=== PATIENT | male | born 1980 | race Hispanic/Latino ===

== ENCOUNTER 2025-04-10 11:32 | Inpatient (IN) | payer SELFPAY ==
[2025-04-10] VITALS (50 sets, daily range): BP systolic 110–149; BP diastolic 58–85; PULSE 86–112; RESP 16–29; TEMP 36.9–37.9; O2SAT 71–100; BMI 41.5
--- NOTE | ~2025-04-10 | XR_ITS ---
EXAMINATION: XR chest 1V portable, 04/15/2025 18:50 CDT HISTORY: New onset fever not resolving COMPARISON: No comparisons available. Technique: Single view. Findings: The lungs are clear, no effusion. No pneumothorax. Heart is normal size. Mediastinal and hilar contours are within normal limits. Bony thorax no acute abnormality. Impression: No acute cardiopulmonary abnormality. Reviewed, dictated and finalized at location A. Impression: No acute cardiopulmonary abnormality.
--- NOTE | ~2025-04-10 | CT_ITS ---
Exam: CT chest, abdomen and pelvis without contrast Clinical History: [Fever. Renal failure ] Comparison: [ CTA abdomen pelvis 04/28/2025] Technique: Multiple axial CT images of the chest, abdomen and pelvis were obtained without IV contrast. Sagittal and coronal reformatted images were obtained. FINDINGS: Lungs and pleura: [ Small bilateral pleural effusions.] Tracheal bronchial tree is patent. No pneumothorax. No pulmonary mass. There are a few small patchy, reticular and bandlike opacities in the lower lungs. Mediastinum and pulmonary evan: [ No mass or adenopathy.] Axillary/intramammary and supraclavicular: [ No mass or adenopathy.] Heart and great vessels: [Heart is moderately enlarged.[ [ Small pericardial effusion.] [ No aneurysm.] Chest Wall: [ Unremarkable.] Liver: [Micronodular appearance to the surface of the liver suggestive of cirrhosis.No mass.] [ No intrahepatic biliary duct dilatation.] Gallbladder: Gallbladder is contracted. Common bile duct: [ Normal caliber.] [ No stones.] Spleen: [Spleen is enlarged and measures 19.8 cm. Pancreas: [ No mass. No pancreatic fluid collection.] Adrenals: [ No masses.] Kidneys: [ No masses. No hydronephrosis.][No renal calculi ] Lymph nodes: [ No adenopathy in the abdomen or pelvis.] Stomach, small bowel and colon: [ No bowel wall thickening or obstruction.] Moderate amount of stool. Peritoneum cavity: [ Small to moderate amount of nonspecific fat stranding and fluid in the abdomen and pelvis. Bladder: [ Mild concentric thickening of the wyman of a moderately distended bladder.] Prostate gland is not enlarged but is partially calcified. Osseous structures: [ No acute fracture or destructive lesion.] [ Multilevel degenerative change in the visualized spine.] Bones appear osteopenic. There are two probable old compression fractures in the thoracic spine. Abdominal aorta: [ No aneurysm.] Additional findings: [ None of significance.] IMPRESSION: 1. There are a few small patchy, reticular and bandlike opacities in the lower lungs. Differential includes atelectasis/scarring or infiltrates. 2. Small bilateral pleural effusions. 3. Small to moderate amount of nonspecific fat stranding and fluid in the abdomen and pelvis. 4. The gallbladder is contracted. Acute cholecystitis is not excluded. If of concern, consider a HIDA scan. 5. Moderate amount of stool. 6. Micronodular appearance to the surface of the liver suggestive of cirrhosis. 7. Splenomegaly 8. Mild concentric thickening of the wyman of the moderately distended bladder. Differential includes incomplete bladder wall distention versus cystitis. If symptoms persist or worsen, consider a short-term follow-up study or additional imaging for further assessment. Reviewed, dictated and finalized at location Q. IMPRESSION: 1. There are a few small patchy, reticular and bandlike opacities in the lower lungs. Differential includes atelectasis/scarring or infiltrates. 2. Small bilateral pleural effusions. 3. Small to moderate amount of nonspecific fat stranding and fluid in the abdom en and pelvis. 4. The gallbladder is contracted. Acute cholecystitis is not excluded. If of co ncern, consider a HIDA scan. 5. Moderate amount of stool. 6. Micronodular appearance to the surface of the liver suggestive of cirrhosis. 7. Splenomegaly 8. Mild concentric thickening of the wyman of the moderately distended bladder. Differential includes incomplete bladder wall distention versus cystitis. If symptoms persist or worsen, consider a short-term follow-up study or additio nal imaging for further assessment.
--- NOTE | ~2025-04-10 | US_ITS ---
US renal BI 04/16/2025 18:23 Procedure: Realtime transabdominal ultrasound of the kidneys and bladder. Indication: Renal failure Comparison: No prior studies for comparison. Findings: Renal echotexture is normal bilaterally without hydronephrosis, contour deforming mass or renal calculus. The right kidney measures 12.9 cm and left kidney measures 12.5 cm. Bladder within normal limits. There is ascites in the upper abdomen. Nodular liver surface, compatible cirrhosis. Impression: 1: Unremarkable renal ultrasound. No stones, masses or hydronephrosis. 2: Ascites. 3: Nodular liver surface, compatible with cirrhosis. Reviewed, dictated and finalized at location O. Impression: 1: Unremarkable renal ultrasound. No stones, masses or hydronephrosis. 2: Ascites. 3: Nodular liver surface, compatible with cirrhosis.
--- NOTE | ~2025-04-10 | CT_ITS ---
EXAMINATION: CTA abdomen pelvis DATE: 04/10/2025 16:35 CDT INDICATION: Cirrhosis. GI bleed. TECHNIQUE: Computed tomographic angiography (CTA) of the abdomen and pelvis was performed without and with 100 mL Omnipaque-350 intravenous contrast. The dose- length product was 804.65 mGy-cm. Maximum intensity projection 3D- reconstructions of the aorta and other arteries were constructed by the techno logist on a separate workstation. COMPARISON: None. FINDINGS: Lung bases unremarkable. Cardiomegaly. There is cirrhosis of the liver with evidence of portal hypertension and splenomegaly. The pancreas, adrenal glands and kidneys are unremarkable. Nonobstructive bowel gas pattern. There is ascites. No significant vascular abnormality. Retroaortic left renal vein. Mild bladder wall thickening. No acute osseous abnormality. IMPRESSION: 1. Cirrhosis with portal hypertension. 2: Splenomegaly. 3: Cardiomegaly. 4: Small amount of ascites. 5: Mild bladder wall thickening. Correlate clinically for cystitis. Reviewed, dictated and finalized at location O.
--- NOTE | ~2025-04-10 | CT_ITS ---
EXAM: CT brain wo con - 04/10/2025 12:30 CDT History: 44 years old Male with sz COMPARISON: None available. PROCEDURE: CT of the head without contrast. Axial, sagittal and coronal reformatted planes were evaluated. Automatic exposure control was used for this study. FINDINGS: BRAIN PARENCHYMA: No acute hemorrhage. No mass effect or herniation. Ignacio-white matter differentiation is maintained. Normal appearance of cortex. VENTRICLES/ EXTRA-AXIAL SPACES: No hydrocephalus or extra-axial fluid collection. EXTRACRANIAL STRUCTURES: No calvarial fracture. IMPRESSION: No evidence for acute intracranial hemorrhage or calvarial fracture. Reviewed, dictated and finalized at location N.
--- NOTE | ~2025-04-10 | US_ITS ---
EXAMINATION: US paracentesis abd w/image DATE: 04/12/2025 08:51 INDICATION: Ascites. TECHNIQUE: The procedure and its risks and benefits were discussed with the patient. Potential risks discussed included bleeding and infection. The skin was prepped and draped in sterile fashion. 1% lidocaine was used for local anesthesia. Under ultrasound guidance, a 5 Fr catheter with trochar was advanced into the ascites in the left lower quadrant. Fluid was aspirated into vacuum bottles. The catheter was removed, and a dressing was applied. There were no immediate complications. FINDINGS: Ultrasound images demonstrate ascites and the catheter within the fluid. IMPRESSION: 1. Successful ultrasound-guided paracentesis yielding 1000 mL of clear saba- colored fluid. Reviewed, dictated and finalized at location A. IMPRESSION: 1. Successful ultrasound-guided paracentesis yielding 1000 mL of clear saba-c olored fluid.
--- NOTE | 2025-04-10 11:43 | ECG_ITS ---
Test Date: 2025-04-10 12:07:40 Measurements Intervals [place] Rate: 100 P: 58 MD: 168 QRS: 39 QRSD: 102 T: 30 QT: 352 QTc: 455 Interpretive Statements SINUS TACHYCARDIA LOW-VOLTAGE QRS OTHERWISE NORMAL ECG No previous ECG available for comparison Electronically Signed On 04-10-2025 16:02:47 CDT by Mk Cr M.D.
[2025-04-10 12:50] LABS: Cannabinoid Screen Urine Negative (Negative)
[2025-04-10 12:51] LABS: Add Urine Microscopic? YES; Appearance Urine Cloudy (Clear); Glucose Urine UA Negative (Negative); Leukocyte Esterase Ur Trace LEU/UL (Negative); Need Manual Microscopic Reviewed; Nitrate Urine Negative (Negative); Specific Grav Ur 1.014 (1.001-1.035)
[2025-04-10] MEDS: SODIUM CHLORIDE 0.9% IV 1,000 ML 150 ML IV CONT (12:53)
[2025-04-10 14:24] LABS: Immature Granulocyte Percent A 2.3 % (0-0.5); Lymphocytes Absolute Auto 0.46 K/mm3 (0.9-3.2); Mean Corpuscular HGB Conc 22.5 g/dl (32-36); Mean Corpuscular Hemoglobin 17.4 pg (26-34); Mean Corpuscular Volume 77.1 fl (80-100); Nucleated Red Blood Cells Absolute Auto 0.130 K/mm3 (0.0-0.012); Nucleated Red Blood Cells Perc 6.0 % (0.0-0.2); Platelet Count Result 48 k/mm3 (150-375); Red Blood Count 1.44 M/mm3 (4.6-6.20); White Blood Count 2.2 K/mm3 (4.5-10.0)
[2025-04-10 14:34] LABS: Hematocrit 11.1 % (42.0-52.0); Hemoglobin 2.5 g/dL (14.0-18.0)
[2025-04-10 14:36] LABS: INR 1.8; Prothrombin Time 20.7 Seconds (11.1-14.7)
[2025-04-10 15:15] LABS: Alanine Aminotransferase 17 U/L (6-50); Albumin Level 2.7 g/dL (3.5-5.1); Alkaline Phosphatase 107 U/L (38-126); Anion Gap 9 mmol/L (4-12); Aspartate Amino Transferase 40 U/L (17-59); Bilirubin,Total 3.5 mg/dL (0.2-1.3); Blood Urea Nitrogen 14 mg/dL (9-20); Calcium 7.7 mg/dL (8.4-10.2); Carbon Dioxide 19 mmol/L (22-30); Chloride 109 mmol/L (98-107); Estimated CRCL calculation 92 ml/min; Estimated Glomerular Filt Rate > 60; Glucose 99 mg/dL (65-110); Lipase 192 U/L (23-300); Potassium 3.6 mmol/L (3.4-5.0); Sodium 137 mmol/L (137-145); Total Protein 7.1 g/dL (6.3-8.2)
[2025-04-10 15:24] LABS: NT Pro B Type Natriuretic Pept 355 pg/mL (19.9-100)
[2025-04-10] MEDS: TUBING, BLOOD SET 1 EACH XX (17:07)
[2025-04-10] MEDS: SODIUM CHLORIDE 0.9% IV 250 ML 30 ML IV CONT ×2 (17:07→22:14)
--- NOTE | 2025-04-10 17:18 | ED_ITS ---
HPI - Seizure General Chief Complaint: Seizure Stated Complaint: seizure Time Seen by Provider: 04/10/25 11:38 Source: bar host/hostess Mode of arrival: EMS Limitations: language barrier History of Present Illness HPI Narrative: 44-year-old [place]-speaking was brought in by EMS from home with the complaints of having seizure activity. As per the EMS patient had seizure activity at 5:00 a.m. in the morning however he declined to come to the ER at that time had another seizure while he was on the horse and fell. Denies any headache neck pain or chest pain. He is a daily drinker. Last drink was 2 days ago. No previous history of seizures. MD complaint: seizure Onset (ago): hour(s) (1) Description of Episode: loss of consciousness, bladder incontinence (no) and bowel incontinence (no) Witnessed: Yes - by Bystander Trauma: No Seizure History: No Place: home Possible Precipitating Event: none Associated symptoms: denies other symptoms Related Data Allergies Allergy/AdvReac Type Severity Reaction Status Date / Time No Known Allergies Allergy Verified 04/10/25 12:11 Review of Systems 2 Constitutional: Constitutional: Reports no additional constitutional complaints Eyes: Eyes: Reports no additional eye complaints ENT: Reports system reviewed and no additional complaints, except as documented Cardiovascular: Cardiovascular: Reports no additional cardiovascular complaints Respiratory: Respiratory: Reports no additional respiratory complaints Gastrointestinal: Gastrointestinal: Reports no additional gastrointestinal complaints Musculoskeletal: Musculoskeletal: Reports no additional musculoskeletal complaints Neurologic: Reports system reviewed and no additional complaints, except as documented Exam 2 Narrative: GENERAL: Well-appearing, well-nourished, and in no acute distress. HEAD: Normocephalic, atraumatic. EYES: PERRLA and EOMI. ENT: Nares clear, no rhinorrhea or epistaxis. Mucous membranes moist. Has small tongue lac at the tip ,no active bleeding NECK: Supple. CHEST: Clear to auscultation. No respiratory distress. HEART: Regular rate and rhythm. No murmur heard. Normal peripheral pulses. ABDOMEN: Soft, nontender, mild distended, normal active bowel sounds. Heme positive stool EXTREMITIES: Normal range of motion. No edema. SKIN: Warm, dry, no rash. NEURO: No focal deficits. Alert and oriented x3. PSYCH: Normal mood and affect. Course Course Emergency Course: Patient had no further episodes of seizure activity however his hemoglobin is 2.5 did order 3 units of PRBC. His rectal exam showed heme-positive stools did start him on Protonix. Discussed with the electric meter repairer apprentice recommended octreotide drip. Also consulted Dr. Murray will consult patient. Vital Signs Vital signs: Vital Signs Pulse Rate 99 04/10/25 12:13 Respiratory Rate 18 04/10/25 12:13 Pulse Oximetry 98 04/10/25 12:13 Oxygen Delivery Room Air 04/10/25 12:13 Temperature 37.2 C 04/10/25 16:48 Pulse Rate 104 H 04/10/25 16:48 Respiratory Rate 24 H 04/10/25 16:48 Blood Pressure 125/68 04/10/25 16:48 Pulse Oximetry 100 04/10/25 16:48 Oxygen Delivery Room Air 04/10/25 12:20 MDM - Seizure Differential Diagnosis Differential diagnosis: Likely new onset seizure, epileptic seizure and other (alcohol withdrawal) Medical Records Attestation: I reviewed the patient's medical records. Lab Data Attestation: I reviewed the patient's lab results. 04/10/25 14:09 04/10/25 14:09 Labs: Lab Results 04/10/25 04/10/25 04/10/25 Range/Units 12:23 14:09 14:10 WBC 2.2 L (4.5-10.0) K/mm3 RBC 1.44 L (4.6-6.20) M/mm3 Hgb 2.5 L* (14.0-18.0) g/dL Hct 11.1 L* (42.0-52.0) % MCV 77.1 L (80-100) fl MCH 17.4 L (26-34) pg MCHC 22.5 L (32-36) g/dl RDW 23.7 H (11.5-14.5) % Plt Count 48 L (150-375) k/mm3 MPV 9.4 (7.4-10.4) fl Immature Gran % (Auto) 2.3 H (0-0.5) % Neut % (Auto) 61.9 (45.5-73.1) % Lymph % (Auto) 21.1 (18.3-44.2) % [place] % (Auto) 14.2 H (2.6-8.5) % Eos % (Auto) 0.5 (0-4.4) % Baso % (Auto) 0.0 L (0.2-1.2) % Lymph # (Auto) 0.46 L (0.9-3.2) K/mm3 [place] # (Auto) 0.3 (0.1-0.6) K/mm3 Eos # (Auto) 0.0 (0-0.3) K/mm3 Baso # (Auto) 0.0 (0.0-0.1) K/mm3 Abs Immat Gran (auto) 0.05 H (0.00-0.031) K/mm3 Absolute Neuts (auto) 1.4 (1.3-6.7) K/mm3 Absolute Nucleated RBC 0.130 H (0.0-0.012) K/mm3 Nucleated RBC % 6.0 H (0.0-0.2) % PT 20.7 H (11.1-14.7) Seconds INR 1.8 Sodium 137 (137-145) mmol/L Potassium 3.6 (3.4-5.0) mmol/L Chloride 109 H (98-107) mmol/L Carbon Dioxide 19 L (22-30) mmol/L Anion Gap 9 (4-12) mmol/L BUN 14 (9-20) mg/dL Creatinine 0.93 (0.7-1.3) mg/dL Estim Creat Clear Calc 92 ml/min Estimated GFR > 60 (59 - ) Glucose 99 (65-110) mg/dL Lactic Acid 2.1 H (0.7-2.0) mmol/L Calcium 7.7 L (8.4-10.2) mg/dL Total Bilirubin 3.5 H (0.2-1.3) mg/dL AST 40 (17-59) U/L ALT 17 (6-50) U/L Alkaline Phosphatase 107 (38-126) U/L NT-Pro-B Natriuret Pep 355 H (19.9-100) pg/mL Total Protein 7.1 (6.3-8.2) g/dL Albumin 2.7 L (3.5-5.1) g/dL Lipase 192 (23-300) U/L Urine Color Dark yellow (Yellow) Urine Appearance Cloudy H (Clear) Urine pH 6.0 (5.0-9.0) Ur Specific [place] 1.014 (1.001-1.035) Urine Protein 2+ H (Negative) mg/dL Urine Glucose (UA) Negative (Negative) mg/dL Urine Ketones Negative (Negative) mg/dL Ur Blood (Man) Negative (Negative) Urine Nitrate Negative (Negative) Urine Bilirubin 1+ H (Negative) Urine Urobilinogen 1.0 (<2.0) mg/dL Add Ur Microanalysis Reviewed Leukocyte Esterase Rfl Trace H (Negative) VASQUEZ/UL Urine RBC 3-5 H (0-2) /hpf Urine WBC 0-5 (0-3) /hpf Ur Squamous Epith Cells Occasional (Few) /hpf Urine Bacteria None seen /hpf Urine Casts 11-20 Urine Opiates Screen Negative (Negative) Urine Methadone Screen Negative (Negative) Ur Barbiturates Screen Negative (Negative) Ur Phencyclidine Scrn Negative (Negative) Ur Amphetamine Screen Negative (Negative) U Benzodiazepines Scrn Negative (Negative) Urine Cocaine Screen Negative (Negative) U Cannabinoids Screen Negative (Negative) Ethyl Alcohol < 10 (<10) mg/dL Blood Type Antibody Screen Crossmatch 04/10/25 04/10/25 Range/Units 14:45 16:49 WBC (4.5-10.0) K/mm3 RBC (4.6-6.20) M/mm3 Hgb (14.0-18.0) g/dL Hct (42.0-52.0) % MCV (80-100) fl MCH (26-34) pg MCHC (32-36) g/dl RDW (11.5-14.5) % Plt Count (150-375) k/mm3 MPV (7.4-10.4) fl Immature Gran % (Auto) (0-0.5) % Neut % (Auto) (45.5-73.1) % Lymph % (Auto) (18.3-44.2) % [place] % (Auto) (2.6-8.5) % Eos % (Auto) (0-4.4) % Baso % (Auto) (0.2-1.2) % Lymph # (Auto) (0.9-3.2) K/mm3 [place] # (Auto) (0.1-0.6) K/mm3 Eos # (Auto) (0-0.3) K/mm3 Baso # (Auto) (0.0-0.1) K/mm3 Abs Immat Gran (auto) (0.00-0.031) K/mm3 Absolute Neuts (auto) (1.3-6.7) K/mm3 Absolute Nucleated RBC (0.0-0.012) K/mm3 Nucleated RBC % (0.0-0.2) % PT (11.1-14.7) Seconds INR Sodium (137-145) mmol/L Potassium (3.4-5.0) mmol/L Chloride (98-107) mmol/L Carbon Dioxide (22-30) mmol/L Anion Gap (4-12) mmol/L BUN (9-20) mg/dL Creatinine (0.7-1.3) mg/dL Estim Creat Clear Calc ml/min Estimated GFR (59 - ) Glucose (65-110) mg/dL Lactic Acid 1.7 (0.7-2.0) mmol/L Calcium (8.4-10.2) mg/dL Total Bilirubin (0.2-1.3) mg/dL AST (17-59) U/L ALT (6-50) U/L Alkaline Phosphatase (38-126) U/L NT-Pro-B Natriuret Pep (19.9-100) pg/mL Total Protein (6.3-8.2) g/dL Albumin (3.5-5.1) g/dL Lipase (23-300) U/L Urine Color (Yellow) Urine Appearance (Clear) Urine pH (5.0-9.0) Ur Specific [place] (1.001-1.035) Urine Protein (Negative) mg/dL Urine Glucose (UA) (Negative) mg/dL Urine Ketones (Negative) mg/dL Ur Blood (Man) (Negative) Urine Nitrate (Negative) Urine Bilirubin (Negative) Urine Urobilinogen (<2.0) mg/dL Add Ur Microanalysis Leukocyte Esterase Rfl (Negative) VASQUEZ/UL Urine RBC (0-2) /hpf Urine WBC (0-3) /hpf Ur Squamous Epith Cells (Few) /hpf Urine Bacteria /hpf Urine Casts Urine Opiates Screen (Negative) Urine Methadone Screen (Negative) Ur Barbiturates Screen (Negative) Ur Phencyclidine Scrn (Negative) Ur Amphetamine Screen (Negative) U Benzodiazepines Scrn (Negative) Urine Cocaine Screen (Negative) U Cannabinoids Screen (Negative) Ethyl Alcohol (<10) mg/dL Blood Type O Positive Antibody Screen Negative Crossmatch See Detail Imaging Data Radiologist's impression: ITS Impressions Head CT 04/10/25 12:55 IMPRESSION: No evidence for acute intracranial hemorrhage or calvarial fracture. Abdomen/Pelvis CTA 04/10/25 16:34 IMPRESSION: 1. Cirrhosis with portal hypertension. 2: Splenomegaly. 3: Cardiomegaly. 4: Small amount of ascites. 5: Mild bladder wall thickening. Correlate clinically for cystitis. ECG Data EKG #1: ECG completion date: 04/10/25 ECG completion time: 01:00 EKG Interpretation: tachycardia (100), no ectopy, normal QRS, normal QT and no acute changes Critical Care Time Critical Care Time Critical Care Time: Yes Total Critical Care Time: 45 Discharge Plan Discharge Clinical Impression: Alcohol withdrawal seizure Qualifiers: Complication of substance-induced condition: uncomplicated Qualified Code(s): F 10.930 - Alcohol use, unspecified with withdrawal, uncomplicated; R56.9 - Unspecified convulsions GI (gastrointestinal hemorrhage) Qualifiers: GI bleed type/associated pathology: unspecified gastrointestinal hemorrhage type Qualified Code(s): K92.2 - Gastrointestinal hemorrhage, unspecified Anemia Qualifiers: Anemia type: unspecified type Qualified Code(s): D64.9 - Anemia, unspecified Cirrhosis of liver Qualifiers: Hepatic cirrhosis type: alcoholic cirrhosis Ascites presence: with ascites Q ualified Code(s): K70.31 - Alcoholic cirrhosis of liver with ascites Patient Disposition: Still a Patient Condition: Stable Patient Language: Divehi Follow-up/Referrals: UNKNOWN,DOCTOR [Primary Care Provider] Time of Disposition: 17:20
--- NOTE | 2025-04-10 17:42 | P.HP_ITS ---
H&P: HPI History of Present Illness Date/Time: 04/10/25 17:42 Chief Complaint: Seizure Narrative: 44-year-old male past medical history of ETOH use presents the hospital with seizures. Patient had is for seizure around 5:00 a.m. EMS was called however he declined AMS at that time. Later on in the day the patient had another seizure with a fall. Patient states his last drink was 2 days ago. 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 Patient states that he has some abdominal pain. Patient denies dizziness, fatigue, dark tardy or bloody stools. Patient states that he drinks a lot of beer. He is unable to quantify how much. He drinks. He states that his last drink was on Wednesday. He states that he is not going through any withdrawal symptoms. In the ED the patient's lab work shows thrombocytopenia with white count being 2.2, hemoglobin being 2.5, platelets being 48, chloride 109, carbon dioxide 19, lactic acid 2.1 followed by 1.7, calcium 7.7, total bili 3.5, UA is cloudy with trace leukocyte esterase, 3-5 rbc's, tox screen is negative, ethanol level is negative. Chest abdomen pelvis shows cirrhosis with portal hypertension, splenomegaly, cardiomegaly, small amount of ascites and mild bladder wall thickening. Patient has been accepted into the ICU plan to transfuse at least 3 units RBCs and start patient on Rocephin, Protonix and octreotide. 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 Review of Systems Review of Systems: 12 systems were reviewed and are negativ e except for as per HPI. [facility] Past Medical History Medical History (Updated 04/10/25 @ 17:54 by Jeannette Colbert APRN) Alcohol abuse Cirrhosis of liver Social History Social History Smoking packs per day: 2 Smoking cigarettes per day: 40.0 Years smoked: 8 Smoking pack-years: 16.00 Smoking status: Former smoker Tobacco type: cigarettes Alcohol intake: current Drinks per week: 12 Substance use: never Lack of Transportation: No Lack of Food: Never True Current Housing: I Do Not Have Housing Concerned About Future Housing: No Difficulty Paying Gas/Electric Bills: No Difficulty Paying for Meds: No Currently Unemployed: No Education: Grade School Difficulty w/ Childcare or Family Care: No Spiritual care concerns: No Meds Home Medications and Allergies Home Medications ?Medication ?Instructions ?Recorded ?Confirmed ?Type No Home Medications 04/10/25 04/10/25 H istory Allergies Allergy/AdvReac Type Severity Reaction Status Date / Time No Known Allergies Allergy Verified 04/10/25 12:11 Vital Signs Vital Signs - 24 hr 04/10/25 12:13 04/10/25 12:17 04/10/25 12:20 Temperature Pulse Rate 99 98 Respiratory Rate 18 19 Blood Pressure Pulse Oximetry 98 98 Oxygen Delivery Room Air Room Air 04/10/25 12:37 04/10/25 12:45 04/10/25 13:00 Temperature Pulse Rate 103 H 97 98 Respiratory Rate 21 H 21 H 22 H Blood Pressure Pulse Oximetry 71 L 100 100 Oxygen Delivery 04/10/25 13:15 04/10/25 16:28 04/10/25 16:48 Temperature 98.9 F 98.9 F Pulse Rate 96 103 H 104 H Respiratory Rate 23 H 23 H 24 H Blood Pressure 131/63 125/68 Pulse Oximetry 100 100 100 Oxygen Delivery 04/10/25 17:37 Temperature 99 F Pulse Rate 98 Respiratory Rate 19 Blood Pressure 121/69 Pulse Oximetry 98 Oxygen Delivery Exam Narrative: General: well appearing, appears stated age. Jaundice HEENT: normocephalic, atraumatic. Mucous membranes moist. EOMI, PERRLA, bilateral sclera icterus no conjunctival injection. Neck supple without JVD, lymphadenopathy, or bruit. Respiratory: clear to ascultation bilaterally. No rales/rhonic/wheezes. Cardiovascular: Regular rate and rhythm, normal S1-S2 upon ascultation. No murmurs, rubs, or clicks. PMI is nondisplaced, capillary refill less than 3 second. Abdomen: Firm obese, no pulsatile masses, nondistended and nontender. No rebound, no guarding. No CVA tenderness, no hepatosplenomegaly. Bowel sounds present to all four quadrants. No high pitch or tinkling sounds, resonant to percussion. Extremities: No cyanosis, clubbing, or edema present. Pulses are palpable 2/2. Active ROM to all four extremities. Neuro: Alert and orientated x 4. PERRLA. Cranial nerves 2-12 intact without focal deficit. Skin: Warm, dry, and intact, without rash, erythema, or lesion. Psych: pleasant, cooperative, normal speech, normal affect, no hallucinations, no dysarthia H&P: Results Labs Labs: Short CBC 04/10/25 Range/Units 14:09 WBC 2.2 L (4.5-10.0) K/mm3 Hgb 2.5 L* (14.0-18.0) g/dL Hct 11.1 L* (42.0-52.0) % Plt Count 48 L (150-375) k/mm3 BMP 04/10/25 14:09 Sodium 137 Potassium 3.6 Chloride 109 H Carbon Dioxide 19 L BUN 14 Creatinine 0.93 Glucose 99 Calcium 7.7 L Liver Function 04/10/25 Range/Units 14:09 Total Bilirubin 3.5 H (0.2-1.3) mg/dL AST 40 (17-59) U/L ALT 17 (6-50) U/L Alkaline Phosphatase 107 (38-126) U/L Albumin 2.7 L (3.5-5.1) g/dL Urine 04/10/25 Range/Units 12:23 Urine Color Dark yellow (Yellow) Urine Appearance Cloudy H (Clear) Urine pH 6.0 (5.0-9.0) Ur Specific [place] 1.014 (1.001-1.035) Urine Protein 2+ H (Negative) mg/dL Urine Glucose (UA) Negative (Negative) mg/dL Assessment and Plan Assessment and plan (1) Anemia: Qualifiers: Anemia type: unspecified type Qualified Code(s): D64.9 - Anemia, unspecified Code(s): D64.9 - Anemia, unspecified Status: Acute Assessment and Plan: Hemoglobin on admission 2.5 Admission to ICU Transfuse least 3 units H&H q.6 Hemoglobin after 3 units was 5.9. (2) GI (gastrointestinal hemorrhage): Qualifiers: GI bleed type/associated pathology: unspecified gastrointestinal hemorrhage type Qualified Code(s): K92.2 - Gastrointestinal hemorrhage, unspecified Code(s): K92.2 - Gastrointestinal hemorrhage, unspecified Status: Acute Assessment and Plan: GI consulted Plan for scope tomorrow NPO midnight (3) Cirrhosis of liver: Qualifiers: Ascites presence: with ascites Hepatic cirrhosis type: alcoholic cirrhosis Qualified Code(s): K70.31 - Alcoholic cirrhosis of liver with ascites Code(s): K74.60 - Unspecified cirrhosis of liver Status: Acute Assessment and Plan: With portal hypertension Octreotide and Protonix GI consulted (4) Alcohol withdrawal seizure: Qualifiers: Complication of substance-induced condition: uncomplicated Qualified Code(s): F10.930 - Alcohol use, unspecified with withdrawal, uncomplicated; R56.9 - Unspecified convulsions Code(s): F10.939 - Alcohol use, unspecified with withdrawal, unspecified; R56.9 - Unspecified convulsions Status: Acute Assessment and Plan: WA protocol Valium, thiamine, folic acid, multivitamin Seizure precautions (5) Thrombocytopenia: Code(s): D69.6 - Thrombocytopenia, unspecified Status: Acute Assessment and Plan: Likely due to liver cirrhosis Hematology consulted (6) Hypocalcemia: Code(s): E83.51 - Hypocalcemia Status: Acute Assessment and Plan: 1 g calcium gluconate Quality VTE Prophylaxis VTE prophylaxis: mechanical ordered If No VTE Prophylaxis Answer both mechanical and pharmacologic: Reason no pharmacologic proph: medical contraindication Hospitalist MIPS Advance Care Plan I have confirmed that the patient's Advanced Care Plan is present, code status is documented, or surrogate decision maker is listed in patient medical record.: Yes Medication Reconciliation I have utilized all available resources to obtain, update and review the patients current medications (includes all prescriptions, OTC, herbals, cannabis, and nutritional supplements).: Yes
[2025-04-10] MEDS: TUBING, BLOOD PLUM PUMP TUBING 1 EACH XX (17:50)
[2025-04-10] MEDS: PANTOPRAZOLE SODIUM IV 40 MG VIAL IV PUSH (18:25)
[2025-04-10] MEDS: chlordiazePOXIDE (*CRX) 25 MG CAPSULE 50 MG PO (18:25)
[2025-04-10 19:01] LABS: MRSA (PCR) NOT DETECTED (NOT DETECTE)
--- NOTE | 2025-04-10 19:10 | ADMGEN ---
This patient, Edilberto Funes, was admitted to Intensive Care Unit-8. Patient/family oriented to hospital policies and general routines including ID bracelet, bed and alarms, visiting hours, pain management, procedures, bathroom and other care routines, personal items, smoking policy, room service/diet, and visiting hours. Information on how to activate the Rapid Response Team has been discussed. Patient/Family are encouraged to report perceived risks to care and to ask questions if they do not understand what they are told or what they should do.
[2025-04-10] MEDS: CALCIUM GLUC 1,000 MG/NS 50 ML 1,000 MG/50 ML BAG 100 MG IVPB (19:36)
[2025-04-10] MEDS: OCTREOTIDE ACETATE 500 MCG in SODIUM CHLORIDE 0.9% IV 99 ML 10 MCG IV CONT (19:36)
[2025-04-10 22:06] LABS: Hematocrit 21.9 % (42.0-52.0)
[2025-04-10 22:09] LABS: Hemoglobin 5.9 g/dL (14.0-18.0)
[2025-04-11] VITALS (33 sets, daily range): BP systolic 112–148; BP diastolic 7–87; PULSE 71–87; RESP 12–20; TEMP 36.1–37.5; O2SAT 97–100
[2025-04-11] MEDS: chlordiazePOXIDE (*CRX) 25 MG CAPSULE 50 MG PO (00:40)
[2025-04-11] MEDS: DEXTROSE 50% 25 GM/50 ML SYRINGE IV PUSH (01:45)
[2025-04-11 03:48] LABS: Hematocrit 21.0 % (42.0-52.0); Immature Granulocyte Percent A 1.7 % (0-0.5); Lymphocytes Absolute Auto 0.60 K/mm3 (0.9-3.2); Mean Corpuscular HGB Conc 28.6 g/dl (32-36); Mean Corpuscular Hemoglobin 23.7 pg (26-34); Mean Corpuscular Volume 83.0 fl (80-100); Nucleated Red Blood Cells Absolute Auto 0.120 K/mm3 (0.0-0.012); Nucleated Red Blood Cells Perc 4.1 % (0.0-0.2); Platelet Count Result 62 k/mm3 (150-375); Red Blood Count 2.53 M/mm3 (4.6-6.20); White Blood Count 3.0 K/mm3 (4.5-10.0)
[2025-04-11 03:55] LABS: INR 1.7; Prothrombin Time 19.9 Seconds (11.1-14.7)
[2025-04-11 03:56] LABS: Alanine Aminotransferase 17 U/L (6-50); Albumin Level 2.7 g/dL (3.5-5.1); Alkaline Phosphatase 76 U/L (38-126); Anion Gap 6 mmol/L (4-12); Aspartate Amino Transferase 37 U/L (17-59); Bilirubin,Total 6.3 mg/dL (0.2-1.3); Blood Urea Nitrogen 12 mg/dL (9-20); Calcium 7.8 mg/dL (8.4-10.2); Carbon Dioxide 17 mmol/L (22-30); Chloride 112 mmol/L (98-107); Estimated Glomerular Filt Rate > 60; Glucose 119 mg/dL (65-110); Magnesium 2.4 mg/dL (1.6-2.3); Partial Thromboplastin Time 37.4 Seconds (22.3-36.8); Potassium 3.6 mmol/L (3.4-5.0); Sodium 135 mmol/L (137-145); Total Protein 7.0 g/dL (6.3-8.2)
[2025-04-11 03:59] LABS: Hemoglobin 6.0 g/dL (14.0-18.0)
[2025-04-11 04:00] LABS: Anisocytosis 1+; Hypochromasia 2+; Poikilocytosis 1+
[2025-04-11 04:01] LABS: Ovalocytes Occasional; Schistocytes Rare; Tear Drop Cells 1+
[2025-04-11] MEDS: OCTREOTIDE ACETATE 500 MCG in SODIUM CHLORIDE 0.9% IV 99 ML 10 MCG IV CONT (04:18)
[2025-04-11 09:24] LABS: Ammonia 48 umol/L (9-30)
--- NOTE | 2025-04-11 09:29 | WPDCNINT ---
Assessment and Plan Assessment and plan (1) Anemia: Qualifiers: Anemia type: unspecified type Qualified Code(s): D64.9 - Anemia, unspecified Code(s): D64.9 - Anemia, unspecified Status: Acute Assessment and Plan: Patient presented with hemoglobin of 2.5. He denies any hematochezia melena or hematemesis but we strongly suspect ongoing chronic GI bleed likely variceal considering patient has history of cirrhosis He has not had any bowel movements since coming to the hospital. And no obvious bleeding at this time Continue Protonix IV and octreotide infusion He has received 4 units of PRBC and his hemoglobin is 6. I will transfuse another unit of PRBC Monitor serial hemoglobin GI has been consulted and plan for EGD and colonoscopy most likely on 04/12 (2) Alcohol abuse: Code(s): F10.10 - Alcohol abuse, uncomplicated Status: Acute Assessment and Plan: Continue thiamine folic acid CIWA monitoring Set continue for Librium but I will decrease the dose to 25 Continue p.r.n. Valium (3) Thrombocytopenia: Code(s): D69.6 - Thrombocytopenia, unspecified Status: Acute Assessment and Plan: Likely secondary to cirrhosis. Monitor (4) Cirrhosis of liver: Qualifiers: Ascites presence: with ascites Hepatic cirrhosis type: alcoholic cirrhosis Qualified Code(s): K70.31 - Alcoholic cirrhosis of liver with ascites Code(s): K74.60 - Unspecified cirrhosis of liver Status: Acute Assessment and Plan: Secondary to alcohol abuse Check ammonia Vitamin K IM 10 mg SBP prophylaxis with Rocephin (5) GI (gastrointestinal hemorrhage): Qualifiers: GI bleed type/associated pathology: unspecified gastrointestinal hemorrhage type Qualified Code(s): K92.2 - Gastrointestinal hemorrhage, unspecified Code(s): K92.2 - Gastrointestinal hemorrhage, unspecified Status: Acute Assessment and Plan: See above (6) Alcohol withdrawal seizure: Qualifiers: Complication of substance-induced condition: uncomplicated Qualified Code(s): F10.930 - Alcohol use, unspecified with withdrawal, uncomplicated; R56.9 - Unspecified convulsions Code(s): F10.939 - Alcohol use, unspecified with withdrawal, unspecified; R56.9 - Unspecified convulsions Status: Acute Assessment and Plan: Strongly suspect alcohol withdrawal seizures. Patient has not have any history of seizures otherwise. She had no recurrence since coming to the hospital Seizure precaution He is on Librium and p.r.n. Valium is ordered (7) Ascites: Code(s): R18.8 - Other ascites Status: Acute Assessment and Plan: Patient has site is on exam and CT scan He denies any abdominal pain to me but did admit having abdominal pain 2 admitting provider Continue Rocephin Will request IR for ultrasound-guided paracentesis both diagnostic and therapeutic Plan DVT prophylaxis -S CD Stress ulcer prophylaxis -PPI Nutrition - NPO Code Status - Full Code Annual Giving Manager Consult Note Consult date: 04/11/25 Reason for consult: Alcohol withdrawal seizure, anemia HPI: Edilberto Funes is a 44 year old male with past medical history of heavy ETOH use presents the hospital with seizures. Patient had a seizure around 5:00 a.m yesterday. EMS was called however he declined to come to the hospital initially. Later on in the day the patient had another seizure with a fall and was brought to the hospital. Patient admitted to drinking daily but his last drink was 2 days ago. Patient denied any major symptoms including dizziness, fatigue, dark tardy or bloody stools. Workup In the ED the patient's lab work shows thrombocytopenia with white count being 2.2, hemoglobin being 2.5, platelets being 48, chloride 109, carbon dioxide 19, lactic acid 2.1 followed by 1.7, calcium 7.7, total bili 3.5, UA is cloudy with trace leukocyte esterase, 3-5 rbc's, tox screen is negative, ethanol level is negative. Chest abdomen pelvis shows cirrhosis with portal hypertension, splenomegaly, cardiomegaly, small amount of ascites and mild bladder wall thickening. Patient was admitted to the ICU patient was transfused 4 units RBCs overnight. He was also started on Protonix and octreotide. This morning when I evaluated the patient patient denies any specific complaints. He is little drowsy this morning as he received Librium. He has not had any seizures since admission. He has not had any bowel movements. Patient denies fever, chest pain, shortness of breath, cough, nausea vomiting, abdominal pain,, diarrhea, headache or constipation. All other systems were reviewed and were negative Review of Systems Review of Systems: All systems reviewed & are unremarkable except as noted in HPI and below (HPI) [facility] Past Medical History Medical History Alcohol abuse Cirrhosis of liver Social History Social History Smoking packs per day: 2 Smoking cigarettes per day: 40.0 Years smoked: 8 Smoking pack-years: 16.00 Smoking status: Former smoker Tobacco type: cigarettes Alcohol intake: current Drinks per week: 12 Substance use: never Lack of Transportation: No Lack of Food: Never True Current Housing: I Do Not Have Housing Concerned About Future Housing: No Difficulty Paying Gas/Electric Bills: No Difficulty Paying for Meds: No Currently Unemployed: No Education: Grade School Difficulty w/ Childcare or Family Care: No Spiritual care concerns: No Meds Home Medications and Allergies Home Medications ?Medication ?Instructions ?Recorded ?Confirmed ?Type No Home Medications 04/10/25 04/10/25 History Allergies Allergy/AdvReac Type Severity Reaction Status Date / Time No Known Allergies Allergy Verified 04/10/25 12:11 Vital Signs Vital Signs - 24 hr 04/10/25 12:13 04/10/25 12:17 04/10/25 12:20 Temperature Pulse Rate 99 98 Pulse Rate [Monitor] Respiratory Rate 18 19 Blood Pressure Pulse Oximetry 98 98 Oxygen Delivery Room Air Room Air 04/10/25 12:37 04/10/25 12:45 04/10/25 13:00 Temperature Pulse Rate 103 H 97 98 Pulse Rate [Monitor] Respiratory Rate 21 H 21 H 22 H Blood Pressure Pulse Oximetry 71 L 100 100 Oxygen Delivery 04/10/25 13:15 04/10/25 13:26 04/10/25 13:30 Temperature Pulse Rate 96 96 99 Pulse Rate [Monitor] Respiratory Rate 23 H 19 22 H Blood Pressure 124/61 Pulse Oximetry 100 100 100 Oxygen Delivery 04/10/25 13:31 04/10/25 13:45 04/10/25 13:46 Temperature Pulse Rate 99 99 99 Pulse Rate [Monitor] Respiratory Rate 18 21 H 18 Blood Pressure 122/68 129/64 Pulse Oximetry 100 100 100 Oxygen Delivery 04/10/25 14:00 04/10/25 14:01 04/10/25 14:15 Temperature Pulse Rate 99 103 H 98 Pulse Rate [Monitor] Respiratory Rate 20 25 H 19 Blood Pressure 130/61 Pulse Oximetry 100 100 100 Oxygen Delivery 04/10/25 14:16 04/10/25 14:30 04/10/25 14:31 Temperature Pulse Rate 98 98 100 Pulse Rate [Monitor] Respiratory Rate 17 20 18 Blood Pressure 119/66 122/58 L Pulse Oximetry 100 100 100 Oxygen Delivery 04/10/25 14:45 04/10/25 15:00 04/10/25 15:15 Temperature Pulse Rate 104 H 99 100 Pulse Rate [Monitor] Respiratory Rate 24 H 25 H 17 Blood Pressure Pulse Oximetry 100 100 100 Oxygen Delivery 04/10/25 15:30 04/10/25 16:10 04/10/25 16:15 Temperature Pulse Rate 101 H 112 H 106 H Pulse Rate [Monitor] Respiratory Rate 17 21 H Blood Pressure Pulse Oximetry 100 100 Oxygen Delivery 04/10/25 16:28 04/10/25 16:48 04/10/25 17:21 Temperature 37.2 C 37.2 C Pulse Rate 103 H 104 H 99 Pulse Rate [Monitor] Respiratory Rate 23 H 24 H 21 H Blood Pressure 131/63 125/68 Pulse Oximetry 100 100 Oxygen Delivery 04/10/25 17:30 04/10/25 17:31 04/10/25 17:37 Temperature 37.2 C Pulse Rate 99 100 98 Pulse Rate [Monitor] Respiratory Rate 21 H 19 19 Blood Pressure 121/69 121/69 Pulse Oximetry 98 Oxygen Delivery 04/10/25 17:58 04/10/25 17:58 04/10/25 18:10 Temperature 37.3 C 37.3 C Pulse Rate 97 97 98 Pulse Rate [Monitor] Respiratory Rate 18 18 21 H Blood Pressure 127/66 127/66 Pulse Oximetry 97 97 Oxygen Delivery 04/10/25 18:15 04/10/25 18:16 04/10/25 18:30 Temperature Pulse Rate 97 100 97 Pulse Rate [Monitor] Respiratory Rate 16 20 19 Blood Pressure 126/70 Pulse Oximetry Oxygen Delivery 04/10/25 18:31 04/10/25 18:45 04/10/25 18:46 Temperature Pulse Rate 97 93 96 Pulse Rate [Monitor] Respiratory Rate 19 19 21 H Blood Pressure 133/66 124/70 Pulse Oximetry Oxygen Delivery 04/10/25 19:39 04/10/25 19:45 04/10/25 19:45 Temperature 36.9 C 36.9 C Pulse Rate 88 88 88 Pulse Rate [Monitor] Respiratory Rate 21 H 21 H Blood Pressure 128/74 139/73 139/73 Pulse Oximetry 100 100 Oxygen Delivery 04/10/25 20:00 04/10/25 20:00 04/10/25 20:00 Temperature Pulse Rate 86 Pulse Rate [Monitor] 90 Respiratory Rate Blood Pressure Pulse Oximetry Oxygen Delivery Room Air 04/10/25 20:03 04/10/25 20:03 04/10/25 20:22 Temperature 36.9 C 36.9 C 37.9 C H Pulse Rate 89 89 92 Pulse Rate [Monitor] Respiratory Rate 29 H 29 H 20 Blood Pressure 137/77 137/77 132/79 Pulse Oximetry 100 100 100 Oxygen Delivery 04/10/25 20:22 04/10/25 20:59 04/10/25 20:59 Temperature 37.9 C H 37.7 C H 37.7 C H Pulse Rate 92 88 88 Pulse Rate [Monitor] Respiratory Rate 20 22 H 22 H Blood Pressure 132/79 129/73 129/73 Pulse Oximetry 100 100 100 Oxygen Delivery 04/10/25 21:22 04/10/25 21:22 04/10/25 21:36 Temperature 37.2 C 37.2 C 37.2 C Pulse Rate 100 100 89 Pulse Rate [Monitor] Respiratory Rate 24 H 24 H 24 H Blood Pressure 110/85 110/85 125/73 Pulse Oximetry 100 100 100 Oxygen Delivery 04/10/25 21:36 04/10/25 22:00 04/10/25 22:00 Temperature 37.2 C Pulse Rate 89 89 89 Pulse Rate [Monitor] Respiratory Rate 24 H 23 H Blood Pressure 125/73 137/73 Pulse Oximetry 100 100 Oxygen Delivery 04/10/25 22:54 04/10/25 22:54 04/10/25 23:15 Temperature 37.4 C 37.4 C 37.6 C H Pulse Rate 86 86 86 Pulse Rate [Monitor] Respiratory Rate 19 19 23 H Blood Pressure 149/74 H 149/74 H 146/81 H Pulse Oximetry 100 100 100 Oxygen Delivery 04/10/25 23:15 04/10/25 23:33 04/11/25 00:00 Temperature 37.6 C H Pulse Rate 86 88 Pulse Rate [Monitor] 85 Respiratory Rate 23 H 19 Blood Pressure 146/81 H Pulse Oximetry 100 100 Oxygen Delivery 04/11/25 00:00 04/11/25 00:00 04/11/25 00:00 Temperature 37.4 C Pulse Rate 85 85 Pulse Rate [Monitor] Respiratory Rate 13 Blood Pressure 134/72 Pulse Oximetry 100 Oxygen Delivery Room Air 04/11/25 00:15 04/11/25 00:30 04/11/25 00:47 Temperature 37.4 C 37.1 C Pulse Rate 86 85 82 Pulse Rate [Monitor] Respiratory Rate 16 13 19 Blood Pressure 138/79 148/84 H Pulse Oximetry 100 100 100 Oxygen Delivery 04/11/25 01:23 04/11/25 02:00 04/11/25 02:00 Temperature Pulse Rate 84 87 87 Pulse Rate [Monitor] Respiratory Rate 20 18 Blood Pressure 112/71 Pulse Oximetry 100 100 Oxygen Delivery 04/11/25 04:00 04/11/25 04:00 04/11/25 04:00 Temperature 37.2 C Pulse Rate 77 Pulse Rate [Monitor] 77 Respiratory Rate 15 Blood Pressure 130/75 Pulse Oximetry 100 Oxygen Delivery Room Air 04/11/25 04:00 04/11/25 06:00 04/11/25 06:00 Temperature Pulse Rate 77 79 79 Pulse Rate [Monitor] Respiratory Rate 13 Blood Pressure 117/75 Pulse Oximetry 100 Oxygen Delivery 04/11/25 08:00 Temperature 36.6 C Pulse Rate 77 Pulse Rate [Monitor] Respiratory Rate 14 Blood Pressure 122/69 Pulse Oximetry 100 Oxygen Delivery Exam Narrative: General: Pt is alert awake and in NAD Lungs/Chest: Trachea central Clear BS B/L, No crackles or wheezing. Cardiac: RRR. Normal S1 S2. No murmurs Circulation: Pedal pulses are intact and symmetrical. Abdomen: Distended, present bowel sounds.. Soft. NT, fluid thrill present Extremities: No clubbing, cyanosis or edema. Warm : Salgado in place Neurologic: Follows commands. Moves all 4 extremities PERRL Skin: No Rash Results Labs 04/11/25 03:35 04/11/25 03:35 Labs: Impressions Head CT 04/10/25 12:55 IMPRESSION: No evidence for acute intracranial hemorrhage or calvarial fracture. Abdomen/Pelvis CTA 04/10/25 16:34 IMPRESSION: 1. Cirrhosis with portal hypertension. 2: Splenomegaly. 3: Cardiomegaly. 4: Small amount of ascites. 5: Mild bladder wall thickening. Correlate clinically for cystitis. Short CBC 04/10/25 04/10/25 04/11/25 Range/Units 14:09 21:57 03:35 WBC 2.2 L 3.0 L (4.5-10.0) K/mm3 Hgb 2.5 L* 5.9 L* D 6.0 L* (14.0-18.0) g/dL Hct 11.1 L* 21.9 L 21.0 L (42.0-52.0) % Plt Count 48 L 62 L (150-375) k/mm3 BMP 04/10/25 04/11/25 14:09 03:35 Sodium 137 135 L Potassium 3.6 3.6 Chloride 109 H 112 H Carbon Dioxide 19 L 17 L BUN 14 12 Creatinine 0.93 0.94 Glucose 99 119 H Calcium 7.7 L 7.8 L Liver Function 04/10/25 04/11/25 Range/Units 14:09 03:35 Total Bilirubin 3.5 H 6.3 H (0.2-1.3) mg/dL AST 40 37 (17-59) U/L ALT 17 17 (6-50) U/L Alkaline Phosphatase 107 76 (38-126) U/L Albumin 2.7 L 2.7 L (3.5-5.1) g/dL Urine 04/10/25 Range/Units 12:23 Urine Color Dark yellow (Yellow) Urine Appearance Cloudy H (Clear) Urine pH 6.0 (5.0-9.0) Ur Specific [place] 1.014 (1.001-1.035) Urine Protein 2+ H (Negative) mg/dL Urine Glucose (UA) Negative (Negative) mg/dL Quality VTE Prophylaxis VTE prophylaxis: mechanical ordered Hospitalist MIPS Advance Care Plan I have confirmed that the patient's Advanced Care Plan is present, code status is documented, or surrogate decision maker is listed in patient medical record.: Yes Medication Reconciliation I have utilized all available resources to obtain, update and review the patients current medications (includes all prescriptions, OTC, herbals, cannabis, and nutritional supplements).: Yes
[2025-04-11] MEDS: FOLIC ACID 1 MG TABLET PO (09:40)
[2025-04-11] MEDS: PANTOPRAZOLE SODIUM IV 40 MG VIAL IV PUSH ×2 (09:40→16:49)
[2025-04-11] MEDS: THERAPEUTIC MULTIVITAMINS/MINERALS TAB (*BKC) 1 TABLET PO (09:40)
[2025-04-11] MEDS: PHYTONADIONE INJ 10 MG/ML AMP IM (09:40)
[2025-04-11] MEDS: THIAMINE HCL 100 MG TABLET PO (09:40)
[2025-04-11] MEDS: SODIUM BICARBONATE TAB 650 MG TABLET PO ×2 (09:40→16:49)
[2025-04-11] MEDS: POTASSIUM CHLORIDE INJ 40 MEQ in SODIUM CHLORIDE 0.9% IV 500 ML 130 MEQ IVPB (09:45)
[2025-04-11] MEDS: cefTRIAXone 2 GM in SODIUM CHLORIDE 0.9% IV 100 ML 200 ML IVPB (12:08)
[2025-04-11] MEDS: chlordiazePOXIDE (*CRX) 25 MG CAPSULE PO ×3 (12:14→23:28)
[2025-04-11 13:07] LABS: Hematocrit 27.0 % (42.0-52.0); Hemoglobin 7.6 g/dL (14.0-18.0); Immature Platelet Fraction Pct 3.1 % (0.9-11.2); Mean Corpuscular HGB Conc 28.1 g/dl (32-36); Mean Corpuscular Hemoglobin 23.9 pg (26-34); Mean Corpuscular Volume 84.9 fl (80-100); Platelet Count Result 73 k/mm3 (150-375); Red Blood Count 3.18 M/mm3 (4.6-6.20); White Blood Count 3.7 K/mm3 (4.5-10.0)
--- NOTE | 2025-04-11 13:12 | P.PNAN_ITS ---
Anes - Initial Pre Proc Eval Procedure: Operation Date: 04/11/25 14:45 Proposed Procedures p Esophagogastroduodenoscopy - Jesús Alcaraz MD Date/Time: 04/11/25 13:12 Surgeon: Yvonne Resendiz MD Pre Op Diagnosis: anemia,gi gleed,cirrhosis liver Patient Data Age: 44 Gender: M Height: 1.45 m Weight: 84 kg Last Vital Signs Temp 37.1 C 04/11/25 11:59 Pulse 76 04/11/25 12:00 Resp 20 04/11/25 11:59 BP 139/73 04/11/25 12:00 Pulse Ox 100 04/11/25 11:59 O2 Del Method Room Air 04/11/25 04:00 Allergies Allergy/AdvReac Type Severity Reaction Status Date / Time No Known Allergies Allergy Verified 04/11/25 13:19 Home Medications ?Medication ?Instructions ?Recorded ?Confirmed ?Type No Home Medications 04/10/25 04/10/25 H istory Laboratory Tests 04/10/25 04/10/25 04/10/25 14:09 14:10 14:45 WBC 2.2 L K/mm3 (4.5-10.0) RBC 1.44 L M/mm3 (4.6-6.20) Hgb 2.5 L* g/dL (14.0-18.0) Hct 11.1 L* % (42.0-52.0) MCV 77.1 L fl (80-100) MCH 17.4 L pg (26-34) MCHC 22.5 L g/dl (32-36) RDW 23.7 H % (11.5-14.5) Plt Count 48 L k/mm3 (150-375) MPV 9.4 fl (7.4-10.4) Immature Gran % (Auto) 2.3 H % (0-0.5) Neut % (Auto) 61.9 % (45.5-73.1) Lymph % (Auto) 21.1 % (18.3-44.2) [place] % (Auto) 14.2 H % (2.6-8.5) Eos % (Auto) 0.5 % (0-4.4) Baso % (Auto) 0.0 L % (0.2-1.2) Lymph # (Auto) 0.46 L K/mm3 (0.9-3.2) [place] # (Auto) 0.3 K/mm3 (0.1-0.6) Eos # (Auto) 0.0 K/mm3 (0-0.3) Baso # (Auto) 0.0 K/mm3 (0.0-0.1) Abs Immat Gran (auto) 0.05 H K/mm3 (0.00-0.031) Absolute Neuts (auto) 1.4 K/mm3 (1.3-6.7) Absolute Nucleated RBC 0.130 H K/mm3 (0.0-0.012) Band Neutrophils % Nucleated RBC % 6.0 H % (0.0-0.2) Platelet Estimate Large Platelets % Immature Plt Fraction Hypochromasia Poikilocytosis Anisocytosis Tear Drop Cells Ovalocytes Schistocytes PT 20.7 H Seconds (11.1-14.7) INR 1.8 APTT Sodium 137 mmol/L (137-145) Potassium 3.6 mmol/L (3.4-5.0) Chloride 109 H mmol/L (98-107) Carbon Dioxide 19 L mmol/L (22-30) Anion Gap 9 mmol/L (4-12) BUN 14 mg/dL (9-20) Creatinine 0.93 mg/dL (0.7-1.3) Estim Creat Clear Calc 92 ml/min Estimated GFR > 60 (59 - ) Glucose 99 mg/dL (65-110) POC Capillary Glucose Lactic Acid 2.1 H mmol/L (0.7-2.0) Calcium 7.7 L mg/dL (8.4-10.2) Phosphorus Magnesium Total Bilirubin 3.5 H mg/dL (0.2-1.3) AST 40 U/L (17-59) ALT 17 U/L (6-50) Alkaline Phosphatase 107 U/L (38-126) Ammonia NT-Pro-B Natriuret Pep 355 H pg/mL (19.9-100) Total Protein 7.1 g/dL (6.3-8.2) Albumin 2.7 L g/dL (3.5-5.1) Lipase 192 U/L (23-300) Nasal MRSA (PCR) Ethyl Alcohol < 10 mg/dL (<10) Blood Type O Positive Antibody Screen Negative Crossmatch See Detail 04/10/25 04/10/25 04/10/25 16:49 17:43 19:10 WBC RBC Hgb Hct MCV MCH MCHC RDW Plt Count MPV Immature Gran % (Auto) Neut % (Auto) Lymph % (Auto) [place] % (Auto) Eos % (Auto) Baso % (Auto) Lymph # (Auto) [place] # (Auto) Eos # (Auto) Baso # (Auto) Abs Immat Gran (auto) Absolute Neuts (auto) Absolute Nucleated RBC Band Neutrophils % Nucleated RBC % Platelet Estimate Large Platelets % Immature Plt Fraction Hypochromasia Poikilocytosis Anisocytosis Tear Drop Cells Ovalocytes Schistocytes PT INR APTT Sodium Potassium Chloride Carbon Dioxide Anion Gap BUN Creatinine Estim Creat Clear Calc Estimated GFR Glucose POC Capillary Glucose 81 mg/dl (65-105) Lactic Acid 1.7 mmol/L (0.7-2.0) Calcium Phosphorus Magnesium Total Bilirubin AST ALT Alkaline Phosphatase Ammonia NT-Pro-B Natriuret Pep Total Protein Albumin Lipase Nasal MRSA (PCR) Not detected (NOT DETECTE) Ethyl Alcohol Blood Type Antibody Screen Crossmatch 04/10/25 04/11/25 04/11/25 21:57 01:37 02:21 WBC RBC Hgb 5.9 L* D g/dL (14.0-18.0) Hct 21.9 L % (42.0-52.0) MCV MCH MCHC RDW Plt Count MPV Immature Gran % (Auto) Neut % (Auto) Lymph % (Auto) [place] % (Auto) Eos % (Auto) Baso % (Auto) Lymph # (Auto) [place] # (Auto) Eos # (Auto) Baso # (Auto) Abs Immat Gran (auto) Absolute Neuts (auto) Absolute Nucleated RBC Band Neutrophils % Nucleated RBC % Platelet Estimate Large Platelets % Immature Plt Fraction Hypochromasia Poikilocytosis Anisocytosis Tear Drop Cells Ovalocytes Schistocytes PT INR APTT Sodium Potassium Chloride Carbon Dioxide Anion Gap BUN Creatinine Estim Creat Clear Calc Estimated GFR Glucose POC Capillary Glucose 66 mg/dl 137 H mg/dl (65-105) (65-105) Lactic Acid Calcium Phosphorus Magnesium Total Bilirubin AST ALT Alkaline Phosphatase Ammonia NT-Pro-B Natriuret Pep Total Protein Albumin Lipase Nasal MRSA (PCR) Ethyl Alcohol Blood Type Antibody Screen Crossmatch 09/10/3104/11/25 04/11/25 03:35 05:57 09:09 WBC 3.0 L K/mm3 (4.5-10.0) RBC 2.53 L M/mm3 (4.6-6.20) Hgb 6.0 L* g/dL (14.0-18.0) Hct 21.0 L % (42.0-52.0) MCV 83.0 D fl (80-100) MCH 23.7 L D pg (26-34) MCHC 28.6 L g/dl (32-36) RDW 19.9 H % (11.5-14.5) Plt Count 62 L k/mm3 (150-375) MPV 9.6 fl (7.4-10.4) Immature Gran % (Auto) 1.7 H % (0-0.5) Neut % (Auto) 63.5 % (45.5-73.1) Lymph % (Auto) 20.3 % (18.3-44.2) [place] % (Auto) 12.8 H % (2.6-8.5) Eos % (Auto) 1.0 % (0-4.4) Baso % (Auto) 0.7 % (0.2-1.2) Lymph # (Auto) 0.60 L K/mm3 (0.9-3.2) [place] # (Auto) 0.4 K/mm3 (0.1-0.6) Eos # (Auto) 0.0 K/mm3 (0-0.3) Baso # (Auto) 0.0 K/mm3 (0.0-0.1) Abs Immat Gran (auto) 0.05 H K/mm3 (0.00-0.031) Absolute Neuts (auto) 1.9 K/mm3 (1.3-6.7) Absolute Nucleated RBC 0.120 H K/mm3 (0.0-0.012) Band Neutrophils % Not Reportable Nucleated RBC % 4.1 H % (0.0-0.2) Platelet Estimate Decreased (Adequate) Large Platelets Present % Immature Plt Fraction Hypochromasia 2+ Poikilocytosis 1+ Anisocytosis 1+ Tear Drop Cells 1+ Ovalocytes Occasional Schistocytes Rare PT 19.9 H Seconds (11.1-14.7) INR 1.7 APTT 37.4 H Seconds (22.3-36.8) Sodium 135 L mmol/L (137-145) Potassium 3.6 mmol/L (3.4-5.0) Chloride 112 H mmol/L (98-107) Carbon Dioxide 17 L mmol/L (22-30) Anion Gap 6 mmol/L (4-12) BUN 12 mg/dL (9-20) Creatinine 0.94 mg/dL (0.7-1.3) Estim Creat Clear Calc Not Reportable Estimated GFR > 60 (59 - ) Glucose 119 H mg/dL (65-110) POC Capillary Glucose 96 mg/dl (65-105) Lactic Acid Calcium 7.8 L mg/dL (8.4-10.2) Phosphorus 4.6 H mg/dL (2.5-4.5) Magnesium 2.4 H mg/dL (1.6-2.3) Total Bilirubin 6.3 H mg/dL (0.2-1.3) AST 37 U/L (17-59) ALT 17 U/L (6-50) Alkaline Phosphatase 76 U/L (38-126) Ammonia 48 H umol/L (9-30) NT-Pro-B Natriuret Pep Total Protein 7.0 g/dL (6.3-8.2) Albumin 2.7 L g/dL (3.5-5.1) Lipase Nasal MRSA (PCR) Ethyl Alcohol Blood Type Antibody Screen Crossmatch 04/11/25 04/11/25 12:03 13:00 WBC 3.7 L K/mm3 (4.5-10.0) RBC 3.18 L M/mm3 (4.6-6.20) Hgb 7.6 L g/dL (14.0-18.0) Hct 27.0 L % (42.0-52.0) MCV 84.9 fl (80-100) MCH 23.9 L pg (26-34) MCHC 28.1 L g/dl (32-36) RDW 19.8 H % (11.5-14.5) Plt Count 73 L k/mm3 (150-375) MPV 9.2 fl (7.4-10.4) Immature Gran % (Auto) Neut % (Auto) Lymph % (Auto) [place] % (Auto) Eos % (Auto) Baso % (Auto) Lymph # (Auto) [place] # (Auto) Eos # (Auto) Baso # (Auto) Abs Immat Gran (auto) Absolute Neuts (auto) Absolute Nucleated RBC Band Neutrophils % Nucleated RBC % Platelet Estimate Large Platelets % Immature Plt Fraction 3.1 % (0.9-11.2) Hypochromasia Poikilocytosis Anisocytosis Tear Drop Cells Ovalocytes Schistocytes PT INR APTT Sodium Potassium Chloride Carbon Dioxide Anion Gap BUN Creatinine Estim Creat Clear Calc Estimated GFR Glucose POC Capillary Glucose 84 mg/dl (65-105) Lactic Acid Calcium Phosphorus Magnesium Total Bilirubin AST ALT Alkaline Phosphatase Ammonia NT-Pro-B Natriuret Pep Total Protein Albumin Lipase Nasal MRSA (PCR) Ethyl Alcohol Blood Type Antibody Screen Crossmatch Patient hx anesthesia problems: none Family hx anesthesia problems: none Results Review: All pre-operative results and documents have been reviewed as part of the pre- operative evaluation. [facility] Past Medical History Medical History Alcohol abuse Cirrhosis of liver Social History Social History Smoking packs per day: 2 Smoking cigarettes per day: 40.0 Years smoked: 8 Smoking pack-years: 16.00 Smoking status: Former smoker Tobacco type: cigarettes Alcohol intake: current Drinks per week: 12 Substance use: never Lack of Transportation: No Lack of Food: Never True Current Housing: I Do Not Have Housing Concerned About Future Housing: No Difficulty Paying Gas/Electric Bills: No Difficulty Paying for Meds: No Currently Unemployed: No Education: Grade School Difficulty w/ Childcare or Family Care: No Spiritual care concerns: No Anes - Eval Final PreProcedure Day of Procedure 04/11/25 13:12 Patient weight: morbidly obese Heart: regular rate and rhythm Lungs: clear to auscultation Airway: Mallampati scale class II Neurological: alert and oriented Last oral intake: >/= 8 hours ASA classification: IV Emergent: yes Anesthetic plan: proceed Anesthesia type and monitoring: general GIVS and standard monitoring Results Review: All pre-operative results and documents have been reviewed as part of the pre- operative evaluation. Informed Consent: The patient's anesthetic plan and its attendant risks and benefits were discussed with the patient/family/POA. Questions were solicited and answers provided to the satisfaction of the patient/family/POA.
--- NOTE | 2025-04-11 13:22 | SUR.PREOP ---
Track Vehicle Repairer used for pre operative assessment, ID# [id number].
[2025-04-11] MEDS: LACTATED RINGERS 1,000 ML 150 ML IV CONT (13:23)
--- NOTE | 2025-04-11 13:25 | WPDGICN ---
Assessment and Plan Assessment and plan (1) Pancytopenia: Code(s): D61.818 - Other pancytopenia Status: Acute Assessment and Plan: this could be from alcohol use with bone marrow suppression, cirrhosis, portal htn, etc given severe anemia, will proceed with egd today to make sure no varices, ulcer, etc if negative then will do colonoscopy tomorrow may benefit also from hem-onc consult (2) Cirrhosis, alcoholic: Code(s): K70.30 - Alcoholic cirrhosis of liver without ascites Status: Acute Assessment and Plan: low meld score new diagnosis however he is not seeing a physician in regular basis here also with seizure related to alcohol withdrawal- banana bag, nutrition support, librium prn and ciwa protocol in ICU (3) Ascites: Code(s): R18.8 - Other ascites Status: Acute Assessment and Plan: small amount but will ask IR if could get sample (4) Alcohol abuse: Code(s): F10.10 - Alcohol abuse, uncomplicated Status: Acute (5) Alcohol withdrawal seizure: Qualifiers: Complication of substance-induced condition: uncomplicated Qualified Code(s): F10.930 - Alcohol use, unspecified with withdrawal, uncomplicated; R56.9 - Unspecified convulsions Code(s): F10.939 - Alcohol use, unspecified with withdrawal, unspecified; R56.9 - Unspecified convulsions Status: Acute Assessment and Plan: on meds GI Consult Note Consult date/time: 04/11/25 13:25 Reason for consult: symptomatic anemia, alcoholic cirrhosis HPI: Edilberto Funes is a 44 year old male with past medical history of heavy ETOH use came to the hospital with seizure. He only speaks Omani and history completed using Omani. He is also poor historian and remembers years ago being in the hospital after fall and then having a scope when he was in [place]. He initially declined to come to hospital but then had second seizure, last drink about 2 days ago. He drinks at least 10 beer daily for years. He denies gib, no melena or abdominal pain. ER showed thrombocytopenia with white count being 2.2, hemoglobin 2.5 and received blood transfusion, platelets being 48, carbon dioxide 19, lactic acid 2.1 followed by 1.7, calcium 7.7, total bili 3.5, UA is cloudy with trace leukocyte esterase, 3-5 rbc's, tox screen is negative, ethanol level is negative. Chest abdomen pelvis shows cirrhosis with portal hypertension, splenomegaly, cardiomegaly, small amount of ascites and mild bladder wall thickening. No signs of GIB over night, he was started on iv octreotide and protonix, admitted to icu, also [facility] protocol. Review of Systems Constitutional: Constitutional: Reports lethargy Eyes: Eyes: Denies blurry vision ENT: Reports Normal hearing present Cardiovascular: Cardiovascular: Reports lightheadedness Respiratory: Respiratory: Denies cough and Reports dyspnea on exertion Gastrointestinal: Gastrointestinal: Denies melena Genitourinary: Genitourinary: Denies dysuria Musculoskeletal: Musculoskeletal: Denies neck pain Integumentary/Breasts: Skin/Breast: Denies rash Neurologic: Comments: seizure Psychiatric: Psychiatric: Reports anxiety [facility] Past Medical History Medical History (Updated 04/11/25 @ 15:37 by Jesús Alcaraz MD) Cirrhosis, alcoholic Pancytopenia Alcohol abuse Cirrhosis of liver Social History Social History Smoking packs per day: 2 Smoking cigarettes per day: 40.0 Years smoked: 8 Smoking pack-years: 16.00 Smoking status: Former smoker Tobacco type: cigarettes Alcohol intake: current Drinks per week: 12 Substance use: never Lack of Transportation: No Lack of Food: Never True Current Housing: I Do Not Have Housing Concerned About Future Housing: No Difficulty Paying Gas/Electric Bills: No Difficulty Paying for Meds: No Currently Unemployed: No Education: Grade School Difficulty w/ Childcare or Family Care: No Spiritual care concerns: No Meds Home Medications and Allergies Home Medications ?Medication ?Instructions ?Recorded ?Confirmed ?Type No Home Medications 04/10/25 04/10/25 History Allergies Allergy/AdvReac Type Severity Reaction Status Date / Time No Known Allergies Allergy Verified 04/11/25 13:19 Vital Signs Vital Signs - 24 hr 04/10/25 13:26 04/10/25 13:30 04/10/25 13:31 Temperature Pulse Rate 96 99 99 Pulse Rate [Monitor] Respiratory Rate 19 22 H 18 Blood Pressure 124/61 122/68 Pulse Oximetry 100 100 100 Oxygen Delivery 04/10/25 13:45 04/10/25 13:46 04/10/25 14:00 Temperature Pulse Rate 99 99 99 Pulse Rate [Monitor] Respiratory Rate 21 H 18 20 Blood Pressure 129/64 Pulse Oximetry 100 100 100 Oxygen Delivery 04/10/25 14:01 04/10/25 14:15 04/10/25 14:16 Temperature Pulse Rate 103 H 98 98 Pulse Rate [Monitor] Respiratory Rate 25 H 19 17 Blood Pressure 130/61 119/66 Pulse Oximetry 100 100 100 Oxygen Delivery 04/10/25 14:30 04/10/25 14:31 04/10/25 14:45 Temperature Pulse Rate 98 100 104 H Pulse Rate [Monitor] Respiratory Rate 20 18 24 H Blood Pressure 122/58 L Pulse Oximetry 100 100 100 Oxygen Delivery 04/10/25 15:00 04/10/25 15:15 04/10/25 15:30 Temperature Pulse Rate 99 100 101 H Pulse Rate [Monitor] Respiratory Rate 25 H 17 17 Blood Pressure Pulse Oximetry 100 100 100 Oxygen Delivery 04/10/25 16:10 04/10/25 16:15 04/10/25 16:28 Temperature 98.9 F Pulse Rate 112 H 106 H 103 H Pulse Rate [Monitor] Respiratory Rate 21 H 23 H Blood Pressure 131/63 Pulse Oximetry 100 100 Oxygen Delivery 04/10/25 16:48 04/10/25 17:21 04/10/25 17:30 Temperature 98.9 F Pulse Rate 104 H 99 99 Pulse Rate [Monitor] Respiratory Rate 24 H 21 H 21 H Blood Pressure 125/68 Pulse Oximetry 100 Oxygen Delivery 04/10/25 17:31 04/10/25 17:37 04/10/25 17:58 Temperature 99 F 99.1 F Pulse Rate 100 98 97 Pulse Rate [Monitor] Respiratory Rate 19 19 18 Blood Pressure 121/69 121/69 127/66 Pulse Oximetry 98 97 Oxygen Delivery 04/10/25 17:58 04/10/25 18:10 04/10/25 18:15 Temperature 99.1 F Pulse Rate 97 98 97 Pulse Rate [Monitor] Respiratory Rate 18 21 H 16 Blood Pressure 127/66 Pulse Oximetry 97 Oxygen Delivery 04/10/25 18:16 04/10/25 18:30 04/10/25 18:31 Temperature Pulse Rate 100 97 97 Pulse Rate [Monitor] Respiratory Rate 20 19 19 Blood Pressure 126/70 133/66 Pulse Oximetry Oxygen Delivery 04/10/25 18:45 04/10/25 18:46 04/10/25 19:39 Temperature Pulse Rate 93 96 88 Pulse Rate [Monitor] Respiratory Rate 19 21 H Blood Pressure 124/70 128/74 Pulse Oximetry Oxygen Delivery 04/10/25 19:45 04/10/25 19:45 04/10/25 20:00 Temperature 98.5 F 98.5 F Pulse Rate 88 88 Pulse Rate [Monitor] 90 Respiratory Rate 21 H 21 H Blood Pressure 139/73 139/73 Pulse Oximetry 100 100 Oxygen Delivery 04/10/25 20:00 04/10/25 20:00 04/10/25 20:03 Temperature 98.5 F Pulse Rate 86 89 Pulse Rate [Monitor] Respiratory Rate 29 H Blood Pressure 137/77 Pulse Oximetry 100 Oxygen Delivery Room Air 04/10/25 20:03 04/10/25 20:22 04/10/25 20:22 Temperature 98.5 F 100.3 F H 100.3 F H Pulse Rate 89 92 92 Pulse Rate [Monitor] Respiratory Rate 29 H 20 20 Blood Pressure 137/77 132/79 132/79 Pulse Oximetry 100 100 100 Oxygen Delivery 04/10/25 20:59 04/10/25 20:59 04/10/25 21:22 Temperature 99.9 F H 99.9 F H 98.9 F Pulse Rate 88 88 100 Pulse Rate [Monitor] Respiratory Rate 22 H 22 H 24 H Blood Pressure 129/73 129/73 110/85 Pulse Oximetry 100 100 100 Oxygen Delivery 04/10/25 21:22 04/10/25 21:36 04/10/25 21:36 Temperature 98.9 F 98.9 F 98.9 F Pulse Rate 100 89 89 Pulse Rate [Monitor] Respiratory Rate 24 H 24 H 24 H Blood Pressure 110/85 125/73 125/73 Pulse Oximetry 100 100 100 Oxygen Delivery 04/10/25 22:00 04/10/25 22:00 04/10/25 22:54 Temperature 99.3 F Pulse Rate 89 89 86 Pulse Rate [Monitor] Respiratory Rate 23 H 19 Blood Pressure 137/73 149/74 H Pulse Oximetry 100 100 Oxygen Delivery 04/10/25 22:54 04/10/25 23:15 04/10/25 23:15 Temperature 99.3 F 99.7 F H 99.7 F H Pulse Rate 86 86 86 Pulse Rate [Monitor] Respiratory Rate 19 23 H 23 H Blood Pressure 149/74 H 146/81 H 146/81 H Pulse Oximetry 100 100 100 Oxygen Delivery 04/10/25 23:33 04/11/25 00:00 04/11/25 00:00 Temperature Pulse Rate 88 Pulse Rate [Monitor] 85 Respiratory Rate 19 Blood Pressure Pulse Oximetry 100 Oxygen Delivery Room Air 04/11/25 00:00 04/11/25 00:00 04/11/25 00:15 Temperature 99.4 F 99.4 F Pulse Rate 85 85 86 Pulse Rate [Monitor] Respiratory Rate 13 16 Blood Pressure 134/72 138/79 Pulse Oximetry 100 100 Oxygen Delivery 04/11/25 00:30 04/11/25 00:47 04/11/25 01:23 Temperature 98.7 F Pulse Rate 85 82 84 Pulse Rate [Monitor] Respiratory Rate 13 19 20 Blood Pressure 148/84 H Pulse Oximetry 100 100 100 Oxygen Delivery 04/11/25 02:00 04/11/25 02:00 04/11/25 04:00 Temperature Pulse Rate 87 87 Pulse Rate [Monitor] 77 Respiratory Rate 18 Blood Pressure 112/71 Pulse Oximetry 100 Oxygen Delivery 04/11/25 04:00 04/11/25 04:00 04/11/25 04:00 Temperature 99 F Pulse Rate 77 77 Pulse Rate [Monitor] Respiratory Rate 15 Blood Pressure 130/75 Pulse Oximetry 100 Oxygen Delivery Room Air 04/11/25 06:00 04/11/25 06:00 04/11/25 08:00 Temperature 97.9 F Pulse Rate 79 79 77 Pulse Rate [Monitor] Respiratory Rate 13 14 Blood Pressure 117/75 122/69 Pulse Oximetry 100 100 Oxygen Delivery 04/11/25 08:00 04/11/25 10:11 04/11/25 10:26 Temperature 98.7 F 98.5 F Pulse Rate 74 75 Pulse Rate [Monitor] 76 Respiratory Rate 16 15 Blood Pressure 122/69 138/7 L 136/75 Pulse Oximetry 100 100 Oxygen Delivery 04/11/25 11:26 04/11/25 11:26 04/11/25 11:59 Temperature 98.5 F 98.5 F 98.7 F Pulse Rate 79 79 78 Pulse Rate [Monitor] Respiratory Rate 13 13 20 Blood Pressure 132/87 132/87 138/77 Pulse Oximetry 100 100 100 Oxygen Delivery 04/11/25 12:00 04/11/25 13:20 Temperature 97 F L Pulse Rate 80 Pulse Rate [Monitor] 76 Respiratory Rate 15 Blood Pressure 139/73 126/70 Pulse Oximetry 100 Oxygen Delivery Room Air Exam Const: General: comfortable and no acute distress Other: disheveled HENMT: Face/Nose/Sinus: Normal nares present Eyes: General: appearance normal, both eyes and all related structures Neck: Neck: supple Resp: Auscultation: clear to auscultation bilaterally Cardio: Rate: regular rate Rhythm: regular rhythm GI: Inspection: non-distended GI Palp: Yes Soft to palpation and No Tenderness to palpation present (GI) Auscultation: normal bowel sounds Skin: Other: pallor Neuro: Speech: normal speech Motor exam (neuro): 5/5 motor strength present throughout Extrem: General: normal to inspection Psych: Mental Status: mental status grossly normal Results Labs 04/11/25 13:00 04/11/25 03:35 Labs: Short CBC 04/10/25 04/10/25 04/11/25 Range/Units 14:09 21:57 03:35 WBC 2.2 L 3.0 L (4.5-10.0) K/mm3 Hgb 2.5 L* 5.9 L* D 6.0 L* (14.0-18.0) g/dL Hct 11.1 L* 21.9 L 21.0 L (42.0-52.0) % Plt Count 48 L 62 L (150-375) k/mm3 04/11/25 Range/Units 13:00 WBC 3.7 L (4.5-10.0) K/mm3 Hgb 7.6 L (14.0-18.0) g/dL Hct 27.0 L (42.0-52.0) % Plt Count 73 L (150-375) k/mm3 [facility] 04/10/25 04/11/25 14:09 03:35 Sodium 137 135 L Potassium 3.6 3.6 Chloride 109 H 112 H Carbon Dioxide 19 L 17 L BUN 14 12 Creatinine 0.93 0.94 Glucose 99 119 H Calcium 7.7 L 7.8 L Liver Function 04/10/25 04/11/25 Range/Units 14:09 03:35 Total Bilirubin 3.5 H 6.3 H (0.2-1.3) mg/dL AST 40 37 (17-59) U/L ALT 17 17 (6-50) U/L Alkaline Phosphatase 107 76 (38-126) U/L Albumin 2.7 L 2.7 L (3.5-5.1) g/dL
--- NOTE | 2025-04-11 13:31 | S_PTH ---
PATIENT: Edilberto Funes LOC: [id number] U#:[id number] AGE/SX: 44/M ROOM: 310 RE04/10/[address]: Yovanny Almodovar MD : 1980 BED: 01 DIS: 04/25/2025 SPEC #: [id number] RECD: 04/11/25 14:17 STATUS: LOU RE #: [id number] HAMIDA: 04/11/25 13:[address]: Jesús Alcaraz DEPT: [facility] Surgical RECD BY: Bessy Cisneros ENTERED: 04/11/25 14:17 SP TYPE: Surgical OTHR DR: MD Yvonne Mohr MD UNKNOWN,DOCTOR Tissues: A - Gastric Biopsy Procedures: Hematoxylin and Eosin Stain Gross and Microscopic Level 4
--- NOTE | 2025-04-11 16:53 | PC.NURSE ---
1530- pt IMU status - received to room 210 via bed - report received from Sue RUIZ
[2025-04-11] MEDS: BISACODYL 5 MG TABLET EC 20 MG PO (18:07)
[2025-04-11 18:54] LABS: Immunochemical Fecal Occult Bl Positive (N)
[2025-04-11 18:55] LABS: IFOB Positive Control Positive
[2025-04-11 19:05] LABS: Hematocrit 26.7 % (42.0-52.0); Hemoglobin 7.8 g/dL (14.0-18.0); Mean Corpuscular HGB Conc 29.2 g/dl (32-36); Mean Corpuscular Hemoglobin 23.6 pg (26-34); Mean Corpuscular Volume 80.9 fl (80-100); Red Blood Count 3.30 M/mm3 (4.6-6.20); White Blood Count 3.5 K/mm3 (4.5-10.0)
[2025-04-11 19:10] LABS: Platelet Count Result 18 k/mm3 (150-375)
--- NOTE | 2025-04-11 19:28 | PM.EVENT ---
Event Note Event Note Event Note: LOW PLATELETS. PHERESED PLATLETS 2 UNITS ORDERS HE HAS A HX OF ALCOHOLISM AND HE MAY BE AT RISK FOR BLEEDING. HEMATOLOGY has been CONSULTed PLACE TO FURTHER EVALUATE
[2025-04-12] VITALS (22 sets, daily range): BP systolic 118–148; BP diastolic 70–84; PULSE 68–83; RESP 12–242; TEMP 36.9–37.3; O2SAT 99–100
[2025-04-12 00:59] LABS: Hematocrit 22.4 % (42.0-52.0); Immature Platelet Fraction Pct 3.1 % (0.9-11.2); Mean Corpuscular HGB Conc 29.5 g/dl (32-36); Mean Corpuscular Hemoglobin 24.4 pg (26-34); Mean Corpuscular Volume 82.7 fl (80-100); Platelet Count Result 103 k/mm3 (150-375); Red Blood Count 2.71 M/mm3 (4.6-6.20); White Blood Count 3.6 K/mm3 (4.5-10.0)
[2025-04-12 01:03] LABS: Hemoglobin 6.6 g/dL (14.0-18.0)
[2025-04-12] MEDS: MAGNESIUM CITRATE 300 ML BTL PO ×2 (01:49→09:26)
[2025-04-12] MEDS: chlordiazePOXIDE (*CRX) 25 MG CAPSULE PO ×2 (06:00→18:51)
[2025-04-12 08:11] LABS: Hematocrit 29.2 % (42.0-52.0); Hemoglobin 8.5 g/dL (14.0-18.0); Immature Granulocyte Percent A 1.4 % (0-0.5); Immature Platelet Fraction Pct 6.8 % (0.9-11.2); Lymphocytes Absolute Auto 0.78 K/mm3 (0.9-3.2); Mean Corpuscular HGB Conc 29.1 g/dl (32-36); Mean Corpuscular Hemoglobin 24.2 pg (26-34); Mean Corpuscular Volume 83.2 fl (80-100); Nucleated Red Blood Cells Absolute Auto 0.100 K/mm3 (0.0-0.012); Nucleated Red Blood Cells Perc 2.8 % (0.0-0.2); Platelet Count Result 83 k/mm3 (150-375); Red Blood Count 3.51 M/mm3 (4.6-6.20); White Blood Count 3.6 K/mm3 (4.5-10.0)
[2025-04-12 08:22] LABS: INR 1.5; Partial Thromboplastin Time 32.6 Seconds (22.3-36.8); Prothrombin Time 17.8 Seconds (11.1-14.7)
[2025-04-12 08:28] LABS: Alanine Aminotransferase 25 U/L (6-50); Albumin Level 3.0 g/dL (3.5-5.1); Alkaline Phosphatase 84 U/L (38-126); Anion Gap 9 mmol/L (4-12); Aspartate Amino Transferase 78 U/L (17-59); Bilirubin,Total 6.3 mg/dL (0.2-1.3); Blood Urea Nitrogen 9 mg/dL (9-20); Calcium 7.9 mg/dL (8.4-10.2); Carbon Dioxide 17 mmol/L (22-30); Chloride 112 mmol/L (98-107); Estimated Glomerular Filt Rate > 60; Glucose 103 mg/dL (65-110); Magnesium 2.4 mg/dL (1.6-2.3); Potassium 3.7 mmol/L (3.4-5.0); Sodium 138 mmol/L (137-145); Total Protein 7.8 g/dL (6.3-8.2)
[2025-04-12 08:35] LABS: Anisocytosis 2+; Burr Cells 1+; Crenated RBC 1+; Hypochromasia 2+; Ovalocytes 1+; Polychromasia 1+; Schistocytes Occasional; Tear Drop Cells 1+
[2025-04-12] MEDS: cefTRIAXone 2 GM in SODIUM CHLORIDE 0.9% IV 100 ML 200 ML IVPB (09:26)
[2025-04-12] MEDS: PANTOPRAZOLE 40 MG TABLET PO (09:27)
[2025-04-12] MEDS: THIAMINE HCL 100 MG TABLET PO (09:27)
[2025-04-12] MEDS: SODIUM BICARBONATE TAB 650 MG TABLET PO ×2 (09:27→18:51)
[2025-04-12] MEDS: FOLIC ACID 1 MG TABLET PO (09:27)
[2025-04-12] MEDS: THERAPEUTIC MULTIVITAMINS/MINERALS TAB (*BKC) 1 TABLET PO (09:27)
[2025-04-12 09:39] LABS: Appearance Peritoneal Fluid Clear (Clear); Color Peritoneal Fluid Yellow (Colorless); Lymphocytes Peritoneal Fluid 36 %; Macrophages Peritoneal Fluid 42 %; Monocytes Peritoneal Fluid 14 %; Neutrophils Peritoneal Fluid 1 % (0-25); Nucleated Cells Peritoneal Flu 88 /uL (0-500); Source Peritoneal Fluid Peritoneal Fluid
[2025-04-12 09:40] LABS: Mesothelial Cells Peritoneal Fluid 7 %
[2025-04-12 10:17] LABS: Hepatitis B Surface Antigen Negative (Negative)
[2025-04-12 10:22] LABS: HAV RESULT Negative (Negative); Hepatitis B Core IgM Result Negative (Negative)
[2025-04-12 13:49] LABS: Hematocrit 27.0 % (42.0-52.0); Hemoglobin 7.9 g/dL (14.0-18.0); Immature Platelet Fraction Pct 2.1 % (0.9-11.2); Mean Corpuscular HGB Conc 29.3 g/dl (32-36); Mean Corpuscular Hemoglobin 24.2 pg (26-34); Mean Corpuscular Volume 82.8 fl (80-100); Platelet Count Result 99 k/mm3 (150-375); Red Blood Count 3.26 M/mm3 (4.6-6.20); White Blood Count 3.1 K/mm3 (4.5-10.0)
--- NOTE | 2025-04-12 14:03 | P.PNAN_ITS ---
Anes - Initial Pre Proc Eval Procedure: Operation Date: 04/11/25 14:45 Proposed Procedures p Esophagogastroduodenoscopy - Jesús Alcaraz MD Operation Date: 04/12/25 15:15 Proposed Procedures p Diagnostic Colonoscopy - Jesús Alcaraz MD Date/Time: 04/12/25 14:03 Surgeon: Yvonne Resendiz MD Pre Op Diagnosis: anemia,gi gleed,cirrhosis liver Patient Data Age: 44 Gender: M Height: 1.45 m Weight: 77.6 kg Last Vital Signs Temp 98.7 F 04/12/25 11:50 Pulse 83 04/12/25 12:00 Resp 12 04/12/25 11:50 BP 148/74 H 04/12/25 11:50 Pulse Ox 100 04/12/25 11:50 O2 Del Method Room Air 04/12/25 12:00 Allergies Allergy/AdvReac Type Severity Reaction Status Date / Time No Known Allergies Allergy Verified 04/12/25 13:50 Home Medications ?Medication ?Instructions ?Recorded ?Confirmed ?Type No Home Medications 04/10/25 04/10/25 H istory Laboratory Tests 04/10/25 04/11/25 04/11/25 14:45 17:56 18:39 WBC RBC Hgb Hct MCV MCH MCHC RDW Plt Count MPV Immature Gran % (Auto) Neut % (Auto) Lymph % (Auto) [place] % (Auto) Eos % (Auto) Baso % (Auto) Lymph # (Auto) [place] # (Auto) Eos # (Auto) Baso # (Auto) Abs Immat Gran (auto) Absolute Neuts (auto) Absolute Nucleated RBC Band Neutrophils % Nucleated RBC % Platelet Estimate % Immature Plt Fraction Polychromasia Hypochromasia Anisocytosis Tear Drop Cells Ovalocytes [place] Cells Crenated Cell Schistocytes PT INR APTT Sodium Potassium Chloride Carbon Dioxide Anion Gap BUN Creatinine Estim Creat Clear Calc Estimated GFR Glucose POC Capillary Glucose 127 H mg/dl (65-105) Calcium Phosphorus Magnesium Total Bilirubin AST ALT Alkaline Phosphatase Total Protein Albumin Fluid Glucose Fluid Total Protein Fluid Albumin Fluid LDH Peritoneal Source Peritoneal Color Peritoneal Appearance Peritoneal RBC Periton Nuc Cells Periton Neutrophils Periton Lymphocytes Peritoneal Monocytes Periton Mesothelial Periton Macrophages Peritoneal Tot Protein Stl Occult Blood (IFOB) Positive H (N) Hepatitis A IgM Ab Hep Bs Antigen Hep B Core IgM Ab Hepatitis C Ab Screen Blood Type O Positive Antibody Screen Negative Crossmatch See Detail 04/11/25 04/11/25 04/12/25 18:45 23:50 00:24 WBC 3.5 L K/mm3 3.6 L K/mm3 (4.5-10.0) (4.5-10.0) RBC 3.30 L M/mm3 2.71 L M/mm3 (4.6-6.20) (4.6-6.20) Hgb 7.8 L g/dL 6.6 L* g/dL (14.0-18.0) (14.0-18.0) Hct 26.7 L % 22.4 L % (42.0-52.0) (42.0-52.0) MCV 80.9 fl 82.7 fl (80-100) (80-100) MCH 23.6 L pg 24.4 L pg (26-34) (26-34) MCHC 29.2 L g/dl 29.5 L g/dl (32-36) (32-36) RDW 20.2 H % 20.9 H % (11.5-14.5) (11.5-14.5) Plt Count 18 L* D k/mm3 103 L D k/mm3 (150-375) (150-375) MPV TNP 9.8 fl (7.4-10.4) Immature Gran % (Auto) Neut % (Auto) Lymph % (Auto) [place] % (Auto) Eos % (Auto) Baso % (Auto) Lymph # (Auto) [place] # (Auto) Eos # (Auto) Baso # (Auto) Abs Immat Gran (auto) Absolute Neuts (auto) Absolute Nucleated RBC Band Neutrophils % Nucleated RBC % Platelet Estimate % Immature Plt Fraction 3.1 % (0.9-11.2) Polychromasia Hypochromasia Anisocytosis Tear Drop Cells Ovalocytes [place] Cells Crenated Cell Schistocytes PT INR APTT Sodium Potassium Chloride Carbon Dioxide Anion Gap BUN Creatinine Estim Creat Clear Calc Estimated GFR Glucose POC Capillary Glucose 148 H mg/dl (65-105) Calcium Phosphorus Magnesium Total Bilirubin AST ALT Alkaline Phosphatase Total Protein Albumin Fluid Glucose Fluid Total Protein Fluid Albumin Fluid LDH Peritoneal Source Peritoneal Color Peritoneal Appearance Peritoneal RBC Periton Nuc Cells Periton Neutrophils Periton Lymphocytes Peritoneal Monocytes Periton Mesothelial Periton Macrophages Peritoneal Tot Protein Stl Occult Blood (IFOB) Hepatitis A IgM Ab Hep Bs Antigen Hep B Core IgM Ab Hepatitis C Ab Screen Blood Type Antibody Screen Crossmatch 04/12/25 04/12/25 04/12/25 06:02 07:38 07:45 WBC 3.6 L K/mm3 (4.5-10.0) RBC 3.51 L M/mm3 (4.6-6.20) Hgb 8.5 L g/dL (14.0-18.0) Hct 29.2 L % (42.0-52.0) MCV 83.2 fl (80-100) MCH 24.2 L pg (26-34) MCHC 29.1 L g/dl (32-36) RDW 20.3 H % (11.5-14.5) Plt Count 83 L k/mm3 (150-375) MPV 10.1 fl (7.4-10.4) Immature Gran % (Auto) 1.4 H % (0-0.5) Neut % (Auto) 57.8 % (45.5-73.1) Lymph % (Auto) 21.5 % (18.3-44.2) [place] % (Auto) 14.9 H % (2.6-8.5) Eos % (Auto) 3.0 % (0-4.4) Baso % (Auto) 1.4 H % (0.2-1.2) Lymph # (Auto) 0.78 L K/mm3 (0.9-3.2) [place] # (Auto) 0.5 K/mm3 (0.1-0.6) Eos # (Auto) 0.1 K/mm3 (0-0.3) Baso # (Auto) 0.1 K/mm3 (0.0-0.1) Abs Immat Gran (auto) 0.05 H K/mm3 (0.00-0.031) Absolute Neuts (auto) 2.1 K/mm3 (1.3-6.7) Absolute Nucleated RBC 0.100 H K/mm3 (0.0-0.012) Band Neutrophils % Not Reportable Nucleated RBC % 2.8 H % (0.0-0.2) Platelet Estimate Decreased (Adequate) % Immature Plt Fraction 6.8 % (0.9-11.2) Polychromasia 1+ Hypochromasia 2+ Anisocytosis 2+ Tear Drop Cells 1+ Ovalocytes 1+ [place] Cells 1+ Crenated Cell 1+ Schistocytes Occasional PT 17.8 H Seconds (11.1-14.7) INR 1.5 APTT 32.6 Seconds (22.3-36.8) Sodium 138 mmol/L (137-145) Potassium 3.7 mmol/L (3.4-5.0) Chloride 112 H mmol/L (98-107) Carbon Dioxide 17 L mmol/L (22-30) Anion Gap 9 mmol/L (4-12) BUN 9 mg/dL (9-20) Creatinine 0.98 mg/dL (0.7-1.3) Estim Creat Clear Calc Not Reportable Estimated GFR > 60 (59 - ) Glucose 103 mg/dL (65-110) POC Capillary Glucose 112 H mg/dl (65-105) Calcium 7.9 L mg/dL (8.4-10.2) Phosphorus 4.6 H mg/dL (2.5-4.5) Magnesium 2.4 H mg/dL (1.6-2.3) Total Bilirubin 6.3 H mg/dL (0.2-1.3) AST 78 H U/L (17-59) ALT 25 U/L (6-50) Alkaline Phosphatase 84 U/L (38-126) Total Protein 7.8 g/dL (6.3-8.2) Albumin 3.0 L g/dL (3.5-5.1) Fluid Glucose Fluid Total Protein Fluid Albumin Fluid LDH Peritoneal Source Peritoneal Color Peritoneal Appearance Peritoneal RBC Periton Nuc Cells Periton Neutrophils Periton Lymphocytes Peritoneal Monocytes Periton Mesothelial Periton Macrophages Peritoneal Tot Protein Stl Occult Blood (IFOB) Hepatitis A IgM Ab Negative (Negative) Hep Bs Antigen Negative (Negative) Hep B Core IgM Ab Negative (Negative) Hepatitis C Ab Screen Negative (Negative) Blood Type Antibody Screen Crossmatch 04/12/25 04/12/25 04/12/25 08:30 08:38 11:35 WBC RBC Hgb Hct MCV MCH MCHC RDW Plt Count MPV Immature Gran % (Auto) Neut % (Auto) Lymph % (Auto) [place] % (Auto) Eos % (Auto) Baso % (Auto) Lymph # (Auto) [place] # (Auto) Eos # (Auto) Baso # (Auto) Abs Immat Gran (auto) Absolute Neuts (auto) Absolute Nucleated RBC Band Neutrophils % Nucleated RBC % Platelet Estimate % Immature Plt Fraction Polychromasia Hypochromasia Anisocytosis Tear Drop Cells Ovalocytes [place] Cells Crenated Cell Schistocytes PT INR APTT Sodium Potassium Chloride Carbon Dioxide Anion Gap BUN Creatinine Estim Creat Clear Calc Estimated GFR Glucose POC Capillary Glucose 115 H mg/dl (65-105) Calcium Phosphorus Magnesium Total Bilirubin AST ALT Alkaline Phosphatase Total Protein Albumin Fluid Glucose Pending Fluid Total Protein Pending Fluid Albumin Pending Fluid LDH Pending Peritoneal Source Peritoneal fluid Peritoneal Color Yellow (Colorless) Peritoneal Appearance Clear (Clear) Peritoneal RBC < 2000 /uL (0-06597) Periton Nuc Cells 88 /uL (0-500) Periton Neutrophils 1 % (0-25) Periton Lymphocytes 36 % Peritoneal Monocytes 14 % Periton Mesothelial 7 % Periton Macrophages 42 % Peritoneal Tot Protein Cancelled Stl Occult Blood (IFOB) Hepatitis A IgM Ab Hep Bs Antigen Hep B Core IgM Ab Hepatitis C Ab Screen Blood Type Antibody Screen Crossmatch 04/12/25 13:31 WBC 3.1 L K/mm3 (4.5-10.0) RBC 3.26 L M/mm3 (4.6-6.20) Hgb 7.9 L g/dL (14.0-18.0) Hct 27.0 L % (42.0-52.0) MCV 82.8 fl (80-100) MCH 24.2 L pg (26-34) MCHC 29.3 L g/dl (32-36) RDW 20.4 H % (11.5-14.5) Plt Count 99 L k/mm3 (150-375) MPV 9.5 fl (7.4-10.4) Immature Gran % (Auto) Neut % (Auto) Lymph % (Auto) [place] % (Auto) Eos % (Auto) Baso % (Auto) Lymph # (Auto) [place] # (Auto) Eos # (Auto) Baso # (Auto) Abs Immat Gran (auto) Absolute Neuts (auto) Absolute Nucleated RBC Band Neutrophils % Nucleated RBC % Platelet Estimate % Immature Plt Fraction 2.1 % (0.9-11.2) Polychromasia Hypochromasia Anisocytosis Tear Drop Cells Ovalocytes [place] Cells Crenated Cell Schistocytes PT INR APTT Sodium Potassium Chloride Carbon Dioxide Anion Gap BUN Creatinine Estim Creat Clear Calc Estimated GFR Glucose POC Capillary Glucose Calcium Phosphorus Magnesium Total Bilirubin AST ALT Alkaline Phosphatase Total Protein Albumin Fluid Glucose Fluid Total Protein Fluid Albumin Fluid LDH Peritoneal Source Peritoneal Color Peritoneal Appearance Peritoneal RBC Periton Nuc Cells Periton Neutrophils Periton Lymphocytes Peritoneal Monocytes Periton Mesothelial Periton Macrophages Peritoneal Tot Protein Stl Occult Blood (IFOB) Hepatitis A IgM Ab Hep Bs Antigen Hep B Core IgM Ab Hepatitis C Ab Screen Blood Type Antibody Screen Crossmatch Patient hx anesthesia problems: none Family hx anesthesia problems: none Results Review: All pre-operative results and documents have been reviewed as part of the pre- operative evaluation. [facility] Past Medical History Medical History (Updated 04/11/25 @ 15:37 by Jesús Alcaraz MD) Cirrhosis, alcoholic Pancytopenia Alcohol abuse Cirrhosis of liver Social History Social History Smoking packs per day: 2 Smoking cigarettes per day: 40.0 Years smoked: 8 Smoking pack-years: 16.00 Smoking status: Former smoker Tobacco type: cigarettes Alcohol intake: current Drinks per week: 12 Substance use: never Lack of Transportation: No Lack of Food: Never True Current Housing: I Do Not Have Housing Concerned About Future Housing: No Difficulty Paying Gas/Electric Bills: No Difficulty Paying for Meds: No Currently Unemployed: No Education: Grade School Difficulty w/ Childcare or Family Care: No Spiritual care concerns: No Anes - Eval Final PreProcedure Day of Procedure 04/12/25 14:03 Patient weight: obese Heart: regular rate and rhythm Lungs: clear to auscultation Airway: Mallampati scale class III Neurological: alert and oriented Last oral intake: >/= 8 hours ASA classification: IV Emergent: no Anesthetic plan: proceed Anesthesia type and monitoring: general GIVS and standard monitoring Results Review: All pre-operative results and documents have been reviewed as part of the pre- operative evaluation. Informed Consent: The patient's anesthetic plan and its attendant risks and benefits were discussed with the patient/family/POA. Questions were solicited and answers provided to the satisfaction of the patient/family/POA.
[2025-04-12] MEDS: LACTATED RINGERS 1,000 ML 150 ML IV CONT (14:10)
--- NOTE | 2025-04-12 14:39 | S_PTH ---
PATIENT: Edilberto Funes LOC: [id number] U#:[id number] AGE/SX: 44/M ROOM: 310 RE04/10/[address]: Yovanny Almodovar MD : 1980 BED: 01 DIS: 04/25/2025 SPEC #: [id number] RECD: 04/13/25 07:00 STATUS: LOU MUSA #: [id number] HAMIDA: 04/12/25 14:[address]: Jesús Alcaraz DEPT: [facility] Surgical RECD BY: Bessy Cisneros ENTERED: 04/13/25 07:00 SP TYPE: Surgical OTHR DR: MD Yvonne Mohr MD UNKNOWN,DOCTOR Tissues: A - Colon Polypectomy Procedures: Hematoxylin and Eosin Stain Gross and Microscopic Level 4 CD 117
--- NOTE | 2025-04-12 17:17 | P.PNIM_ITS ---
Progress Note: A&P Assessment and Plan (1) Alcohol abuse: Code(s): F10.10 - Alcohol abuse, uncomplicated Status: Acute (2) Thrombocytopenia: Code(s): D69.6 - Thrombocytopenia, unspecified Status: Acute (3) Cirrhosis of liver: Qualifiers: Ascites presence: with ascites Hepatic cirrhosis type: alcoholic cirrhosis Qualified Code(s): K70.31 - Alcoholic cirrhosis of liver with ascites Code(s): K74.60 - Unspecified cirrhosis of liver Status: Acute (4) GI (gastrointestinal hemorrhage): Qualifiers: GI bleed type/associated pathology: unspecified gastrointestinal hemorrhage type Qualified Code(s): K92.2 - Gastrointestinal hemorrhage, unspecified Code(s): K92.2 - Gastrointestinal hemorrhage, unspecified Status: Acute (5) Ascites: Code(s): R18.8 - Other ascites Status: Acute (6) Alcohol withdrawal seizure: Qualifiers: Complication of substance-induced condition: uncomplicated Qualified Code(s): F10.930 - Alcohol use, unspecified with withdrawal, uncomplicated; R56.9 - Unspecified convulsions Code(s): F10.939 - Alcohol use, unspecified with withdrawal, unspecified; R56.9 - Unspecified convulsions Status: Acute Plan EGD and colonoscopy completed. No active hemorrhage, he does have gastritis. Continue Protonix. Hemoglobin 7.9 down from 8.5 on repeat. Will check another at 10:00 p.m. transfuse below 7. Platelets have been transfused as well, continue to monitor and Hematology consultation is pending. INR today 1.5, continue to monitor. Monitor bowel movements as well. He has not had any further seizures. Continue Librium for now with p.r.n. Valium. CIWA monitoring. Continue thiamine folic acid and multivitamin. Paracentesis completed with 1000 mL out. Pending studies. Received ceftriaxone for SBP prophylaxis previously. Patient wishes to be full code. SCDs only. Protonix daily. Subjective Date/time seen: 04/12/25 17:17 Interval history: Patient received platelet transfusion overnight. Hematology consulted. Patient is seen post colonoscopy and reports no pain, believes his abdominal distention is better after the paracentesis. Has not had a bowel movement. No further se izures Review of Systems Review of Systems: All systems reviewed & are unremarkable except as noted in HPI and below (Subjective) Exam Const: General: comfortable HENMT: Mouth: Yes moist mucous membranes Eyes: Pupils: Equal, round and reactive pupils present Neck: Neck: supple Resp: Effort & Inspection: normal respiratory effort Auscultation: clear to auscultation bilaterally Cardio: Rate: regular rate Rhythm: regular rhythm GI: GI Palp: Yes Soft to palpation Other: Mild distension, no tenderness to palpation Extrem: General: edema Objective Data Vital Signs Vital Signs: Vital Signs - 24 hr 04/11/25 18:00 04/11/25 19:14 04/11/25 20:00 Temperature 98.5 F Pulse Rate 86 74 Pulse Rate [Monitor] Respiratory Rate 17 Blood Pressure 131/81 Pulse Oximetry 99 Oxygen Delivery Room Air 04/11/25 20:00 04/11/25 21:10 04/11/25 21:25 Temperature 99.2 F 99.1 F Pulse Rate 86 79 83 Pulse Rate [Monitor] Respiratory Rate 20 20 Blood Pressure 141/78 H 139/72 Pulse Oximetry 100 100 Oxygen Delivery 04/11/25 22:00 04/11/25 22:02 04/11/25 22:17 Temperature 99.3 F 99.3 F Pulse Rate 79 86 84 Pulse Rate [Monitor] Respiratory Rate 20 20 Blood Pressure 140/76 138/74 Pulse Oximetry 100 100 Oxygen Delivery 04/11/25 22:32 04/11/25 22:32 04/11/25 23:25 Temperature 99.5 F 99.5 F 99.1 F Pulse Rate 76 76 85 Pulse Rate [Monitor] Respiratory Rate 20 20 20 Blood Pressure 133/65 133/76 129/79 Pulse Oximetry 98 98 99 Oxygen Delivery 04/12/25 00:00 04/12/25 00:00 04/12/25 01:41 Temperature 99.1 F Pulse Rate 83 74 Pulse Rate [Monitor] Respiratory Rate 20 Blood Pressure 130/72 Pulse Oximetry 99 Oxygen Delivery Room Air 04/12/25 01:56 04/12/25 02:00 04/12/25 02:56 Temperature 98.5 F 99.1 F Pulse Rate 79 78 80 Pulse Rate [Monitor] Respiratory Rate 20 20 Blood Pressure 138/76 133/78 Pulse Oximetry 100 100 Oxygen Delivery 04/12/25 03:54 04/12/25 04:00 04/12/25 04:00 Temperature 99.1 F Pulse Rate 82 80 Pulse Rate [Monitor] Respiratory Rate 20 Blood Pressure 139/76 Pulse Oximetry 100 Oxygen Delivery Room Air 04/12/25 06:00 04/12/25 08:00 04/12/25 08:00 Temperature 98.8 F Pulse Rate 81 81 Pulse Rate [Monitor] 76 Respiratory Rate 20 Blood Pressure 145/84 H 148/74 H Pulse Oximetry 99 Oxygen Delivery 04/12/25 08:00 04/12/25 08:00 04/12/25 10:00 Temperature Pulse Rate 81 78 74 Pulse Rate [Monitor] Respiratory Rate 12 Blood Pressure Pulse Oximetry 100 Oxygen Delivery Room Air 04/12/25 11:50 04/12/25 12:00 04/12/25 12:00 Temperature 98.7 F Pulse Rate 81 83 Pulse Rate [Monitor] Respiratory Rate 12 Blood Pressure 148/74 H Pulse Oximetry 100 Oxygen Delivery Room Air 04/12/25 14:05 04/12/25 14:42 04/12/25 14:52 Temperature 98.5 F Pulse Rate 72 76 75 Pulse Rate [Monitor] Respiratory Rate 16 17 18 Blood Pressure 131/77 118/77 121/73 Pulse Oximetry 100 100 100 Oxygen Delivery Room Air Room Air Room Air 04/12/25 15:02 04/12/25 16:00 Temperature 98.4 F Pulse Rate 73 68 Pulse Rate [Monitor] Respiratory Rate 20 242 H Blood Pressure 127/78 129/71 Pulse Oximetry 100 100 Oxygen Delivery Room Air Intake/Output Intake/Output: Intake & Output 04/09/25 04/10/25 04/11/25 04/12/25 23:59 23:59 23:59 23:59 Intake Total 1100 1929.9 2220.0 Output Total 1200 1100 Balance 1100 729.9 1120.0 Meds/Results Medications: Active Medications Generic Name Dose Route Start Last Admin Trade Name Freq PRN Reason Stop Dose Admin Chlordiazepoxide HCl 25 mg 04/11/25 12:00 04/12/25 06:00 Chlordiazepoxide (*Crx) 25 Mg Capsule PO 25 mg Q6HR AMRITA Administration Diazepam 5 mg 04/10/25 17:13 Diazepam Inj (*Crx) 10 Mg/2 Ml Syringe IV PUSH PRN PRN Seizure Activity Diazepam 5 mg 04/10/25 17:48 Diazepam Inj (*Crx) 10 Mg/2 Ml Syringe IV PUSH Q5M PRN CIWA > 15 Folic Acid 1 mg 04/11/25 09:00 04/12/25 09:27 Folic Acid 1 Mg Tablet PO 1 mg DAILY AMRITA Administration Multivitamins/Calcium 1 tablet 04/11/25 09:00 04/12/25 09:27 Therapeutic Multivitamins/Minerals Tab (*Bkc) PO 1 tablet DAILY AMRITA Administration Ondansetron HCl 4 mg 04/10/25 17:13 Ondansetron Inj 4 Mg/2 Ml Vial IV PUSH Q4H PRN Nausea Pantoprazole Sodium 40 mg 04/12/25 09:00 04/12/25 09:27 Pantoprazole 40 Mg Tablet PO 40 mg QAM AMRITA Administration Thiamine HCl 100 mg 04/11/25 09:00 04/12/25 09:27 Thiamine Hcl 100 Mg Tablet PO 100 mg DAILY AMRITA Administration Radiology Results: ITS Impressions Head CT 04/10/25 12:55 IMPRESSION: No evidence for acute intracranial hemorrhage or calvarial fracture. Abdomen/Pelvis CTA 04/10/25 16:34 IMPRESSION: 1. Cirrhosis with portal hypertension. 2: Splenomegaly. 3: Cardiomegaly. 4: Small amount of ascites. 5: Mild bladder wall thickening. Correlate clinically for cystitis. Paracentesis Ultrasound 04/12/25 12:02 IMPRESSION: 1. Successful ultrasound-guided paracentesis yielding 1000 mL of clear saba- colored fluid. Labs Labs: Laboratory Results - last 24 hr 04/10/25 04/11/25 04/11/25 14:45 17:56 18:39 WBC RBC Hgb Hct MCV MCH MCHC RDW Plt Count MPV Immature Gran % (Auto) Neut % (Auto) Lymph % (Auto) [place] % (Auto) Eos % (Auto) Baso % (Auto) Lymph # (Auto) [place] # (Auto) Eos # (Auto) Baso # (Auto) Abs Immat Gran (auto) Absolute Neuts (auto) Absolute Nucleated RBC Band Neutrophils % Nucleated RBC % Platelet Estimate % Immature Plt Fraction Polychromasia Hypochromasia Anisocytosis Tear Drop Cells Ovalocytes [place] Cells Crenated Cell Schistocytes PT INR APTT Sodium Potassium Chloride Carbon Dioxide Anion Gap BUN Creatinine Estim Creat Clear Calc Estimated GFR Glucose POC Capillary Glucose 127 H Calcium Phosphorus Magnesium Total Bilirubin AST ALT Alkaline Phosphatase Total Protein Albumin Peritoneal Source Peritoneal Color Peritoneal Appearance Peritoneal RBC Periton Nuc Cells Periton Neutrophils Periton Lymphocytes Peritoneal Monocytes Periton Mesothelial Periton Macrophages Peritoneal Tot Protein Stl Occult Blood (IFOB) Positive H Hepatitis A IgM Ab Hep Bs Antigen Hep B Core IgM Ab Hepatitis C Ab Screen Blood Type O Positive Antibody Screen Negative Crossmatch See Detail 04/11/25 04/11/25 04/12/25 18:45 23:50 00:24 WBC 3.5 L 3.6 L RBC 3.30 L 2.71 L Hgb 7.8 L 6.6 L* Hct 26.7 L 22.4 L MCV 80.9 82.7 MCH 23.6 L 24.4 L MCHC 29.2 L 29.5 L RDW 20.2 H 20.9 H Plt Count 18 L* D 103 L D MPV TNP 9.8 Immature Gran % (Auto) Neut % (Auto) Lymph % (Auto) [place] % (Auto) Eos % (Auto) Baso % (Auto) Lymph # (Auto) [place] # (Auto) Eos # (Auto) Baso # (Auto) Abs Immat Gran (auto) Absolute Neuts (auto) Absolute Nucleated RBC Band Neutrophils % Nucleated RBC % Platelet Estimate % Immature Plt Fraction 3.1 Polychromasia Hypochromasia Anisocytosis Tear Drop Cells Ovalocytes [place] Cells Crenated Cell Schistocytes PT INR APTT Sodium Potassium Chloride Carbon Dioxide Anion Gap BUN Creatinine Estim Creat Clear Calc Estimated GFR Glucose POC Capillary Glucose 148 H Calcium Phosphorus Magnesium Total Bilirubin AST ALT Alkaline Phosphatase Total Protein Albumin Peritoneal Source Peritoneal Color Peritoneal Appearance Peritoneal RBC Periton Nuc Cells Periton Neutrophils Periton Lymphocytes Peritoneal Monocytes Periton Mesothelial Periton Macrophages Peritoneal Tot Protein Stl Occult Blood (IFOB) Hepatitis A IgM Ab Hep Bs Antigen Hep B Core IgM Ab Hepatitis C Ab Screen Blood Type Antibody Screen Crossmatch 04/12/25 04/12/25 04/12/25 06:02 07:38 07:45 WBC 3.6 L RBC 3.51 L Hgb 8.5 L Hct 29.2 L MCV 83.2 MCH 24.2 L MCHC 29.1 L RDW 20.3 H Plt Count 83 L MPV 10.1 Immature Gran % (Auto) 1.4 H Neut % (Auto) 57.8 Lymph % (Auto) 21.5 [place] % (Auto) 14.9 H Eos % (Auto) 3.0 Baso % (Auto) 1.4 H Lymph # (Auto) 0.78 L [place] # (Auto) 0.5 Eos # (Auto) 0.1 Baso # (Auto) 0.1 Abs Immat Gran (auto) 0.05 H Absolute Neuts (auto) 2.1 Absolute Nucleated RBC 0.100 H Band Neutrophils % Not Reportable Nucleated RBC % 2.8 H Platelet Estimate Decreased % Immature Plt Fraction 6.8 Polychromasia 1+ Hypochromasia 2+ Anisocytosis 2+ Tear Drop Cells 1+ Ovalocytes 1+ [place] Cells 1+ Crenated Cell 1+ Schistocytes Occasional PT 17.8 H INR 1.5 APTT 32.6 Sodium 138 Potassium 3.7 Chloride 112 H Carbon Dioxide 17 L Anion Gap 9 BUN 9 Creatinine 0.98 Estim Creat Clear Calc Not Reportable Estimated GFR > 60 Glucose 103 POC Capillary Glucose 112 H Calcium 7.9 L Phosphorus 4.6 H Magnesium 2.4 H Total Bilirubin 6.3 H AST 78 H ALT 25 Alkaline Phosphatase 84 Total Protein 7.8 Albumin 3.0 L Peritoneal Source Peritoneal Color Peritoneal Appearance Peritoneal RBC Periton Nuc Cells Periton Neutrophils Periton Lymphocytes Peritoneal Monocytes Periton Mesothelial Periton Macrophages Peritoneal Tot Protein Stl Occult Blood (IFOB) Hepatitis A IgM Ab Negative Hep Bs Antigen Negative Hep B Core IgM Ab Negative Hepatitis C Ab Screen Negative Blood Type Antibody Screen Crossmatch 04/12/25 04/12/25 04/12/25 08:30 08:38 11:35 WBC RBC Hgb Hct MCV MCH MCHC RDW Plt Count MPV Immature Gran % (Auto) Neut % (Auto) Lymph % (Auto) [place] % (Auto) Eos % (Auto) Baso % (Auto) Lymph # (Auto) [place] # (Auto) Eos # (Auto) Baso # (Auto) Abs Immat Gran (auto) Absolute Neuts (auto) Absolute Nucleated RBC Band Neutrophils % Nucleated RBC % Platelet Estimate % Immature Plt Fraction Polychromasia Hypochromasia Anisocytosis Tear Drop Cells Ovalocytes [place] Cells Crenated Cell Schistocytes PT INR APTT Sodium Potassium Chloride Carbon Dioxide Anion Gap BUN Creatinine Estim Creat Clear Calc Estimated GFR Glucose POC Capillary Glucose 115 H Calcium Phosphorus Magnesium Total Bilirubin AST ALT Alkaline Phosphatase Total Protein Albumin Peritoneal Source Peritoneal fluid Peritoneal Color Yellow Peritoneal Appearance Clear Peritoneal RBC < 2000 Periton Nuc Cells 88 Periton Neutrophils 1 Periton Lymphocytes 36 Peritoneal Monocytes 14 [place] Mesothelial 7 Periton Macrophages 42 Peritoneal Tot Protein Cancelled Stl Occult Blood (IFOB) Hepatitis A IgM Ab Hep Bs Antigen Hep B Core IgM Ab Hepatitis C Ab Screen Blood Type Antibody Screen Crossmatch 04/12/25 04/12/25 13:31 15:56 WBC 3.1 L RBC 3.26 L Hgb 7.9 L Hct 27.0 L MCV 82.8 MCH 24.2 L MCHC 29.3 L RDW 20.4 H Plt Count 99 L MPV 9.5 Immature Gran % (Auto) Neut % (Auto) Lymph % (Auto) [place] % (Auto) Eos % (Auto) Baso % (Auto) Lymph # (Auto) [place] # (Auto) Eos # (Auto) Baso # (Auto) Abs Immat Gran (auto) Absolute Neuts (auto) Absolute Nucleated RBC Band Neutrophils % Nucleated RBC % Platelet Estimate % Immature Plt Fraction 2.1 Polychromasia Hypochromasia Anisocytosis Tear Drop Cells Ovalocytes [place] Cells Crenated Cell Schistocytes PT INR APTT Sodium Potassium Chloride Carbon Dioxide Anion Gap BUN Creatinine Estim Creat Clear Calc Estimated GFR Glucose POC Capillary Glucose 106 H Calcium Phosphorus Magnesium Total Bilirubin AST ALT Alkaline Phosphatase Total Protein Albumin Peritoneal Source Peritoneal Color Peritoneal Appearance Peritoneal RBC Periton Nuc Cells Periton Neutrophils Periton Lymphocytes Peritoneal Monocytes Periton Mesothelial Periton Macrophages Peritoneal Tot Protein Stl Occult Blood (IFOB) Hepatitis A IgM Ab Hep Bs Antigen Hep B Core IgM Ab Hepatitis C Ab Screen Blood Type Antibody Screen Crossmatch
--- NOTE | 2025-04-12 20:03 | P.CONONC_ITS ---
Assessment and Plan Assessment and plan (1) Pancytopenia: Code(s): D61.818 - Other pancytopenia Status: Acute Assessment and Plan: Presentation CBC on 04/10/25 showed WBC 2.2, Hgb 2.5g/dL, platelets 48K. Toxicology screen was negative and ethanol levels were normal. CT Chest abdomen pelvis showed cirrhosis with portal hypertension, splenomegaly, cardiomegaly, small amount of ascites and mild bladder wall thickening. Over the course of last few days patient received PRBC and platelet transfusions. GI was consulted and underwent EGD and colonoscopy today 04/12/25. EGD showed mild gastritis. Colonoscopy showed a 4mm descending colon polyp which was removed. Patient's CBC today, 04/12/25 shows WBC 3.1, Hemoglobin 7.9, platelets 99. Pancytopenia is multifactorial including advanced cirrhosis, malnutrition and direct bone marrow suppression from alcohol. There is no acute hematologic intervention that can be done as the root cause is chronic alcohol use. Only supportive care with blood product transfusion can be done in inpatient setting. HPI Data of Consult Date/Time: 04/12/25 20:03 Requesting Physician: Yvonne Resendiz MD Primary Care Provider: UNKNOWN,DOCTOR Consult Narrative Narrative: Edilberto Funes is a 44 year old male with past medical history of heavy ETOH use presented to the hospital with seizures on 04/10/25. Patient reported seizure around 5:00 a.m on the day of presentation. EMS was called however he declined AMS at that time. Later on in the day the patient had another seizure with a fall. Patient stated his last drink was 2 days prrior to admission. He is a daily drinker and drinks a lot of beer. He is unable to quantify how much. In the ED the patient's lab work showed WBC 2.2, Hgb 2.5g/dL, platelets 48K. Toxicology screen was negative and ethanol levels were normal. CT Chest abdomen pelvis showed cirrhosis with portal hypertension, splenomegaly, cardiomegaly, small amount of ascites and mild bladder wall thickening. Over the course of last few days patient received PRBC and platelet transfusions. GI was consulted and underwent EGD and colonoscopy today 04/12/25. EGD showed mild gastritis. Colonoscopy showed a 4mm descending colon polyp which was removed. Patient's CBC today, 04/12/25 shows WBC 3.1, Hemoglobin 7.9, platelets 99. Hematology is consulted for pancytopenia. Review of Systems 2 Review of Systems: Patient reports that he feels fine now after few days as inpatient. He states that it is hard for him to stop drinking alcohol. Currently he denies dizziness, headache, blurry or double vision. Denies f/c, night sweats. He reports lower extremity swelling. Denies chest pain or dyspnea. Has abdominal distention and discomfort. Denies hematochezia, melena or hematuria. Rest of 12 point ROS negative. [facility] Past Medical History Medical History (Updated 04/11/25 @ 15:37 by Jesús Alcaraz MD) Cirrhosis, alcoholic Pancytopenia Alcohol abuse Cirrhosis of liver Social History Social History Smoking packs per day: 2 Smoking cigarettes per day: 40.0 Years smoked: 8 Smoking pack-years: 16.00 Smoking status: Former smoker Tobacco type: cigarettes Alcohol intake: current Drinks per week: 12 Substance use: never Lack of Transportation: No Lack of Food: Never True Current Housing: I Do Not Have Housing Concerned About Future Housing: No Difficulty Paying Gas/Electric Bills: No Difficulty Paying for Meds: No Currently Unemployed: No Education: Grade School Difficulty w/ Childcare or Family Care: No Spiritual care concerns: No Meds Home Medications and Allergies Home Medications ?Medication ?Instructions ?Recorded ?Confirmed ?Type No Home Medications 04/10/25 04/10/25 H istory Allergies Allergy/AdvReac Type Severity Reaction Status Date / Time No Known Allergies Allergy Verified 04/12/25 13:50 Vital Signs Vital Signs - 24 hr 04/11/25 21:10 04/11/25 21:25 04/11/25 22:00 Temperature 37.3 C 37.3 C Pulse Rate 79 83 79 Pulse Rate [Monitor] Respiratory Rate 20 20 Blood Pressure 141/78 H 139/72 Pulse Oximetry 100 100 Oxygen Delivery 04/11/25 22:02 04/11/25 22:17 04/11/25 22:32 Temperature 37.4 C 37.4 C 37.5 C Pulse Rate 86 84 76 Pulse Rate [Monitor] Respiratory Rate 20 20 20 Blood Pressure 140/76 138/74 133/65 Pulse Oximetry 100 100 98 Oxygen Delivery 04/11/25 22:32 04/11/25 23:25 04/12/25 00:00 Temperature 37.5 C 37.3 C Pulse Rate 76 85 Pulse Rate [Monitor] Respiratory Rate 20 20 Blood Pressure 133/76 129/79 Pulse Oximetry 98 99 Oxygen Delivery Room Air 04/12/25 00:00 04/12/25 01:41 04/12/25 01:56 Temperature 37.3 C 36.9 C Pulse Rate 83 74 79 Pulse Rate [Monitor] Respiratory Rate 20 20 Blood Pressure 130/72 138/76 Pulse Oximetry 99 100 Oxygen Delivery 04/12/25 02:00 04/12/25 02:56 04/12/25 03:54 Temperature 37.3 C 37.3 C Pulse Rate 78 80 82 Pulse Rate [Monitor] Respiratory Rate 20 20 Blood Pressure 133/78 139/76 Pulse Oximetry 100 100 Oxygen Delivery 04/12/25 04:00 04/12/25 04:00 04/12/25 06:00 Temperature Pulse Rate 80 81 Pulse Rate [Monitor] Respiratory Rate Blood Pressure Pulse Oximetry Oxygen Delivery Room Air 04/12/25 08:00 04/12/25 08:00 04/12/25 08:00 Temperature 37.1 C Pulse Rate 81 81 Pulse Rate [Monitor] 76 Respiratory Rate 20 12 Blood Pressure 145/84 H 148/74 H Pulse Oximetry 99 100 Oxygen Delivery Room Air 04/12/25 08:00 04/12/25 10:00 04/12/25 11:50 Temperature 37.1 C Pulse Rate 78 74 81 Pulse Rate [Monitor] Respiratory Rate 12 Blood Pressure 148/74 H Pulse Oximetry 100 Oxygen Delivery 04/12/25 12:00 04/12/25 12:00 04/12/25 14:05 Temperature 36.9 C Pulse Rate 83 72 Pulse Rate [Monitor] Respiratory Rate 16 Blood Pressure 131/77 Pulse Oximetry 100 Oxygen Delivery Room Air Room Air 04/12/25 14:42 04/12/25 14:52 04/12/25 15:02 Temperature Pulse Rate 76 75 73 Pulse Rate [Monitor] Respiratory Rate 17 18 20 Blood Pressure 118/77 121/73 127/78 Pulse Oximetry 100 100 100 Oxygen Delivery Room Air Room Air Room Air 04/12/25 16:00 04/12/25 16:00 04/12/25 16:00 Temperature 36.9 C Pulse Rate 68 Pulse Rate [Monitor] 76 Respiratory Rate 242 H Blood Pressure 129/71 129/71 Pulse Oximetry 100 Oxygen Delivery Room Air 04/12/25 16:00 04/12/25 18:00 04/12/25 19:38 Temperature 37.2 C Pulse Rate 83 79 80 Pulse Rate [Monitor] Respiratory Rate 14 Blood Pressure 134/81 Pulse Oximetry 100 Oxygen Delivery Exam 2 Narrative: General: Alert and orientedx3, unkempt male, no acute distress HEENT: EOMI, PERRLA, sclera icterus noted. Respiratory: cTAB Cardiovascular: RRR, no m/g/r Abdomen: Distended, NT, BS+ Extremities: trace edema in bilateral lower extremities Neuro: No focal deficit. Skin: Warm, dry, and intact, without rash, erythema, or lesion. Psych: good mood Results Labs 04/12/25 13:31 04/12/25 07:45 Labs: Short CBC 04/12/25 04/12/25 04/12/25 Range/Units 00:24 07:38 13:31 WBC 3.6 L 3.6 L 3.1 L (4.5-10.0) K/mm3 Hgb 6.6 L* 8.5 L 7.9 L (14.0-18.0) g/dL Hct 22.4 L 29.2 L 27.0 L (42.0-52.0) % Plt Count 103 L D 83 L 99 L (150-375) k/mm3 BMP 04/12/25 07:45 Sodium 138 Potassium 3.7 Chloride 112 H Carbon Dioxide 17 L BUN 9 Creatinine 0.98 Glucose 103 Calcium 7.9 L Liver Function 04/12/25 Range/Units 07:45 Total Bilirubin 6.3 H (0.2-1.3) mg/dL AST 78 H (17-59) U/L ALT 25 (6-50) U/L Alkaline Phosphatase 84 (38-126) U/L Albumin 3.0 L (3.5-5.1) g/dL
[2025-04-12 20:06] LABS: Hematocrit 29.3 % (42.0-52.0); Hemoglobin 8.6 g/dL (14.0-18.0); Immature Platelet Fraction Pct 2.1 % (0.9-11.2); Mean Corpuscular HGB Conc 29.4 g/dl (32-36); Mean Corpuscular Hemoglobin 24.4 pg (26-34); Mean Corpuscular Volume 83.0 fl (80-100); Platelet Count Result 105 k/mm3 (150-375); Red Blood Count 3.53 M/mm3 (4.6-6.20); White Blood Count 3.3 K/mm3 (4.5-10.0)
[2025-04-13] VITALS (14 sets, daily range): BP systolic 119–135; BP diastolic 66–78; PULSE 73–117; RESP 14–20; TEMP 36.8–38.1; O2SAT 99–100
--- NOTE | 2025-04-13 | ECHO_ITS ---
Patient Info Name: Edilberto Funes Age: 44 years : 1980 Gender: Male Ht: 58 in Wt: 162 lbs BSA: 1.77 m2 HR: 77 bpm BP: 122 / 74 mmHg Technical Quality: Good Exam Date: 04/13/2025 10:05 AM Patient Status: I Admit Date: 04/10/2025 Exam Type: CA echo doppler color flow Complete two-dimensional, color flow and Doppler transthoracic echocardiogram is performed. Staff Referring Physician: Mike Moreno MD Pasting Inspector: Kaleigh Johnson Attending Provider: Yvonne Resendiz Summary 1. Complete two-dimensional, color flow and Doppler transthoracic echocardiogram is performed. 2. Left ventricular chamber dimension is moderately enlarged. 3. Left ventricular systolic function is normal, estimated at 60-65. 4. The left ventricular diastolic function is abnormal. 5. E/e' 13 is mildly elevated. 6. Left atrial chamber dimension is moderately enlarged. 7. Right atrial chamber dimension is mildly enlarged. 8. There is mild mitral valve regurgitation. 9. There is mild tricuspid valve regurgitation. 10. Mild pulmonary hypertension, estimated pulmonary arterial systolic pressure is 41 mmHg. Left Ventricle E/e' 13 is mildly elevated. Left ventricular chamber dimension is moderately enlarged. Left ventricular systolic function is normal, estimated at 60-65. The left ventricular diastolic function is abnormal. Right Ventricle Right ventricular chamber dimension is normal. Right ventricular systolic function is normal and with normal TAPSE 2.3 cm. Left Atria Left atrial chamber dimension is moderately enlarged. Right Atria Right atrial chamber dimension is mildly enlarged. Aortic Valve The aortic valve is trileaflet. There is no aortic valve stenosis. There is no aortic valve regurgitation. Pulmonic Valve There is no pulmonic regurgitation. Mitral Valve There is no mitral valve stenosis. There is mild mitral valve regurgitation. Tricuspid Valve There is mild tricuspid valve regurgitation. Mild pulmonary hypertension, estimated pulmonary arterial systolic pressure is 41 mmHg. Pericardium/Pleural There is no pericardial effusion. Inferior Vena Cava Normal inferior vena cava with >50% collapse upon inspiration consistent with normal right atrial pressure, 5 mmHg. Aorta The aortic root size at the sinus of Valsalva is normal. Left Ventricular Outflow Tract Name Value Normal LVOT 2D LVOT Diameter 2.0 cm LVOT Doppler LVOT Peak Velocity 193 cm/s LVOT Peak Gradient 15 mmHg LVOT Mean Gradient 8 mmHg LVOT VTI 38 cm LVOT VTI/AV VTI Ratio 0.7 LVOT Stroke Volume 121 ml LVOT CO 25.1 l/min LVOT CI 14.2 l/min/m2 Pulmonic Valve Name Value Normal PV Doppler PV Peak Velocity 160 cm/s PV Peak Gradient 10 mmHg Mitral Valve Name Value Normal MV Diastolic Function MV E Peak Velocity 152 cm/s MV A Peak Velocity 86 cm/s MV E/A 1.8 MV Decel Time (PW) 218 ms MV Annular TDI MV E/e' (Septal) 14.8 MV E/e' (Lateral) 12.0 MV E/e' (Average) 13.4 Tricuspid Valve Name Value Normal TV Regurgitation Doppler TR Peak Velocity 299 cm/s TR Peak Gradient 36 mmHg Estimated PAP/RSVP RA Pressure 5 mmHg <=5 PA Systolic Pressure 41 mmHg <36 RV Systolic Pressure 41 mmHg <36 TV Annular TDI TV Lateral Char s' Velocity 12.7 cm/s >=9.5 Aorta Name Value Normal Ascending Aorta Ao Root Diameter (MM) 3.3 cm Ao Root Diam Index (MM) 1.9 cm/m2 Aortic Valve Name Value Normal AV Doppler AV Peak Velocity 281 cm/s AV Peak Gradient 32 mmHg AV Mean Gradient 16 mmHg AV VTI 54 cm AV Area (Cont Eq VTI) 2.2 cm2 >=3.0 AV Area (Cont Eq Darrick) 2.2 cm2 AV DI (Darrick) 0.68 AV Regurgitation 2D LVOT Area 3.2 cm2 Ventricles Name Value Normal LV Dimensions 2D/MM IVS Diastolic Thickness (2D) 1.0 cm 0.6-1.0 LVID Diastole (2D) 5.6 cm 4.2-5.8 LVIW Diastolic Thickness (2D) 1.0 cm 0.6-1.0 LVID Systole (2D) 3.7 cm 2.5-4.0 LVOT Diameter 2.0 cm LV Mass (2D Cubed) 227.78 g 88.00-224.00 LV Mass Index (2D Cubed) 129 g/m2 49-115 Relative Wall Thickness (2D) 0.38 <=0.42 LV Fractional Shortening/Ejection Fraction 2D/MM LV Fractional Shortening (2D) 34 % 25-43 LV EF (2D Teichholz) 62 % LV Diastolic Volume (4C MOD) 205 ml LV EF (4C MOD) 59 % LV Diastolic Volume (2C MOD) 216 ml LV EF (2C MOD) 61 % LV Diastolic Volume (BP MOD) 210 ml 62-150 LV Diastolic Volume Index (BP MOD) 119 ml/m2 34-74 LV Systolic Volume (BP MOD) 85 ml 21-61 LV Systolic Volume Index (BP MOD) 48 ml/m2 11-31 LV EF (BP MOD) 60 % 52-72 LV Diastolic Length (4C) 10.4 cm LV Systolic Length (4C) 8.4 cm LV Stroke Volume (4C MOD) 121 ml Atria Name Value Normal LA Dimensions LA Volume (4C A-L) 118 ml LA Volume (BP A-L) 120 ml RA Dimensions RA Systolic Major [place] Length (4C) 5.9 cm 2.1-2.7 RA Area (4C) 23.4 cm2 <=18.0 Report Signatures
[2025-04-13] MEDS: chlordiazePOXIDE (*CRX) 25 MG CAPSULE PO ×4 (00:56→20:53)
[2025-04-13 01:18] LABS: Hematocrit 29.2 % (42.0-52.0); Hemoglobin 8.5 g/dL (14.0-18.0); Immature Platelet Fraction Pct 2.3 % (0.9-11.2); Mean Corpuscular HGB Conc 29.1 g/dl (32-36); Mean Corpuscular Hemoglobin 24.4 pg (26-34); Mean Corpuscular Volume 83.7 fl (80-100); Platelet Count Result 97 k/mm3 (150-375); Red Blood Count 3.49 M/mm3 (4.6-6.20); White Blood Count 3.3 K/mm3 (4.5-10.0)
[2025-04-13 04:23] LABS: Hematocrit 27.8 % (42.0-52.0); Hemoglobin 8.1 g/dL (14.0-18.0); Immature Platelet Fraction Pct 2.1 % (0.9-11.2); Mean Corpuscular HGB Conc 29.1 g/dl (32-36); Mean Corpuscular Hemoglobin 24.5 pg (26-34); Mean Corpuscular Volume 84.0 fl (80-100); Red Blood Count 3.31 M/mm3 (4.6-6.20); White Blood Count 2.8 K/mm3 (4.5-10.0)
[2025-04-13 04:26] LABS: Platelet Count Result 89 k/mm3 (150-375)
[2025-04-13 04:33] LABS: INR 1.7; Partial Thromboplastin Time 36.2 Seconds (22.3-36.8); Prothrombin Time 19.7 Seconds (11.1-14.7)
[2025-04-13 04:46] LABS: Alanine Aminotransferase 22 U/L (6-50); Albumin Level 2.6 g/dL (3.5-5.1); Alkaline Phosphatase 67 U/L (38-126); Anion Gap 7 mmol/L (4-12); Aspartate Amino Transferase 53 U/L (17-59); Bilirubin,Total 6.0 mg/dL (0.2-1.3); Blood Urea Nitrogen 7 mg/dL (9-20); Calcium 7.7 mg/dL (8.4-10.2); Carbon Dioxide 18 mmol/L (22-30); Chloride 112 mmol/L (98-107); Estimated Glomerular Filt Rate > 60; Glucose 110 mg/dL (65-110); Magnesium 2.0 mg/dL (1.6-2.3); Potassium 3.2 mmol/L (3.4-5.0); Sodium 137 mmol/L (137-145); Total Protein 6.9 g/dL (6.3-8.2)
--- NOTE | 2025-04-13 08:25 | P.PNIM_ITS ---
Progress Note: A&P Assessment and Plan (1) Alcohol abuse: Code(s): F10.10 - Alcohol abuse, uncomplicated Status: Acute (2) Thrombocytopenia: Code(s): D69.6 - Thrombocytopenia, unspecified Status: Acute (3) Cirrhosis of liver: Qualifiers: Ascites presence: with ascites Hepatic cirrhosis type: alcoholic cirrhosis Qualified Code(s): K70.31 - Alcoholic cirrhosis of liver with ascites Code(s): K74.60 - Unspecified cirrhosis of liver Status: Acute (4) GI (gastrointestinal hemorrhage): Qualifiers: GI bleed type/associated pathology: unspecified gastrointestinal hemorrhage type Qualified Code(s): K92.2 - Gastrointestinal hemorrhage, unspecified Code(s): K92.2 - Gastrointestinal hemorrhage, unspecified Status: Acute (5) Ascites: Code(s): R18.8 - Other ascites Status: Acute (6) Alcohol withdrawal seizure: Qualifiers: Complication of substance-induced condition: uncomplicated Qualified Code(s): F10.930 - Alcohol use, unspecified with withdrawal, uncomplicated; R56.9 - Unspecified convulsions Code(s): F10.939 - Alcohol use, unspecified with withdrawal, unspecified; R56.9 - Unspecified convulsions Status: Acute Plan Anemia: Patient presented with hemoglobin of 2.5. No hematochezia melena hematemesis. Suspect ongoing chronic GI bleed likely variceal considering patient has history of cirrhosis Started on Protonix IV and octreotide infusion Status post 4 units of PRBC post transfusion hemoglobin is 6 underwent another transfusion Monitor serial hemoglobin which has been stable now GI consulted Status post EGD and colonoscopy EGD: Gastritis. On Protonix Colonoscopy: Colonic polyps Thrombocytopenia likely related to cirrhosis Alcohol abuse on thiamine and folic acid she will monitoring On Librium will decrease the dose to q.8 hours Cirrhosis of liver secondary to alcohol abuse. Received vitamin K IM. SBP prophylaxis Rocephin which has been discontinued now. Will need on spironolactone which will be started. Also on nonselective beta-lazaro GI bleed see above Alcohol withdrawal seizure no prior history of seizure recurrence since coming to the hospital She had precautions On Librium and p.r.n. Valium Ascites status post paracentesis of 1 L DVT prophylaxis SCDs Stress ulcer prophylaxis ppi Code status full code Subjective Date/time seen: 04/13/25 08:25 Interval history: No overnight events. Denies any new complaints. Denies shortness of breath. CIWA score reviewed. Understands he needs to quit drinking. Review of Systems Review of Systems: All systems reviewed & are unremarkable except as noted in HPI and below (Subjective) Exam Narrative: General: Pt is alert awake and in NAD Lungs/Chest: Trachea central Clear BS B/L, No crackles or wheezing. Cardiac: RRR. Normal S1 S2. No murmurs Circulation: Pedal pulses are intact and symmetrical. Abdomen: Distended, present bowel sounds.. Soft. NT, Extremities: No clubbing, cyanosis or edema. Warm Neurologic: Follows commands. Moves all 4 extremities PERRL Skin: No Rash Objective Data Vital Signs Vital Signs: Vital Signs - 24 hr 04/12/25 10:00 04/12/25 11:50 04/12/25 12:00 Temperature 98.7 F Pulse Rate 74 81 Pulse Rate [Monitor] Respiratory Rate 12 Blood Pressure 148/74 H Pulse Oximetry 100 Oxygen Delivery Room Air 04/12/25 12:00 04/12/25 14:05 04/12/25 14:42 Temperature 98.5 F Pulse Rate 83 72 76 Pulse Rate [Monitor] Respiratory Rate 16 17 Blood Pressure 131/77 118/77 Pulse Oximetry 100 100 Oxygen Delivery Room Air Room Air 04/12/25 14:52 04/12/25 15:02 04/12/25 16:00 Temperature 98.4 F Pulse Rate 75 73 68 Pulse Rate [Monitor] Respiratory Rate 18 20 242 H Blood Pressure 121/73 127/78 129/71 Pulse Oximetry 100 100 100 Oxygen Delivery Room Air Room Air 04/12/25 16:00 04/12/25 16:00 04/12/25 16:00 Temperature Pulse Rate 83 Pulse Rate [Monitor] 76 Respiratory Rate Blood Pressure 129/71 Pulse Oximetry Oxygen Delivery Room Air 04/12/25 18:00 04/12/25 19:38 04/12/25 20:00 Temperature 99.0 F Pulse Rate 79 80 Pulse Rate [Monitor] 80 Respiratory Rate 14 Blood Pressure 134/81 Pulse Oximetry 100 Oxygen Delivery 04/12/25 20:00 04/12/25 20:00 04/12/25 22:00 Temperature Pulse Rate 80 80 80 Pulse Rate [Monitor] Respiratory Rate 14 Blood Pressure Pulse Oximetry 100 Oxygen Delivery Room Air 04/12/25 23:38 04/13/25 00:00 04/13/25 00:00 Temperature 99.0 F Pulse Rate 79 80 Pulse Rate [Monitor] 81 Respiratory Rate 15 14 Blood Pressure 129/70 Pulse Oximetry 100 100 Oxygen Delivery Room Air 04/13/25 00:00 04/13/25 02:00 04/13/25 04:00 Temperature Pulse Rate 82 84 Pulse Rate [Monitor] 77 Respiratory Rate Blood Pressure Pulse Oximetry Oxygen Delivery 04/13/25 04:00 04/13/25 04:00 04/13/25 04:36 Temperature 99.0 F Pulse Rate 78 82 81 Pulse Rate [Monitor] Respiratory Rate 16 Blood Pressure 135/78 Pulse Oximetry 100 Oxygen Delivery Room Air 04/13/25 06:00 04/13/25 08:00 Temperature 99.3 F Pulse Rate 82 80 Pulse Rate [Monitor] Respiratory Rate 15 Blood Pressure 122/74 Pulse Oximetry 100 Oxygen Delivery Intake/Output Intake/Output: Intake & Output 04/10/25 04/11/25 04/12/25 04/13/25 23:59 23:59 23:59 23:59 Intake Total 1100 1929.9 2220.0 550 Output Total 1200 1100 Balance 1100 729.9 1120.0 550 Meds/Results Medications: Active Medications Generic Name Dose Route Start Last Admin Trade Name Freq PRN Reason Stop Dose Admin Chlordiazepoxide HCl 25 mg 04/11/25 12:00 04/13/25 06:20 Chlordiazepoxide (*Crx) 25 Mg Capsule PO 25 mg Q6HR AMRITA Administration Diazepam 5 mg 04/10/25 17:13 Diazepam Inj (*Crx) 10 Mg/2 Ml Syringe IV PUSH PRN PRN Seizure Activity Diazepam 5 mg 04/10/25 17:48 Diazepam Inj (*Crx) 10 Mg/2 Ml Syringe IV PUSH Q5M PRN CIWA > 15 Folic Acid 1 mg 04/11/25 09:00 04/12/25 09:27 Folic Acid 1 Mg Tablet PO 1 mg DAILY AMRITA Administration Multivitamins/Calcium 1 tablet 04/11/25 09:00 04/12/25 09:27 Therapeutic Multivitamins/Minerals Tab (*Bkc) PO 1 tablet DAILY AMRITA Administration Ondansetron HCl 4 mg 04/10/25 17:13 Ondansetron Inj 4 Mg/2 Ml Vial IV PUSH Q4H PRN Nausea Pantoprazole Sodium 40 mg 04/12/25 09:00 04/12/25 09:27 Pantoprazole 40 Mg Tablet PO 40 mg QAM AMRITA Administration Thiamine HCl 100 mg 04/11/25 09:00 04/12/25 09:27 Thiamine Hcl 100 Mg Tablet PO 100 mg DAILY AMRITA Administration Radiology Results: ITS Impressions Head CT 04/10/25 12:55 IMPRESSION: No evidence for acute intracranial hemorrhage or calvarial fracture. Abdomen/Pelvis CTA 04/10/25 16:34 IMPRESSION: 1. Cirrhosis with portal hypertension. 2: Splenomegaly. 3: Cardiomegaly. 4: Small amount of ascites. 5: Mild bladder wall thickening. Correlate clinically for cystitis. Paracentesis Ultrasound 04/12/25 12:02 IMPRESSION: 1. Successful ultrasound-guided paracentesis yielding 1000 mL of clear saba- colored fluid. Labs Labs: Laboratory Results - last 24 hr 04/12/25 04/12/25 04/12/25 07:38 07:45 08:30 WBC 3.6 L RBC 3.51 L Hgb 8.5 L Hct 29.2 L MCV 83.2 MCH 24.2 L MCHC 29.1 L RDW 20.3 H Plt Count 83 L MPV 10.1 Immature Gran % (Auto) 1.4 H Neut % (Auto) 57.8 Lymph % (Auto) 21.5 [place] % (Auto) 14.9 H Eos % (Auto) 3.0 Baso % (Auto) 1.4 H Lymph # (Auto) 0.78 L [place] # (Auto) 0.5 Eos # (Auto) 0.1 Baso # (Auto) 0.1 Abs Immat Gran (auto) 0.05 H Absolute Neuts (auto) 2.1 Absolute Nucleated RBC 0.100 H Band Neutrophils % Not Reportable Nucleated RBC % 2.8 H Platelet Estimate Decreased % Immature Plt Fraction 6.8 Polychromasia 1+ Hypochromasia 2+ Anisocytosis 2+ Tear Drop Cells 1+ Ovalocytes 1+ [place] Cells 1+ Crenated Cell 1+ Schistocytes Occasional PT INR APTT Sodium 138 Potassium 3.7 Chloride 112 H Carbon Dioxide 17 L Anion Gap 9 BUN 9 Creatinine 0.98 Estim Creat Clear Calc Not Reportable Estimated GFR > 60 Glucose 103 POC Capillary Glucose Calcium 7.9 L Phosphorus 4.6 H Magnesium 2.4 H Total Bilirubin 6.3 H AST 78 H ALT 25 Alkaline Phosphatase 84 Total Protein 7.8 Albumin 3.0 L Peritoneal Source Peritoneal fluid Peritoneal Color Yellow Peritoneal Appearance Clear Peritoneal RBC < 2000 Periton Nuc Cells 88 [place] Neutrophils 1 [place] Lymphocytes 36 Peritoneal Monocytes 14 [place] Mesothelial 7 [place] Macrophages 42 Peritoneal Tot Protein Hepatitis A IgM Ab Negative Hep Bs Antigen Negative Hep B Core IgM Ab Negative Hepatitis C Ab Screen Negative 04/12/25 04/12/25 04/12/25 08:38 11:35 13:31 WBC 3.1 L RBC 3.26 L Hgb 7.9 L Hct 27.0 L MCV 82.8 MCH 24.2 L MCHC 29.3 L RDW 20.4 H Plt Count 99 L MPV 9.5 Immature Gran % (Auto) Neut % (Auto) Lymph % (Auto) [place] % (Auto) Eos % (Auto) Baso % (Auto) Lymph # (Auto) [place] # (Auto) Eos # (Auto) Baso # (Auto) Abs Immat Gran (auto) Absolute Neuts (auto) Absolute Nucleated RBC Band Neutrophils % Nucleated RBC % Platelet Estimate % Immature Plt Fraction 2.1 Polychromasia Hypochromasia Anisocytosis Tear Drop Cells Ovalocytes [place]au Cells Crenated Cell Schistocytes PT INR APTT Sodium Potassium Chloride Carbon Dioxide Anion Gap BUN Creatinine Estim Creat Clear Calc Estimated GFR Glucose POC Capillary Glucose 115 H Calcium Phosphorus Magnesium Total Bilirubin AST ALT Alkaline Phosphatase Total Protein Albumin Peritoneal Source Peritoneal Color Peritoneal Appearance Peritoneal RBC Periton Nuc Cells Periton Neutrophils Periton Lymphocytes Peritoneal Monocytes Periton Mesothelial Periton Macrophages Peritoneal Tot Protein Cancelled Hepatitis A IgM Ab Hep Bs Antigen Hep B Core IgM Ab Hepatitis C Ab Screen 04/12/25 04/12/25 04/12/25 15:56 19:47 23:45 WBC 3.3 L RBC 3.53 L Hgb 8.6 L Hct 29.3 L MCV 83.0 MCH 24.4 L MCHC 29.4 L RDW 20.8 H Plt Count 105 L MPV 9.1 Immature Gran % (Auto) Neut % (Auto) Lymph % (Auto) [place] % (Auto) Eos % (Auto) Baso % (Auto) Lymph # (Auto) [place] # (Auto) Eos # (Auto) Baso # (Auto) Abs Immat Gran (auto) Absolute Neuts (auto) Absolute Nucleated RBC Band Neutrophils % Nucleated RBC % Platelet Estimate % Immature Plt Fraction 2.1 Polychromasia Hypochromasia Anisocytosis Tear Drop Cells Ovalocytes [place] Cells Crenated Cell Schistocytes PT INR APTT Sodium Potassium Chloride Carbon Dioxide Anion Gap BUN Creatinine Estim Creat Clear Calc Estimated GFR Glucose POC Capillary Glucose 106 H 90 Calcium Phosphorus Magnesium Total Bilirubin AST ALT Alkaline Phosphatase Total Protein Albumin Peritoneal Source Peritoneal Color Peritoneal Appearance Peritoneal RBC Periton Nuc Cells Periton Neutrophils Periton Lymphocytes Peritoneal Monocytes Periton Mesothelial Periton Macrophages Peritoneal Tot Protein Hepatitis A IgM Ab Hep Bs Antigen Hep B Core IgM Ab Hepatitis C Ab Screen 04/13/25 04/13/25 01:11 04:04 WBC 3.3 L 2.8 L RBC 3.49 L 3.31 L Hgb 8.5 L 8.1 L Hct 29.2 L 27.8 L MCV 83.7 84.0 MCH 24.4 L 24.5 L MCHC 29.1 L 29.1 L RDW 21.3 H 21.2 H Plt Count 97 L 89 L MPV 9.3 9.3 Immature Gran % (Auto) Neut % (Auto) Lymph % (Auto) [place] % (Auto) Eos % (Auto) Baso % (Auto) Lymph # (Auto) [place] # (Auto) Eos # (Auto) Baso # (Auto) Abs Immat Gran (auto) Absolute Neuts (auto) Absolute Nucleated RBC Band Neutrophils % Nucleated RBC % Platelet Estimate % Immature Plt Fraction 2.3 2.1 Polychromasia Hypochromasia Anisocytosis Tear Drop Cells Ovalocytes [place] Cells Crenated Cell Schistocytes PT 19.7 H INR 1.7 APTT 36.2 Sodium 137 Potassium 3.2 L Chloride 112 H Carbon Dioxide 18 L Anion Gap 7 BUN 7 L Creatinine 0.83 Estim Creat Clear Calc Not Reportable Estimated GFR > 60 Glucose 110 POC Capillary Glucose Calcium 7.7 L Phosphorus 3.9 Magnesium 2.0 Total Bilirubin 6.0 H AST 53 ALT 22 Alkaline Phosphatase 67 Total Protein 6.9 Albumin 2.6 L Peritoneal Source Peritoneal Color Peritoneal Appearance Peritoneal RBC Periton Nuc Cells Periton Neutrophils Periton Lymphocytes Peritoneal Monocytes Periton Mesothelial Periton Macrophages Peritoneal Tot Protein Hepatitis A IgM Ab Hep Bs Antigen Hep B Core IgM Ab Hepatitis C Ab Screen
[2025-04-13] MEDS: POTASSIUM CHLORIDE 20 MEQ ER TABLET 40 MEQ PO (09:19)
[2025-04-13] MEDS: THIAMINE HCL 100 MG TABLET PO (09:19)
[2025-04-13] MEDS: PANTOPRAZOLE 40 MG TABLET PO (09:19)
[2025-04-13] MEDS: THERAPEUTIC MULTIVITAMINS/MINERALS TAB (*BKC) 1 TABLET PO (09:19)
[2025-04-13] MEDS: FOLIC ACID 1 MG TABLET PO (09:19)
[2025-04-13 11:52] LABS: Hematocrit 29.5 % (42.0-52.0); Hemoglobin 8.6 g/dL (14.0-18.0); Immature Platelet Fraction Pct 2.6 % (0.9-11.2); Mean Corpuscular HGB Conc 29.2 g/dl (32-36); Mean Corpuscular Hemoglobin 24.4 pg (26-34); Mean Corpuscular Volume 83.8 fl (80-100); Platelet Count Result 96 k/mm3 (150-375); Red Blood Count 3.52 M/mm3 (4.6-6.20); White Blood Count 3.5 K/mm3 (4.5-10.0)
--- NOTE | 2025-04-13 13:07 | WPDANESPN ---
Anes - Prog Note Post-Op Date/Time: 04/13/25 13:07 Cardiovascular status: normal Respiratory status: normal Airway patency: baseline Mental status: baseline Post-Op hydration status: normal Vital Signs: Last Vital Signs Temp 99.7 F H 04/13/25 11:32 Pulse 90 04/13/25 11:32 Resp 16 04/13/25 11:32 BP 119/66 04/13/25 11:32 Pulse Ox 99 04/13/25 11:32 O2 Del Method Room Air 04/13/25 04:00 Pain Score (VAS): 0/10 I/O: Intake & Output 04/12/25 04/13/25 04/13/25 23:59 07:59 15:59 Intake Total 550 720 Balance 550 720 Laboratory Tests 04/13/25 11:46 04/13/25 04:04 04/12/25 04/12/25 04/12/25 13:31 15:56 19:47 WBC 3.1 L 3.3 L RBC 3.26 L 3.53 L Hgb 7.9 L 8.6 L Hct 27.0 L 29.3 L MCV 82.8 83.0 MCH 24.2 L 24.4 L MCHC 29.3 L 29.4 L RDW 20.4 H 20.8 H Plt Count 99 L 105 L MPV 9.5 9.1 % Immature Plt Fraction 2.1 2.1 PT INR APTT Sodium Potassium Chloride Carbon Dioxide Anion Gap BUN Creatinine Estim Creat Clear Calc Estimated GFR Glucose POC Capillary Glucose 106 H Calcium Phosphorus Magnesium Total Bilirubin AST ALT Alkaline Phosphatase Total Protein Albumin 04/12/25 04/13/25 04/13/25 23:45 01:11 04:04 WBC 3.3 L 2.8 L RBC 3.49 L 3.31 L Hgb 8.5 L 8.1 L Hct 29.2 L 27.8 L MCV 83.7 84.0 MCH 24.4 L 24.5 L MCHC 29.1 L 29.1 L RDW 21.3 H 21.2 H Plt Count 97 L 89 L MPV 9.3 9.3 % Immature Plt Fraction 2.3 2.1 PT 19.7 H INR 1.7 APTT 36.2 Sodium 137 Potassium 3.2 L Chloride 112 H Carbon Dioxide 18 L Anion Gap 7 BUN 7 L Creatinine 0.83 Estim Creat Clear Calc Not Reportable Estimated GFR > 60 Glucose 110 POC Capillary Glucose 90 Calcium 7.7 L Phosphorus 3.9 Magnesium 2.0 Total Bilirubin 6.0 H AST 53 ALT 22 Alkaline Phosphatase 67 Total Protein 6.9 Albumin 2.6 L 04/13/25 04/13/25 11:04 11:46 WBC 3.5 L RBC 3.52 L Hgb 8.6 L Hct 29.5 L MCV 83.8 MCH 24.4 L MCHC 29.2 L RDW 21.4 H Plt Count 96 L MPV 9.1 % Immature Plt Fraction 2.6 PT INR APTT Sodium Potassium Chloride Carbon Dioxide Anion Gap BUN Creatinine Estim Creat Clear Calc Estimated GFR Glucose POC Capillary Glucose 105 Calcium Phosphorus Magnesium Total Bilirubin AST ALT Alkaline Phosphatase Total Protein Albumin Microbiology 04/12/25 08:38 Ascites Fluid Gram Stain - Final Post-procedural complaints: none Patient Feedback: Patient satisfied with anesthetic care.
[2025-04-13] MEDS: SPIRONOLACTONE 25 MG TABLET PO (15:43)
[2025-04-13 16:08] LABS: Albumin, Body Fluid 1.2 g/dL (Not Estab.); Glucose, Body Fluid 112 mg/dL (.)
--- NOTE | 2025-04-13 16:09 | P.PNGI_ITS ---
Progress Note: A&P Assessment and Plan (1) Cirrhosis, alcoholic: Code(s): K70.30 - Alcoholic cirrhosis of liver without ascites Status: Acute Assessment and Plan: decompensated with ascites, removed 1 liter- no sbp will follow as needed will need liver imaging at least every 6 months and routine office visit (2) Ascites: Code(s): R18.8 - Other ascites Status: Acute Assessment and Plan: started on low dose aldactone and lasix, normal renal function will need to monitor lytes as outpatient 2g na diet follow-up in office in few weeks stop using more alcohol (3) Pancytopenia: Code(s): D61.818 - Other pancytopenia Status: Acute Assessment and Plan: multifactorial no signs of recent gib, no varices- 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 (4) Alcohol withdrawal seizure: Qualifiers: Complication of substance-induced condition: uncomplicated Qualified Code(s): F10.930 - Alcohol use, unspecified with withdrawal, uncomplicated; R56.9 - Unspecified convulsions Code(s): F10.939 - Alcohol use, unspecified with withdrawal, unspecified; R56.9 - Unspecified convulsions Status: Acute Assessment and Plan: on meds thiamine, nutrition support Subjective Date/time seen: 04/13/25 16:09 Interval history: no changes, comfortable Review of Systems Review of Systems: All systems reviewed & are unremarkable except as noted in HPI and below Exam Const: General: comfortable and no acute distress Other: disheveled HENMT: Face/Nose/Sinus: Normal nares present Eyes: General: appearance normal, both eyes and all related structures Neck: Neck: supple Resp: Auscultation: clear to auscultation bilaterally Cardio: Rate: regular rate Rhythm: regular rhythm GI: GI Palp: Yes Soft to palpation and No Tenderness to palpation present (GI) Auscultation: normal bowel sounds Other: small amount ascites Skin: Other: pallor Neuro: Speech: normal speech Motor exam (neuro): 5/5 motor strength present throughout Extrem: General: normal to inspection Psych: Mental Status: mental status grossly normal Objective Data Vital Signs Vital Signs: Vital Signs - 24 hr 04/12/25 18:00 04/12/25 19:38 04/12/25 20:00 Temperature 99.0 F Pulse Rate 79 80 Pulse Rate [Monitor] 80 Respiratory Rate 14 Blood Pressure 134/81 Pulse Oximetry 100 Oxygen Delivery 04/12/25 20:00 04/12/25 20:00 04/12/25 22:00 Temperature Pulse Rate 80 80 80 Pulse Rate [Monitor] Respiratory Rate 14 Blood Pressure Pulse Oximetry 100 Oxygen Delivery Room Air 04/12/25 23:38 04/13/25 00:00 04/13/25 00:00 Temperature 99.0 F Pulse Rate 79 80 Pulse Rate [Monitor] 81 Respiratory Rate 15 14 Blood Pressure 129/70 Pulse Oximetry 100 100 Oxygen Delivery Room Air 04/13/25 00:00 04/13/25 02:00 04/13/25 04:00 Temperature Pulse Rate 82 84 Pulse Rate [Monitor] 77 Respiratory Rate Blood Pressure Pulse Oximetry Oxygen Delivery 04/13/25 04:00 04/13/25 04:00 04/13/25 04:36 Temperature 99.0 F Pulse Rate 78 82 81 Pulse Rate [Monitor] Respiratory Rate 16 Blood Pressure 135/78 Pulse Oximetry 100 Oxygen Delivery Room Air 04/13/25 06:00 04/13/25 08:00 04/13/25 08:00 Temperature 99.3 F Pulse Rate 82 80 Pulse Rate [Monitor] Respiratory Rate 15 Blood Pressure 122/74 Pulse Oximetry 100 99 Oxygen Delivery Room Air 04/13/25 08:00 04/13/25 10:00 04/13/25 11:32 Temperature 99.7 F H Pulse Rate 94 84 90 Pulse Rate [Monitor] Respiratory Rate 16 Blood Pressure 119/66 Pulse Oximetry 99 Oxygen Delivery 04/13/25 12:00 Temperature Pulse Rate 117 H Pulse Rate [Monitor] Respiratory Rate Blood Pressure Pulse Oximetry Oxygen Delivery Intake/Output Intake/Output: Intake & Output 04/10/25 04/11/25 04/12/25 04/13/25 23:59 23:59 23:59 23:59 Intake Total 1100 1929.9 2220.0 1270 Output Total 1200 1100 Balance 1100 729.9 1120.0 1270 Meds/Results Medications: Active Medications Generic Name Dose Route Start Last Admin Trade Name Freq PRN Reason Stop Dose Admin Chlordiazepoxide HCl 25 mg 04/13/25 14:00 04/13/25 15:43 Chlordiazepoxide (*Crx) 25 Mg Capsule PO 25 mg Q8H AMRITA Administration Diazepam 5 mg 04/10/25 17:13 Diazepam Inj (*Crx) 10 Mg/2 Ml Syringe IV PUSH PRN PRN Seizure Activity Diazepam 5 mg 04/10/25 17:48 Diazepam Inj (*Crx) 10 Mg/2 Ml Syringe IV PUSH Q5M PRN CIWA > 15 Folic Acid 1 mg 04/11/25 09:00 04/13/25 09:19 Folic Acid 1 Mg Tablet PO 1 mg DAILY AMRITA Administration Furosemide 20 mg 04/14/25 09:00 Furosemide 20 Mg Tablet PO DAILY AMRITA Multivitamins/Calcium 1 tablet 04/11/25 09:00 04/13/25 09:19 Therapeutic Multivitamins/Minerals Tab (*Bkc) PO 1 tablet DAILY AMRITA Administration Ondansetron HCl 4 mg 04/10/25 17:13 Ondansetron Inj 4 Mg/2 Ml Vial IV PUSH Q4H PRN Nausea Pantoprazole Sodium 40 mg 04/12/25 09:00 04/13/25 09:19 Pantoprazole 40 Mg Tablet PO 40 mg QAM AMRITA Administration Perflutren Lipid Microsphere 0 ml 04/13/25 08:36 Perflutren Lipid Microspheres 1.5 Ml Vial Diluted To 10 Ml Total Volume IV PUSH 04/16/25 08:36 ONCE PRN adequate visualization Protocol Spironolactone 100 mg 04/14/25 09:00 Spironolactone 25 Mg Tablet PO QAM AMRITA Thiamine HCl 100 mg 04/11/25 09:00 04/13/25 09:19 Thiamine Hcl 100 Mg Tablet PO 100 mg DAILY AMRITA Administration Radiology Results: ITS Impressions Head CT 04/10/25 12:55 IMPRESSION: No evidence for acute intracranial hemorrhage or calvarial fracture. Abdomen/Pelvis CTA 04/10/25 16:34 IMPRESSION: 1. Cirrhosis with portal hypertension. 2: Splenomegaly. 3: Cardiomegaly. 4: Small amount of ascites. 5: Mild bladder wall thickening. Correlate clinically for cystitis. Paracentesis Ultrasound 04/12/25 12:02 IMPRESSION: 1. Successful ultrasound-guided paracentesis yielding 1000 mL of clear saba- colored fluid. Labs Labs: Laboratory Results - last 24 hr 04/12/25 04/12/25 04/12/25 08:38 19:47 23:45 WBC 3.3 L RBC 3.53 L Hgb 8.6 L Hct 29.3 L MCV 83.0 MCH 24.4 L MCHC 29.4 L RDW 20.8 H Plt Count 105 L MPV 9.1 % Immature Plt Fraction 2.1 PT INR APTT Sodium Potassium Chloride Carbon Dioxide Anion Gap BUN Creatinine Estim Creat Clear Calc Estimated GFR Glucose POC Capillary Glucose 90 Calcium Phosphorus Magnesium Total Bilirubin AST ALT Alkaline Phosphatase Total Protein Albumin Fluid Glucose 112 Fluid Total Protein 2.5 Fluid Albumin 1.2 04/13/25 04/13/25 04/13/25 01:11 04:04 11:04 WBC 3.3 L 2.8 L RBC 3.49 L 3.31 L Hgb 8.5 L 8.1 L Hct 29.2 L 27.8 L MCV 83.7 84.0 MCH 24.4 L 24.5 L MCHC 29.1 L 29.1 L RDW 21.3 H 21.2 H Plt Count 97 L 89 L MPV 9.3 9.3 % Immature Plt Fraction 2.3 2.1 PT 19.7 H INR 1.7 APTT 36.2 Sodium 137 Potassium 3.2 L Chloride 112 H Carbon Dioxide 18 L Anion Gap 7 BUN 7 L Creatinine 0.83 Estim Creat Clear Calc Not Reportable Estimated GFR > 60 Glucose 110 POC Capillary Glucose 105 Calcium 7.7 L Phosphorus 3.9 Magnesium 2.0 Total Bilirubin 6.0 H AST 53 ALT 22 Alkaline Phosphatase 67 Total Protein 6.9 Albumin 2.6 L Fluid Glucose Fluid Total Protein Fluid Albumin 04/13/25 11:46 WBC 3.5 L RBC 3.52 L Hgb 8.6 L Hct 29.5 L MCV 83.8 MCH 24.4 L MCHC 29.2 L RDW 21.4 H Plt Count 96 L MPV 9.1 % Immature Plt Fraction 2.6 PT INR APTT Sodium Potassium Chloride Carbon Dioxide Anion Gap BUN Creatinine Estim Creat Clear Calc Estimated GFR Glucose POC Capillary Glucose Calcium Phosphorus Magnesium Total Bilirubin AST ALT Alkaline Phosphatase Total Protein Albumin Fluid Glucose Fluid Total Protein Fluid Albumin
--- NOTE | 2025-04-13 16:36 | P.PNONC_ITS ---
Progress Note: A&P Assessment and Plan (1) Pancytopenia: Code(s): D61.818 - Other pancytopenia Status: Acute Assessment and Plan: Presentation CBC on 04/10/25 showed WBC 2.2, Hgb 2.5g/dL, platelets 48K. [place] screen was negative and ethanol levels were normal. CT Chest abdomen pelvis showed cirrhosis with portal hypertension, splenomegaly, cardiomegaly, small amount of ascites and mild bladder wall thickening. Over the course of last few days patient received PRBC and platelet transfusions. GI was consulted and underwent EGD and colonoscopy today 04/12/25. EGD showed mild gastritis. Colonoscopy showed a 4mm descending colon polyp which was removed. Patient's CBC today, 04/12/25 shows WBC 3.1, Hemoglobin 7.9, platelets 99. Pancytopenia is multifactorial including advanced cirrhosis, malnutrition and direct bone marrow suppression from alcohol. There is no acute hematologic intervention that can be done as the root cause is chronic alcohol use. Only supportive care with blood product transfusion can be done in inpatient setting. No adiditional recs from hematology Subjective Date/time seen: 04/13/25 16:36 Interval history: Resting well. No overnight events. Review of Systems Review of Systems Patient reports that he feels fine now after few days as inpatient. He states that it is hard for him to stop drinking alcohol. Currently he denies dizziness, headache, blurry or double vision. Denies f/c, night sweats. He reports lower extremity swelling. Denies chest pain or dyspnea. Has abdominal distention and discomfort. Denies hematochezia, melena or hematuria. Rest of 12 point ROS negative. Exam Narrative: General: Alert and orientedx3, unkempt male, no acute distress HEENT: EOMI, PERRLA, sclera icterus noted. Respiratory: cTAB Cardiovascular: RRR, no m/g/r Abdomen: Distended, NT, BS+ Extremities: trace edema in bilateral lower extremities Neuro: No focal deficit. Skin: Warm, dry, and intact, without rash, erythema, or lesion. Psych: good mood Objective Data Vital Signs Vital Signs: Vital Signs - 24 hr 04/12/25 18:00 04/12/25 19:38 04/12/25 20:00 Temperature 37.2 C Pulse Rate 79 80 Pulse Rate [Monitor] 80 Respiratory Rate 14 Blood Pressure 134/81 Pulse Oximetry 100 Oxygen Delivery 04/12/25 20:00 04/12/25 20:00 04/12/25 22:00 Temperature Pulse Rate 80 80 80 Pulse Rate [Monitor] Respiratory Rate 14 Blood Pressure Pulse Oximetry 100 Oxygen Delivery Room Air 04/12/25 23:38 04/13/25 00:00 04/13/25 00:00 Temperature 37.2 C Pulse Rate 79 80 Pulse Rate [Monitor] 81 Respiratory Rate 15 14 Blood Pressure 129/70 Pulse Oximetry 100 100 Oxygen Delivery Room Air 04/13/25 00:00 04/13/25 02:00 04/13/25 04:00 Temperature Pulse Rate 82 84 Pulse Rate [Monitor] 77 Respiratory Rate Blood Pressure Pulse Oximetry Oxygen Delivery 04/13/25 04:00 04/13/25 04:00 04/13/25 04:36 Temperature 37.2 C Pulse Rate 78 82 81 Pulse Rate [Monitor] Respiratory Rate 16 Blood Pressure 135/78 Pulse Oximetry 100 Oxygen Delivery Room Air 04/13/25 06:00 04/13/25 08:00 04/13/25 08:00 Temperature 37.4 C Pulse Rate 82 80 Pulse Rate [Monitor] Respiratory Rate 15 Blood Pressure 122/74 Pulse Oximetry 100 99 Oxygen Delivery Room Air 04/13/25 08:00 04/13/25 10:00 04/13/25 11:32 Temperature 37.6 C H Pulse Rate 94 84 90 Pulse Rate [Monitor] Respiratory Rate 16 Blood Pressure 119/66 Pulse Oximetry 99 Oxygen Delivery 04/13/25 12:00 Temperature Pulse Rate 117 H Pulse Rate [Monitor] Respiratory Rate Blood Pressure Pulse Oximetry Oxygen Delivery Intake/Output Intake/Output: Intake & Output 04/10/25 04/11/25 04/12/25 04/13/25 23:59 23:59 23:59 23:59 Intake Total 1100 1929.9 2220.0 1270 Output Total 1200 1100 Balance 1100 729.9 1120.0 1270 Meds/Results Medications: Active Medications Generic Name Dose Route Start Last Admin Trade Name Freq PRN Reason Stop Dose Admin Chlordiazepoxide HCl 25 mg 04/13/25 14:00 04/13/25 15:43 Chlordiazepoxide (*Crx) 25 Mg Capsule PO 25 mg Q8H AMRITA Administration Diazepam 5 mg 04/10/25 17:13 Diazepam Inj (*Crx) 10 Mg/2 Ml Syringe IV PUSH PRN PRN Seizure Activity Diazepam 5 mg 04/10/25 17:48 Diazepam Inj (*Crx) 10 Mg/2 Ml Syringe IV PUSH Q5M PRN CIWA > 15 Folic Acid 1 mg 04/11/25 09:00 04/13/25 09:19 Folic Acid 1 Mg Tablet PO 1 mg DAILY AMRITA Administration Furosemide 20 mg 04/14/25 09:00 Furosemide 20 Mg Tablet PO DAILY AMRITA Multivitamins/Calcium 1 tablet 04/11/25 09:00 04/13/25 09:19 Therapeutic Multivitamins/Minerals Tab (*Bkc) PO 1 tablet DAILY AMRITA Administration Ondansetron HCl 4 mg 04/10/25 17:13 Ondansetron Inj 4 Mg/2 Ml Vial IV PUSH Q4H PRN Nausea Pantoprazole Sodium 40 mg 04/12/25 09:00 04/13/25 09:19 Pantoprazole 40 Mg Tablet PO 40 mg QAM AMRITA Administration Perflutren Lipid Microsphere 0 ml 04/13/25 08:36 Perflutren Lipid Microspheres 1.5 Ml Vial Diluted To 10 Ml Total Volume IV PUSH 04/16/25 08:36 ONCE PRN adequate visualization Protocol Spironolactone 100 mg 04/14/25 09:00 Spironolactone 50 Mg Tablet PO QAM AMRITA Thiamine HCl 100 mg 04/11/25 09:00 04/13/25 09:19 Thiamine Hcl 100 Mg Tablet PO 100 mg DAILY AMRITA Administration Radiology Results: ITS Impressions Head CT 04/10/25 12:55 IMPRESSION: No evidence for acute intracranial hemorrhage or calvarial fracture. Abdomen/Pelvis CTA 04/10/25 16:34 IMPRESSION: 1. Cirrhosis with portal hypertension. 2: Splenomegaly. 3: Cardiomegaly. 4: Small amount of ascites. 5: Mild bladder wall thickening. Correlate clinically for cystitis. Paracentesis Ultrasound 04/12/25 12:02 IMPRESSION: 1. Successful ultrasound-guided paracentesis yielding 1000 mL of clear saba- colored fluid. Labs Labs: Laboratory Results - last 24 hr 04/12/25 04/12/25 04/12/25 08:38 19:47 23:45 WBC 3.3 L RBC 3.53 L Hgb 8.6 L Hct 29.3 L MCV 83.0 MCH 24.4 L MCHC 29.4 L RDW 20.8 H Plt Count 105 L MPV 9.1 % Immature Plt Fraction 2.1 PT INR APTT Sodium Potassium Chloride Carbon Dioxide Anion Gap BUN Creatinine Estim Creat Clear Calc Estimated GFR Glucose POC Capillary Glucose 90 Calcium Phosphorus Magnesium Total Bilirubin AST ALT Alkaline Phosphatase Total Protein Albumin Fluid Glucose 112 Fluid Total Protein 2.5 Fluid Albumin 1.2 04/13/25 04/13/25 04/13/25 01:11 04:04 11:04 WBC 3.3 L 2.8 L RBC 3.49 L 3.31 L Hgb 8.5 L 8.1 L Hct 29.2 L 27.8 L MCV 83.7 84.0 MCH 24.4 L 24.5 L MCHC 29.1 L 29.1 L RDW 21.3 H 21.2 H Plt Count 97 L 89 L MPV 9.3 9.3 % Immature Plt Fraction 2.3 2.1 PT 19.7 H INR 1.7 APTT 36.2 Sodium 137 Potassium 3.2 L Chloride 112 H Carbon Dioxide 18 L Anion Gap 7 BUN 7 L Creatinine 0.83 Estim Creat Clear Calc Not Reportable Estimated GFR > 60 Glucose 110 POC Capillary Glucose 105 Calcium 7.7 L Phosphorus 3.9 Magnesium 2.0 Total Bilirubin 6.0 H AST 53 ALT 22 Alkaline Phosphatase 67 Total Protein 6.9 Albumin 2.6 L Fluid Glucose Fluid Total Protein Fluid Albumin 04/13/25 11:46 WBC 3.5 L RBC 3.52 L Hgb 8.6 L Hct 29.5 L MCV 83.8 MCH 24.4 L MCHC 29.2 L RDW 21.4 H Plt Count 96 L MPV 9.1 % Immature Plt Fraction 2.6 PT INR APTT Sodium Potassium Chloride Carbon Dioxide Anion Gap BUN Creatinine Estim Creat Clear Calc Estimated GFR Glucose POC Capillary Glucose Calcium Phosphorus Magnesium Total Bilirubin AST ALT Alkaline Phosphatase Total Protein Albumin Fluid Glucose Fluid Total Protein Fluid Albumin
--- NOTE | 2025-04-13 16:42 | PC.NURSE ---
This RN gave report to 3MS RNYani. Pt transferred to room 310.
--- NOTE | 2025-04-13 16:45 | PC.NURSE ---
This patient, Edilberto Funes, was received from [[id number] ] on 04/13/25 at 1645. Patient/family oriented to unit policies and routines.
--- NOTE | 2025-04-13 17:45 | PC.NURSE ---
Stratus used in room to aid communication between RN and patient for assessment. Patient states no needs at this time and denies pain.
[2025-04-13 18:07] LABS: Hematocrit 28.1 % (42.0-52.0); Hemoglobin 8.1 g/dL (14.0-18.0); Mean Corpuscular HGB Conc 28.8 g/dl (32-36); Mean Corpuscular Hemoglobin 24.3 pg (26-34); Mean Corpuscular Volume 84.4 fl (80-100); Platelet Count Result 85 k/mm3 (150-375); Red Blood Count 3.33 M/mm3 (4.6-6.20); White Blood Count 3.3 K/mm3 (4.5-10.0)
[2025-04-14 04:00] VITALS: BP 131/76
[2025-04-14] MEDS: chlordiazePOXIDE (*CRX) 25 MG CAPSULE PO (05:21)
[2025-04-14 06:17] VITALS: BP 133/84; PULSE 82; RESP 16; TEMP 36.6; O2SAT 100
[2025-04-14 06:21] LABS: Hematocrit 27.2 % (42.0-52.0); Hemoglobin 7.8 g/dL (14.0-18.0); Immature Platelet Fraction Pct 2.5 % (0.9-11.2); Mean Corpuscular HGB Conc 28.7 g/dl (32-36); Mean Corpuscular Hemoglobin 24.4 pg (26-34); Mean Corpuscular Volume 85.0 fl (80-100); Platelet Count Result 84 k/mm3 (150-375); Red Blood Count 3.20 M/mm3 (4.6-6.20); White Blood Count 2.8 K/mm3 (4.5-10.0)
[2025-04-14 06:31] LABS: INR 1.9; Prothrombin Time 21.1 Seconds (11.1-14.7)
[2025-04-14 06:32] LABS: Partial Thromboplastin Time 39.9 Seconds (22.3-36.8)
[2025-04-14 06:46] LABS: Alanine Aminotransferase 19 U/L (6-50); Albumin Level 2.5 g/dL (3.5-5.1); Alkaline Phosphatase 91 U/L (38-126); Anion Gap 6 mmol/L (4-12); Aspartate Amino Transferase 44 U/L (17-59); Bilirubin,Total 6.0 mg/dL (0.2-1.3); Blood Urea Nitrogen 5 mg/dL (9-20); Calcium 7.4 mg/dL (8.4-10.2); Carbon Dioxide 19 mmol/L (22-30); Chloride 109 mmol/L (98-107); Estimated Glomerular Filt Rate > 60; Glucose 90 mg/dL (65-110); Magnesium 2.0 mg/dL (1.6-2.3); Potassium 3.5 mmol/L (3.4-5.0); Sodium 134 mmol/L (137-145); Total Protein 6.7 g/dL (6.3-8.2)
[2025-04-14 07:24] LABS: Band Neutrophils Percent 1 % (0-6); Basophils Absolute Manual 0.00 K/mm3 (0.0-0.1); Basophils Percent Manual 0 % (0-1); Eosinophils Absolute Manual 0.05 K/mm3 (0.02-0.50); Eosinophils Percent Manual 2 % (0-4); Lymphocytes Absolute Manual 0.75 K/mm3 (1.1-4.5); Lymphocytes Percent Manual 27 % (18-44); Monocytes Absolute Manual 0.25 K/mm3 (0.1-0.90); Monocytes Percent Manual 9 % (3-9); Neutrophils Absolute Manual 1.73 K/mm3 (1.3-6.7); Neutrophils Percent Manual 61 % (46-73); Total Cells Counted 100
[2025-04-14 07:25] LABS: Anisocytosis 1+; Hypochromasia 1+; Smudge Cells FEW
[2025-04-14 07:26] LABS: Acanthocytes Occasional; Schistocytes None Seen
[2025-04-14] MEDS: THERAPEUTIC MULTIVITAMINS/MINERALS TAB (*BKC) 1 TABLET PO (08:58)
[2025-04-14] MEDS: PANTOPRAZOLE 40 MG TABLET PO (08:58)
[2025-04-14] MEDS: FUROSEMIDE 20 MG TABLET PO (08:58)
[2025-04-14] MEDS: THIAMINE HCL 100 MG TABLET PO (08:58)
[2025-04-14] MEDS: FOLIC ACID 1 MG TABLET PO (08:58)
[2025-04-14] MEDS: SPIRONOLACTONE 50 MG TABLET 100 MG PO (08:58)
--- NOTE | 2025-04-14 11:53 | PM.IMPN ---
Progress Note: A&P Assessment and Plan (1) Alcohol abuse: Code(s): F10.10 - Alcohol abuse, uncomplicated Status: Acute (2) Thrombocytopenia: Code(s): D69.6 - Thrombocytopenia, unspecified Status: Acute (3) Cirrhosis of liver: Qualifiers: Ascites presence: with ascites Hepatic cirrhosis type: alcoholic cirrhosis Qualified Code(s): K70.31 - Alcoholic cirrhosis of liver with ascites Code(s): K74.60 - Unspecified cirrhosis of liver Status: Acute (4) GI (gastrointestinal hemorrhage): Qualifiers: GI bleed type/associated pathology: unspecified gastrointestinal hemorrhage type Qualified Code(s): K92.2 - Gastrointestinal hemorrhage, unspecified Code(s): K92.2 - Gastrointestinal hemorrhage, unspecified Status: Acute (5) Ascites: Code(s): R18.8 - Other ascites Status: Acute (6) Alcohol withdrawal seizure: Qualifiers: Complication of substance-induced condition: uncomplicated Qualified Code(s): F10.930 - Alcohol use, unspecified with withdrawal, uncomplicated; R56.9 - Unspecified convulsions Code(s): F10.939 - Alcohol use, unspecified with withdrawal, unspecified; R56.9 - Unspecified convulsions Status: Acute Plan Anemia: Patient presented with hemoglobin of 2.5. No hematochezia melena hematemesis. Suspect ongoing chronic GI bleed likely variceal considering patient has history of cirrhosis Started on Protonix IV and octreotide infusion Status post 4 units of PRBC post transfusion hemoglobin is 6 underwent another transfusion Monitor serial hemoglobin which has been stable now GI consulted Status post EGD and colonoscopy EGD: Gastritis. On Protonix Colonoscopy: Colonic polyps Thrombocytopenia likely related to cirrhosis Alcohol abuse on thiamine and folic acid she will monitoring On Librium will decrease the dose to q.8 hours Cirrhosis of liver secondary to alcohol abuse. Received vitamin K IM. SBP prophylaxis Rocephin which has been discontinued now. Patient was started on Lasix and spironolactone. Also start on nonselective beta-lazaro GI bleed see above Alcohol withdrawal seizure no prior history of seizure recurrence since coming to the hospital She had precautions On Librium and p.r.n. Valium Ascites status post paracentesis of 1 L DVT prophylaxis SCDs Stress ulcer prophylaxis ppi Code status full code Subjective Date/time seen: 04/14/25 11:53 Interval history: No overnight events. Feels less shaky. Denies any abdominal pain or nausea vomiting. Review of Systems Review of Systems: All systems reviewed & are unremarkable except as noted in HPI and below (Subjective) Exam Narrative: General: Pt is alert awake and in NAD Lungs/Chest: Trachea central Clear BS B/L, No crackles or wheezing. Cardiac: RRR. Normal S1 S2. No murmurs Circulation: Pedal pulses are intact and symmetrical. Abdomen: Distended, present bowel sounds.. Soft. NT, Extremities: No clubbing, cyanosis or edema. Warm Neurologic: Follows commands. Moves all 4 extremities PERRL Skin: No Rash Objective Data Vital Signs Vital Signs: Vital Signs - 24 hr 04/13/25 12:00 04/13/25 16:00 04/13/25 17:00 Temperature 100.6 F H 98.2 F Pulse Rate 117 H 82 76 Respiratory Rate 18 15 Blood Pressure 130/69 130/71 Pulse Oximetry 100 100 Oxygen Delivery 04/13/25 17:47 04/13/25 20:00 04/13/25 20:00 Temperature Pulse Rate 76 Respiratory Rate 15 Blood Pressure 130/71 Pulse Oximetry 100 Oxygen Delivery Room Air Room Air 04/13/25 21:26 04/13/25 23:53 04/14/25 04:00 Temperature 99.4 F Pulse Rate 73 Respiratory Rate 20 Blood Pressure 131/76 131/76 131/76 Pulse Oximetry 100 Oxygen Delivery 04/14/25 06:17 Temperature 97.8 F Pulse Rate 82 Respiratory Rate 16 Blood Pressure 133/84 Pulse Oximetry 100 Oxygen Delivery Intake/Output Intake/Output: Intake & Output 04/11/25 04/12/25 04/13/25 04/14/25 23:59 23:59 23:59 23:59 Intake Total 1929.9 2220.0 1750 350 Output Total 1200 1100 1000 Balance 729.9 1120.0 750 350 Meds/Results Medications: Active Medications Generic Name Dose Route Start Last Admin Trade Name Freq PRN Reason Stop Dose Admin Chlordiazepoxide HCl 25 mg 04/13/25 14:00 04/14/25 05:21 Chlordiazepoxide (*Crx) 25 Mg Capsule PO 25 mg Q8H AMRITA Administration Diazepam 5 mg 04/10/25 17:13 Diazepam Inj (*Crx) 10 Mg/2 Ml Syringe IV PUSH PRN PRN Seizure Activity Diazepam 5 mg 04/10/25 17:48 Diazepam Inj (*Crx) 10 Mg/2 Ml Syringe IV PUSH Q5M PRN CIWA > 15 Folic Acid 1 mg 04/11/25 09:00 04/14/25 08:58 Folic Acid 1 Mg Tablet PO 1 mg DAILY AMRITA Administration Furosemide 20 mg 04/14/25 09:00 04/14/25 08:58 Furosemide 20 Mg Tablet PO 20 mg DAILY AMRITA Administration Multivitamins/Calcium 1 tablet 04/11/25 09:00 04/14/25 08:58 Therapeutic Multivitamins/Minerals Tab (*Bkc) PO 1 tablet DAILY AMRITA Administration Ondansetron HCl 4 mg 04/10/25 17:13 Ondansetron Inj 4 Mg/2 Ml Vial IV PUSH Q4H PRN Nausea Pantoprazole Sodium 40 mg 04/12/25 09:00 04/14/25 08:58 Pantoprazole 40 Mg Tablet PO 40 mg QAM AMRITA Administration Perflutren Lipid Microsphere 0 ml 04/13/25 08:36 Perflutren Lipid Microspheres 1.5 Ml Vial Diluted To 10 Ml Total Volume IV PUSH 04/16/25 08:36 ONCE PRN adequate visualization Protocol Spironolactone 100 mg 04/14/25 09:00 04/14/25 08:58 Spironolactone 50 Mg Tablet PO 100 mg QAM AMRITA Administration Thiamine HCl 100 mg 04/11/25 09:00 04/14/25 08:58 Thiamine Hcl 100 Mg Tablet PO 100 mg DAILY AMRITA Administration Radiology Results: ITS Impressions Head CT 04/10/25 12:55 IMPRESSION: No evidence for acute intracranial hemorrhage or calvarial fracture. Abdomen/Pelvis CTA 04/10/25 16:34 IMPRESSION: 1. Cirrhosis with portal hypertension. 2: Splenomegaly. 3: Cardiomegaly. 4: Small amount of ascites. 5: Mild bladder wall thickening. Correlate clinically for cystitis. Paracentesis Ultrasound 04/12/25 12:02 IMPRESSION: 1. Successful ultrasound-guided paracentesis yielding 1000 mL of clear saba-colored fluid. Labs Labs: Laboratory Results - last 24 hr 04/12/25 04/13/25 04/13/25 08:38 11:46 18:02 WBC 3.5 L 3.3 L RBC 3.52 L 3.33 L Hgb 8.6 L 8.1 L Hct 29.5 L 28.1 L MCV 83.8 84.4 MCH 24.4 L 24.3 L MCHC 29.2 L 28.8 L RDW 21.4 H 21.9 H Plt Count 96 L 85 L MPV 9.1 9.2 Immature Gran % (Auto) Neut % (Auto) Lymph % (Auto) [place] % (Auto) Eos % (Auto) Baso % (Auto) Lymph # (Auto) [place] # (Auto) Eos # (Auto) Baso # (Auto) Abs Immat Gran (auto) Absolute Neuts (auto) Absolute Nucleated RBC Total Counted Neutrophils % (Manual) Band Neutrophils % Lymphocytes % (Manual) Monocytes % (Manual) Eosinophils % (Manual) Basophils % (Manual) Nucleated RBC % Abs Neuts (Manual) Abs Lymphs (Manual) Abs Monocytes (Manual) Absolute Eos (Manual) Abs Basophils (Manual) Smudge Cells Platelet Estimate % Immature Plt Fraction 2.6 Hypochromasia Anisocytosis Acanthocytes (Spur) Schistocytes PT INR APTT Sodium Potassium Chloride Carbon Dioxide Anion Gap BUN Creatinine Estim Creat Clear Calc Estimated GFR Glucose Calcium Phosphorus Magnesium Total Bilirubin AST ALT Alkaline Phosphatase Total Protein Albumin Fluid Glucose 112 Fluid Total Protein 2.5 Fluid Albumin 1.2 04/14/25 05:04 WBC 2.8 L RBC 3.20 L Hgb 7.8 L Hct 27.2 L MCV 85.0 MCH 24.4 L MCHC 28.7 L RDW 21.7 H Plt Count 84 L MPV 9.4 Immature Gran % (Auto) Not Reportable Neut % (Auto) Not Reportable Lymph % (Auto) Not Reportable [place] % (Auto) Not Reportable Eos % (Auto) Not Reportable Baso % (Auto) Not Reportable Lymph # (Auto) Not Reportable [place] # (Auto) Not Reportable Eos # (Auto) Not Reportable Baso # (Auto) Not Reportable Abs Immat Gran (auto) Not Reportable Absolute Neuts (auto) Not Reportable Absolute Nucleated RBC Not Reportable Total Counted 100 Neutrophils % (Manual) 61 Band Neutrophils % 1 Lymphocytes % (Manual) 27 Monocytes % (Manual) 9 Eosinophils % (Manual) 2 Basophils % (Manual) 0 Nucleated RBC % Not Reportable Abs Neuts (Manual) 1.73 Abs Lymphs (Manual) 0.75 L Abs Monocytes (Manual) 0.25 Absolute Eos (Manual) 0.05 Abs Basophils (Manual) 0.00 Smudge Cells Few Platelet Estimate Decreased % Immature Plt Fraction 2.5 Hypochromasia 1+ Anisocytosis 1+ Acanthocytes (Spur) Occasional Schistocytes None seen PT 21.1 H INR 1.9 APTT 39.9 H Sodium 134 L Potassium 3.5 Chloride 109 H Carbon Dioxide 19 L Anion Gap 6 BUN 5 L Creatinine 0.69 L Estim Creat Clear Calc Not Reportable Estimated GFR > 60 Glucose 90 Calcium 7.4 L Phosphorus 3.2 Magnesium 2.0 Total Bilirubin 6.0 H AST 44 ALT 19 Alkaline Phosphatase 91 Total Protein 6.7 Albumin 2.5 L Fluid Glucose Fluid Total Protein Fluid Albumin
--- NOTE | 2025-04-14 13:19 | P.PNONC_ITS ---
Progress Note: A&P Assessment and Plan (1) Pancytopenia: Code(s): D61.818 - Other pancytopenia Status: Acute Assessment and Plan: Presentation CBC on 04/10/25 showed WBC 2.2, Hgb 2.5g/dL, platelets 48K. [place] screen was negative and ethanol levels were normal. CT Chest abdomen pelvis showed cirrhosis with portal hypertension, splenomegaly, cardiomegaly, small amount of ascites and mild bladder wall thickening. Over the course of last few days patient received PRBC and platelet transfusions. GI was consulted and underwent EGD and colonoscopy today 04/12/25. EGD showed mild gastritis. Colonoscopy showed a 4mm descending colon polyp which was removed. Patient's CBC today, 04/14/25 shows WBC 2.8, Hemoglobin 7.8, platelets 84. Pancytopenia is multifactorial including advanced cirrhosis, malnutrition and direct bone marrow suppression from alcohol. There is no acute hematologic intervention that can be done as the root cause is chronic alcohol use. Only supportive care at this time. I have ordered Iron Panel and ferritin today. Will continue to follow. Subjective Date/time seen: 04/14/25 13:19 Interval history: No overnight events. Resting comfortably. Review of Systems Review of Systems Patient reports that he feels much better. Currently he denies dizziness, headache, blurry or double vision. However feels weak and is shaky when stands up. Denies f/c, night sweats. He reports lower extremity swelling. Denies chest pain or dyspnea. Has abdominal distention and discomfort. Denies hematochezia, melena or hematuria. Rest of 12 point ROS negative. Exam Narrative: General: Alert and orientedx3, unkempt male, no acute distress HEENT: EOMI, PERRLA, sclera icterus noted. Respiratory: cTAB Cardiovascular: RRR, no m/g/r Abdomen: Distended, NT, BS+ Extremities: trace edema in bilateral lower extremities Neuro: No focal deficit. Skin: Warm, dry, and intact, without rash, erythema, or lesion. Psych: good mood Objective Data Vital Signs Vital Signs: Vital Signs - 24 hr 04/13/25 16:00 04/13/25 17:00 04/13/25 17:47 Temperature 38.1 C H 36.8 C Pulse Rate 82 76 Respiratory Rate 18 15 Blood Pressure 130/69 130/71 Pulse Oximetry 100 100 Oxygen Delivery Room Air 04/13/25 20:00 04/13/25 20:00 04/13/25 21:26 Temperature 37.4 C Pulse Rate 76 73 Respiratory Rate 15 20 Blood Pressure 130/71 131/76 Pulse Oximetry 100 100 Oxygen Delivery Room Air 04/13/25 23:53 04/14/25 04:00 04/14/25 06:17 Temperature 36.6 C Pulse Rate 82 Respiratory Rate 16 Blood Pressure 131/76 131/76 133/84 Pulse Oximetry 100 Oxygen Delivery Intake/Output Intake/Output: Intake & Output 04/11/25 04/12/25 04/13/25 04/14/25 23:59 23:59 23:59 23:59 Intake Total 1929.9 2220.0 1750 350 Output Total 1200 1100 1000 Balance 729.9 1120.0 750 350 Meds/Results Medications: Active Medications Generic Name Dose Route Start Last Admin Trade Name Freq PRN Reason Stop Dose Admin Chlordiazepoxide HCl 10 mg 04/14/25 21:00 Chlordiazepoxide (*Crx) 10 Mg Capsule PO Q12HR AMRITA Diazepam 5 mg 04/10/25 17:13 Diazepam Inj (*Crx) 10 Mg/2 Ml Syringe IV PUSH PRN PRN Seizure Activity Diazepam 5 mg 04/10/25 17:48 Diazepam Inj (*Crx) 10 Mg/2 Ml Syringe IV PUSH Q5M PRN CIWA > 15 Folic Acid 1 mg 04/11/25 09:00 04/14/25 08:58 Folic Acid 1 Mg Tablet PO 1 mg DAILY AMRITA Administration Furosemide 20 mg 04/14/25 09:00 04/14/25 08:58 Furosemide 20 Mg Tablet PO 20 mg DAILY AMRITA Administration Multivitamins/Calcium 1 tablet 04/11/25 09:00 04/14/25 08:58 Therapeutic Multivitamins/Minerals Tab (*Bkc) PO 1 tablet DAILY AMRITA Administration Ondansetron HCl 4 mg 04/10/25 17:13 Ondansetron Inj 4 Mg/2 Ml Vial IV PUSH Q4H PRN Nausea Pantoprazole Sodium 40 mg 04/12/25 09:00 04/14/25 08:58 Pantoprazole 40 Mg Tablet PO 40 mg QAM AMRITA Administration Perflutren Lipid Microsphere 0 ml 04/13/25 08:36 Perflutren Lipid Microspheres 1.5 Ml Vial Diluted To 10 Ml Total Volume IV PUSH 04/16/25 08:36 ONCE PRN adequate visualization Protocol Spironolactone 100 mg 04/14/25 09:00 04/14/25 08:58 Spironolactone 50 Mg Tablet PO 100 mg QAM AMRITA Administration Thiamine HCl 100 mg 04/11/25 09:00 04/14/25 08:58 Thiamine Hcl 100 Mg Tablet PO 100 mg DAILY AMRITA Administration Radiology Results: ITS Impressions Head CT 04/10/25 12:55 IMPRESSION: No evidence for acute intracranial hemorrhage or calvarial fracture. Abdomen/Pelvis CTA 04/10/25 16:34 IMPRESSION: 1. Cirrhosis with portal hypertension. 2: Splenomegaly. 3: Cardiomegaly. 4: Small amount of ascites. 5: Mild bladder wall thickening. Correlate clinically for cystitis. Paracentesis Ultrasound 04/12/25 12:02 IMPRESSION: 1. Successful ultrasound-guided paracentesis yielding 1000 mL of clear saba- colored fluid. Labs Labs: Laboratory Results - last 24 hr 04/12/25 04/13/25 04/14/25 08:38 18:02 05:04 WBC 3.3 L 2.8 L RBC 3.33 L 3.20 L Hgb 8.1 L 7.8 L Hct 28.1 L 27.2 L MCV 84.4 85.0 MCH 24.3 L 24.4 L MCHC 28.8 L 28.7 L RDW 21.9 H 21.7 H Plt Count 85 L 84 L MPV 9.2 9.4 Immature Gran % (Auto) Not Reportable Neut % (Auto) Not Reportable Lymph % (Auto) Not Reportable [place] % (Auto) Not Reportable Eos % (Auto) Not Reportable Baso % (Auto) Not Reportable Lymph # (Auto) Not Reportable [place] # (Auto) Not Reportable Eos # (Auto) Not Reportable Baso # (Auto) Not Reportable Abs Immat Gran (auto) Not Reportable Absolute Neuts (auto) Not Reportable Absolute Nucleated RBC Not Reportable Total Counted 100 Neutrophils % (Manual) 61 Band Neutrophils % 1 Lymphocytes % (Manual) 27 Monocytes % (Manual) 9 Eosinophils % (Manual) 2 Basophils % (Manual) 0 Nucleated RBC % Not Reportable Abs Neuts (Manual) 1.73 Abs Lymphs (Manual) 0.75 L Abs Monocytes (Manual) 0.25 Absolute Eos (Manual) 0.05 Abs Basophils (Manual) 0.00 [place] Cells Few Platelet Estimate Decreased % Immature Plt Fraction 2.5 Hypochromasia 1+ Anisocytosis 1+ Acanthocytes (Spur) Occasional Schistocytes None seen PT 21.1 H INR 1.9 APTT 39.9 H Sodium 134 L Potassium 3.5 Chloride 109 H Carbon Dioxide 19 L Anion Gap 6 BUN 5 L Creatinine 0.69 L Estim Creat Clear Calc Not Reportable Estimated GFR > 60 Glucose 90 Calcium 7.4 L Phosphorus 3.2 Magnesium 2.0 Total Bilirubin 6.0 H AST 44 ALT 19 Alkaline Phosphatase 91 Total Protein 6.7 Albumin 2.5 L Fluid Glucose 112 Fluid Total Protein 2.5 Fluid Albumin 1.2
[2025-04-14 13:34] LABS: Iron < 10 ug/dL (49-181)
[2025-04-14 13:43] LABS: Percent Iron Saturation 4 % (20-50)
[2025-04-14 14:00] VITALS: BP 136/86; PULSE 65; RESP 18; TEMP 36.7; O2SAT 100
[2025-04-14 14:15] LABS: Ferritin 8.09 ng/mL (17.9-464)
[2025-04-14] MEDS: chlordiazePOXIDE (*CRX) 10 MG CAPSULE PO (20:46)
[2025-04-14 21:16] VITALS: BP 126/77; PULSE 69; RESP 16; TEMP 36.8; O2SAT 99
[2025-04-14 22:30] VITALS: O2SAT 99
[2025-04-15] VITALS (8 sets, daily range): BP systolic 120–151; BP diastolic 63–84; PULSE 63–121; RESP 16–20; TEMP 36.8–39.9; O2SAT 97–100
[2025-04-15 05:26] LABS: Hematocrit 27.5 % (42.0-52.0); Hemoglobin 8.0 g/dL (14.0-18.0); Immature Granulocyte Percent A 1.1 % (0-0.5); Immature Platelet Fraction Pct 2.9 % (0.9-11.2); Lymphocytes Absolute Auto 0.84 K/mm3 (0.9-3.2); Mean Corpuscular HGB Conc 29.1 g/dl (32-36); Mean Corpuscular Hemoglobin 24.3 pg (26-34); Mean Corpuscular Volume 83.6 fl (80-100); Nucleated Red Blood Cells Absolute Auto 0.020 K/mm3 (0.0-0.012); Nucleated Red Blood Cells Perc 0.7 % (0.0-0.2); Red Blood Count 3.29 M/mm3 (4.6-6.20); White Blood Count 2.7 K/mm3 (4.5-10.0)
[2025-04-15 05:38] LABS: Alanine Aminotransferase 17 U/L (6-50); Albumin Level 2.5 g/dL (3.5-5.1); Alkaline Phosphatase 104 U/L (38-126); Anion Gap 6 mmol/L (4-12); Aspartate Amino Transferase 37 U/L (17-59); Bilirubin,Total 4.9 mg/dL (0.2-1.3); Blood Urea Nitrogen 7 mg/dL (9-20); Calcium 7.7 mg/dL (8.4-10.2); Carbon Dioxide 21 mmol/L (22-30); Chloride 107 mmol/L (98-107); Estimated Glomerular Filt Rate > 60; Glucose 97 mg/dL (65-110); Magnesium 1.9 mg/dL (1.6-2.3); Potassium 3.7 mmol/L (3.4-5.0); Sodium 134 mmol/L (137-145); Total Protein 6.8 g/dL (6.3-8.2)
[2025-04-15 05:46] LABS: INR 1.7; Platelet Count Result 82 k/mm3 (150-375); Prothrombin Time 19.3 Seconds (11.1-14.7)
[2025-04-15 05:47] LABS: Partial Thromboplastin Time 39.1 Seconds (22.3-36.8)
[2025-04-15 05:48] LABS: Anisocytosis 1+; Hypochromasia 1+
[2025-04-15 05:49] LABS: Burr Cells Occasional; Schistocytes None Seen
[2025-04-15] MEDS: chlordiazePOXIDE (*CRX) 10 MG CAPSULE PO (08:03)
[2025-04-15] MEDS: PANTOPRAZOLE 40 MG TABLET PO (08:03)
[2025-04-15] MEDS: SPIRONOLACTONE 50 MG TABLET 100 MG PO (08:03)
[2025-04-15] MEDS: FUROSEMIDE 20 MG TABLET PO (08:03)
[2025-04-15] MEDS: FOLIC ACID 1 MG TABLET PO (08:03)
[2025-04-15] MEDS: THIAMINE HCL 100 MG TABLET PO (08:03)
[2025-04-15] MEDS: THERAPEUTIC MULTIVITAMINS/MINERALS TAB (*BKC) 1 TABLET PO (08:03)
--- NOTE | 2025-04-15 12:13 | P.PNONC_ITS ---
Progress Note: A&P Assessment and Plan (1) Pancytopenia: Code(s): D61.818 - Other pancytopenia Status: Acute Assessment and Plan: Presentation CBC on 04/10/25 showed WBC 2.2, Hgb 2.5g/dL, platelets 48K. [place] screen was negative and ethanol levels were normal. CT Chest abdomen pelvis showed cirrhosis with portal hypertension, splenomegaly, cardiomegaly, small amount of ascites and mild bladder wall thickening. Over the course of last few days patient received PRBC and platelet transfusions. GI was consulted and underwent EGD and colonoscopy today 04/12/25. EGD showed mild gastritis. Colonoscopy showed a 4mm descending colon polyp which was removed. Patient's CBC today, 04/14/25 shows WBC 2.8, Hemoglobin 7.8, platelets 84. Pancytopenia is multifactorial including advanced cirrhosis, malnutrition and direct bone marrow suppression from alcohol. He has iron deficiency on labs performed 04/14/25. Please see below. (2) Iron deficiency anemia: Code(s): D50.9 - Iron deficiency anemia, unspecified Status: Acute Assessment and Plan: Iron panel shows Iron saturations of 4% and ferritin 8.09. I have ordered Iron sucrose 300mg today and tomorrow 04/16/25. If patient here on 04/17/25, he can get 3rd dose. The source of Iron loss is not clear as patient had EGD and colonoscopy this admission on 04/12/25 with no obvious bleeding. Could have AVMs in small bowel or severe malnutrition from chronic alcohol abuse. Will continue to follow. Subjective Date/time seen: 04/15/25 12:13 Interval history: No overnight events. Resting comfortably. Review of Systems Review of Systems Patient reports he feels about the same. Currently he denies dizziness, headache, blurry or double vision. However feels weak and is shaky when stands up. Denies f/c, night sweats. He reports lower extremity swelling. Denies chest pain or dyspnea. Has abdominal distention and discomfort. Denies hematochezia, melena or hematuria. Rest of 12 point ROS negative. Exam Narrative: General: Alert and orientedx3, unkempt male, no acute distress HEENT: EOMI, PERRLA, sclera icterus noted. Respiratory: cTAB Cardiovascular: RRR, no m/g/r Abdomen: Distended, NT, BS+ Extremities: trace edema in bilateral lower extremities Neuro: No focal deficit. Skin: Warm, dry, and intact, without rash, erythema, or lesion. Psych: good mood Objective Data Vital Signs Vital Signs: Vital Signs - 24 hr 04/14/25 14:00 04/14/25 20:47 04/14/25 21:16 Temperature 36.7 C 36.8 C Pulse Rate 65 69 Respiratory Rate 18 16 Blood Pressure 136/86 126/77 Pulse Oximetry 100 99 Oxygen Delivery Room Air 04/14/25 22:30 04/15/25 06:31 04/15/25 10:25 Temperature 36.8 C Pulse Rate 63 Respiratory Rate 16 Blood Pressure 151/84 H Pulse Oximetry 99 100 Oxygen Delivery Room Air Room Air 04/15/25 10:34 Temperature Pulse Rate Respiratory Rate Blood Pressure Pulse Oximetry Oxygen Delivery Room Air Intake/Output Intake/Output: Intake & Output 04/12/25 04/13/25 04/14/25 04/15/25 23:59 23:59 23:59 23:59 Intake Total 2220.0 1750 1070 340 Output Total 1100 1000 Balance 1120.0 750 1070 340 Meds/Results Medications: Active Medications Generic Name Dose Route Start Last Admin Trade Name Freq PRN Reason Stop Dose Admin Chlordiazepoxide HCl 10 mg 04/14/25 21:00 04/15/25 08:03 Chlordiazepoxide (*Crx) 10 Mg Capsule PO 10 mg Q12HR AMRITA Administration Diazepam 5 mg 04/10/25 17:13 Diazepam Inj (*Crx) 10 Mg/2 Ml Syringe IV PUSH PRN PRN Seizure Activity Diazepam 5 mg 04/10/25 17:48 Diazepam Inj (*Crx) 10 Mg/2 Ml Syringe IV PUSH Q5M PRN CIWA > 15 Folic Acid 1 mg 04/11/25 09:00 04/15/25 08:03 Folic Acid 1 Mg Tablet PO 1 mg DAILY AMRITA Administration Furosemide 20 mg 04/14/25 09:00 04/15/25 08:03 Furosemide 20 Mg Tablet PO 20 mg DAILY AMRITA Administration Iron Sucrose 200 mg/ Iron 265 mls @ 176.667 mls/hr 04/15/25 12:11 Sucrose 100 mg/ Sodium IVPB 04/15/25 13:40 Chloride ONCE ONE Iron Sucrose 200 mg/ Iron 265 mls @ 176.667 mls/hr 04/16/25 12:12 Sucrose 100 mg/ Sodium IVPB 04/16/25 13:41 Chloride ONCE ONE Multivitamins/Calcium 1 tablet 04/11/25 09:00 04/15/25 08:03 Therapeutic Multivitamins/Minerals Tab (*Bkc) PO 1 tablet DAILY AMRITA Administration Ondansetron HCl 4 mg 04/10/25 17:13 Ondansetron Inj 4 Mg/2 Ml Vial IV PUSH Q4H PRN Nausea Pantoprazole Sodium 40 mg 04/12/25 09:00 04/15/25 08:03 Pantoprazole 40 Mg Tablet PO 40 mg QAM AMRITA Administration Perflutren Lipid Microsphere 0 ml 04/13/25 08:36 Perflutren Lipid Microspheres 1.5 Ml Vial Diluted To 10 Ml Total Volume IV PUSH 04/16/25 08:36 ONCE PRN adequate visualization Protocol Spironolactone 100 mg 04/14/25 09:00 04/15/25 08:03 Spironolactone 50 Mg Tablet PO 100 mg QAM AMRITA Administration Thiamine HCl 100 mg 04/11/25 09:00 04/15/25 08:03 Thiamine Hcl 100 Mg Tablet PO 100 mg DAILY AMRITA Administration Radiology Results: ITS Impressions Head CT 04/10/25 12:55 IMPRESSION: No evidence for acute intracranial hemorrhage or calvarial fracture. Abdomen/Pelvis CTA 04/10/25 16:34 IMPRESSION: 1. Cirrhosis with portal hypertension. 2: Splenomegaly. 3: Cardiomegaly. 4: Small amount of ascites. 5: Mild bladder wall thickening. Correlate clinically for cystitis. Paracentesis Ultrasound 04/12/25 12:02 IMPRESSION: 1. Successful ultrasound-guided paracentesis yielding 1000 mL of clear saba- colored fluid. Labs Labs: Laboratory Results - last 24 hr 04/14/25 04/15/25 05:01 05:04 WBC 2.7 L RBC 3.29 L Hgb 8.0 L Hct 27.5 L MCV 83.6 MCH 24.3 L MCHC 29.1 L RDW 22.0 H Plt Count 82 L MPV 9.7 Immature Gran % (Auto) 1.1 H Neut % (Auto) 43.0 L Lymph % (Auto) 30.9 [place] % (Auto) 19.5 H Eos % (Auto) 4.8 H Baso % (Auto) 0.7 Lymph # (Auto) 0.84 L [place] # (Auto) 0.5 Eos # (Auto) 0.1 Baso # (Auto) 0.0 Abs Immat Gran (auto) 0.03 Absolute Neuts (auto) 1.2 L Absolute Nucleated RBC 0.020 H Band Neutrophils % Not Reportable Nucleated RBC % 0.7 H Platelet Estimate Decreased % Immature Plt Fraction 2.9 Hypochromasia 1+ Anisocytosis 1+ [place] Cells Occasional Schistocytes None seen PT 19.3 H INR 1.7 APTT 39.1 H Sodium 134 L Potassium 3.7 Chloride 107 Carbon Dioxide 21 L Anion Gap 6 BUN 7 L Creatinine 0.68 L Estim Creat Clear Calc Not Reportable Estimated GFR > 60 Glucose 97 Calcium 7.7 L Phosphorus 3.8 Magnesium 1.9 Iron < 10 L TIBC 274 % Saturation 4 L Ferritin 8.09 L Total Bilirubin 4.9 H AST 37 ALT 17 Alkaline Phosphatase 104 Total Protein 6.8 Albumin 2.5 L
--- NOTE | 2025-04-15 12:46 | P.PNIM_ITS ---
Progress Note: A&P Assessment and Plan (1) Alcohol abuse: Code(s): F10.10 - Alcohol abuse, uncomplicated Status: Acute (2) Thrombocytopenia: Code(s): D69.6 - Thrombocytopenia, unspecified Status: Acute (3) Cirrhosis of liver: Qualifiers: Ascites presence: with ascites Hepatic cirrhosis type: alcoholic cirrhosis Qualified Code(s): K70.31 - Alcoholic cirrhosis of liver with ascites Code(s): K74.60 - Unspecified cirrhosis of liver Status: Acute (4) GI (gastrointestinal hemorrhage): Qualifiers: GI bleed type/associated pathology: unspecified gastrointestinal hemorrhage type Qualified Code(s): K92.2 - Gastrointestinal hemorrhage, unspecified Code(s): K92.2 - Gastrointestinal hemorrhage, unspecified Status: Acute (5) Ascites: Code(s): R18.8 - Other ascites Status: Acute (6) Alcohol withdrawal seizure: Qualifiers: Complication of substance-induced condition: uncomplicated Qualified Code(s): F10.930 - Alcohol use, unspecified with withdrawal, uncomplicated; R56.9 - Unspecified convulsions Code(s): F10.939 - Alcohol use, unspecified with withdrawal, unspecified; R56.9 - Unspecified convulsions Status: Acute Plan Anemia: Patient presented with hemoglobin of 2.5. No hematochezia melena hematemesis. Suspect ongoing chronic GI bleed likely variceal considering patient has history of cirrhosis Started on Protonix IV and octreotide infusion Status post 4 units of PRBC post transfusion hemoglobin is 6 underwent another transfusion Monitor serial hemoglobin which has been stable now GI consulted Status post EGD and colonoscopy EGD: Gastritis. On Protonix Colonoscopy: Colonic polyps Thrombocytopenia likely related to cirrhosis Alcohol abuse on thiamine and folic acid she will monitoring On Librium will decrease the dose to q.8 hours. Will taper off today Cirrhosis of liver secondary to alcohol abuse. Received vitamin K IM. SBP prophylaxis Rocephin which has been discontinued now. Patient was started on Lasix and spironolactone. Also start on nonselective beta-lazaro as tolerated GI bleed see above Alcohol withdrawal seizure no prior history of seizure recurrence since coming to the hospital She had precautions On Librium and p.r.n. Valium Ascites status post paracentesis of 1 L Generalized weakness PT OT to see DVT prophylaxis SCDs Stress ulcer prophylaxis ppi Code status full code Subjective Date/time seen: 04/15/25 12:46 Interval history: No overnight events. He thinks he is getting stronger. About to work with therapy this a.m.. Denies any chest pain or shortness of breath or abdominal pain nausea vomiting. Review of Systems Review of Systems: All systems reviewed & are unremarkable except as noted in HPI and below (Subjective) Exam Narrative: General: Pt is alert awake and in NAD Lungs/Chest: Trachea central Clear BS B/L, No crackles or wheezing. Cardiac: RRR. Normal S1 S2. No murmurs Circulation: Pedal pulses are intact and symmetrical. Abdomen: Distended, present bowel sounds.. Soft. NT, Extremities: No clubbing, cyanosis or edema. Warm Neurologic: Follows commands. Moves all 4 extremities PERRL Skin: No Rash Objective Data Vital Signs Vital Signs: Vital Signs - 24 hr 04/14/25 14:00 04/14/25 20:47 04/14/25 21:16 Temperature 98.0 F 98.3 F Pulse Rate 65 69 Respiratory Rate 18 16 Blood Pressure 136/86 126/77 Pulse Oximetry 100 99 Oxygen Delivery Room Air 04/14/25 22:30 04/15/25 06:31 04/15/25 10:25 Temperature 98.2 F Pulse Rate 63 Respiratory Rate 16 Blood Pressure 151/84 H Pulse Oximetry 99 100 Oxygen Delivery Room Air Room Air 04/15/25 10:34 Temperature Pulse Rate Respiratory Rate Blood Pressure Pulse Oximetry Oxygen Delivery Room Air Intake/Output Intake/Output: Intake & Output 04/12/25 04/13/25 04/14/25 04/15/25 23:59 23:59 23:59 23:59 Intake Total 2220.0 1750 1070 340 Output Total 1100 1000 Balance 1120.0 750 1070 340 Meds/Results Medications: Active Medications Generic Name Dose Route Start Last Admin Trade Name Freq PRN Reason Stop Dose Admin Chlordiazepoxide HCl 10 mg 04/14/25 21:00 04/15/25 08:03 Chlordiazepoxide (*Crx) 10 Mg Capsule PO 10 mg Q12HR AMRITA Administration Diazepam 5 mg 04/10/25 17:13 Diazepam Inj (*Crx) 10 Mg/2 Ml Syringe IV PUSH PRN PRN Seizure Activity Diazepam 5 mg 04/10/25 17:48 Diazepam Inj (*Crx) 10 Mg/2 Ml Syringe IV PUSH Q5M PRN CIWA > 15 Folic Acid 1 mg 04/11/25 09:00 04/15/25 08:03 Folic Acid 1 Mg Tablet PO 1 mg DAILY AMRITA Administration Furosemide 20 mg 04/14/25 09:00 04/15/25 08:03 Furosemide 20 Mg Tablet PO 20 mg DAILY AMRITA Administration Iron Sucrose 200 mg/ Iron 265 mls @ 176.667 mls/hr 04/16/25 09:00 Sucrose 100 mg/ Sodium IVPB 04/16/25 10:29 Chloride ONCE ONE Iron Sucrose 200 mg/ Iron 265 mls @ 176.667 mls/hr 04/15/25 13:00 Sucrose 100 mg/ Sodium IVPB 04/15/25 14:29 Chloride ONCE ONE Multivitamins/Calcium 1 tablet 04/11/25 09:00 04/15/25 08:03 Therapeutic Multivitamins/Minerals Tab (*Bkc) PO 1 tablet DAILY AMRITA Administration Ondansetron HCl 4 mg 04/10/25 17:13 Ondansetron Inj 4 Mg/2 Ml Vial IV PUSH Q4H PRN Nausea Pantoprazole Sodium 40 mg 04/12/25 09:00 04/15/25 08:03 Pantoprazole 40 Mg Tablet PO 40 mg QAM AMRITA Administration Perflutren Lipid Microsphere 0 ml 04/13/25 08:36 Perflutren Lipid Microspheres 1.5 Ml Vial Diluted To 10 Ml Total Volume IV PUSH 04/16/25 08:36 ONCE PRN adequate visualization Protocol Spironolactone 100 mg 04/14/25 09:00 04/15/25 08:03 Spironolactone 50 Mg Tablet PO 100 mg QAM AMRITA Administration Thiamine HCl 100 mg 04/11/25 09:00 04/15/25 08:03 Thiamine Hcl 100 Mg Tablet PO 100 mg DAILY AMRITA Administration Radiology Results: ITS Impressions Head CT 04/10/25 12:55 IMPRESSION: No evidence for acute intracranial hemorrhage or calvarial fracture. Abdomen/Pelvis CTA 04/10/25 16:34 IMPRESSION: 1. Cirrhosis with portal hypertension. 2: Splenomegaly. 3: Cardiomegaly. 4: Small amount of ascites. 5: Mild bladder wall thickening. Correlate clinically for cystitis. Paracentesis Ultrasound 04/12/25 12:02 IMPRESSION: 1. Successful ultrasound-guided paracentesis yielding 1000 mL of clear saba- colored fluid. Labs Labs: Laboratory Results - last 24 hr 04/14/25 04/15/25 05:01 05:04 WBC 2.7 L RBC 3.29 L Hgb 8.0 L Hct 27.5 L MCV 83.6 MCH 24.3 L MCHC 29.1 L RDW 22.0 H Plt Count 82 L MPV 9.7 Immature Gran % (Auto) 1.1 H Neut % (Auto) 43.0 L Lymph % (Auto) 30.9 [place] % (Auto) 19.5 H Eos % (Auto) 4.8 H Baso % (Auto) 0.7 Lymph # (Auto) 0.84 L [place] # (Auto) 0.5 Eos # (Auto) 0.1 Baso # (Auto) 0.0 Abs Immat Gran (auto) 0.03 Absolute Neuts (auto) 1.2 L Absolute Nucleated RBC 0.020 H Band Neutrophils % Not Reportable Nucleated RBC % 0.7 H Platelet Estimate Decreased % Immature Plt Fraction 2.9 Hypochromasia 1+ Anisocytosis 1+ [place] Cells Occasional Schistocytes None seen PT 19.3 H INR 1.7 APTT 39.1 H Sodium 134 L Potassium 3.7 Chloride 107 Carbon Dioxide 21 L Anion Gap 6 BUN 7 L Creatinine 0.68 L Estim Creat Clear Calc Not Reportable Estimated GFR > 60 Glucose 97 Calcium 7.7 L Phosphorus 3.8 Magnesium 1.9 Iron < 10 L TIBC 274 % Saturation 4 L Ferritin 8.09 L Total Bilirubin 4.9 H AST 37 ALT 17 Alkaline Phosphatase 104 Total Protein 6.8 Albumin 2.5 L
[2025-04-15] MEDS: IRON SUCROSE COMPLEX 200 MG, IRON SUCROSE COMPLEX 100 MG in SODIUM CHLORIDE 0.9% IV 250 ML 176.67 MG IVPB (13:13)
[2025-04-15 14:08] LABS: LD, Body Fluid 75 IU/L (.)
[2025-04-15] MEDS: ACETAMINOPHEN 325 MG TABLET 650 MG PO (16:02)
[2025-04-15] MEDS: ACETAMINOPHEN 325 MG TABLET PO (17:29)
[2025-04-15] MEDS: IBUPROFEN 400 MG TABLET PO (18:55)
[2025-04-15] MEDS: CEFEPIME 1 GM in SODIUM CHLORIDE 0.9% IV 50 ML 100 ML IVPB (19:33)
[2025-04-16] MEDS: CEFEPIME 1 GM in SODIUM CHLORIDE 0.9% IV 50 ML 100 ML IVPB ×3 (02:29→19:52)
[2025-04-16 05:46] LABS: Hematocrit 27.9 % (42.0-52.0); Hemoglobin 8.1 g/dL (14.0-18.0); Immature Platelet Fraction Pct 4.0 % (0.9-11.2); Mean Corpuscular HGB Conc 29.0 g/dl (32-36); Mean Corpuscular Hemoglobin 24.5 pg (26-34); Mean Corpuscular Volume 84.3 fl (80-100); Platelet Count Result 69 k/mm3 (150-375); Red Blood Count 3.31 M/mm3 (4.6-6.20); White Blood Count 6.4 K/mm3 (4.5-10.0)
[2025-04-16 06:00] VITALS: BP 101/51; PULSE 71; RESP 18; TEMP 36.4; O2SAT 100
[2025-04-16 06:02] LABS: Alanine Aminotransferase 22 U/L (6-50); Albumin Level 2.7 g/dL (3.5-5.1); Alkaline Phosphatase 94 U/L (38-126); Anion Gap 9 mmol/L (4-12); Aspartate Amino Transferase 46 U/L (17-59); Bilirubin,Total 5.6 mg/dL (0.2-1.3); Blood Urea Nitrogen 20 mg/dL (9-20); Calcium 7.6 mg/dL (8.4-10.2); Carbon Dioxide 19 mmol/L (22-30); Chloride 105 mmol/L (98-107); Estimated Glomerular Filt Rate 40; Glucose 101 mg/dL (65-110); Magnesium 1.5 mg/dL (1.6-2.3); Potassium 3.5 mmol/L (3.4-5.0); Sodium 133 mmol/L (137-145); Total Protein 7.0 g/dL (6.3-8.2)
[2025-04-16 06:27] LABS: Band Neutrophils Percent 49 % (0-6); Hypochromasia 2+; Lymphocytes Absolute Manual 0.25 K/mm3 (1.1-4.5); Lymphocytes Percent Manual 4 % (18-44); Metamyelocytes Percent 2 %; Monocytes Absolute Manual 0.44 K/mm3 (0.1-0.90); Monocytes Percent Manual 7 % (3-9); Neutrophils Absolute Manual 5.56 K/mm3 (1.3-6.7); Neutrophils Percent Manual 38 % (46-73); Total Cells Counted 100
[2025-04-16 06:28] LABS: Anisocytosis 2+; Burr Cells 1+; Ovalocytes 1+; Schistocytes Occasional; Target Cells 1+; Tear Drop Cells 1+
[2025-04-16] MEDS: FOLIC ACID 1 MG TABLET PO (08:53)
[2025-04-16] MEDS: THERAPEUTIC MULTIVITAMINS/MINERALS TAB (*BKC) 1 TABLET PO (08:53)
[2025-04-16] MEDS: PANTOPRAZOLE 40 MG TABLET PO (08:53)
[2025-04-16] MEDS: THIAMINE HCL 100 MG TABLET PO (08:53)
[2025-04-16] MEDS: SODIUM CHLORIDE 0.9% IV 500 ML 75 ML IV CONT (08:54)
[2025-04-16] MEDS: IRON SUCROSE COMPLEX 200 MG, IRON SUCROSE COMPLEX 100 MG in SODIUM CHLORIDE 0.9% IV 250 ML 176.67 MG IVPB (08:54)
[2025-04-16 14:00] VITALS: BP 105/45; PULSE 97; RESP 20; TEMP 37.6; O2SAT 98
--- NOTE | 2025-04-16 14:41 | P.PNIM_ITS ---
Progress Note: A&P Assessment and Plan (1) Alcohol abuse: Code(s): F10.10 - Alcohol abuse, uncomplicated Status: Acute (2) Thrombocytopenia: Code(s): D69.6 - Thrombocytopenia, unspecified Status: Acute (3) Cirrhosis of liver: Qualifiers: Ascites presence: with ascites Hepatic cirrhosis type: alcoholic cirrhosis Qualified Code(s): K70.31 - Alcoholic cirrhosis of liver with ascites Code(s): K74.60 - Unspecified cirrhosis of liver Status: Acute (4) GI (gastrointestinal hemorrhage): Qualifiers: GI bleed type/associated pathology: unspecified gastrointestinal hemorrhage type Qualified Code(s): K92.2 - Gastrointestinal hemorrhage, unspecified Code(s): K92.2 - Gastrointestinal hemorrhage, unspecified Status: Acute (5) Ascites: Code(s): R18.8 - Other ascites Status: Acute (6) Alcohol withdrawal seizure: Qualifiers: Complication of substance-induced condition: uncomplicated Qualified Code(s): F10.930 - Alcohol use, unspecified with withdrawal, uncomplicated; R56.9 - Unspecified convulsions Code(s): F10.939 - Alcohol use, unspecified with withdrawal, unspecified; R56.9 - Unspecified convulsions Status: Acute Plan Anemia: Patient presented with hemoglobin of 2.5. No hematochezia melena hematemesis. Suspect ongoing chronic GI bleed likely variceal considering patient has history of cirrhosis Started on Protonix IV and octreotide infusion Status post 4 units of PRBC post transfusion hemoglobin is 6 underwent another transfusion Monitor serial hemoglobin which has been stable now GI consulted Status post EGD and colonoscopy EGD: Gastritis. On Protonix Colonoscopy: Colonic polyps Thrombocytopenia likely related to cirrhosis Alcohol abuse on thiamine and folic acid she will monitoring On Librium will decrease the dose to q.8 hours. Now tapered off Cirrhosis of liver secondary to alcohol abuse. Received vitamin K IM. SBP prophylaxis Rocephin which has been discontinued now. Patient was started on Lasix and spironolactone. Also start on nonselective beta-lazaro as tolerated with Yinka I will stop Lasix and spironolactone Fever spike 04/15/2025 pancultured. Empirically started on cefepime. Chest x- ray was negative. UA pending YINKA 04/16/2025 creatinine bumped up to 1.8. Will hold Lasix and spironolactone. Check renal ultrasound. Give IV fluid. Monitor intake and output GI bleed see above Alcohol withdrawal seizure no prior history of seizure recurrence since coming to the hospital Seizure precautions On Librium and p.r.n. Valium Ascites status post paracentesis of 1 L Generalized weakness PT OT to see DVT prophylaxis SCDs Stress ulcer prophylaxis ppi Code status full code Subjective Date/time seen: 04/16/25 14:41 Interval history: Patient spiked a fever up to 1003 last evening. Denies any urinary problem. Denies any cough or shortness of breath. Fever is down now. Labs reviewed. Low urine output overnight. Review of Systems Review of Systems: All systems reviewed & are unremarkable except as noted in HPI and below (Subjective) Exam Narrative: General: Pt is alert awake and in NAD Lungs/Chest: Trachea central Clear BS B/L, No crackles or wheezing. Cardiac: RRR. Normal S1 S2. No murmurs Circulation: Pedal pulses are intact and symmetrical. Abdomen: Distended, present bowel sounds.. Soft. NT, Extremities: No clubbing, cyanosis or edema. Warm Neurologic: Follows commands. Moves all 4 extremities PERRL Skin: No Rash Objective Data Vital Signs Vital Signs: Vital Signs - 24 hr 04/15/25 15:50 04/15/25 17:08 04/15/25 18:30 Temperature 100.2 F H 102.7 F H 103.8 F H Pulse Rate 109 H 121 H 116 H Respiratory Rate 20 20 Blood Pressure 120/64 120/63 Pulse Oximetry 99 100 98 Oxygen Delivery 04/15/25 19:55 04/15/25 20:34 04/15/25 22:23 Temperature 100.3 F H 100.3 F H Pulse Rate 95 103 H Respiratory Rate 18 Blood Pressure 120/69 Pulse Oximetry 97 Oxygen Delivery Room Air 04/16/25 06:00 04/16/25 14:00 Temperature 97.5 F L 99.6 F Pulse Rate 71 97 Respiratory Rate 18 20 Blood Pressure 101/51 L 105/45 L Pulse Oximetry 100 98 Oxygen Delivery Intake/Output Intake/Output: Intake & Output 04/13/25 04/14/25 04/15/25 04/16/25 23:59 23:59 23:59 23:59 Intake Total 1750 1070 870 590 Output Total 1000 600 Balance 750 1070 270 590 Meds/Results Medications: Active Medications Generic Name Dose Route Start Last Admin Trade Name Freq PRN Reason Stop Dose Admin Acetaminophen 650 mg 04/15/25 15:57 04/15/25 16:02 Acetaminophen 325 Mg Tablet PO 650 mg Q6H PRN Administration Mild Pain (1-3) or Fever Diazepam 5 mg 04/10/25 17:13 Diazepam Inj (*Crx) 10 Mg/2 Ml Syringe IV PUSH PRN PRN Seizure Activity Diazepam 5 mg 04/10/25 17:48 Diazepam Inj (*Crx) 10 Mg/2 Ml Syringe IV PUSH Q5M PRN CIWA > 15 Folic Acid 1 mg 04/11/25 09:00 04/16/25 08:53 Folic Acid 1 Mg Tablet PO 1 mg DAILY AMRITA Administration Furosemide 20 mg 04/14/25 09:00 04/15/25 08:03 Furosemide 20 Mg Tablet PO 20 mg On Hold: 04/16/25 07:53 DAILY AMRITA Administration Cefepime HCl 1 gm/ Sodium 50 mls @ 100 mls/hr 04/15/25 19:00 04/16/25 12:30 Chloride IVPB 100 mls/hr Q8H AMRITA Administration Multivitamins/Calcium 1 tablet 04/11/25 09:00 04/16/25 08:53 Therapeutic Multivitamins/Minerals Tab (*Bkc) PO 1 tablet DAILY AMRITA Administration Ondansetron HCl 4 mg 04/10/25 17:13 Ondansetron Inj 4 Mg/2 Ml Vial IV PUSH Q4H PRN Nausea Pantoprazole Sodium 40 mg 04/12/25 09:00 04/16/25 08:53 Pantoprazole 40 Mg Tablet PO 40 mg QAM AMRITA Administration Spironolactone 100 mg 04/14/25 09:00 04/15/25 08:03 Spironolactone 50 Mg Tablet PO 100 mg On Hold: 04/16/25 07:54 QAM AMRITA Administration Thiamine HCl 100 mg 04/11/25 09:00 04/16/25 08:53 Thiamine Hcl 100 Mg Tablet PO 100 mg DAILY AMRITA Administration Radiology Results: ITS Impressions Head CT 04/10/25 12:55 IMPRESSION: No evidence for acute intracranial hemorrhage or calvarial fracture. Abdomen/Pelvis CTA 04/10/25 16:34 IMPRESSION: 1. Cirrhosis with portal hypertension. 2: Splenomegaly. 3: Cardiomegaly. 4: Small amount of ascites. 5: Mild bladder wall thickening. Correlate clinically for cystitis. Paracentesis Ultrasound 04/12/25 12:02 IMPRESSION: 1. Successful ultrasound-guided paracentesis yielding 1000 mL of clear saba- colored fluid. Chest X-Ray 04/15/25 19:30 Impression: No acute cardiopulmonary abnormality. Labs Labs: Laboratory Results - last 24 hr 04/16/25 05:02 WBC 6.4 RBC 3.31 L Hgb 8.1 L Hct 27.9 L MCV 84.3 MCH 24.5 L MCHC 29.0 L RDW 22.4 H Plt Count 69 L MPV TNP Immature Gran % (Auto) Not Reportable Neut % (Auto) Not Reportable Lymph % (Auto) Not Reportable [place] % (Auto) Not Reportable Eos % (Auto) Not Reportable Baso % (Auto) Not Reportable Lymph # (Auto) Not Reportable [place] # (Auto) Not Reportable Eos # (Auto) Not Reportable Baso # (Auto) Not Reportable Abs Immat Gran (auto) Not Reportable Absolute Neuts (auto) Not Reportable Absolute Nucleated RBC Not Reportable Total Counted 100 Neutrophils % (Manual) 38 L Band Neutrophils % 49 H Lymphocytes % (Manual) 4 L Monocytes % (Manual) 7 Metamyelocytes % 2 Nucleated RBC % Not Reportable Abs Neuts (Manual) 5.56 Abs Lymphs (Manual) 0.25 L Abs Monocytes (Manual) 0.44 Platelet Estimate Decreased % Immature Plt Fraction 4.0 Hypochromasia 2+ Anisocytosis 2+ Target Cells 1+ Tear Drop Cells 1+ Ovalocytes 1+ [place] Cells 1+ Schistocytes Occasional Sodium 133 L Potassium 3.5 Chloride 105 Carbon Dioxide 19 L Anion Gap 9 BUN 20 D Creatinine 1.84 H Estim Creat Clear Calc Not Reportable Estimated GFR 40 L Glucose 101 Calcium 7.6 L Magnesium 1.5 L Total Bilirubin 5.6 H AST 46 ALT 22 Alkaline Phosphatase 94 Total Protein 7.0 Albumin 2.7 L
[2025-04-16 16:08] LABS: Add Urine Microscopic? YES; Appearance Urine Cloudy (Clear); Glucose Urine UA Negative (Negative); Leukocyte Esterase Ur 1+ LEU/UL (Negative); Nitrate Urine Positive (Negative); Non Pathogenic Casts >20; Specific Grav Ur 1.026 (1.001-1.035)
--- NOTE | 2025-04-16 18:32 | WPDONCPN ---
Progress Note: A&P Assessment and Plan (1) Pancytopenia: Code(s): D61.818 - Other pancytopenia Status: Acute Assessment and Plan: Presentation CBC on 04/10/25 showed WBC 2.2, Hgb 2.5g/dL, platelets 48K. Toxicology screen was negative and ethanol levels were normal. CT Chest abdomen pelvis showed cirrhosis with portal hypertension, splenomegaly, cardiomegaly, small amount of ascites and mild bladder wall thickening. Over the course of last few days patient received PRBC and platelet transfusions. GI was consulted and underwent EGD and colonoscopy today 04/12/25. EGD showed mild gastritis. Colonoscopy showed a 4mm descending colon polyp which was removed. Patient's CBC today, 04/16/25 shows WBC 6.4, Hemoglobin 8.1, platelets 69. Pancytopenia is multifactorial including advanced cirrhosis, malnutrition and direct bone marrow suppression from alcohol. He has iron deficiency on labs performed 04/14/25. Please see below. Patient spiked fever on 04/15/25 evening and infectious work up was ordered. He is started on cefepime. Creatinine also acutely elevated 1.84 from 0.68. Renal ultrasound done, read pending. (2) Iron deficiency anemia: Code(s): D50.9 - Iron deficiency anemia, unspecified Status: Acute Assessment and Plan: Iron panel shows Iron saturations of 4% and ferritin 8.09. I have ordered Iron sucrose 300mg which he received 04/15/25 and 04/16/25. If patient here on 04/17/25, he can get 3rd dose. The source of Iron loss is not clear as patient had EGD and colonoscopy this admission on 04/12/25 with no obvious bleeding. Could have AVMs in small bowel or severe malnutrition from chronic alcohol abuse. Will continue to follow. Subjective Date/time seen: 04/16/25 18:32 Interval history: Resting well. He spiked a fever of 100.3 last evening. Infectious work up was initiated and patient started on cefepime. Review of Systems Review of Systems Patient reports he feels about the same. Currently he denies dizziness, headache, blurry or double vision. However feels weak and is shaky when stands up. Denies f/c, night sweats. He reports lower extremity swelling. Denies chest pain or dyspnea. Has abdominal distention and discomfort. Denies hematochezia, melena or hematuria. Rest of 12 point ROS negative. Exam Narrative: General: Alert and orientedx3, unkempt male, no acute distress HEENT: EOMI, PERRLA, sclera icterus noted. Respiratory: cTAB Cardiovascular: RRR, no m/g/r Abdomen: Distended, NT, BS+ Extremities: trace edema in bilateral lower extremities Neuro: No focal deficit. Skin: Warm, dry, and intact, without rash, erythema, or lesion. Psych: good mood Objective Data Vital Signs Vital Signs: Vital Signs - 24 hr 04/15/25 19:55 04/15/25 20:34 04/15/25 22:23 Temperature 37.9 C H 37.9 C H Pulse Rate 95 103 H Respiratory Rate 18 Blood Pressure 120/69 Pulse Oximetry 97 Oxygen Delivery Room Air 04/16/25 06:00 04/16/25 14:00 Temperature 36.4 C L 37.6 C Pulse Rate 71 97 Respiratory Rate 18 20 Blood Pressure 101/51 L 105/45 L Pulse Oximetry 100 98 Oxygen Delivery Intake/Output Intake/Output: Intake & Output 04/13/25 04/14/25 04/15/25 04/16/25 23:59 23:59 23:59 23:59 Intake Total 1750 1070 870 590 Output Total 1000 600 350 Balance 750 1070 270 240 Meds/Results Medications: Active Medications Generic Name Dose Route Start Last Admin Trade Name Freq PRN Reason Stop Dose Admin Acetaminophen 650 mg 04/15/25 15:57 04/15/25 16:02 Acetaminophen 325 Mg Tablet PO 650 mg Q6H PRN Administration Mild Pain (1-3) or Fever Diazepam 5 mg 04/10/25 17:13 Diazepam Inj (*Crx) 10 Mg/2 Ml Syringe IV PUSH PRN PRN Seizure Activity Diazepam 5 mg 04/10/25 17:48 Diazepam Inj (*Crx) 10 Mg/2 Ml Syringe IV PUSH Q5M PRN CIWA > 15 Folic Acid 1 mg 04/11/25 09:00 04/16/25 08:53 Folic Acid 1 Mg Tablet PO 1 mg DAILY AMRITA Administration Furosemide 20 mg 04/14/25 09:00 04/15/25 08:03 Furosemide 20 Mg Tablet PO 20 mg On Hold: 04/16/25 07:53 DAILY AMRITA Administration Cefepime HCl 1 gm/ Sodium 50 mls @ 100 mls/hr 04/15/25 19:00 04/16/25 12:30 Chloride IVPB 100 mls/hr Q8H AMRITA Administration Multivitamins/Calcium 1 tablet 04/11/25 09:00 04/16/25 08:53 Therapeutic Multivitamins/Minerals Tab (*Bkc) PO 1 tablet DAILY AMRITA Administration Ondansetron HCl 4 mg 04/10/25 17:13 Ondansetron Inj 4 Mg/2 Ml Vial IV PUSH Q4H PRN Nausea Pantoprazole Sodium 40 mg 04/12/25 09:00 04/16/25 08:53 Pantoprazole 40 Mg Tablet PO 40 mg QAM AMRITA Administration Spironolactone 100 mg 04/14/25 09:00 04/15/25 08:03 Spironolactone 50 Mg Tablet PO 100 mg On Hold: 04/16/25 07:54 QAM AMRITA Administration Thiamine HCl 100 mg 04/11/25 09:00 04/16/25 08:53 Thiamine Hcl 100 Mg Tablet PO 100 mg DAILY AMRITA Administration Radiology Results: ITS Impressions Head CT 04/10/25 12:55 IMPRESSION: No evidence for acute intracranial hemorrhage or calvarial fracture. Abdomen/Pelvis CTA 04/10/25 16:34 IMPRESSION: 1. Cirrhosis with portal hypertension. 2: Splenomegaly. 3: Cardiomegaly. 4: Small amount of ascites. 5: Mild bladder wall thickening. Correlate clinically for cystitis. Paracentesis Ultrasound 04/12/25 12:02 IMPRESSION: 1. Successful ultrasound-guided paracentesis yielding 1000 mL of clear saba-colored fluid. Chest X-Ray 04/15/25 19:30 Impression: No acute cardiopulmonary abnormality. Labs Labs: Laboratory Results - last 24 hr 04/16/25 04/16/25 05:02 15:49 WBC 6.4 RBC 3.31 L Hgb 8.1 L Hct 27.9 L MCV 84.3 MCH 24.5 L MCHC 29.0 L RDW 22.4 H Plt Count 69 L MPV TNP Immature Gran % (Auto) Not Reportable Neut % (Auto) Not Reportable Lymph % (Auto) Not Reportable [place] % (Auto) Not Reportable Eos % (Auto) Not Reportable Baso % (Auto) Not Reportable Lymph # (Auto) Not Reportable [place] # (Auto) Not Reportable Eos # (Auto) Not Reportable Baso # (Auto) Not Reportable Abs Immat Gran (auto) Not Reportable Absolute Neuts (auto) Not Reportable Absolute Nucleated RBC Not Reportable Total Counted 100 Neutrophils % (Manual) 38 L Band Neutrophils % 49 H Lymphocytes % (Manual) 4 L Monocytes % (Manual) 7 Metamyelocytes % 2 Nucleated RBC % Not Reportable Abs Neuts (Manual) 5.56 Abs Lymphs (Manual) 0.25 L Abs Monocytes (Manual) 0.44 Platelet Estimate Decreased % Immature Plt Fraction 4.0 Hypochromasia 2+ Anisocytosis 2+ Target Cells 1+ Tear Drop Cells 1+ Ovalocytes 1+ [place] Cells 1+ Schistocytes Occasional Sodium 133 L Potassium 3.5 Chloride 105 Carbon Dioxide 19 L Anion Gap 9 BUN 20 D Creatinine 1.84 H Estim Creat Clear Calc Not Reportable Estimated GFR 40 L Glucose 101 Calcium 7.6 L Magnesium 1.5 L Total Bilirubin 5.6 H AST 46 ALT 22 Alkaline Phosphatase 94 Total Protein 7.0 Albumin 2.7 L Urine Color [place] H Urine Appearance Cloudy H Urine pH 5.0 Ur Specific [place] 1.026 Urine Protein 1+ H Urine Glucose (UA) Negative Urine Ketones Trace H Ur Blood (Man) Negative Urine Nitrate Positive Urine Bilirubin 3+ H Urine Urobilinogen 1.0 Ur Leukocyte Esterase 1+ H Urine RBC 3-5 H Urine WBC 0-5 Ur Squamous Epith Cells Many H Urine Bacteria None seen Urine Casts >20
[2025-04-16 19:17] LABS: Anion Gap 10 mmol/L (4-12); Blood Urea Nitrogen 27 mg/dL (9-20); Calcium 7.7 mg/dL (8.4-10.2); Carbon Dioxide 18 mmol/L (22-30); Chloride 107 mmol/L (98-107); Estimated Glomerular Filt Rate 49; Glucose 108 mg/dL (65-110); Potassium 4.3 mmol/L (3.4-5.0); Sodium 135 mmol/L (137-145)
[2025-04-16 21:07] VITALS: BP 128/69; PULSE 107; RESP 18; TEMP 39.5; O2SAT 98
[2025-04-16 21:12] VITALS: TEMP 39.5
[2025-04-16] MEDS: ACETAMINOPHEN 325 MG TABLET 650 MG PO (21:12)
[2025-04-16 22:12] VITALS: TEMP 37.3
[2025-04-17] VITALS (8 sets, daily range): BP systolic 130–139; BP diastolic 71–80; PULSE 73–91; RESP 16–20; TEMP 36.5–38.9; O2SAT 94–100
[2025-04-17] MEDS: CEFEPIME 1 GM in SODIUM CHLORIDE 0.9% IV 50 ML 100 ML IVPB ×3 (02:19→17:40)
[2025-04-17] MEDS: ACETAMINOPHEN 325 MG TABLET 650 MG PO (05:24)
[2025-04-17 05:40] LABS: Hematocrit 30.5 % (42.0-52.0); Hemoglobin 8.5 g/dL (14.0-18.0); Immature Platelet Fraction Pct 5.1 % (0.9-11.2); Mean Corpuscular HGB Conc 27.9 g/dl (32-36); Mean Corpuscular Hemoglobin 24.0 pg (26-34); Mean Corpuscular Volume 86.2 fl (80-100); Platelet Count Result 58 k/mm3 (150-375); Red Blood Count 3.54 M/mm3 (4.6-6.20); White Blood Count 4.9 K/mm3 (4.5-10.0)
[2025-04-17 06:01] LABS: Alanine Aminotransferase 26 U/L (6-50); Albumin Level 2.6 g/dL (3.5-5.1); Alkaline Phosphatase 86 U/L (38-126); Anion Gap 5 mmol/L (4-12); Aspartate Amino Transferase 78 U/L (17-59); Bilirubin,Total 6.6 mg/dL (0.2-1.3); Blood Urea Nitrogen 24 mg/dL (9-20); Calcium 7.3 mg/dL (8.4-10.2); Carbon Dioxide 18 mmol/L (22-30); Chloride 107 mmol/L (98-107); Estimated Glomerular Filt Rate > 60; Glucose 80 mg/dL (65-110); Magnesium 1.9 mg/dL (1.6-2.3); Potassium 4.1 mmol/L (3.4-5.0); Sodium 130 mmol/L (137-145); Total Protein 7.0 g/dL (6.3-8.2)
--- NOTE | 2025-04-17 08:20 | PCNWS ---
Weekly nutritional screen. Patient is tolerating current 2gm Na diet with adequate intake 100% all meals. No weight loss reported. No nutritional recommendations at this time.
--- NOTE | 2025-04-17 08:46 | P.CDI_ITS ---
CDI Query Clarification Request Please clarify the status of the patient's anemia, if known. Anemia has been documented, please specify type of anemia if known: * Acute blood loss anemia * Chronic blood loss anemia * Anemia of chronic disease (CKD,neoplasm, other) * Aplastic anemia * Dilutional anemia * Iron Deficiency anemia * Pernicious anemia * Nutritional anemia (e.g., scorbutic anemia) * Other anemia * Unknown/unable to determine Assessment and Plan (1) Alcohol abuse: Code(s): F10.10 - Alcohol abuse, uncomplicated Status: Acute (2) Thrombocytopenia: Code(s): D69.6 - Thrombocytopenia, unspecified Status: Acute (3) Cirrhosis of liver: Qualifiers: Ascites presence: with ascites Hepatic cirrhosis type: alcoholic cirrhosis Qualified Code(s): K70.31 - Alcoholic cirrhosis of liver with ascites Code(s): K74.60 - Unspecified cirrhosis of liver Status: Acute (4) GI (gastrointestinal hemorrhage): Qualifiers: GI bleed type/associated pathology: unspecified gastrointestinal hemorrhage type Qualified Code(s): K92.2 - Gastrointestinal hemorrhage, unspecified Code(s): K92.2 - Gastrointestinal hemorrhage, unspecified Status: Acute (5) Ascites: Code(s): R18.8 - Other ascites Status: Acute (6) Alcohol withdrawal seizure: Qualifiers: Complication of substance-induced condition: uncomplicated Qualified Code(s): F10.930 - Alcohol use, unspecified with withdrawal, uncomplicated; R56.9 - Unspecified convulsions Code(s): F10.939 - Alcohol use, unspecified with withdrawal, unspecified; R56.9 - Unspecified convulsions Status: Acute Plan Anemia: Patient presented with hemoglobin of 2.5. No hematochezia melena hematemesis. Suspect ongoing chronic GI bleed likely variceal considering patient has history of cirrhosis Started on Protonix IV and octreotide infusion Status post 4 units of PRBC post transfusion hemoglobin is 6 underwent another transfusion Monitor serial hemoglobin which has been stable now GI consulted Status post EGD and colonoscopy EGD: Gastritis. On Protonix Colonoscopy: Colonic polyps <Manasa Young RN - Last Filed: 04/17/25 08:47> Provider Comments Acute blood loss anemia <Justin Marinelli MD - Last Filed: 04/18/25 08:12>
[2025-04-17] MEDS: THERAPEUTIC MULTIVITAMINS/MINERALS TAB (*BKC) 1 TABLET PO (09:36)
[2025-04-17] MEDS: PANTOPRAZOLE 40 MG TABLET PO (09:36)
[2025-04-17] MEDS: THIAMINE HCL 100 MG TABLET PO (09:36)
[2025-04-17] MEDS: FOLIC ACID 1 MG TABLET PO (09:36)
--- NOTE | 2025-04-17 13:24 | PM.IMPN ---
Progress Note: A&P Assessment and Plan (1) Alcohol abuse: Code(s): F10.10 - Alcohol abuse, uncomplicated Status: Acute (2) Thrombocytopenia: Code(s): D69.6 - Thrombocytopenia, unspecified Status: Acute (3) Cirrhosis of liver: Qualifiers: Ascites presence: with ascites Hepatic cirrhosis type: alcoholic cirrhosis Qualified Code(s): K70.31 - Alcoholic cirrhosis of liver with ascites Code(s): K74.60 - Unspecified cirrhosis of liver Status: Acute (4) GI (gastrointestinal hemorrhage): Qualifiers: GI bleed type/associated pathology: unspecified gastrointestinal hemorrhage type Qualified Code(s): K92.2 - Gastrointestinal hemorrhage, unspecified Code(s): K92.2 - Gastrointestinal hemorrhage, unspecified Status: Acute (5) Ascites: Code(s): R18.8 - Other ascites Status: Acute (6) Alcohol withdrawal seizure: Qualifiers: Complication of substance-induced condition: uncomplicated Qualified Code(s): F10.930 - Alcohol use, unspecified with withdrawal, uncomplicated; R56.9 - Unspecified convulsions Code(s): F10.939 - Alcohol use, unspecified with withdrawal, unspecified; R56.9 - Unspecified convulsions Status: Acute Plan Anemia: Patient presented with hemoglobin of 2.5. No hematochezia melena hematemesis. Suspect ongoing chronic GI bleed likely variceal considering patient has history of cirrhosis Started on Protonix IV and octreotide infusion Status post 4 units of PRBC post transfusion hemoglobin is 6 underwent another transfusion Monitor serial hemoglobin which has been stable now GI consulted Status post EGD and colonoscopy EGD: Gastritis. On Protonix Colonoscopy: Colonic polyps Thrombocytopenia likely related to cirrhosis Alcohol abuse on thiamine and folic acid she will monitoring On Librium will decrease the dose to q.8 hours. Now tapered off Cirrhosis of liver secondary to alcohol abuse. Received vitamin K IM. SBP prophylaxis Rocephin which has been discontinued now. Patient was started on Lasix and spironolactone. Also start on nonselective beta-lazaro as tolerated with Yinka I will stop Lasix and spironolactone Fever spike 04/15/2025 pancultured. Empirically started on cefepime. Chest x-ray was negative. UA negative. Still spiking fever will romeo scan further evaluate. Could be from iron infusion will hold off on any further iron infusions. YINKA 04/16/2025 creatinine bumped up to 1.8. Will hold Lasix and spironolactone. Renal ultrasound unremarkable Give IV fluid. Monitor intake and output and renal failure has resolved GI bleed see above Alcohol withdrawal seizure no prior history of seizure recurrence since coming to the hospital Seizure precautions On Librium and p.r.n. Valium Ascites status post paracentesis of 1 L Generalized weakness PT OT to see DVT prophylaxis SCDs Stress ulcer prophylaxis ppi Code status full code Subjective Date/time seen: 04/17/25 13:24 Interval history: Patient febrile again last evening. Patient reports no new complaints. Denies any abdominal pain nausea vomiting. No cough. No urinary symptoms Review of Systems Review of Systems: All systems reviewed & are unremarkable except as noted in HPI and below (Subjective) Exam Narrative: General: Pt is alert awake and in NAD Lungs/Chest: Trachea central Clear BS B/L, No crackles or wheezing. Cardiac: RRR. Normal S1 S2. No murmurs Circulation: Pedal pulses are intact and symmetrical. Abdomen: Distended, present bowel sounds.. Soft. NT, Extremities: No clubbing, cyanosis or edema. Warm Neurologic: Follows commands. Moves all 4 extremities PERRL Skin: No Rash Objective Data Vital Signs Vital Signs: Vital Signs - 24 hr 04/16/25 14:00 04/16/25 20:06 04/16/25 21:07 Temperature 99.6 F 103.1 F H Pulse Rate 97 107 H Respiratory Rate 20 18 Blood Pressure 105/45 L 128/69 Pulse Oximetry 98 98 Oxygen Delivery Room Air 04/16/25 21:12 04/16/25 22:12 04/17/25 02:13 Temperature 103.1 F H 99.1 F 98.7 F Pulse Rate Respiratory Rate Blood Pressure Pulse Oximetry Oxygen Delivery 04/17/25 05:06 04/17/25 05:24 04/17/25 05:24 Temperature 102.1 F H 102.1 F H 102.1 F H Pulse Rate 91 Respiratory Rate 16 Blood Pressure 130/80 Pulse Oximetry 100 Oxygen Delivery 04/17/25 06:24 04/17/25 06:48 Temperature 101.8 F H 101.8 F H Pulse Rate Respiratory Rate Blood Pressure Pulse Oximetry Oxygen Delivery Intake/Output Intake/Output: Intake & Output 09/0604/15/25 04/16/25 04/17/25 23:59 23:59 23:59 23:59 Intake Total 1070 870 930 836 Output Total 600 350 500 Balance 1070 270 544 336 Meds/Results Medications: Active Medications Generic Name Dose Route Start Last Admin Trade Name Freq PRN Reason Stop Dose Admin Acetaminophen 650 mg 04/15/25 15:57 04/17/25 05:24 Acetaminophen 325 Mg Tablet PO 650 mg Q6H PRN Administration Mild Pain (1-3) or Fever Diazepam 5 mg 04/10/25 17:13 Diazepam Inj (*Crx) 10 Mg/2 Ml Syringe IV PUSH PRN PRN Seizure Activity Diazepam 5 mg 04/10/25 17:48 Diazepam Inj (*Crx) 10 Mg/2 Ml Syringe IV PUSH Q5M PRN CIWA > 15 Folic Acid 1 mg 04/11/25 09:00 04/17/25 09:36 Folic Acid 1 Mg Tablet PO 1 mg DAILY AMRITA Administration Furosemide 20 mg 04/14/25 09:00 04/15/25 08:03 Furosemide 20 Mg Tablet PO 20 mg On Hold: 04/16/25 07:53 DAILY AMRITA Administration Cefepime HCl 1 gm/ Sodium 50 mls @ 100 mls/hr 04/15/25 19:00 04/17/25 11:50 Chloride IVPB 100 mls/hr Q8H AMRITA Administration Multivitamins/Calcium 1 tablet 04/11/25 09:00 04/17/25 09:36 Therapeutic Multivitamins/Minerals Tab (*Bkc) PO 1 tablet DAILY AMRITA Administration Ondansetron HCl 4 mg 04/10/25 17:13 Ondansetron Inj 4 Mg/2 Ml Vial IV PUSH Q4H PRN Nausea Pantoprazole Sodium 40 mg 04/12/25 09:00 04/17/25 09:36 Pantoprazole 40 Mg Tablet PO 40 mg QAM AMRITA Administration Spironolactone 100 mg 04/14/25 09:00 04/15/25 08:03 Spironolactone 50 Mg Tablet PO 100 mg On Hold: 04/16/25 07:54 QAM AMRIAT Administration Thiamine HCl 100 mg 04/11/25 09:00 04/17/25 09:36 Thiamine Hcl 100 Mg Tablet PO 100 mg DAILY AMRITA Administration Radiology Results: ITS Impressions Head CT 04/10/25 12:55 IMPRESSION: No evidence for acute intracranial hemorrhage or calvarial fracture. Abdomen/Pelvis CTA 04/10/25 16:34 IMPRESSION: 1. Cirrhosis with portal hypertension. 2: Splenomegaly. 3: Cardiomegaly. 4: Small amount of ascites. 5: Mild bladder wall thickening. Correlate clinically for cystitis. Paracentesis Ultrasound 04/12/25 12:02 IMPRESSION: 1. Successful ultrasound-guided paracentesis yielding 1000 mL of clear saba-colored fluid. Chest X-Ray 04/15/25 19:30 Impression: No acute cardiopulmonary abnormality. Renal Ultrasound 04/16/25 18:30 Impression: 1: Unremarkable renal ultrasound. No stones, masses or hydronephrosis. 2: Ascites. 3: Nodular liver surface, compatible with cirrhosis. Labs Labs: Laboratory Results - last 24 hr 04/16/25 04/16/25 04/17/25 15:49 18:45 05:04 WBC 4.9 RBC 3.54 L Hgb 8.5 L Hct 30.5 L MCV 86.2 MCH 24.0 L MCHC 27.9 L RDW 23.0 H Plt Count 58 L MPV TNP % Immature Plt Fraction 5.1 Sodium 135 L 130 L Potassium 4.3 4.1 Chloride 107 107 Carbon Dioxide 18 L 18 L Anion Gap 10 5 BUN 27 H 24 H Creatinine 1.54 H 1.10 Estim Creat Clear Calc Not Reportable Not Reportable Estimated GFR 49 L > 60 Glucose 108 80 Calcium 7.7 L 7.3 L Magnesium 1.9 Total Bilirubin 6.6 H AST 78 H ALT 26 Alkaline Phosphatase 86 Total Protein 7.0 Albumin 2.6 L Urine Color [place] H Urine Appearance Cloudy H Urine pH 5.0 Ur Specific [place] 1.026 Urine Protein 1+ H Urine Glucose (UA) Negative Urine Ketones Trace H Ur Blood (Man) Negative Urine Nitrate Positive Urine Bilirubin 3+ H Urine Urobilinogen 1.0 Ur Leukocyte Esterase 1+ H Urine RBC 3-5 H Urine WBC 0-5 Ur Squamous Epith Cells Many H Urine Bacteria None seen Urine Casts >20
--- NOTE | 2025-04-17 18:52 | P.PNONC_ITS ---
Progress Note: A&P Assessment and Plan (1) Pancytopenia: Code(s): D61.818 - Other pancytopenia Status: Acute Assessment and Plan: Presentation CBC on 04/10/25 showed WBC 2.2, Hgb 2.5g/dL, platelets 48K. [place] screen was negative and ethanol levels were normal. CT Chest abdomen pelvis showed cirrhosis with portal hypertension, splenomegaly, cardiomegaly, small amount of ascites and mild bladder wall thickening. Over the course of last few days patient received PRBC and platelet transfusions. GI was consulted and underwent EGD and colonoscopy today 04/12/25. EGD showed mild gastritis. Colonoscopy showed a 4mm descending colon polyp which was removed. Patient's CBC today, 04/16/25 shows WBC 6.4, Hemoglobin 8.1, platelets 69. Pancytopenia is multifactorial including advanced cirrhosis, malnutrition and direct bone marrow suppression from alcohol. He has iron deficiency on labs performed 04/14/25. Please see below. Patient spiked fever on 04/15/25 and 04/16/25 evening and infectious work up was ordered and negative so far. He is started on cefepime and remains on empiric cefepime. Creatinine was also acutely elevated at 1.84 04/16/25 but now 1.1 today. Renal ultrasound with no hydronephrosis. CT scan of Chest/abd/pelvis with no clear etiology of fevers except mention of lower lung basis atelectasis vs. infection. Patient on Cefepime. Also mentioned was contracted gall bladder questioning cholecystitis. Inpatient team questions IV Iron as source of fever. Usually Iron infusion can be associated with fevers but usually as delayed reaction 24-48 hours after administration and usually with large doses of IV Iron. (2) Iron deficiency anemia: Code(s): D50.9 - Iron deficiency anemia, unspecified Status: Acute Assessment and Plan: Iron panel shows Iron saturations of 4% and ferritin 8.09. Patient received IV Iron sucrose 300mgon 04/15/25 and 04/16/25. The source of Iron loss is not clear as patient had EGD and colonoscopy this admission on 04/12/25 with no obvious bleeding. Could have AVMs in small bowel or severe malnutrition from chronic alcohol abuse. Patient spiked fever on 04/15/25 evening and 04/16/25 evening. Inpatient team questioning IV Iron as source of fever. Usually Iron infusion can be associated with fevers but usually as delayed reaction 24-48 hours after administration and usually with large doses of IV Iron. This process is mediated by complements. 3rd dose of IV Iron is discontinued today. Hematology will continue to follow. Subjective Date/time seen: 04/17/25 18:52 Interval history: Patient febrile again last evening. NO clear source of fevers. Infectious work up negative. Review of Systems Review of Systems Patient reports he feels about the same. Currently he denies dizziness, headache, blurry or double vision. However feels weak and is shaky when stands up. Denies f/c, night sweats. He reports lower extremity swelling. Denies chest pain or dyspnea. Has abdominal distention and discomfort. Denies hematochezia, melena or hematuria. Rest of 12 point ROS negative. Exam Narrative: General: Alert and orientedx3, unkempt male, no acute distress HEENT: EOMI, PERRLA, sclera icterus noted. Respiratory: cTAB Cardiovascular: RRR, no m/g/r Abdomen: Distended, NT, BS+ Extremities: trace edema in bilateral lower extremities Neuro: No focal deficit. Skin: Warm, dry, and intact, without rash, erythema, or lesion. Psych: good mood Objective Data Vital Signs Vital Signs: Vital Signs - 24 hr 04/16/25 20:06 04/16/25 21:07 04/16/25 21:12 Temperature 39.5 C H 39.5 C H Pulse Rate 107 H Respiratory Rate 18 Blood Pressure 128/69 Pulse Oximetry 98 Oxygen Delivery Room Air 04/16/25 22:12 04/17/25 02:13 04/17/25 05:06 Temperature 37.3 C 37.1 C 38.9 C H Pulse Rate 91 Respiratory Rate 16 Blood Pressure 130/80 Pulse Oximetry 100 Oxygen Delivery 04/17/25 05:24 04/17/25 05:24 04/17/25 06:24 Temperature 38.9 C H 38.9 C H 38.8 C H Pulse Rate Respiratory Rate Blood Pressure Pulse Oximetry Oxygen Delivery 04/17/25 06:48 04/17/25 14:00 Temperature 38.8 C H 37.0 C Pulse Rate 75 Respiratory Rate 16 Blood Pressure 130/71 Pulse Oximetry 98 Oxygen Delivery Intake/Output Intake/Output: Intake & Output 04/14/25 04/15/25 04/16/25 04/17/25 23:59 23:59 23:59 23:59 Intake Total 1070 250 057 8458 Output Total 600 350 950 Balance 1070 106 432 6453 Meds/Results Medications: Active Medications Generic Name Dose Route Start Last Admin Trade Name Freq PRN Reason Stop Dose Admin Acetaminophen 650 mg 04/15/25 15:57 04/17/25 05:24 Acetaminophen 325 Mg Tablet PO 650 mg Q6H PRN Administration Mild Pain (1-3) or Fever Diazepam 5 mg 04/10/25 17:13 Diazepam Inj (*Crx) 10 Mg/2 Ml Syringe IV PUSH PRN PRN Seizure Activity Diazepam 5 mg 04/10/25 17:48 Diazepam Inj (*Crx) 10 Mg/2 Ml Syringe IV PUSH Q5M PRN CIWA > 15 Folic Acid 1 mg 04/11/25 09:00 04/17/25 09:36 Folic Acid 1 Mg Tablet PO 1 mg DAILY AMRITA Administration Furosemide 20 mg 04/14/25 09:00 04/15/25 08:03 Furosemide 20 Mg Tablet PO 20 mg On Hold: 04/16/25 07:53 DAILY AMRITA Administration Cefepime HCl 1 gm/ Sodium 50 mls @ 100 mls/hr 04/15/25 19:00 04/17/25 18:10 Chloride IVPB Infused Q8H AMRITA Infusion Multivitamins/Calcium 1 tablet 04/11/25 09:00 04/17/25 09:36 Therapeutic Multivitamins/Minerals Tab (*Bkc) PO 1 tablet DAILY AMRITA Administration Ondansetron HCl 4 mg 04/10/25 17:13 Ondansetron Inj 4 Mg/2 Ml Vial IV PUSH Q4H PRN Nausea Pantoprazole Sodium 40 mg 04/12/25 09:00 04/17/25 09:36 Pantoprazole 40 Mg Tablet PO 40 mg QAM AMRITA Administration Spironolactone 100 mg 04/14/25 09:00 04/15/25 08:03 Spironolactone 50 Mg Tablet PO 100 mg On Hold: 04/16/25 07:54 QAM AMRITA Administration Thiamine HCl 100 mg 04/11/25 09:00 04/17/25 09:36 Thiamine Hcl 100 Mg Tablet PO 100 mg DAILY AMRITA Administration Radiology Results: ITS Impressions Head CT 04/10/25 12:55 IMPRESSION: No evidence for acute intracranial hemorrhage or calvarial fracture. Abdomen/Pelvis CTA 04/10/25 16:34 IMPRESSION: 1. Cirrhosis with portal hypertension. 2: Splenomegaly. 3: Cardiomegaly. 4: Small amount of ascites. 5: Mild bladder wall thickening. Correlate clinically for cystitis. Paracentesis Ultrasound 04/12/25 12:02 IMPRESSION: 1. Successful ultrasound-guided paracentesis yielding 1000 mL of clear saba- colored fluid. Chest X-Ray 04/15/25 19:30 Impression: No acute cardiopulmonary abnormality. Renal Ultrasound 04/16/25 18:30 Impression: 1: Unremarkable renal ultrasound. No stones, masses or hydronephrosis. 2: Ascites. 3: Nodular liver surface, compatible with cirrhosis. Chest/Abdomen/Pelvis CT 04/17/25 15:58 IMPRESSION: 1. There are a few small patchy, reticular and bandlike opacities in the lower l ungs. Differential includes atelectasis/scarring or infiltrates. 2. Small bilateral pleural effusions. 3. Small to moderate amount of nonspecific fat stranding and fluid in the abdomen and pelvis. 4. The gallbladder is contracted. Acute cholecystitis is not excluded. If of concern, consider a HIDA scan. 5. Moderate amount of stool. 6. Micronodular appearance to the surface of the liver suggestive of cirrhosis. 7. Splenomegaly 8. Mild concentric thickening of the wyman of the moderately distended bladder. Differential includes incomplete bladder wall distention versus cystitis. If symptoms persist or worsen, consider a short-term follow-up study or additional imaging for further assessment. Labs Labs: Laboratory Results - last 24 hr 04/16/25 04/17/25 18:45 05:04 WBC 4.9 RBC 3.54 L Hgb 8.5 L Hct 30.5 L MCV 86.2 MCH 24.0 L MCHC 27.9 L RDW 23.0 H Plt Count 58 L MPV TNP % Immature Plt Fraction 5.1 Sodium 135 L 130 L Potassium 4.3 4.1 Chloride 107 107 Carbon Dioxide 18 L 18 L Anion Gap 10 5 BUN 27 H 24 H Creatinine 1.54 H 1.10 Estim Creat Clear Calc Not Reportable Not Reportable Estimated GFR 49 L > 60 Glucose 108 80 Calcium 7.7 L 7.3 L Magnesium 1.9 Total Bilirubin 6.6 H AST 78 H ALT 26 Alkaline Phosphatase 86 Total Protein 7.0 Albumin 2.6 L
[2025-04-18] MEDS: CEFEPIME 1 GM in SODIUM CHLORIDE 0.9% IV 50 ML 100 ML IVPB ×3 (02:45→17:51)
[2025-04-18 04:49] VITALS: BP 148/83; PULSE 80; RESP 16; TEMP 36.6; O2SAT 98
[2025-04-18 06:56] LABS: Hematocrit 27.9 % (42.0-52.0); Hemoglobin 8.1 g/dL (14.0-18.0); Immature Platelet Fraction Pct 5.4 % (0.9-11.2); Mean Corpuscular HGB Conc 29.0 g/dl (32-36); Mean Corpuscular Hemoglobin 24.0 pg (26-34); Mean Corpuscular Volume 82.8 fl (80-100); Red Blood Count 3.37 M/mm3 (4.6-6.20); White Blood Count 5.0 K/mm3 (4.5-10.0)
[2025-04-18 07:10] LABS: Alanine Aminotransferase 23 U/L (6-50); Albumin Level 2.5 g/dL (3.5-5.1); Alkaline Phosphatase 95 U/L (38-126); Anion Gap 5 mmol/L (4-12); Aspartate Amino Transferase 60 U/L (17-59); Bilirubin,Total 4.9 mg/dL (0.2-1.3); Blood Urea Nitrogen 15 mg/dL (9-20); Calcium 7.7 mg/dL (8.4-10.2); Carbon Dioxide 20 mmol/L (22-30); Chloride 105 mmol/L (98-107); Estimated Glomerular Filt Rate > 60; Glucose 84 mg/dL (65-110); Magnesium 1.9 mg/dL (1.6-2.3); Potassium 3.8 mmol/L (3.4-5.0); Sodium 130 mmol/L (137-145); Total Protein 7.0 g/dL (6.3-8.2)
[2025-04-18 07:15] LABS: Platelet Count Result 52 k/mm3 (150-375)
[2025-04-18 07:19] LABS: Total Cells Counted 100
[2025-04-18 07:20] LABS: Anisocytosis 1+; Band Neutrophils Percent 11 % (0-6); Burr Cells Occasional; Hypochromasia 1+; Lymphocytes Absolute Manual 0.35 K/mm3 (1.1-4.5); Lymphocytes Percent Manual 7 % (18-44); Monocytes Absolute Manual 0.50 K/mm3 (0.1-0.90); Monocytes Percent Manual 10 % (3-9); Neutrophils Absolute Manual 4.15 K/mm3 (1.3-6.7); Neutrophils Percent Manual 72 % (46-73); Schistocytes None Seen; Smudge Cells PRESENT
[2025-04-18] MEDS: FOLIC ACID 1 MG TABLET PO (09:17)
[2025-04-18] MEDS: THIAMINE HCL 100 MG TABLET PO (09:18)
[2025-04-18] MEDS: THERAPEUTIC MULTIVITAMINS/MINERALS TAB (*BKC) 1 TABLET PO (09:18)
[2025-04-18] MEDS: PANTOPRAZOLE 40 MG TABLET PO (09:18)
[2025-04-18 14:00] VITALS: BP 120/84; PULSE 93; RESP 18; TEMP 36.9; O2SAT 100
--- NOTE | 2025-04-18 14:12 | WPDONCPN ---
Progress Note: A&P Assessment and Plan (1) Pancytopenia: Code(s): D61.818 - Other pancytopenia Status: Acute Assessment and Plan: Presentation CBC on 04/10/25 showed WBC 2.2, Hgb 2.5g/dL, platelets 48K. Toxicology screen was negative and ethanol levels were normal. CT Chest abdomen pelvis showed cirrhosis with portal hypertension, splenomegaly, cardiomegaly, small amount of ascites and mild bladder wall thickening. Over the course of last few days patient received PRBC and platelet transfusions. GI was consulted and underwent EGD and colonoscopy today 04/12/25. EGD showed mild gastritis. Colonoscopy showed a 4mm descending colon polyp which was removed. Pancytopenia is multifactorial including advanced cirrhosis, malnutrition and direct bone marrow suppression from alcohol. He has iron deficiency on labs performed 04/14/25. Please see below. Patient spiked fever on 04/15/25 and 04/16/25 evening and 04/17/25 morning. Blood cultures were obtained on 04/15/25 and now growing gram negative bacilli. He is started on cefepime and remains on empiric cefepime. Creatinine was also acutely elevated at 1.84 04/16/25 but now 0.88 today. Renal ultrasound with no hydronephrosis. CT scan of Chest/abd/pelvis with no clear etiology of fevers except mention of lower lung basis atelectasis vs. infection. Patient on Cefepime. Also mentioned was contracted gall bladder questioning cholecystitis. Patient with ascites and could be SBP. On broad spectrum antibiotic Cefepime. Patient's CBC today, 04/18/25 shows WBC 5.0, Hemoglobin 8.1, platelets 52. No need of any transfusions. (2) Iron deficiency anemia: Code(s): D50.9 - Iron deficiency anemia, unspecified Status: Acute Assessment and Plan: Iron panel shows Iron saturations of 4% and ferritin 8.09. Patient received IV Iron sucrose 300mgon 04/15/25 and 04/16/25. The source of Iron loss is not clear as patient had EGD and colonoscopy this admission on 04/12/25 with no obvious bleeding. Could have AVMs in small bowel or severe malnutrition from chronic alcohol abuse. Patient spiked fever on 04/15/25 evening and 04/16/25 evening. Inpatient team questioning IV Iron as source of fever. Usually Iron infusion can be associated with fevers but usually as delayed reaction 24-48 hours after administration and usually with large doses of IV Iron. This process is mediated by complements. 3rd dose of IV Iron administered 04/18/25. Hematology will continue to follow. Subjective Date/time seen: 04/18/25 14:12 Interval history: No fevers since 6:48am 04/17/25. Patient feels good Review of Systems Review of Systems Patient reports he feels about the same. Currently he denies dizziness, headache, blurry or double vision. However feels weak and is shaky when stands up. Denies f/c, night sweats. He reports lower extremity swelling. Denies chest pain or dyspnea. Has abdominal distention and discomfort. Denies hematochezia, melena or hematuria. Rest of 12 point ROS negative. Exam Narrative: General: Alert and orientedx3, unkempt male, no acute distress HEENT: EOMI, PERRLA, sclera icterus noted. Respiratory: cTAB Cardiovascular: RRR, no m/g/r Abdomen: Distended, NT, BS+ Extremities: trace edema in bilateral lower extremities Neuro: No focal deficit. Skin: Warm, dry, and intact, without rash, erythema, or lesion. Psych: good mood Objective Data Vital Signs Vital Signs: Vital Signs - 24 hr 04/17/25 20:05 04/17/25 20:55 04/18/25 04:49 Temperature 36.5 C 36.6 C Pulse Rate 75 73 80 Respiratory Rate 20 18 16 Blood Pressure 139/76 148/83 H Pulse Oximetry 97 94 98 Oxygen Delivery Room Air Fraction of Inspired Oxygen 21 Intake/Output Intake/Output: Intake & Output 04/15/25 04/16/25 04/17/25 04/18/25 23:59 23:59 23:59 23:59 Intake Total 013 300 5428 840 Output Total 600 931 175 1471 Balance 215 075 9442 -1760 Meds/Results Medications: Active Medications Generic Name Dose Route Start Last Admin Trade Name Freq PRN Reason Stop Dose Admin Acetaminophen 650 mg 04/15/25 15:57 04/17/25 05:24 Acetaminophen 325 Mg Tablet PO 650 mg Q6H PRN Administration Mild Pain (1-3) or Fever Diazepam 5 mg 04/10/25 17:13 Diazepam Inj (*Crx) 10 Mg/2 Ml Syringe IV PUSH PRN PRN Seizure Activity Diazepam 5 mg 04/10/25 17:48 Diazepam Inj (*Crx) 10 Mg/2 Ml Syringe IV PUSH Q5M PRN CIWA > 15 Folic Acid 1 mg 04/11/25 09:00 04/18/25 09:17 Folic Acid 1 Mg Tablet PO 1 mg DAILY AMRITA Administration Furosemide 20 mg 04/14/25 09:00 04/15/25 08:03 Furosemide 20 Mg Tablet PO 20 mg On Hold: 04/16/25 07:53 DAILY AMRITA Administration Cefepime HCl 1 gm/ Sodium 50 mls @ 100 mls/hr 04/15/25 19:00 04/18/25 12:19 Chloride IVPB 100 mls/hr Q8H AMRITA Administration Iron Sucrose 200 mg/ Iron 265 mls @ 176.667 mls/hr 04/18/25 14:09 Sucrose 100 mg/ Sodium IVPB 04/18/25 15:38 Chloride ONCE ONE Multivitamins/Calcium 1 tablet 04/11/25 09:00 04/18/25 09:18 Therapeutic Multivitamins/Minerals Tab (*Bkc) PO 1 tablet DAILY AMRITA Administration Ondansetron HCl 4 mg 04/10/25 17:13 Ondansetron Inj 4 Mg/2 Ml Vial IV PUSH Q4H PRN Nausea Pantoprazole Sodium 40 mg 04/12/25 09:00 04/18/25 09:18 Pantoprazole 40 Mg Tablet PO 40 mg QAM AMRITA Administration Spironolactone 100 mg 04/14/25 09:00 04/15/25 08:03 Spironolactone 50 Mg Tablet PO 100 mg On Hold: 04/16/25 07:54 QAM AMRITA Administration Thiamine HCl 100 mg 04/11/25 09:00 04/18/25 09:18 Thiamine Hcl 100 Mg Tablet PO 100 mg DAILY AMRITA Administration Radiology Results: ITS Impressions Head CT 04/10/25 12:55 IMPRESSION: No evidence for acute intracranial hemorrhage or calvarial fracture. Abdomen/Pelvis CTA 04/10/25 16:34 IMPRESSION: 1. Cirrhosis with portal hypertension. 2: Splenomegaly. 3: Cardiomegaly. 4: Small amount of ascites. 5: Mild bladder wall thickening. Correlate clinically for cystitis. Paracentesis Ultrasound 04/12/25 12:02 IMPRESSION: 1. Successful ultrasound-guided paracentesis yielding 1000 mL of clear saba-colored fluid. Chest X-Ray 04/15/25 19:30 Impression: No acute cardiopulmonary abnormality. Renal Ultrasound 04/16/25 18:30 Impression: 1: Unremarkable renal ultrasound. No stones, masses or hydronephrosis. 2: Ascites. 3: Nodular liver surface, compatible with cirrhosis. Chest/Abdomen/Pelvis CT 04/17/25 15:58 IMPRESSION: 1. There are a few small patchy, reticular and bandlike opacities in the lower lungs. Differential includes atelectasis/scarring or infiltrates. 2. Small bilateral pleural effusions. 3. Small to moderate amount of nonspecific fat stranding and fluid in the abdomen and pelvis. 4. The gallbladder is contracted. Acute cholecystitis is not excluded. If of concern, consider a HIDA scan. 5. Moderate amount of stool. 6. Micronodular appearance to the surface of the liver suggestive of cirrhosis. 7. Splenomegaly 8. Mild concentric thickening of the wyman of the moderately distended bladder. Differential includes incomplete bladder wall distention versus cystitis. If symptoms persist or worsen, consider a short-term follow-up study or additional imaging for further assessment. Labs Labs: Laboratory Results - last 24 hr 04/18/25 06:24 WBC 5.0 RBC 3.37 L Hgb 8.1 L Hct 27.9 L MCV 82.8 MCH 24.0 L MCHC 29.0 L RDW 22.7 H Plt Count 52 L MPV TNP Immature Gran % (Auto) Not Reportable Neut % (Auto) Not Reportable Lymph % (Auto) Not Reportable [place] % (Auto) Not Reportable Eos % (Auto) Not Reportable Baso % (Auto) Not Reportable Lymph # (Auto) Not Reportable [place] # (Auto) Not Reportable Eos # (Auto) Not Reportable Baso # (Auto) Not Reportable Abs Immat Gran (auto) Not Reportable Absolute Neuts (auto) Not Reportable Absolute Nucleated RBC Not Reportable Total Counted 100 Neutrophils % (Manual) 72 Band Neutrophils % 11 H Lymphocytes % (Manual) 7 L Monocytes % (Manual) 10 H Nucleated RBC % Not Reportable Abs Neuts (Manual) 4.15 Abs Lymphs (Manual) 0.35 L Abs Monocytes (Manual) 0.50 Smudge Cells Present Platelet Estimate Decreased % Immature Plt Fraction 5.4 Hypochromasia 1+ Anisocytosis 1+ Pau Cells Occasional Schistocytes None seen Sodium 130 L Potassium 3.8 Chloride 105 Carbon Dioxide 20 L Anion Gap 5 BUN 15 D Creatinine 0.88 Estim Creat Clear Calc Not Reportable Estimated GFR > 60 Glucose 84 Calcium 7.7 L Magnesium 1.9 Total Bilirubin 4.9 H AST 60 H ALT 23 Alkaline Phosphatase 95 Total Protein 7.0 Albumin 2.5 L
[2025-04-18] MEDS: IRON SUCROSE COMPLEX 200 MG, IRON SUCROSE COMPLEX 100 MG in SODIUM CHLORIDE 0.9% IV 250 ML 176.67 MG IVPB (16:11)
--- NOTE | 2025-04-18 16:36 | P.PNIM_ITS ---
Progress Note: A&P Assessment and Plan (1) Alcohol abuse: Code(s): F10.10 - Alcohol abuse, uncomplicated Status: Acute (2) Thrombocytopenia: Code(s): D69.6 - Thrombocytopenia, unspecified Status: Acute (3) Cirrhosis of liver: Qualifiers: Ascites presence: with ascites Hepatic cirrhosis type: alcoholic cirrhosis Qualified Code(s): K70.31 - Alcoholic cirrhosis of liver with ascites Code(s): K74.60 - Unspecified cirrhosis of liver Status: Acute (4) GI (gastrointestinal hemorrhage): Qualifiers: GI bleed type/associated pathology: unspecified gastrointestinal hemorrhage type Qualified Code(s): K92.2 - Gastrointestinal hemorrhage, unspecified Code(s): K92.2 - Gastrointestinal hemorrhage, unspecified Status: Acute (5) Ascites: Code(s): R18.8 - Other ascites Status: Acute (6) Alcohol withdrawal seizure: Qualifiers: Complication of substance-induced condition: uncomplicated Qualified Code(s): F10.930 - Alcohol use, unspecified with withdrawal, uncomplicated; R56.9 - Unspecified convulsions Code(s): F10.939 - Alcohol use, unspecified with withdrawal, unspecified; R56.9 - Unspecified convulsions Status: Acute Plan Anemia: Patient presented with hemoglobin of 2.5. No hematochezia melena hematemesis. Suspect ongoing chronic GI bleed likely variceal considering patient has history of cirrhosis Started on Protonix IV and octreotide infusion Status post 4 units of PRBC post transfusion hemoglobin is 6 underwent another transfusion Monitor serial hemoglobin which has been stable now GI consulted Status post EGD and colonoscopy EGD: Gastritis. On Protonix Colonoscopy: Colonic polyps Thrombocytopenia likely related to cirrhosis Alcohol abuse on thiamine and folic acid she will monitoring On Librium will decrease the dose to q.8 hours. Now tapered off Cirrhosis of liver secondary to alcohol abuse. Received vitamin K IM. SBP prophylaxis Rocephin which has been discontinued now. Patient was started on Lasix and spironolactone. Also start on nonselective beta-lazaro as tolerated with Yinka I will stop Lasix and spironolactone Fever spike 04/15/2025 pancultured. Empirically started on cefepime. Chest x- ray was negative. UA negative. Still spiking fever will romeo scan further evaluate. Could be from iron infusion will hold off on any further iron infusions. YINKA 04/16/2025 creatinine bumped up to 1.8. Will hold Lasix and spironolactone. Renal ultrasound unremarkable Give IV fluid. Monitor intake and output and renal failure has resolved GI bleed see above Alcohol withdrawal seizure no prior history of seizure recurrence since coming to the hospital Seizure precautions On Librium and p.r.n. Valium Ascites status post paracentesis of 1 L Generalized weakness PT OT to see DVT prophylaxis SCDs Stress ulcer prophylaxis ppi Code status full code Patient febrile again last evening. Patient reports no new complaints. Denies any abdominal pain nausea vomiting. No cough. No urinary symptoms, his pancytopenia most likely 2/2 to bone marrow suppression due to alcohol abuse, also resulted iron deficiency anemia, being supplement with IV iron there is concern patient develop fever after iron infusion, will monitor, urine is growing gram negative bacilli, being treated with Cefepime, will follow on uring culture and sensitivity. will monitor. Subjective Date/time seen: 04/18/25 16:36 Interval history: Patient febrile again last evening. Patient reports no new complaints. Denies any abdominal pain nausea vomiting. No cough. No urinary symptoms, his pancytopenia most likely 2/2 to bone marrow suppression due to alcohol abuse, also resulted iron deficiency anemia, being supplement with IV iron there is concern patient develop fever after iron infusion, will monitor, urine is growing gram negative bacilli, being treated with Cefepime, will follow on uring culture and sensitivity. will monitor. Review of Systems Review of Systems: 12 systems were reviewed and are negativ e except for as per HPI. Exam Narrative: Appears chronically ill older than his age Patient is comfortable, NAD HEENT: eyes are clear and none icteric LUNGS:CTA HEART: RR S1S2 ABD: BS+, Soft and nontender Lower extremities: no edema SKIN: nonjaundiced Neuro: grossly intact. Objective Data Vital Signs Vital Signs: Vital Signs - 24 hr 04/17/25 20:05 04/17/25 20:55 04/18/25 04:49 Temperature 36.5 C 36.6 C Pulse Rate 75 73 80 Respiratory Rate 20 18 16 Blood Pressure 139/76 148/83 H Pulse Oximetry 97 94 98 Oxygen Delivery Room Air Fraction of Inspired Oxygen 21 04/18/25 14:00 Temperature 36.9 C Pulse Rate 93 Respiratory Rate 18 Blood Pressure 120/84 Pulse Oximetry 100 Oxygen Delivery Fraction of Inspired Oxygen Intake/Output Intake/Output: Intake & Output 04/15/25 04/16/25 04/17/25 04/18/25 23:59 23:59 23:59 23:59 Intake Total 373 065 7502 1080 Output Total 600 869 617 3434 Balance 810 465 6366 -1520 Meds/Results Medications: Active Medications Generic Name Dose Route Start Last Admin Trade Name Freq PRN Reason Stop Dose Admin Acetaminophen 650 mg 04/15/25 15:57 04/17/25 05:24 Acetaminophen 325 Mg Tablet PO 650 mg Q6H PRN Administration Mild Pain (1-3) or Fever Diazepam 5 mg 04/10/25 17:13 Diazepam Inj (*Crx) 10 Mg/2 Ml Syringe IV PUSH PRN PRN Seizure Activity Diazepam 5 mg 04/10/25 17:48 Diazepam Inj (*Crx) 10 Mg/2 Ml Syringe IV PUSH Q5M PRN CIWA > 15 Folic Acid 1 mg 04/11/25 09:00 04/18/25 09:17 Folic Acid 1 Mg Tablet PO 1 mg DAILY AMRITA Administration Furosemide 20 mg 04/14/25 09:00 04/15/25 08:03 Furosemide 20 Mg Tablet PO 20 mg On Hold: 04/16/25 07:53 DAILY AMRITA Administration Cefepime HCl 1 gm/ Sodium 50 mls @ 100 mls/hr 04/15/25 19:00 04/18/25 12:19 Chloride IVPB 100 mls/hr Q8H AMRITA Administration Iron Sucrose 200 mg/ Iron 265 mls @ 176.667 mls/hr 04/18/25 16:00 04/18/25 16:11 Sucrose 100 mg/ Sodium IVPB 04/18/25 17:29 176.67 mls/hr Chloride ONCE ONE Administration Multivitamins/Calcium 1 tablet 04/11/25 09:00 04/18/25 09:18 Therapeutic Multivitamins/Minerals Tab (*Bkc) PO 1 tablet DAILY AMRITA Administration Ondansetron HCl 4 mg 04/10/25 17:13 Ondansetron Inj 4 Mg/2 Ml Vial IV PUSH Q4H PRN Nausea Pantoprazole Sodium 40 mg 04/12/25 09:00 04/18/25 09:18 Pantoprazole 40 Mg Tablet PO 40 mg QAM AMRITA Administration Spironolactone 100 mg 04/14/25 09:00 04/15/25 08:03 Spironolactone 50 Mg Tablet PO 100 mg On Hold: 04/16/25 07:54 QAM AMRITA Administration Thiamine HCl 100 mg 04/11/25 09:00 04/18/25 09:18 Thiamine Hcl 100 Mg Tablet PO 100 mg DAILY AMRITA Administration Radiology Results: ITS Impressions Head CT 04/10/25 12:55 IMPRESSION: No evidence for acute intracranial hemorrhage or calvarial fracture. Abdomen/Pelvis CTA 04/10/25 16:34 IMPRESSION: 1. Cirrhosis with portal hypertension. 2: Splenomegaly. 3: Cardiomegaly. 4: Small amount of ascites. 5: Mild bladder wall thickening. Correlate clinically for cystitis. Paracentesis Ultrasound 04/12/25 12:02 IMPRESSION: 1. Successful ultrasound-guided paracentesis yielding 1000 mL of clear saba- colored fluid. Chest X-Ray 04/15/25 19:30 Impression: No acute cardiopulmonary abnormality. Renal Ultrasound 04/16/25 18:30 Impression: 1: Unremarkable renal ultrasound. No stones, masses or hydronephrosis. 2: Ascites. 3: Nodular liver surface, compatible with cirrhosis. Chest/Abdomen/Pelvis CT 04/17/25 15:58 IMPRESSION: 1. There are a few small patchy, reticular and bandlike opacities in the lower lungs. Differential includes atelectasis/scarring or infiltrates. 2. Small bilateral pleural effusions. 3. Small to moderate amount of nonspecific fat stranding and fluid in the abdomen and pelvis. 4. The gallbladder is contracted. Acute cholecystitis is not excluded. If of concern, consider a HIDA scan. 5. Moderate amount of stool. 6. Micronodular appearance to the surface of the liver suggestive of cirrhosis. 7. Splenomegaly 8. Mild concentric thickening of the wyman of the moderately distended bladder. Differential includes incomplete bladder wall distention versus cystitis. If symptoms persist or worsen, consider a short-term follow-up study or additional imaging for further assessment. Labs Labs: Laboratory Results - last 24 hr 04/18/25 06:24 WBC 5.0 RBC 3.37 L Hgb 8.1 L Hct 27.9 L MCV 82.8 MCH 24.0 L MCHC 29.0 L RDW 22.7 H Plt Count 52 L MPV TNP Immature Gran % (Auto) Not Reportable Neut % (Auto) Not Reportable Lymph % (Auto) Not Reportable [place] % (Auto) Not Reportable Eos % (Auto) Not Reportable Baso % (Auto) Not Reportable Lymph # (Auto) Not Reportable [place] # (Auto) Not Reportable Eos # (Auto) Not Reportable Baso # (Auto) Not Reportable Abs Immat Gran (auto) Not Reportable Absolute Neuts (auto) Not Reportable Absolute Nucleated RBC Not Reportable Total Counted 100 Neutrophils % (Manual) 72 Band Neutrophils % 11 H Lymphocytes % (Manual) 7 L Monocytes % (Manual) 10 H Nucleated RBC % Not Reportable Abs Neuts (Manual) 4.15 Abs Lymphs (Manual) 0.35 L Abs Monocytes (Manual) 0.50 [place] Cells Present Platelet Estimate Decreased % Immature Plt Fraction 5.4 Hypochromasia 1+ Anisocytosis 1+ [place] Cells Occasional Schistocytes None seen Sodium 130 L Potassium 3.8 Chloride 105 Carbon Dioxide 20 L Anion Gap 5 BUN 15 D Creatinine 0.88 Estim Creat Clear Calc Not Reportable Estimated GFR > 60 Glucose 84 Calcium 7.7 L Magnesium 1.9 Total Bilirubin 4.9 H AST 60 H ALT 23 Alkaline Phosphatase 95 Total Protein 7.0 Albumin 2.5 L Quality VTE Prophylaxis VTE prophylaxis: mechanical ordered
[2025-04-18 19:38] VITALS: BP 143/86; PULSE 82; RESP 16; TEMP 36.3; O2SAT 99
[2025-04-18 20:14] VITALS: O2SAT 99
--- NOTE | 2025-04-18 21:23 | PC.NURSE ---
pt medication cefepime was on hold when nurse went in room called pharmacy for a time adjustment and was told to start medication now and continue with scheduled dose at 0300. medication has been started at this time without difficulty.
[2025-04-18 22:11] LABS: Hematocrit 29.6 % (42.0-52.0); Hemoglobin 8.5 g/dL (14.0-18.0); Mean Corpuscular HGB Conc 28.7 g/dl (32-36); Mean Corpuscular Hemoglobin 23.7 pg (26-34); Mean Corpuscular Volume 82.7 fl (80-100); Platelet Count Result 56 k/mm3 (150-375); Red Blood Count 3.58 M/mm3 (4.6-6.20); White Blood Count 4.4 K/mm3 (4.5-10.0)
[2025-04-19] MEDS: CEFEPIME 1 GM in SODIUM CHLORIDE 0.9% IV 50 ML 100 ML IVPB ×3 (02:12→18:11)
[2025-04-19 05:33] VITALS: BP 131/78; PULSE 77; RESP 16; TEMP 36.3; O2SAT 98
[2025-04-19 06:18] LABS: Hematocrit 28.4 % (42.0-52.0); Hemoglobin 8.2 g/dL (14.0-18.0); Immature Granulocyte Percent A 1.0 % (0-0.5); Immature Platelet Fraction Pct 5.9 % (0.9-11.2); Lymphocytes Absolute Auto 1.30 K/mm3 (0.9-3.2); Mean Corpuscular HGB Conc 28.9 g/dl (32-36); Mean Corpuscular Hemoglobin 24.0 pg (26-34); Mean Corpuscular Volume 83.0 fl (80-100); Nucleated Red Blood Cells Absolute Auto 0.000 K/mm3 (0.0-0.012); Nucleated Red Blood Cells Perc 0.0 % (0.0-0.2); Platelet Count Result 56 k/mm3 (150-375); Red Blood Count 3.42 M/mm3 (4.6-6.20); White Blood Count 4.1 K/mm3 (4.5-10.0)
[2025-04-19 06:42] LABS: Alanine Aminotransferase 23 U/L (6-50); Albumin Level 2.6 g/dL (3.5-5.1); Alkaline Phosphatase 114 U/L (38-126); Anion Gap 6 mmol/L (4-12); Aspartate Amino Transferase 56 U/L (17-59); Bilirubin,Total 3.9 mg/dL (0.2-1.3); Blood Urea Nitrogen 10 mg/dL (9-20); Calcium 7.7 mg/dL (8.4-10.2); Carbon Dioxide 21 mmol/L (22-30); Chloride 104 mmol/L (98-107); Estimated Glomerular Filt Rate > 60; Glucose 113 mg/dL (65-110); Magnesium 1.7 mg/dL (1.6-2.3); Potassium 3.8 mmol/L (3.4-5.0); Sodium 131 mmol/L (137-145); Total Protein 7.0 g/dL (6.3-8.2)
[2025-04-19 06:55] LABS: Anisocytosis 2+; Burr Cells 1+; Hypochromasia 2+; Schistocytes None Seen; Target Cells 1+; Tear Drop Cells 1+
[2025-04-19] MEDS: FOLIC ACID 1 MG TABLET PO (09:34)
[2025-04-19] MEDS: THIAMINE HCL 100 MG TABLET PO (09:35)
[2025-04-19] MEDS: THERAPEUTIC MULTIVITAMINS/MINERALS TAB (*BKC) 1 TABLET PO (09:35)
[2025-04-19] MEDS: PANTOPRAZOLE 40 MG TABLET PO (09:35)
[2025-04-19 14:00] VITALS: BP 129/76; PULSE 68; RESP 16; TEMP 36.3; O2SAT 100
--- NOTE | 2025-04-19 15:57 | P.PNONC_ITS ---
Progress Note: A&P Assessment and Plan (1) Pancytopenia: Code(s): D61.818 - Other pancytopenia Status: Acute Assessment and Plan: Presentation CBC on 04/10/25 showed WBC 2.2, Hgb 2.5g/dL, platelets 48K. [place] screen was negative and ethanol levels were normal. CT Chest abdomen pelvis showed cirrhosis with portal hypertension, splenomegaly, cardiomegaly, small amount of ascites and mild bladder wall thickening. Over the course of last few days patient received PRBC and platelet transfusions. GI was consulted and underwent EGD and colonoscopy today 04/12/25. EGD showed mild gastritis. Colonoscopy showed a 4mm descending colon polyp which was removed. Pancytopenia is multifactorial including advanced cirrhosis, malnutrition and direct bone marrow suppression from alcohol. He has iron deficiency on labs performed 04/14/25. Please see below. Patient spiked fever on 04/15/25 and 04/16/25 evening and 04/17/25 morning. Blood cultures were obtained on 04/15/25 and now growing gram negative bacilli. He is started on cefepime and remains on empiric cefepime. Creatinine was also acutely elevated at 1.84 04/16/25 but now 0.88 today. Renal ultrasound with no hydronephrosis. CT scan of Chest/abd/pelvis with no clear etiology of fevers except mention of lower lung basis atelectasis vs. infection. Patient on Cefepime. Also mentioned was contracted gall bladder questioning cholecystitis. Patient with ascites and could be SBP. On broad spectrum antibiotic Cefepime. Patient's CBC today, 04/19/25 shows WBC 4.1, Hemoglobin 8.2, platelets 56K. No need of any transfusions. (2) Iron deficiency anemia: Code(s): D50.9 - Iron deficiency anemia, unspecified Status: Acute Assessment and Plan: Iron panel shows Iron saturations of 4% and ferritin 8.09. Patient received IV Iron sucrose 300mgon 04/15/25 and 04/16/25. The source of Iron loss is not clear as patient had EGD and colonoscopy this admission on 04/12/25 with no obvious bleeding. Could have AVMs in small bowel or severe malnutrition from chronic alcohol abuse. Patient spiked fever on 04/15/25 evening and 04/16/25 evening. Inpatient team questioning IV Iron as source of fever. Usually Iron infusion can be associated with fevers but usually as delayed reaction 24-48 hours after administration and usually with large doses of IV Iron. This process is mediated by complements. 3rd dose of IV Iron was administered 04/18/25. Hematology will continue to follow. Subjective Date/time seen: 04/19/25 15:57 Interval history: Afebrile now for 48 hours. No overnight events Review of Systems Review of Systems Patient reports he feels about the same. Currently he denies dizziness, headache, blurry or double vision. However feels weak and is shaky when stands up. Denies f/c, night sweats. He reports lower extremity swelling. Denies chest pain or dyspnea. Has abdominal distention and discomfort. Denies hematochezia, melena or hematuria. Rest of 12 point ROS negative. Exam Narrative: General: Alert and orientedx3, unkempt male, no acute distress HEENT: EOMI, PERRLA, sclera icterus noted. Respiratory: cTAB Cardiovascular: RRR, no m/g/r Abdomen: Distended, NT, BS+ Extremities: trace edema in bilateral lower extremities Neuro: No focal deficit. Skin: Warm, dry, and intact, without rash, erythema, or lesion. Psych: good mood Objective Data Vital Signs Vital Signs: Vital Signs - 24 hr 04/18/25 19:38 04/18/25 20:14 04/19/25 05:33 Temperature 36.3 C L 36.3 C L Pulse Rate 82 77 Respiratory Rate 16 16 Blood Pressure 143/86 H 131/78 Pulse Oximetry 99 99 98 Oxygen Delivery Room Air Intake/Output Intake/Output: Intake & Output 04/16/25 04/17/25 04/18/25 04/19/25 23:59 23:59 23:59 23:59 Intake Total 930 2426 1420 336 Output Total 310 689 0271 2500 Balance 580 8902 -[phone] -0714 Meds/Results Medications: Active Medications Generic Name Dose Route Start Last Admin Trade Name Freq PRN Reason Stop Dose Admin Acetaminophen 650 mg 04/15/25 15:57 04/17/25 05:24 Acetaminophen 325 Mg Tablet PO 650 mg Q6H PRN Administration Mild Pain (1-3) or Fever Diazepam 5 mg 04/10/25 17:13 Diazepam Inj (*Crx) 10 Mg/2 Ml Syringe IV PUSH PRN PRN Seizure Activity Diazepam 5 mg 04/10/25 17:48 Diazepam Inj (*Crx) 10 Mg/2 Ml Syringe IV PUSH Q5M PRN CIWA > 15 Folic Acid 1 mg 04/11/25 09:00 04/19/25 09:34 Folic Acid 1 Mg Tablet PO 1 mg DAILY AMRITA Administration Furosemide 20 mg 04/14/25 09:00 04/15/25 08:03 Furosemide 20 Mg Tablet PO 20 mg On Hold: 04/16/25 07:53 DAILY AMRITA Administration Cefepime HCl 1 gm/ Sodium 50 mls @ 100 mls/hr 04/15/25 19:00 04/19/25 12:09 Chloride IVPB Infused Q8H AMRITA Infusion Multivitamins/Calcium 1 tablet 04/11/25 09:00 04/19/25 09:35 Therapeutic Multivitamins/Minerals Tab (*Bkc) PO 1 tablet DAILY AMRITA Administration Ondansetron HCl 4 mg 04/10/25 17:13 Ondansetron Inj 4 Mg/2 Ml Vial IV PUSH Q4H PRN Nausea Pantoprazole Sodium 40 mg 04/12/25 09:00 04/19/25 09:35 Pantoprazole 40 Mg Tablet PO 40 mg QAM AMRITA Administration Spironolactone 100 mg 04/14/25 09:00 04/15/25 08:03 Spironolactone 50 Mg Tablet PO 100 mg On Hold: 04/16/25 07:54 QAM AMRITA Administration Thiamine HCl 100 mg 04/11/25 09:00 04/19/25 09:35 Thiamine Hcl 100 Mg Tablet PO 100 mg DAILY AMRITA Administration Radiology Results: ITS Impressions Head CT 04/10/25 12:55 IMPRESSION: No evidence for acute intracranial hemorrhage or calvarial fracture. Abdomen/Pelvis CTA 04/10/25 16:34 IMPRESSION: 1. Cirrhosis with portal hypertension. 2: Splenomegaly. 3: Cardiomegaly. 4: Small amount of ascites. 5: Mild bladder wall thickening. Correlate clinically for cystitis. Paracentesis Ultrasound 04/12/25 12:02 IMPRESSION: 1. Successful ultrasound-guided paracentesis yielding 1000 mL of clear saba- colored fluid. Chest X-Ray 04/15/25 19:30 Impression: No acute cardiopulmonary abnormality. Renal Ultrasound 04/16/25 18:30 Impression: 1: Unremarkable renal ultrasound. No stones, masses or hydronephrosis. 2: Ascites. 3: Nodular liver surface, compatible with cirrhosis. Chest/Abdomen/Pelvis CT 04/17/25 15:58 IMPRESSION: 1. There are a few small patchy, reticular and bandlike opacities in the lower lungs. Differential includes atelectasis/scarring or infiltrates. 2. Small bilateral pleural effusions. 3. Small to moderate amount of nonspecific fat stranding and fluid in the abdomen and pelvis. 4. The gallbladder is contracted. Acute cholecystitis is not excluded. If of concern, consider a HIDA scan. 5. Moderate amount of stool. 6. Micronodular appearance to the surface of the liver suggestive of cirrhosis. 7. Splenomegaly 8. Mild concentric thickening of the wyman of the moderately distended bladder. Differential includes incomplete bladder wall distention versus cystitis. If symptoms persist or worsen, consider a short-term follow-up study or additional imaging for further assessment. Labs Labs: Laboratory Results - last 24 hr 04/18/25 04/19/25 21:57 05:14 WBC 4.4 L 4.1 L RBC 3.58 L 3.42 L Hgb 8.5 L 8.2 L Hct 29.6 L 28.4 L MCV 82.7 83.0 MCH 23.7 L 24.0 L MCHC 28.7 L 28.9 L RDW 23.1 H 22.9 H Plt Count 56 L 56 L MPV TNP TNP Immature Gran % (Auto) 1.0 H Neut % (Auto) 36.3 L Lymph % (Auto) 31.8 [place] % (Auto) 26.7 H Eos % (Auto) 3.2 Baso % (Auto) 1.0 Lymph # (Auto) 1.30 [place] # (Auto) 1.1 H Eos # (Auto) 0.1 Baso # (Auto) 0.0 Abs Immat Gran (auto) 0.04 H Absolute Neuts (auto) 1.5 Absolute Nucleated RBC 0.000 Band Neutrophils % Not Reportable Nucleated RBC % 0.0 Platelet Estimate Decreased % Immature Plt Fraction 5.9 Hypochromasia 2+ Anisocytosis 2+ Target Cells 1+ [place] Cells 1+ [place] Cells 1+ Schistocytes None seen Sodium 131 L Potassium 3.8 Chloride 104 Carbon Dioxide 21 L Anion Gap 6 BUN 10 D Creatinine 0.72 Estim Creat Clear Calc Not Reportable Estimated GFR > 60 Glucose 113 H Calcium 7.7 L Magnesium 1.7 Total Bilirubin 3.9 H AST 56 ALT 23 Alkaline Phosphatase 114 Total Protein 7.0 Albumin 2.6 L
--- NOTE | 2025-04-19 19:01 | P.PNIM_ITS ---
Progress Note: A&P Assessment and Plan (1) Alcohol abuse: Code(s): F10.10 - Alcohol abuse, uncomplicated Status: Acute (2) Thrombocytopenia: Code(s): D69.6 - Thrombocytopenia, unspecified Status: Acute (3) Cirrhosis of liver: Qualifiers: Ascites presence: with ascites Hepatic cirrhosis type: alcoholic cirrhosis Qualified Code(s): K70.31 - Alcoholic cirrhosis of liver with ascites Code(s): K74.60 - Unspecified cirrhosis of liver Status: Acute (4) GI (gastrointestinal hemorrhage): Qualifiers: GI bleed type/associated pathology: unspecified gastrointestinal hemorrhage type Qualified Code(s): K92.2 - Gastrointestinal hemorrhage, unspecified Code(s): K92.2 - Gastrointestinal hemorrhage, unspecified Status: Acute (5) Ascites: Code(s): R18.8 - Other ascites Status: Acute (6) Alcohol withdrawal seizure: Qualifiers: Complication of substance-induced condition: uncomplicated Qualified Code(s): F10.930 - Alcohol use, unspecified with withdrawal, uncomplicated; R56.9 - Unspecified convulsions Code(s): F10.939 - Alcohol use, unspecified with withdrawal, unspecified; R56.9 - Unspecified convulsions Status: Acute Plan Anemia: Patient presented with hemoglobin of 2.5. No hematochezia melena hematemesis. Suspect ongoing chronic GI bleed likely variceal considering patient has history of cirrhosis Started on Protonix IV and octreotide infusion Status post 4 units of PRBC post transfusion hemoglobin is 6 underwent another transfusion Monitor serial hemoglobin which has been stable now GI consulted Status post EGD and colonoscopy EGD: Gastritis. On Protonix Colonoscopy: Colonic polyps Thrombocytopenia likely related to cirrhosis Alcohol abuse on thiamine and folic acid she will monitoring On Librium will decrease the dose to q.8 hours. Now tapered off Cirrhosis of liver secondary to alcohol abuse. Received vitamin K IM. SBP prophylaxis Rocephin which has been discontinued now. Patient was started on Lasix and spironolactone. Also start on nonselective beta-lazaro as tolerated with Yinka I will stop Lasix and spironolactone Fever spike 04/15/2025 pancultured. Empirically started on cefepime. Chest x- ray was negative. UA negative. Still spiking fever will romeo scan further evaluate. Could be from iron infusion will hold off on any further iron infusions. YINKA 04/16/2025 creatinine bumped up to 1.8. Will hold Lasix and spironolactone. Renal ultrasound unremarkable Give IV fluid. Monitor intake and output and renal failure has resolved GI bleed see above Alcohol withdrawal seizure no prior history of seizure recurrence since coming to the hospital Seizure precautions On Librium and p.r.n. Valium Ascites status post paracentesis of 1 L Generalized weakness PT OT to see DVT prophylaxis SCDs Stress ulcer prophylaxis ppi Code status full code Patient reports no new complaints. Denies any abdominal pain nausea vomiting. No cough. No urinary symptoms, his pancytopenia most likely 2/2 to bone marrow suppression due to alcohol abuse, also resulted iron deficiency anemia, being supplement with IV iron there is concern patient develop fever after iron infusion, patient had been having fever on and off and, patient did get iron infusion yesterday and there was no fever recorded will monitor, blood culture is growing gram negative bacilli, being treated with Cefepime, will follow on blood culture and sensitivity. will monitor. will monitor, patient is trying to get hold of his freind for discharge planning. Subjective Date/time seen: 04/19/25 19:01 Interval history: Patient reports no new complaints. Denies any abdominal pain nausea vomiting. No cough. No urinary symptoms, his pancytopenia most likely 2/2 to bone marrow suppression due to alcohol abuse, also resulted iron deficiency anemia, being supplement with IV iron there is concern patient develop fever after iron infusion, patient had been having fever on and off and, patient did get iron infusion yesterday and there was no fever recorded will monitor, blood culture is growing gram negative bacilli, being treated with Cefepime, will follow on blood culture and sensitivity. will monitor. will monitor, patient is trying to get hold of his freind for discharge planning. Review of Systems Review of Systems: 12 systems were reviewed and are negativ e except for as per HPI. All systems reviewed & are unremarkable except as noted in HPI and below (Subjective) Exam Narrative: Appears chronically ill older than his age Patient is comfortable, NAD HEENT: eyes are clear and none icteric LUNGS:CTA HEART: RR S1S2 ABD: BS+, Soft and nontender Lower extremities: no edema SKIN: nonjaundiced Neuro: grossly intact. Objective Data Vital Signs Vital Signs: Vital Signs - 24 hr 04/18/25 19:38 04/18/25 20:14 04/19/25 05:33 Temperature 36.3 C L 36.3 C L Pulse Rate 82 77 Respiratory Rate 16 16 Blood Pressure 143/86 H 131/78 Pulse Oximetry 99 99 98 Oxygen Delivery Room Air 04/19/25 14:00 Temperature 36.3 C L Pulse Rate 68 Respiratory Rate 16 Blood Pressure 129/76 Pulse Oximetry 100 Oxygen Delivery Intake/Output Intake/Output: Intake & Output 04/16/25 04/17/25 04/18/25 04/19/25 23:59 23:59 23:59 23:59 Intake Total 930 2426 1420 866 Output Total 351 048 7479 3250 Balance 580 3141 -1603 -0774 Meds/Results Medications: Active Medications Generic Name Dose Route Start Last Admin Trade Name Freq PRN Reason Stop Dose Admin Acetaminophen 650 mg 04/15/25 15:57 04/17/25 05:24 Acetaminophen 325 Mg Tablet PO 650 mg Q6H PRN Administration Mild Pain (1-3) or Fever Diazepam 5 mg 04/10/25 17:13 Diazepam Inj (*Crx) 10 Mg/2 Ml Syringe IV PUSH PRN PRN Seizure Activity Diazepam 5 mg 04/10/25 17:48 Diazepam Inj (*Crx) 10 Mg/2 Ml Syringe IV PUSH Q5M PRN CIWA > 15 Folic Acid 1 mg 04/11/25 09:00 04/19/25 09:34 Folic Acid 1 Mg Tablet PO 1 mg DAILY AMRITA Administration Furosemide 20 mg 04/14/25 09:00 04/15/25 08:03 Furosemide 20 Mg Tablet PO 20 mg On Hold: 04/16/25 07:53 DAILY AMRITA Administration Cefepime HCl 1 gm/ Sodium 50 mls @ 100 mls/hr 04/15/25 19:00 04/19/25 18:41 Chloride IVPB Infused Q8H AMRITA Infusion Miscellaneous Information 1 each 04/20/25 00:01 Diazepam Iv Needs To Be Renewed Or It Will Automatically Discontinue. XX 05/20/25 00:00 CLARIFY AMRITA Multivitamins/Calcium 1 tablet 04/11/25 09:00 04/19/25 09:35 Therapeutic Multivitamins/Minerals Tab (*Bkc) PO 1 tablet DAILY AMRITA Administration Ondansetron HCl 4 mg 04/10/25 17:13 Ondansetron Inj 4 Mg/2 Ml Vial IV PUSH Q4H PRN Nausea Pantoprazole Sodium 40 mg 04/12/25 09:00 04/19/25 09:35 Pantoprazole 40 Mg Tablet PO 40 mg QAM AMRITA Administration Spironolactone 100 mg 04/14/25 09:00 04/15/25 08:03 Spironolactone 50 Mg Tablet PO 100 mg On Hold: 04/16/25 07:54 QAM AMRITA Administration Thiamine HCl 100 mg 04/11/25 09:00 04/19/25 09:35 Thiamine Hcl 100 Mg Tablet PO 100 mg DAILY AMRITA Administration Radiology Results: ITS Impressions Head CT 04/10/25 12:55 IMPRESSION: No evidence for acute intracranial hemorrhage or calvarial fracture. Abdomen/Pelvis CTA 04/10/25 16:34 IMPRESSION: 1. Cirrhosis with portal hypertension. 2: Splenomegaly. 3: Cardiomegaly. 4: Small amount of ascites. 5: Mild bladder wall thickening. Correlate clinically for cystitis. Paracentesis Ultrasound 04/12/25 12:02 IMPRESSION: 1. Successful ultrasound-guided paracentesis yielding 1000 mL of clear saba- colored fluid. Chest X-Ray 04/15/25 19:30 Impression: No acute cardiopulmonary abnormality. Renal Ultrasound 04/16/25 18:30 Impression: 1: Unremarkable renal ultrasound. No stones, masses or hydronephrosis. 2: Ascites. 3: Nodular liver surface, compatible with cirrhosis. Chest/Abdomen/Pelvis CT 04/17/25 15:58 IMPRESSION: 1. There are a few small patchy, reticular and bandlike opacities in the lower lungs. Differential includes atelectasis/scarring or infiltrates. 2. Small bilateral pleural effusions. 3. Small to moderate amount of nonspecific fat stranding and fluid in the abdomen and pelvis. 4. The gallbladder is contracted. Acute cholecystitis is not excluded. If of concern, consider a HIDA scan. 5. Moderate amount of stool. 6. Micronodular appearance to the surface of the liver suggestive of cirrhosis. 7. Splenomegaly 8. Mild concentric thickening of the wyman of the moderately distended bladder. Differential includes incomplete bladder wall distention versus cystitis. If symptoms persist or worsen, consider a short-term follow-up study or additional imaging for further assessment. Labs Labs: Laboratory Results - last 24 hr 04/18/25 04/19/25 21:57 05:14 WBC 4.4 L 4.1 L RBC 3.58 L 3.42 L Hgb 8.5 L 8.2 L Hct 29.6 L 28.4 L MCV 82.7 83.0 MCH 23.7 L 24.0 L MCHC 28.7 L 28.9 L RDW 23.1 H 22.9 H Plt Count 56 L 56 L MPV TNP TNP Immature Gran % (Auto) 1.0 H Neut % (Auto) 36.3 L Lymph % (Auto) 31.8 [place] % (Auto) 26.7 H Eos % (Auto) 3.2 Baso % (Auto) 1.0 Lymph # (Auto) 1.30 [place] # (Auto) 1.1 H Eos # (Auto) 0.1 Baso # (Auto) 0.0 Abs Immat Gran (auto) 0.04 H Absolute Neuts (auto) 1.5 Absolute Nucleated RBC 0.000 Band Neutrophils % Not Reportable Nucleated RBC % 0.0 Platelet Estimate Decreased % Immature Plt Fraction 5.9 Hypochromasia 2+ Anisocytosis 2+ Target Cells 1+ Tear Drop Cells 1+ [place] Cells 1+ Schistocytes None seen Sodium 131 L Potassium 3.8 Chloride 104 Carbon Dioxide 21 L Anion Gap 6 BUN 10 D Creatinine 0.72 Estim Creat Clear Calc Not Reportable Estimated GFR > 60 Glucose 113 H Calcium 7.7 L Magnesium 1.7 Total Bilirubin 3.9 H AST 56 ALT 23 Alkaline Phosphatase 114 Total Protein 7.0 Albumin 2.6 L Quality VTE Prophylaxis VTE prophylaxis: mechanical ordered
[2025-04-19 22:00] VITALS: BP 133/86; PULSE 65; RESP 18; TEMP 37.3; O2SAT 100
[2025-04-20] MEDS: CEFEPIME 1 GM in SODIUM CHLORIDE 0.9% IV 50 ML 100 ML IVPB ×3 (03:28→18:05)
[2025-04-20 06:00] VITALS: BP 126/84; PULSE 65; RESP 16; TEMP 36.7; O2SAT 100
[2025-04-20 07:03] LABS: Hematocrit 30.4 % (42.0-52.0); Hemoglobin 8.7 g/dL (14.0-18.0); Immature Platelet Fraction Pct 5.8 % (0.9-11.2); Mean Corpuscular HGB Conc 28.6 g/dl (32-36); Mean Corpuscular Hemoglobin 23.9 pg (26-34); Mean Corpuscular Volume 83.5 fl (80-100); Platelet Count Result 68 k/mm3 (150-375); Red Blood Count 3.64 M/mm3 (4.6-6.20); White Blood Count 4.1 K/mm3 (4.5-10.0)
[2025-04-20 07:23] LABS: Alanine Aminotransferase 25 U/L (6-50); Albumin Level 2.7 g/dL (3.5-5.1); Alkaline Phosphatase 132 U/L (38-126); Anion Gap 8 mmol/L (4-12); Aspartate Amino Transferase 58 U/L (17-59); Bilirubin,Total 3.4 mg/dL (0.2-1.3); Blood Urea Nitrogen 9 mg/dL (9-20); Calcium 7.7 mg/dL (8.4-10.2); Carbon Dioxide 20 mmol/L (22-30); Chloride 104 mmol/L (98-107); Estimated Glomerular Filt Rate > 60; Glucose 106 mg/dL (65-110); Magnesium 1.8 mg/dL (1.6-2.3); Potassium 3.9 mmol/L (3.4-5.0); Sodium 132 mmol/L (137-145); Total Protein 7.4 g/dL (6.3-8.2)
[2025-04-20 07:34] LABS: Band Neutrophils Percent 0 % (0-6); Basophils Absolute Manual 0.08 K/mm3 (0.0-0.1); Basophils Percent Manual 2 % (0-1); Eosinophils Absolute Manual 0.08 K/mm3 (0.02-0.50); Eosinophils Percent Manual 2 % (0-4); Lymphocytes Absolute Manual 1.18 K/mm3 (1.1-4.5); Lymphocytes Percent Manual 29 % (18-44); Monocytes Absolute Manual 0.57 K/mm3 (0.1-0.90); Monocytes Percent Manual 14 % (3-9); Neutrophils Absolute Manual 2.17 K/mm3 (1.3-6.7); Neutrophils Percent Manual 53 % (46-73); Total Cells Counted 100
[2025-04-20 07:35] LABS: Anisocytosis 2+
[2025-04-20 07:36] LABS: Ovalocytes 1+
[2025-04-20 07:37] LABS: Burr Cells 1+; Schistocytes Rare; Tear Drop Cells Occasional
[2025-04-20 07:38] LABS: Hypochromasia 2+
[2025-04-20] MEDS: THERAPEUTIC MULTIVITAMINS/MINERALS TAB (*BKC) 1 TABLET PO (09:41)
[2025-04-20] MEDS: THIAMINE HCL 100 MG TABLET PO (09:41)
[2025-04-20] MEDS: PANTOPRAZOLE 40 MG TABLET PO (09:41)
[2025-04-20] MEDS: FOLIC ACID 1 MG TABLET PO (09:41)
--- NOTE | 2025-04-20 10:27 | WPDONCPN ---
Progress Note: A&P Assessment and Plan (1) Pancytopenia: Code(s): D61.818 - Other pancytopenia Status: Acute Assessment and Plan: Presentation CBC on 04/10/25 showed WBC 2.2, Hgb 2.5g/dL, platelets 48K. Toxicology screen was negative and ethanol levels were normal. CT Chest abdomen pelvis showed cirrhosis with portal hypertension, splenomegaly, cardiomegaly, small amount of ascites and mild bladder wall thickening. Over the course of last few days patient received PRBC and platelet transfusions. GI was consulted and underwent EGD and colonoscopy today 04/12/25. EGD showed mild gastritis. Colonoscopy showed a 4mm descending colon polyp which was removed. Pancytopenia is multifactorial including advanced cirrhosis, malnutrition and direct bone marrow suppression from alcohol. He has iron deficiency on labs performed 04/14/25. Please see below. Patient spiked fever on 04/15/25 and 04/16/25 evening and 04/17/25 morning. Blood cultures were obtained on 04/15/25 and now growing gram negative bacilli. He is started on cefepime and remains on empiric cefepime. Creatinine was also acutely elevated at 1.84 04/16/25 but now 0.88 today. Renal ultrasound with no hydronephrosis. CT scan of Chest/abd/pelvis with no clear etiology of fevers except mention of lower lung basis atelectasis vs. infection. Patient on Cefepime. Also mentioned was contracted gall bladder questioning cholecystitis. Patient with ascites and could be SBP. On broad spectrum antibiotic Cefepime. Patient's CBC today, 04/20/25 shows WBC 4.1, Hemoglobin 8.7, platelets 68K. No need of any transfusions. (2) Iron deficiency anemia: Code(s): D50.9 - Iron deficiency anemia, unspecified Status: Acute Assessment and Plan: Iron panel shows Iron saturations of 4% and ferritin 8.09. Patient received IV Iron sucrose 300mgon 04/15/25 and 04/16/25. The source of Iron loss is not clear as patient had EGD and colonoscopy this admission on 04/12/25 with no obvious bleeding. Could have AVMs in small bowel or severe malnutrition from chronic alcohol abuse. Patient spiked fever on 04/15/25 evening and 04/16/25 evening. Inpatient team questioning IV Iron as source of fever. Usually Iron infusion can be associated with fevers but usually as delayed reaction 24-48 hours after administration and usually with large doses of IV Iron. This process is mediated by complements. 3rd dose of IV Iron was administered 04/18/25. Hematology will continue to follow. Subjective Date/time seen: 04/20/25 10:27 Interval history: Afebrile now for 3 days. Blood culture gram negative bacilli, awaiting sensitivity. on cefepime. Review of Systems Review of Systems Patient reports he feels about the same. Currently he denies dizziness, headache, blurry or double vision. However feels weak and is shaky when stands up. Denies f/c, night sweats. He reports lower extremity swelling. Denies chest pain or dyspnea. Has abdominal distention and discomfort. Denies hematochezia, melena or hematuria. Rest of 12 point ROS negative. Exam Narrative: General: Alert and orientedx3, unkempt male, no acute distress HEENT: EOMI, PERRLA, sclera icterus noted. Respiratory: cTAB Cardiovascular: RRR, no m/g/r Abdomen: less Distended, NT, BS+ Extremities: trace edema in bilateral lower extremities Neuro: No focal deficit. Skin: Warm, dry, and intact, without rash, erythema, or lesion. Psych: good mood Objective Data Vital Signs Vital Signs: Vital Signs - 24 hr 04/19/25 14:00 04/19/25 20:00 04/19/25 22:00 Temperature 36.3 C L 37.3 C Pulse Rate 68 65 Respiratory Rate 16 18 Blood Pressure 129/76 133/86 Pulse Oximetry 100 100 Oxygen Delivery Room Air 04/20/25 06:00 Temperature 36.7 C Pulse Rate 65 Respiratory Rate 16 Blood Pressure 126/84 Pulse Oximetry 100 Oxygen Delivery Intake/Output Intake/Output: Intake & Output 04/17/25 04/18/25 04/19/25 04/20/25 23:59 23:59 23:59 23:59 Intake Total 2426 1420 866 250 Output Total 950 4000 3250 600 Balance 1476 -2580 -2384 -350 Meds/Results Medications: Active Medications Generic Name Dose Route Start Last Admin Trade Name Freq PRN Reason Stop Dose Admin Acetaminophen 650 mg 04/15/25 15:57 04/17/25 05:24 Acetaminophen 325 Mg Tablet PO 650 mg Q6H PRN Administration Mild Pain (1-3) or Fever Diazepam 5 mg 04/10/25 17:13 Diazepam Inj (*Crx) 10 Mg/2 Ml Syringe IV PUSH PRN PRN Seizure Activity Diazepam 5 mg 04/10/25 17:48 Diazepam Inj (*Crx) 10 Mg/2 Ml Syringe IV PUSH Q5M PRN CIWA > 15 Folic Acid 1 mg 04/11/25 09:00 04/20/25 09:41 Folic Acid 1 Mg Tablet PO 1 mg DAILY AMRITA Administration Furosemide 20 mg 04/14/25 09:00 04/15/25 08:03 Furosemide 20 Mg Tablet PO 20 mg On Hold: 04/16/25 07:53 DAILY AMRITA Administration Cefepime HCl 1 gm/ Sodium 50 mls @ 100 mls/hr 04/15/25 19:00 04/20/25 10:09 Chloride IVPB 100 mls/hr Q8H AMRITA Administration Miscellaneous Information 1 each 04/20/25 00:01 04/20/25 01:52 Diazepam Iv Needs To Be Renewed Or It Will Automatically Discontinue. XX 05/20/25 00:00 Not Given CLARIFY AMRITA Multivitamins/Calcium 1 tablet 04/11/25 09:00 04/20/25 09:41 Therapeutic Multivitamins/Minerals Tab (*Bkc) PO 1 tablet DAILY AMRITA Administration Ondansetron HCl 4 mg 04/10/25 17:13 Ondansetron Inj 4 Mg/2 Ml Vial IV PUSH Q4H PRN Nausea Pantoprazole Sodium 40 mg 04/12/25 09:00 04/20/25 09:41 Pantoprazole 40 Mg Tablet PO 40 mg QAM AMRITA Administration Spironolactone 100 mg 04/14/25 09:00 04/15/25 08:03 Spironolactone 50 Mg Tablet PO 100 mg On Hold: 04/16/25 07:54 QAM AMRITA Administration Thiamine HCl 100 mg 04/11/25 09:00 04/20/25 09:41 Thiamine Hcl 100 Mg Tablet PO 100 mg DAILY AMRITA Administration Radiology Results: ITS Impressions Head CT 04/10/25 12:55 IMPRESSION: No evidence for acute intracranial hemorrhage or calvarial fracture. Abdomen/Pelvis CTA 04/10/25 16:34 IMPRESSION: 1. Cirrhosis with portal hypertension. 2: Splenomegaly. 3: Cardiomegaly. 4: Small amount of ascites. 5: Mild bladder wall thickening. Correlate clinically for cystitis. Paracentesis Ultrasound 04/12/25 12:02 IMPRESSION: 1. Successful ultrasound-guided paracentesis yielding 1000 mL of clear saba-colored fluid. Chest X-Ray 04/15/25 19:30 Impression: No acute cardiopulmonary abnormality. Renal Ultrasound 04/16/25 18:30 Impression: 1: Unremarkable renal ultrasound. No stones, masses or hydronephrosis. 2: Ascites. 3: Nodular liver surface, compatible with cirrhosis. Chest/Abdomen/Pelvis CT 04/17/25 15:58 IMPRESSION: 1. There are a few small patchy, reticular and bandlike opacities in the lower lungs. Differential includes atelectasis/scarring or infiltrates. 2. Small bilateral pleural effusions. 3. Small to moderate amount of nonspecific fat stranding and fluid in the abdomen and pelvis. 4. The gallbladder is contracted. Acute cholecystitis is not excluded. If of concern, consider a HIDA scan. 5. Moderate amount of stool. 6. Micronodular appearance to the surface of the liver suggestive of cirrhosis. 7. Splenomegaly 8. Mild concentric thickening of the wyman of the moderately distended bladder. Differential includes incomplete bladder wall distention versus cystitis. If symptoms persist or worsen, consider a short-term follow-up study or additional imaging for further assessment. Labs Labs: Laboratory Results - last 24 hr 04/20/25 06:20 WBC 4.1 L RBC 3.64 L Hgb 8.7 L Hct 30.4 L MCV 83.5 MCH 23.9 L MCHC 28.6 L RDW 23.3 H Plt Count 68 L MPV TNP Immature Gran % (Auto) Not Reportable Neut % (Auto) Not Reportable Lymph % (Auto) Not Reportable [place] % (Auto) Not Reportable Eos % (Auto) Not Reportable Baso % (Auto) Not Reportable Lymph # (Auto) Not Reportable [place] # (Auto) Not Reportable Eos # (Auto) Not Reportable Baso # (Auto) Not Reportable Abs Immat Gran (auto) Not Reportable Absolute Neuts (auto) Not Reportable Absolute Nucleated RBC Not Reportable Total Counted 100 Neutrophils % (Manual) 53 Band Neutrophils % 0 Lymphocytes % (Manual) 29 Monocytes % (Manual) 14 H Eosinophils % (Manual) 2 Basophils % (Manual) 2 H Nucleated RBC % Not Reportable Abs Neuts (Manual) 2.17 Abs Lymphs (Manual) 1.18 Abs Monocytes (Manual) 0.57 Absolute Eos (Manual) 0.08 Abs Basophils (Manual) 0.08 Platelet Estimate Decreased % Immature Plt Fraction 5.8 Hypochromasia 2+ Anisocytosis 2+ Tear Drop Cells Occasional Ovalocytes 1+ [place] Cells 1+ Schistocytes Rare Sodium 132 L Potassium 3.9 Chloride 104 Carbon Dioxide 20 L Anion Gap 8 BUN 9 Creatinine 0.68 L Estim Creat Clear Calc Not Reportable Estimated GFR > 60 Glucose 106 Calcium 7.7 L Magnesium 1.8 Total Bilirubin 3.4 H AST 58 ALT 25 Alkaline Phosphatase 132 H Total Protein 7.4 Albumin 2.7 L
[2025-04-20 14:00] VITALS: BP 126/78; PULSE 67; RESP 20; TEMP 36.7; O2SAT 99
--- NOTE | 2025-04-20 15:43 | P.PNIM_ITS ---
Progress Note: A&P Assessment and Plan (1) Alcohol abuse: Code(s): F10.10 - Alcohol abuse, uncomplicated Status: Acute (2) Thrombocytopenia: Code(s): D69.6 - Thrombocytopenia, unspecified Status: Acute (3) Cirrhosis of liver: Qualifiers: Ascites presence: with ascites Hepatic cirrhosis type: alcoholic cirrhosis Qualified Code(s): K70.31 - Alcoholic cirrhosis of liver with ascites Code(s): K74.60 - Unspecified cirrhosis of liver Status: Acute (4) GI (gastrointestinal hemorrhage): Qualifiers: GI bleed type/associated pathology: unspecified gastrointestinal hemorrhage type Qualified Code(s): K92.2 - Gastrointestinal hemorrhage, unspecified Code(s): K92.2 - Gastrointestinal hemorrhage, unspecified Status: Acute (5) Ascites: Code(s): R18.8 - Other ascites Status: Acute (6) Alcohol withdrawal seizure: Qualifiers: Complication of substance-induced condition: uncomplicated Qualified Code(s): F10.930 - Alcohol use, unspecified with withdrawal, uncomplicated; R56.9 - Unspecified convulsions Code(s): F10.939 - Alcohol use, unspecified with withdrawal, unspecified; R56.9 - Unspecified convulsions Status: Acute Plan Anemia: Patient presented with hemoglobin of 2.5. No hematochezia melena hematemesis. Suspect ongoing chronic GI bleed likely variceal considering patient has history of cirrhosis Started on Protonix IV and octreotide infusion Status post 4 units of PRBC post transfusion hemoglobin is 6 underwent another transfusion Monitor serial hemoglobin which has been stable now GI consulted Status post EGD and colonoscopy EGD: Gastritis. On Protonix Colonoscopy: Colonic polyps Thrombocytopenia likely related to cirrhosis Alcohol abuse on thiamine and folic acid she will monitoring On Librium will decrease the dose to q.8 hours. Now tapered off Cirrhosis of liver secondary to alcohol abuse. Received vitamin K IM. SBP prophylaxis Rocephin which has been discontinued now. Patient was started on Lasix and spironolactone. Also start on nonselective beta-lazaro as tolerated with Yinka I will stop Lasix and spironolactone Fever spike 04/15/2025 pancultured. Empirically started on cefepime. Chest x- ray was negative. UA negative. Still spiking fever will romeo scan further evaluate. Could be from iron infusion will hold off on any further iron infusions. YINKA 04/16/2025 creatinine bumped up to 1.8. Will hold Lasix and spironolactone. Renal ultrasound unremarkable Give IV fluid. Monitor intake and output and renal failure has resolved GI bleed see above Alcohol withdrawal seizure no prior history of seizure recurrence since coming to the hospital Seizure precautions On Librium and p.r.n. Valium Ascites status post paracentesis of 1 L Generalized weakness PT OT to see DVT prophylaxis SCDs Stress ulcer prophylaxis ppi Code status full code Patient reports no new complaints. Denies any abdominal pain nausea vomiting. No cough. No urinary symptoms, his pancytopenia most likely 2/2 to bone marrow suppression due to alcohol abuse, also resulted iron deficiency anemia, being supplement with IV iron there is concern patient develop fever after iron infusion, patient had been having fever on and off and, patient did get iron infusion yesterday and there was no fever recorded will monitor, blood culture is growing gram negative bacilli, being treated with Cefepime, will follow on blood culture and sensitivity. will monitor. will monitor, patient is trying to get hold of his freind for discharge planning. today patient one blood culture bottle is positive for Ochrobactrum anthropi and another blood culture bottle is positive for gram negative bacilli, most likely same organism, patient remains clinically stable, will follow up on sensitivity and discuss with clinical pharmacist. Subjective Date/time seen: 04/20/25 15:43 Interval history: Patient reports no new complaints. Denies any abdominal pain nausea vomiting. No cough. No urinary symptoms, his pancytopenia most likely 2/2 to bone marrow suppression due to alcohol abuse, also resulted iron deficiency anemia, being supplement with IV iron there is concern patient develop fever after iron infusion, patient had been having fever on and off and, patient did get iron infusion yesterday and there was no fever recorded will monitor, blood culture is growing gram negative bacilli, being treated with Cefepime, will follow on blood culture and sensitivity. will monitor. will monitor, patient is trying to get hold of his freind for discharge planning. today patient one blood culture bottle is positive for Ochrobactrum anthropi and another blood culture bottle is positive for gram negative bacilli, most likely same organism, patient remains clinically stable, will follow up on sensitivity and discuss with clinical pharmacist. Review of Systems Review of Systems: 12 systems were reviewed and are negativ e except for as per HPI. All systems reviewed & are unremarkable except as noted in HPI and below (Subjective) Exam Narrative: Appears chronically ill older than his age Patient is comfortable, NAD HEENT: eyes are clear and none icteric LUNGS:CTA HEART: RR S1S2 ABD: BS+, Soft and nontender Lower extremities: no edema SKIN: nonjaundiced Neuro: grossly intact. Objective Data Vital Signs Vital Signs: Vital Signs - 24 hr 04/19/25 20:00 04/19/25 22:00 04/20/25 06:00 Temperature 37.3 C 36.7 C Pulse Rate 65 65 Respiratory Rate 18 16 Blood Pressure 133/86 126/84 Pulse Oximetry 100 100 Oxygen Delivery Room Air Intake/Output Intake/Output: Intake & Output 04/17/25 04/18/25 04/19/25 04/20/25 23:59 23:59 23:59 23:59 Intake Total 2426 2409 024 6536 Output Total 950 4000 3250 600 Balance 8882 -2204 -8966 420 Meds/Results Medications: Active Medications Generic Name Dose Route Start Last Admin Trade Name Freq PRN Reason Stop Dose Admin Acetaminophen 650 mg 04/15/25 15:57 04/17/25 05:24 Acetaminophen 325 Mg Tablet PO 650 mg Q6H PRN Administration Mild Pain (1-3) or Fever Diazepam 5 mg 04/10/25 17:13 Diazepam Inj (*Crx) 10 Mg/2 Ml Syringe IV PUSH PRN PRN Seizure Activity Diazepam 5 mg 04/10/25 17:48 Diazepam Inj (*Crx) 10 Mg/2 Ml Syringe IV PUSH Q5M PRN CIWA > 15 Folic Acid 1 mg 04/11/25 09:00 04/20/25 09:41 Folic Acid 1 Mg Tablet PO 1 mg DAILY AMRITA Administration Furosemide 20 mg 04/14/25 09:00 04/15/25 08:03 Furosemide 20 Mg Tablet PO 20 mg On Hold: 04/16/25 07:53 DAILY AMRITA Administration Cefepime HCl 1 gm/ Sodium 50 mls @ 100 mls/hr 04/15/25 19:00 04/20/25 10:39 Chloride IVPB Infused Q8H AMRITA Infusion Miscellaneous Information 1 each 04/20/25 00:01 04/20/25 01:52 Diazepam Iv Needs To Be Renewed Or It Will Automatically Discontinue. XX 05/20/25 00:00 Not Given CLARIFY [facility] Multivitamins/Calcium 1 tablet 04/11/25 09:00 04/20/25 09:41 Therapeutic Multivitamins/Minerals Tab (*Bkc) PO 1 tablet DAILY AMRITA Administration Ondansetron HCl 4 mg 04/10/25 17:13 Ondansetron Inj 4 Mg/2 Ml Vial IV PUSH Q4H PRN Nausea Pantoprazole Sodium 40 mg 04/12/25 09:00 04/20/25 09:41 Pantoprazole 40 Mg Tablet PO 40 mg QAM AMRITA Administration Spironolactone 100 mg 04/14/25 09:00 04/15/25 08:03 Spironolactone 50 Mg Tablet PO 100 mg On Hold: 04/16/25 07:54 QAM AMRITA Administration Thiamine HCl 100 mg 04/11/25 09:00 04/20/25 09:41 Thiamine Hcl 100 Mg Tablet PO 100 mg DAILY AMRITA Administration Radiology Results: ITS Impressions Head CT 04/10/25 12:55 IMPRESSION: No evidence for acute intracranial hemorrhage or calvarial fracture. Abdomen/Pelvis CTA 04/10/25 16:34 IMPRESSION: 1. Cirrhosis with portal hypertension. 2: Splenomegaly. 3: Cardiomegaly. 4: Small amount of ascites. 5: Mild bladder wall thickening. Correlate clinically for cystitis. Paracentesis Ultrasound 04/12/25 12:02 IMPRESSION: 1. Successful ultrasound-guided paracentesis yielding 1000 mL of clear saba- colored fluid. Chest X-Ray 04/15/25 19:30 Impression: No acute cardiopulmonary abnormality. Renal Ultrasound 04/16/25 18:30 Impression: 1: Unremarkable renal ultrasound. No stones, masses or hydronephrosis. 2: Ascites. 3: Nodular liver surface, compatible with cirrhosis. Chest/Abdomen/Pelvis CT 04/17/25 15:58 IMPRESSION: 1. There are a few small patchy, reticular and bandlike opacities in the lower lungs. Differential includes atelectasis/scarring or infiltrates. 2. Small bilateral pleural effusions. 3. Small to moderate amount of nonspecific fat stranding and fluid in the abdomen and pelvis. 4. The gallbladder is contracted. Acute cholecystitis is not excluded. If of concern, consider a HIDA scan. 5. Moderate amount of stool. 6. Micronodular appearance to the surface of the liver suggestive of cirrhosis. 7. Splenomegaly 8. Mild concentric thickening of the wyman of the moderately distended bladder. Differential includes incomplete bladder wall distention versus cystitis. If symptoms persist or worsen, consider a short-term follow-up study or additional imaging for further assessment. Labs Labs: Laboratory Results - last 24 hr 04/20/25 06:20 WBC 4.1 L RBC 3.64 L Hgb 8.7 L Hct 30.4 L MCV 83.5 MCH 23.9 L MCHC 28.6 L RDW 23.3 H Plt Count 68 L MPV TNP Immature Gran % (Auto) Not Reportable Neut % (Auto) Not Reportable Lymph % (Auto) Not Reportable [place] % (Auto) Not Reportable Eos % (Auto) Not Reportable Baso % (Auto) Not Reportable Lymph # (Auto) Not Reportable [place] # (Auto) Not Reportable Eos # (Auto) Not Reportable Baso # (Auto) Not Reportable Abs Immat Gran (auto) Not Reportable Absolute Neuts (auto) Not Reportable Absolute Nucleated RBC Not Reportable Total Counted 100 Neutrophils % (Manual) 53 Band Neutrophils % 0 Lymphocytes % (Manual) 29 Monocytes % (Manual) 14 H Eosinophils % (Manual) 2 Basophils % (Manual) 2 H Nucleated RBC % Not Reportable Abs Neuts (Manual) 2.17 Abs Lymphs (Manual) 1.18 Abs Monocytes (Manual) 0.57 Absolute Eos (Manual) 0.08 Abs Basophils (Manual) 0.08 Platelet Estimate Decreased % Immature Plt Fraction 5.8 Hypochromasia 2+ Anisocytosis 2+ Tear Drop Cells Occasional Ovalocytes 1+ [place] Cells 1+ Schistocytes Rare Sodium 132 L Potassium 3.9 Chloride 104 Carbon Dioxide 20 L Anion Gap 8 BUN 9 Creatinine 0.68 L Estim Creat Clear Calc Not Reportable Estimated GFR > 60 Glucose 106 Calcium 7.7 L Magnesium 1.8 Total Bilirubin 3.4 H AST 58 ALT 25 Alkaline Phosphatase 132 H Total Protein 7.4 Albumin 2.7 L Quality VTE Prophylaxis VTE prophylaxis: mechanical ordered
[2025-04-20 21:33] VITALS: BP 137/81; PULSE 65; RESP 18; TEMP 36.8; O2SAT 100
[2025-04-21] MEDS: CEFEPIME 1 GM in SODIUM CHLORIDE 0.9% IV 50 ML 100 ML IVPB (02:09)
[2025-04-21 05:46] LABS: Hematocrit 29.7 % (42.0-52.0); Hemoglobin 8.6 g/dL (14.0-18.0); Immature Platelet Fraction Pct 4.1 % (0.9-11.2); Mean Corpuscular HGB Conc 29.0 g/dl (32-36); Mean Corpuscular Hemoglobin 24.3 pg (26-34); Mean Corpuscular Volume 83.9 fl (80-100); Platelet Count Result 83 k/mm3 (150-375); Red Blood Count 3.54 M/mm3 (4.6-6.20); White Blood Count 4.0 K/mm3 (4.5-10.0)
[2025-04-21 06:00] VITALS: BP 136/73; PULSE 69; RESP 20; TEMP 36.5; O2SAT 99
[2025-04-21 06:06] LABS: Alanine Aminotransferase 31 U/L (6-50); Albumin Level 2.8 g/dL (3.5-5.1); Alkaline Phosphatase 130 U/L (38-126); Anion Gap 7 mmol/L (4-12); Aspartate Amino Transferase 73 U/L (17-59); Bilirubin,Total 3.4 mg/dL (0.2-1.3); Blood Urea Nitrogen 8 mg/dL (9-20); Calcium 7.7 mg/dL (8.4-10.2); Carbon Dioxide 20 mmol/L (22-30); Chloride 106 mmol/L (98-107); Estimated Glomerular Filt Rate > 60; Glucose 103 mg/dL (65-110); Magnesium 2.0 mg/dL (1.6-2.3); Potassium 4.0 mmol/L (3.4-5.0); Sodium 133 mmol/L (137-145); Total Protein 7.5 g/dL (6.3-8.2)
[2025-04-21 06:39] LABS: Band Neutrophils Percent 9 % (0-6); Basophils Absolute Manual 0.04 K/mm3 (0.0-0.1); Basophils Percent Manual 1 % (0-1); Eosinophils Absolute Manual 0.04 K/mm3 (0.02-0.50); Eosinophils Percent Manual 1 % (0-4); Lymphocytes Absolute Manual 1.36 K/mm3 (1.1-4.5); Lymphocytes Percent Manual 34 % (18-44); Monocytes Absolute Manual 0.68 K/mm3 (0.1-0.90); Monocytes Percent Manual 17 % (3-9); Neutrophils Absolute Manual 1.88 K/mm3 (1.3-6.7); Neutrophils Percent Manual 38 % (46-73); Total Cells Counted 100
[2025-04-21 06:40] LABS: Anisocytosis 2+; Hypochromasia 2+; Schistocytes None Seen; Target Cells Occasional; Tear Drop Cells Occasional
[2025-04-21] MEDS: THERAPEUTIC MULTIVITAMINS/MINERALS TAB (*BKC) 1 TABLET PO (08:57)
[2025-04-21] MEDS: PANTOPRAZOLE 40 MG TABLET PO (08:57)
[2025-04-21] MEDS: THIAMINE HCL 100 MG TABLET PO (08:57)
[2025-04-21] MEDS: FOLIC ACID 1 MG TABLET PO (08:57)
--- NOTE | 2025-04-21 11:36 | P.PNONC_ITS ---
Progress Note: A&P Assessment and Plan (1) Pancytopenia: Code(s): D61.818 - Other pancytopenia Status: Acute Assessment and Plan: Presentation CBC on 04/10/25 showed WBC 2.2, Hgb 2.5g/dL, platelets 48K. [place] screen was negative and ethanol levels were normal. CT Chest abdomen pelvis showed cirrhosis with portal hypertension, splenomegaly, cardiomegaly, small amount of ascites and mild bladder wall thickening. Over the course of last few days patient received PRBC and platelet transfusions. GI was consulted and underwent EGD and colonoscopy today 04/12/25. EGD showed mild gastritis. Colonoscopy showed a 4mm descending colon polyp which was removed. Pancytopenia is multifactorial including advanced cirrhosis, malnutrition and direct bone marrow suppression from alcohol. He has iron deficiency on labs performed 04/14/25. Please see below. Patient spiked fever on 04/15/25 and 04/16/25 evening and 04/17/25 morning. Blood cultures were obtained on 04/15/25 and now growing Ochrobactrum Anthropi. Intermediate sensitivity to Cefepime which patient is on currently. It is sensitive to Trimethoprim/sulfa and can be switched as oral transition. Creatinine was also acutely elevated at 1.84 04/16/25 but now 0.66 today. Renal ultrasound with no hydronephrosis. CT scan of Chest/abd/pelvis with no clear etiology of fevers except mention of lower lung basis atelectasis vs. infection. Patient on Cefepime. Also mentioned was contracted gall bladder questioning cholecystitis. Patient with ascites and could be SBP. On broad spectrum antibiotic Cefepime. Patient's CBC today, 04/21/25 shows WBC 4.0, Hemoglobin 8.6, platelets 83K. No need of any transfusions. Patient can be switched to oral bactrim and can be discharged if no fever on oral bactrim. (2) Iron deficiency anemia: Code(s): D50.9 - Iron deficiency anemia, unspecified Status: Acute Assessment and Plan: Iron panel shows Iron saturations of 4% and ferritin 8.09. Patient received IV Iron sucrose 300mgon 04/15/25 and 04/16/25. The source of Iron loss is not clear as patient had EGD and colonoscopy this admission on 04/12/25 with no obvious bleeding. Could have AVMs in small bowel or severe malnutrition from chronic alcohol abuse. Patient spiked fever on 04/15/25 evening and 04/16/25 evening. Inpatient team questioning IV Iron as source of fever. Usually Iron infusion can be associated with fevers but usually as delayed reaction 24-48 hours after administration and usually with large doses of IV Iron. This process is mediated by complements. 3rd dose of IV Iron was administered 04/18/25. Subjective Date/time seen: 04/21/25 11:36 Interval history: Patient feels well. afebrile for past 4 days with last fever 04/17/25 at 6:48am Review of Systems Review of Systems Patient reports he feels about the same. Currently he denies dizziness, headache, blurry or double vision. However feels weak and is shaky when stands up. Denies f/c, night sweats. He reports lower extremity swelling. Denies chest pain or dyspnea. Has abdominal distention and discomfort. Denies hematochezia, melena or hematuria. Rest of 12 point ROS negative. Exam Narrative: General: Alert and orientedx3, unkempt male, no acute distress HEENT: EOMI, PERRLA, sclera icterus noted. Respiratory: cTAB Cardiovascular: RRR, no m/g/r Abdomen: less Distended, NT, BS+ Extremities: trace edema in bilateral lower extremities Neuro: No focal deficit. Skin: Warm, dry, and intact, without rash, erythema, or lesion. Psych: good mood Objective Data Vital Signs Vital Signs: Vital Signs - 24 hr 04/20/25 14:00 04/20/25 20:00 04/20/25 21:33 Temperature 36.7 C 36.8 C Pulse Rate 67 65 Respiratory Rate 20 18 Blood Pressure 126/78 137/81 Pulse Oximetry 99 100 Oxygen Delivery Room Air 04/21/25 06:00 Temperature 36.5 C Pulse Rate 69 Respiratory Rate 20 Blood Pressure 136/73 Pulse Oximetry 99 Oxygen Delivery Intake/Output Intake/Output: Intake & Output 04/18/25 04/19/25 04/20/25 04/21/25 23:59 23:59 23:59 23:59 Intake Total 1646 391 7670 415 Output Total 4000 3250 3375 300 Balance -9428 -9442 -3093 115 Meds/Results Medications: Active Medications Generic Name Dose Route Start Last Admin Trade Name Rachell PRN Reason Stop Dose Admin Acetaminophen 650 mg 04/15/25 15:57 04/17/25 05:24 Acetaminophen 325 Mg Tablet PO 650 mg Q6H PRN Administration Mild Pain (1-3) or Fever Diazepam 5 mg 04/10/25 17:48 Diazepam Inj (*Crx) 10 Mg/2 Ml Syringe IV PUSH Q5M PRN CIWA > 15 Folic Acid 1 mg 04/11/25 09:00 04/21/25 08:57 Folic Acid 1 Mg Tablet PO 1 mg DAILY AMRITA Administration Furosemide 20 mg 04/14/25 09:00 04/15/25 08:03 Furosemide 20 Mg Tablet PO 20 mg On Hold: 04/16/25 07:53 DAILY AMRITA Administration Cefepime HCl 1 gm/ Sodium 50 mls @ 100 mls/hr 04/15/25 19:00 04/21/25 02:09 Chloride IVPB 100 mls/hr Q8H MARITA Administration Miscellaneous Information 1 each 04/20/25 00:01 04/20/25 01:52 Diazepam Iv Needs To Be Renewed Or It Will Automatically Discontinue. XX 05/20/25 00:00 Not Given CLARIFY AMRITA Multivitamins/Calcium 1 tablet 04/11/25 09:00 04/21/25 08:57 Therapeutic Multivitamins/Minerals Tab (*Bkc) PO 1 tablet DAILY AMRITA Administration Ondansetron HCl 4 mg 04/10/25 17:13 Ondansetron Inj 4 Mg/2 Ml Vial IV PUSH Q4H PRN Nausea Pantoprazole Sodium 40 mg 04/12/25 09:00 04/21/25 08:57 Pantoprazole 40 Mg Tablet PO 40 mg QAM AMRITA Administration Spironolactone 100 mg 04/14/25 09:00 04/15/25 08:03 Spironolactone 50 Mg Tablet PO 100 mg On Hold: 04/16/25 07:54 QAM AMRITA Administration Thiamine HCl 100 mg 04/11/25 09:00 04/21/25 08:57 Thiamine Hcl 100 Mg Tablet PO 100 mg DAILY AMRITA Administration Radiology Results: ITS Impressions Head CT 04/10/25 12:55 IMPRESSION: No evidence for acute intracranial hemorrhage or calvarial fracture. Abdomen/Pelvis CTA 04/10/25 16:34 IMPRESSION: 1. Cirrhosis with portal hypertension. 2: Splenomegaly. 3: Cardiomegaly. 4: Small amount of ascites. 5: Mild bladder wall thickening. Correlate clinically for cystitis. Paracentesis Ultrasound 04/12/25 12:02 IMPRESSION: 1. Successful ultrasound-guided paracentesis yielding 1000 mL of clear saba- colored fluid. Chest X-Ray 04/15/25 19:30 Impression: No acute cardiopulmonary abnormality. Renal Ultrasound 04/16/25 18:30 Impression: 1: Unremarkable renal ultrasound. No stones, masses or hydronephrosis. 2: Ascites. 3: Nodular liver surface, compatible with cirrhosis. Chest/Abdomen/Pelvis CT 04/17/25 15:58 IMPRESSION: 1. There are a few small patchy, reticular and bandlike opacities in the lower lungs. Differential includes atelectasis/scarring or infiltrates. 2. Small bilateral pleural effusions. 3. Small to moderate amount of nonspecific fat stranding and fluid in the abdomen and pelvis. 4. The gallbladder is contracted. Acute cholecystitis is not excluded. If of concern, consider a HIDA scan. 5. Moderate amount of stool. 6. Micronodular appearance to the surface of the liver suggestive of cirrhosis. 7. Splenomegaly 8. Mild concentric thickening of the wyman of the moderately distended bladder. Differential includes incomplete bladder wall distention versus cystitis. If symptoms persist or worsen, consider a short-term follow-up study or additional imaging for further assessment. Labs Labs: Laboratory Results - last 24 hr 04/21/25 05:14 WBC 4.0 L RBC 3.54 L Hgb 8.6 L Hct 29.7 L MCV 83.9 MCH 24.3 L MCHC 29.0 L RDW 23.4 H Plt Count 83 L MPV TNP Immature Gran % (Auto) Not Reportable Neut % (Auto) Not Reportable Lymph % (Auto) Not Reportable [place] % (Auto) Not Reportable Eos % (Auto) Not Reportable Baso % (Auto) Not Reportable Lymph # (Auto) Not Reportable [place] # (Auto) Not Reportable Eos # (Auto) Not Reportable Baso # (Auto) Not Reportable Abs Immat Gran (auto) Not Reportable Absolute Neuts (auto) Not Reportable Absolute Nucleated RBC Not Reportable Total Counted 100 Neutrophils % (Manual) 38 L Band Neutrophils % 9 H Lymphocytes % (Manual) 34 Monocytes % (Manual) 17 H Eosinophils % (Manual) 1 Basophils % (Manual) 1 Nucleated RBC % Not Reportable Abs Neuts (Manual) 1.88 Abs Lymphs (Manual) 1.36 Abs Monocytes (Manual) 0.68 Absolute Eos (Manual) 0.04 Abs Basophils (Manual) 0.04 Platelet Estimate Decreased % Immature Plt Fraction 4.1 Hypochromasia 2+ Anisocytosis 2+ Target Cells Occasional Tear Drop Cells Occasional Schistocytes None seen Sodium 133 L Potassium 4.0 Chloride 106 Carbon Dioxide 20 L Anion Gap 7 BUN 8 L Creatinine 0.66 L Estim Creat Clear Calc Not Reportable Estimated GFR > 60 Glucose 103 Calcium 7.7 L Magnesium 2.0 Total Bilirubin 3.4 H AST 73 H ALT 31 Alkaline Phosphatase 130 H Total Protein 7.5 Albumin 2.8 L
[2025-04-21 14:00] VITALS: BP 128/80; PULSE 72; RESP 18; TEMP 37.2; O2SAT 100
--- NOTE | 2025-04-21 14:30 | PM.IMPN ---
Progress Note: A&P Assessment and Plan (1) Alcohol abuse: Code(s): F10.10 - Alcohol abuse, uncomplicated Status: Acute (2) Thrombocytopenia: Code(s): D69.6 - Thrombocytopenia, unspecified Status: Acute (3) Cirrhosis of liver: Qualifiers: Ascites presence: with ascites Hepatic cirrhosis type: alcoholic cirrhosis Qualified Code(s): K70.31 - Alcoholic cirrhosis of liver with ascites Code(s): K74.60 - Unspecified cirrhosis of liver Status: Acute (4) GI (gastrointestinal hemorrhage): Qualifiers: GI bleed type/associated pathology: unspecified gastrointestinal hemorrhage type Qualified Code(s): K92.2 - Gastrointestinal hemorrhage, unspecified Code(s): K92.2 - Gastrointestinal hemorrhage, unspecified Status: Acute (5) Ascites: Code(s): R18.8 - Other ascites Status: Acute (6) Alcohol withdrawal seizure: Qualifiers: Complication of substance-induced condition: uncomplicated Qualified Code(s): F10.930 - Alcohol use, unspecified with withdrawal, uncomplicated; R56.9 - Unspecified convulsions Code(s): F10.939 - Alcohol use, unspecified with withdrawal, unspecified; R56.9 - Unspecified convulsions Status: Acute Plan Anemia: Patient presented with hemoglobin of 2.5. No hematochezia melena hematemesis. Suspect ongoing chronic GI bleed likely variceal considering patient has history of cirrhosis Started on Protonix IV and octreotide infusion Status post 4 units of PRBC post transfusion hemoglobin is 6 underwent another transfusion Monitor serial hemoglobin which has been stable now GI consulted Status post EGD and colonoscopy EGD: Gastritis. On Protonix Colonoscopy: Colonic polyps Thrombocytopenia likely related to cirrhosis Alcohol abuse on thiamine and folic acid she will monitoring On Librium will decrease the dose to q.8 hours. Now tapered off Cirrhosis of liver secondary to alcohol abuse. Received vitamin K IM. SBP prophylaxis Rocephin which has been discontinued now. Patient was started on Lasix and spironolactone. Also start on nonselective beta-lazaro as tolerated with Yinka I will stop Lasix and spironolactone Fever spike 04/15/2025 pancultured. Empirically started on cefepime. Chest x-ray was negative. UA negative. Still spiking fever will romeo scan further evaluate. Could be from iron infusion will hold off on any further iron infusions. YINKA 04/16/2025 creatinine bumped up to 1.8. Will hold Lasix and spironolactone. Renal ultrasound unremarkable Give IV fluid. Monitor intake and output and renal failure has resolved GI bleed see above Alcohol withdrawal seizure no prior history of seizure recurrence since coming to the hospital Seizure precautions On Librium and p.r.n. Valium Ascites status post paracentesis of 1 L Generalized weakness PT OT to see DVT prophylaxis SCDs Stress ulcer prophylaxis ppi Code status full code Patient reports no new complaints. Denies any abdominal pain nausea vomiting. No cough. No urinary symptoms, his pancytopenia most likely 2/2 to bone marrow suppression due to alcohol abuse, also resulted iron deficiency anemia, being supplement with IV iron there is concern patient develop fever after iron infusion, patient had been having fever on and off and, patient did get iron infusion yesterday and there was no fever recorded will monitor, blood culture is growing gram negative bacilli, being treated with Cefepime, will follow on blood culture and sensitivity. will monitor. will monitor, patient is trying to get hold of his freind for discharge planning. today patient both blood culture bottles are positive for Ochrobactrum anthropi, multidrug resistent, will start on doxycycline, patient remains clinically stable, will consult ID for further evaluation and recommendations Subjective Date/time seen: 04/21/25 14:30 Interval history: Patient reports no new complaints. Denies any abdominal pain nausea vomiting. No cough. No urinary symptoms, his pancytopenia most likely 2/2 to bone marrow suppression due to alcohol abuse, also resulted iron deficiency anemia, being supplement with IV iron there is concern patient develop fever after iron infusion, patient had been having fever on and off and, patient did get iron infusion yesterday and there was no fever recorded will monitor, blood culture is growing gram negative bacilli, being treated with Cefepime, will follow on blood culture and sensitivity. will monitor. will monitor, patient is trying to get hold of his freind for discharge planning. today patient both blood culture bottles are positive for Ochrobactrum anthropi, multidrug resistent, will start on doxycycline, patient remains clinically stable, will consult ID for further evaluation and recommendations Review of Systems Review of Systems: 12 systems were reviewed and are negative except for as per HPI. All systems reviewed & are unremarkable except as noted in HPI and below (Subjective) Exam Narrative: Appears chronically ill older than his age Patient is comfortable, NAD HEENT: eyes are clear and none icteric LUNGS:CTA HEART: RR S1S2 ABD: BS+, Soft and nontender Lower extremities: no edema SKIN: nonjaundiced Neuro: grossly intact. Objective Data Vital Signs Vital Signs: Vital Signs - 24 hr 04/20/25 20:00 04/20/25 21:33 04/21/25 06:00 Temperature 36.8 C 36.5 C Pulse Rate 65 69 Respiratory Rate 18 20 Blood Pressure 137/81 136/73 Pulse Oximetry 100 99 Oxygen Delivery Room Air Intake/Output Intake/Output: Intake & Output 04/18/25 04/19/25 04/20/25 04/21/25 23:59 23:59 23:59 23:59 Intake Total 1079 568 7940 415 Output Total 4000 3250 3375 600 Balance -2580 -2384 -1815 -185 Meds/Results Medications: Active Medications Generic Name Dose Route Start Last Admin Trade Name Freq PRN Reason Stop Dose Admin Acetaminophen 650 mg 04/15/25 15:57 04/17/25 05:24 Acetaminophen 325 Mg Tablet PO 650 mg Q6H PRN Administration Mild Pain (1-3) or Fever Diazepam 5 mg 04/10/25 17:48 Diazepam Inj (*Crx) 10 Mg/2 Ml Syringe IV PUSH Q5M PRN CIWA > 15 Folic Acid 1 mg 04/11/25 09:00 04/21/25 08:57 Folic Acid 1 Mg Tablet PO 1 mg DAILY AMRITA Administration Furosemide 20 mg 04/14/25 09:00 04/15/25 08:03 Furosemide 20 Mg Tablet PO 20 mg On Hold: 04/16/25 07:53 DAILY AMRITA Administration Cefepime HCl 1 gm/ Sodium 50 mls @ 100 mls/hr 04/15/25 19:00 04/21/25 02:09 Chloride IVPB 100 mls/hr Q8H AMRITA Administration Miscellaneous Information 1 each 04/20/25 00:01 04/20/25 01:52 Diazepam Iv Needs To Be Renewed Or It Will Automatically Discontinue. XX 05/20/25 00:00 Not Given CLARIFY AMRITA Multivitamins/Calcium 1 tablet 04/11/25 09:00 04/21/25 08:57 Therapeutic Multivitamins/Minerals Tab (*Bkc) PO 1 tablet DAILY AMRITA Administration Ondansetron HCl 4 mg 04/10/25 17:13 Ondansetron Inj 4 Mg/2 Ml Vial IV PUSH Q4H PRN Nausea Pantoprazole Sodium 40 mg 04/12/25 09:00 04/21/25 08:57 Pantoprazole 40 Mg Tablet PO 40 mg QAM AMRITA Administration Spironolactone 100 mg 04/14/25 09:00 04/15/25 08:03 Spironolactone 50 Mg Tablet PO 100 mg On Hold: 04/16/25 07:54 QAM AMRITA Administration Thiamine HCl 100 mg 04/11/25 09:00 04/21/25 08:57 Thiamine Hcl 100 Mg Tablet PO 100 mg DAILY AMRITA Administration Radiology Results: ITS Impressions Head CT 04/10/25 12:55 IMPRESSION: No evidence for acute intracranial hemorrhage or calvarial fracture. Abdomen/Pelvis CTA 04/10/25 16:34 IMPRESSION: 1. Cirrhosis with portal hypertension. 2: Splenomegaly. 3: Cardiomegaly. 4: Small amount of ascites. 5: Mild bladder wall thickening. Correlate clinically for cystitis. Paracentesis Ultrasound 04/12/25 12:02 IMPRESSION: 1. Successful ultrasound-guided paracentesis yielding 1000 mL of clear saba-colored fluid. Chest X-Ray 04/15/25 19:30 Impression: No acute cardiopulmonary abnormality. Renal Ultrasound 04/16/25 18:30 Impression: 1: Unremarkable renal ultrasound. No stones, masses or hydronephrosis. 2: Ascites. 3: Nodular liver surface, compatible with cirrhosis. Chest/Abdomen/Pelvis CT 04/17/25 15:58 IMPRESSION: 1. There are a few small patchy, reticular and bandlike opacities in the lower lungs. Differential includes atelectasis/scarring or infiltrates. 2. Small bilateral pleural effusions. 3. Small to moderate amount of nonspecific fat stranding and fluid in the abdomen and pelvis. 4. The gallbladder is contracted. Acute cholecystitis is not excluded. If of concern, consider a HIDA scan. 5. Moderate amount of stool. 6. Micronodular appearance to the surface of the liver suggestive of cirrhosis. 7. Splenomegaly 8. Mild concentric thickening of the wyman of the moderately distended bladder. Differential includes incomplete bladder wall distention versus cystitis. If symptoms persist or worsen, consider a short-term follow-up study or additional imaging for further assessment. Labs Labs: Laboratory Results - last 24 hr 04/21/25 05:14 WBC 4.0 L RBC 3.54 L Hgb 8.6 L Hct 29.7 L MCV 83.9 MCH 24.3 L MCHC 29.0 L RDW 23.4 H Plt Count 83 L MPV TNP Immature Gran % (Auto) Not Reportable Neut % (Auto) Not Reportable Lymph % (Auto) Not Reportable [place] % (Auto) Not Reportable Eos % (Auto) Not Reportable Baso % (Auto) Not Reportable Lymph # (Auto) Not Reportable [place] # (Auto) Not Reportable Eos # (Auto) Not Reportable Baso # (Auto) Not Reportable Abs Immat Gran (auto) Not Reportable Absolute Neuts (auto) Not Reportable Absolute Nucleated RBC Not Reportable Total Counted 100 Neutrophils % (Manual) 38 L Band Neutrophils % 9 H Lymphocytes % (Manual) 34 Monocytes % (Manual) 17 H Eosinophils % (Manual) 1 Basophils % (Manual) 1 Nucleated RBC % Not Reportable Abs Neuts (Manual) 1.88 Abs Lymphs (Manual) 1.36 Abs Monocytes (Manual) 0.68 Absolute Eos (Manual) 0.04 Abs Basophils (Manual) 0.04 Platelet Estimate Decreased % Immature Plt Fraction 4.1 Hypochromasia 2+ Anisocytosis 2+ Target Cells Occasional Tear Drop Cells Occasional Schistocytes None seen Sodium 133 L Potassium 4.0 Chloride 106 Carbon Dioxide 20 L Anion Gap 7 BUN 8 L Creatinine 0.66 L Estim Creat Clear Calc Not Reportable Estimated GFR > 60 Glucose 103 Calcium 7.7 L Magnesium 2.0 Total Bilirubin 3.4 H AST 73 H ALT 31 Alkaline Phosphatase 130 H Total Protein 7.5 Albumin 2.8 L Quality VTE Prophylaxis VTE prophylaxis: mechanical ordered
[2025-04-21] MEDS: DOXYCYCLINE IV 100 MG in SODIUM CHLORIDE 0.9% IV 100 ML IVPB ×2 (16:22→23:55)
[2025-04-21 22:00] VITALS: BP 122/62; PULSE 61; RESP 18; TEMP 36.9; O2SAT 98
[2025-04-21 23:29] VITALS: O2SAT 96
[2025-04-22 06:00] VITALS: BP 136/84; PULSE 65; RESP 20; TEMP 36.9; O2SAT 100
[2025-04-22 06:10] LABS: Hematocrit 29.9 % (42.0-52.0); Hemoglobin 8.7 g/dL (14.0-18.0); Immature Granulocyte Percent A 1.0 % (0-0.5); Immature Platelet Fraction Pct 3.9 % (0.9-11.2); Lymphocytes Absolute Auto 1.28 K/mm3 (0.9-3.2); Mean Corpuscular HGB Conc 29.1 g/dl (32-36); Mean Corpuscular Hemoglobin 24.6 pg (26-34); Mean Corpuscular Volume 84.5 fl (80-100); Nucleated Red Blood Cells Absolute Auto 0.000 K/mm3 (0.0-0.012); Nucleated Red Blood Cells Perc 0.0 % (0.0-0.2); Platelet Count Result 97 k/mm3 (150-375); Red Blood Count 3.54 M/mm3 (4.6-6.20); White Blood Count 4.0 K/mm3 (4.5-10.0)
[2025-04-22 06:26] LABS: Alanine Aminotransferase 37 U/L (6-50); Albumin Level 2.8 g/dL (3.5-5.1); Alkaline Phosphatase 139 U/L (38-126); Anion Gap 6 mmol/L (4-12); Aspartate Amino Transferase 85 U/L (17-59); Bilirubin,Total 3.2 mg/dL (0.2-1.3); Blood Urea Nitrogen 9 mg/dL (9-20); Calcium 7.6 mg/dL (8.4-10.2); Carbon Dioxide 21 mmol/L (22-30); Chloride 105 mmol/L (98-107); Estimated Glomerular Filt Rate > 60; Glucose 84 mg/dL (65-110); Magnesium 2.0 mg/dL (1.6-2.3); Potassium 3.9 mmol/L (3.4-5.0); Sodium 132 mmol/L (137-145); Total Protein 7.7 g/dL (6.3-8.2)
--- NOTE | 2025-04-22 09:39 | WPDONCPN ---
Progress Note: A&P Assessment and Plan (1) Pancytopenia: Code(s): D61.818 - Other pancytopenia Status: Acute Assessment and Plan: Presentation CBC on 04/10/25 showed WBC 2.2, Hgb 2.5g/dL, platelets 48K. Toxicology screen was negative and ethanol levels were normal. CT Chest abdomen pelvis showed cirrhosis with portal hypertension, splenomegaly, cardiomegaly, small amount of ascites and mild bladder wall thickening. Over the course of last few days patient received PRBC and platelet transfusions. GI was consulted and underwent EGD and colonoscopy today 04/12/25. EGD showed mild gastritis. Colonoscopy showed a 4mm descending colon polyp which was removed. Pancytopenia is multifactorial including advanced cirrhosis, malnutrition and direct bone marrow suppression from alcohol. He has iron deficiency on labs performed 04/14/25. Please see below. Patient spiked fever on 04/15/25 and 04/16/25 evening and 04/17/25 morning. Blood cultures were obtained on 04/15/25 and now growing Ochrobactrum Anthropi. Intermediate sensitivity to Cefepime which patient was on before. Bacteria is sensitive to Trimethoprim/sulfa. Patient switched to IV Doxycycline by primary team and consulting ID. Creatinine was also acutely elevated at 1.84 04/16/25 but now 0.6 today. Renal ultrasound with no hydronephrosis. Patient's CBC today, 04/22/25 shows WBC 4.0, Hemoglobin 8.7, platelets 97K. No need of any transfusions. Hematology will sign off now. (2) Iron deficiency anemia: Code(s): D50.9 - Iron deficiency anemia, unspecified Status: Acute Assessment and Plan: Iron panel shows Iron saturations of 4% and ferritin 8.09. Patient received IV Iron sucrose 300mgon 04/15/25 and 04/16/25. The source of Iron loss is not clear as patient had EGD and colonoscopy this admission on 04/12/25 with no obvious bleeding. Could have AVMs in small bowel or severe malnutrition from chronic alcohol abuse. Patient spiked fever on 04/15/25 evening and 04/16/25 evening. Inpatient team questioning IV Iron as source of fever. Usually Iron infusion can be associated with fevers but usually as delayed reaction 24-48 hours after administration and usually with large doses of IV Iron. This process is mediated by complements. 3rd dose of IV Iron was administered 04/18/25. Subjective Date/time seen: 04/22/25 09:39 Interval history: No overnight isssues. no fevers. Review of Systems Review of Systems Patient reports he feels about the same. Currently he denies dizziness, headache, blurry or double vision. However feels weak and is shaky when stands up. Denies f/c, night sweats. He reports lower extremity swelling. Denies chest pain or dyspnea. Has abdominal distention and discomfort. Denies hematochezia, melena or hematuria. Rest of 12 point ROS negative. Exam Narrative: General: Alert and orientedx3, unkempt male, no acute distress HEENT: EOMI, PERRLA, sclera icterus noted. Respiratory: cTAB Cardiovascular: RRR, no m/g/r Abdomen: less Distended, NT, BS+ Extremities: trace edema in bilateral lower extremities Neuro: No focal deficit. Skin: Warm, dry, and intact, without rash, erythema, or lesion. Psych: good mood Objective Data Vital Signs Vital Signs: Vital Signs - 24 hr 04/21/25 14:00 04/21/25 19:51 04/21/25 22:00 Temperature 37.2 C 36.9 C Pulse Rate 72 61 Respiratory Rate 18 18 Blood Pressure 128/80 122/62 Pulse Oximetry 100 98 Oxygen Delivery Room Air 04/21/25 23:29 04/22/25 06:00 Temperature 36.9 C Pulse Rate 65 Respiratory Rate 20 Blood Pressure 136/84 Pulse Oximetry 96 100 Oxygen Delivery Room Air Intake/Output Intake/Output: Intake & Output 04/19/25 04/20/25 04/21/25 04/22/25 23:59 23:59 23:59 23:59 Intake Total 866 1560 1405 720 Output Total 3250 3375 600 1300 Balance -2688 -8619 805 -238 Meds/Results Medications: Active Medications Generic Name Dose Route Start Last Admin Trade Name Freq PRN Reason Stop Dose Admin Acetaminophen 650 mg 04/15/25 15:57 04/17/25 05:24 Acetaminophen 325 Mg Tablet PO 650 mg Q6H PRN Administration Mild Pain (1-3) or Fever Diazepam 5 mg 04/10/25 17:48 Diazepam Inj (*Crx) 10 Mg/2 Ml Syringe IV PUSH Q5M PRN CIWA > 15 Folic Acid 1 mg 04/11/25 09:00 04/21/25 08:57 Folic Acid 1 Mg Tablet PO 1 mg DAILY AMRITA Administration Furosemide 20 mg 04/14/25 09:00 04/15/25 08:03 Furosemide 20 Mg Tablet PO 20 mg On Hold: 04/16/25 07:53 DAILY AMRITA Administration Doxycycline Hyclate 100 mg/ 100 mls @ 100 mls/hr 04/21/25 14:40 04/21/25 23:55 Sodium Chloride IVPB 100 mls/hr Q12HR AMRITA Administration Miscellaneous Information 1 each 04/20/25 00:01 04/20/25 01:52 Diazepam Iv Needs To Be Renewed Or It Will Automatically Discontinue. XX 05/20/25 00:00 Not Given CLARIFY AMRITA Multivitamins/Calcium 1 tablet 04/11/25 09:00 04/21/25 08:57 Therapeutic Multivitamins/Minerals Tab (*Bkc) PO 1 tablet DAILY AMRITA Administration Ondansetron HCl 4 mg 04/10/25 17:13 Ondansetron Inj 4 Mg/2 Ml Vial IV PUSH Q4H PRN Nausea Pantoprazole Sodium 40 mg 04/12/25 09:00 04/21/25 08:57 Pantoprazole 40 Mg Tablet PO 40 mg QAM AMRITA Administration Spironolactone 100 mg 04/14/25 09:00 04/15/25 08:03 Spironolactone 50 Mg Tablet PO 100 mg On Hold: 04/16/25 07:54 QAM AMRITA Administration Thiamine HCl 100 mg 04/11/25 09:00 04/21/25 08:57 Thiamine Hcl 100 Mg Tablet PO 100 mg DAILY AMRITA Administration Radiology Results: ITS Impressions Head CT 04/10/25 12:55 IMPRESSION: No evidence for acute intracranial hemorrhage or calvarial fracture. Abdomen/Pelvis CTA 04/10/25 16:34 IMPRESSION: 1. Cirrhosis with portal hypertension. 2: Splenomegaly. 3: Cardiomegaly. 4: Small amount of ascites. 5: Mild bladder wall thickening. Correlate clinically for cystitis. Paracentesis Ultrasound 04/12/25 12:02 IMPRESSION: 1. Successful ultrasound-guided paracentesis yielding 1000 mL of clear saba-colored fluid. Chest X-Ray 04/15/25 19:30 Impression: No acute cardiopulmonary abnormality. Renal Ultrasound 04/16/25 18:30 Impression: 1: Unremarkable renal ultrasound. No stones, masses or hydronephrosis. 2: Ascites. 3: Nodular liver surface, compatible with cirrhosis. Chest/Abdomen/Pelvis CT 04/17/25 15:58 IMPRESSION: 1. There are a few small patchy, reticular and bandlike opacities in the lower lungs. Differential includes atelectasis/scarring or infiltrates. 2. Small bilateral pleural effusions. 3. Small to moderate amount of nonspecific fat stranding and fluid in the abdomen and pelvis. 4. The gallbladder is contracted. Acute cholecystitis is not excluded. If of concern, consider a HIDA scan. 5. Moderate amount of stool. 6. Micronodular appearance to the surface of the liver suggestive of cirrhosis. 7. Splenomegaly 8. Mild concentric thickening of the wyman of the moderately distended bladder. Differential includes incomplete bladder wall distention versus cystitis. If symptoms persist or worsen, consider a short-term follow-up study or additional imaging for further assessment. Labs Labs: Laboratory Results - last 24 hr 04/22/25 05:22 WBC 4.0 L RBC 3.54 L Hgb 8.7 L Hct 29.9 L MCV 84.5 MCH 24.6 L MCHC 29.1 L RDW 23.7 H Plt Count 97 L MPV TNP Immature Gran % (Auto) 1.0 H Neut % (Auto) 47.1 Lymph % (Auto) 32.4 [place] % (Auto) 15.7 H Eos % (Auto) 2.8 Baso % (Auto) 1.0 Lymph # (Auto) 1.28 [place] # (Auto) 0.6 Eos # (Auto) 0.1 Baso # (Auto) 0.0 Abs Immat Gran (auto) 0.04 H Absolute Neuts (auto) 1.9 Absolute Nucleated RBC 0.000 Nucleated RBC % 0.0 % Immature Plt Fraction 3.9 Sodium 132 L Potassium 3.9 Chloride 105 Carbon Dioxide 21 L Anion Gap 6 BUN 9 Creatinine 0.61 L Estim Creat Clear Calc Not Reportable Estimated GFR > 60 Glucose 84 Calcium 7.6 L Magnesium 2.0 Total Bilirubin 3.2 H AST 85 H ALT 37 Alkaline Phosphatase 139 H Total Protein 7.7 Albumin 2.8 L
[2025-04-22] MEDS: PANTOPRAZOLE 40 MG TABLET PO (09:45)
[2025-04-22] MEDS: THIAMINE HCL 100 MG TABLET PO (09:45)
[2025-04-22] MEDS: DOXYCYCLINE IV 100 MG in SODIUM CHLORIDE 0.9% IV 100 ML IVPB ×2 (09:45→20:24)
[2025-04-22] MEDS: THERAPEUTIC MULTIVITAMINS/MINERALS TAB (*BKC) 1 TABLET PO (09:45)
[2025-04-22] MEDS: FOLIC ACID 1 MG TABLET PO (09:45)
--- NOTE | 2025-04-22 13:27 | P.PNIM_ITS ---
Progress Note: A&P Assessment and Plan (1) Alcohol abuse: Code(s): F10.10 - Alcohol abuse, uncomplicated Status: Acute (2) Thrombocytopenia: Code(s): D69.6 - Thrombocytopenia, unspecified Status: Acute (3) Cirrhosis of liver: Qualifiers: Ascites presence: with ascites Hepatic cirrhosis type: alcoholic cirrhosis Qualified Code(s): K70.31 - Alcoholic cirrhosis of liver with ascites Code(s): K74.60 - Unspecified cirrhosis of liver Status: Acute (4) GI (gastrointestinal hemorrhage): Qualifiers: GI bleed type/associated pathology: unspecified gastrointestinal hemorrhage type Qualified Code(s): K92.2 - Gastrointestinal hemorrhage, unspecified Code(s): K92.2 - Gastrointestinal hemorrhage, unspecified Status: Acute (5) Ascites: Code(s): R18.8 - Other ascites Status: Acute (6) Alcohol withdrawal seizure: Qualifiers: Complication of substance-induced condition: uncomplicated Qualified Code(s): F10.930 - Alcohol use, unspecified with withdrawal, uncomplicated; R56.9 - Unspecified convulsions Code(s): F10.939 - Alcohol use, unspecified with withdrawal, unspecified; R56.9 - Unspecified convulsions Status: Acute Plan Anemia: Patient presented with hemoglobin of 2.5. No hematochezia melena hematemesis. Suspect ongoing chronic GI bleed likely variceal considering patient has history of cirrhosis Started on Protonix IV and octreotide infusion Status post 4 units of PRBC post transfusion hemoglobin is 6 underwent another transfusion Monitor serial hemoglobin which has been stable now GI consulted Status post EGD and colonoscopy EGD: Gastritis. On Protonix Colonoscopy: Colonic polyps Thrombocytopenia likely related to cirrhosis Alcohol abuse on thiamine and folic acid she will monitoring On Librium will decrease the dose to q.8 hours. Now tapered off Cirrhosis of liver secondary to alcohol abuse. Received vitamin K IM. SBP prophylaxis Rocephin which has been discontinued now. Patient was started on Lasix and spironolactone. Also start on nonselective beta-lazaro as tolerated with Yinka I will stop Lasix and spironolactone Fever spike 04/15/2025 pancultured. Empirically started on cefepime. Chest x- ray was negative. UA negative. Still spiking fever will romeo scan further evaluate. Could be from iron infusion will hold off on any further iron infusions. YINKA 04/16/2025 creatinine bumped up to 1.8. Will hold Lasix and spironolactone. Renal ultrasound unremarkable Give IV fluid. Monitor intake and output and renal failure has resolved GI bleed see above Alcohol withdrawal seizure no prior history of seizure recurrence since coming to the hospital Seizure precautions On Librium and p.r.n. Valium Ascites status post paracentesis of 1 L Generalized weakness PT OT to see DVT prophylaxis SCDs Stress ulcer prophylaxis ppi Code status full code Patient reports no new complaints. Denies any abdominal pain nausea vomiting. No cough. No urinary symptoms, his pancytopenia most likely 2/2 to bone marrow suppression due to alcohol abuse, also resulted iron deficiency anemia, being supplement with IV iron there is concern patient develop fever after iron infusion, patient had been having fever on and off and, patient did get iron infusion yesterday and there was no fever recorded will monitor, blood culture is growing gram negative bacilli, being treated with Cefepime, will follow on blood culture and sensitivity. will monitor. will monitor, patient is trying to get hold of his freind for discharge planning. today patient both blood culture bottles are positive for Ochrobactrum anthropi, multidrug resistent, will start on doxycycline, patient remains clinically stable, will consult ID for further evaluation and recommendations, patient stats feels, patient in encouraged to ambulate, discussed with his nurse, will walk with patient, will plan for discharge soon. Subjective Date/time seen: 04/22/25 13:27 Interval history: Patient reports no new complaints. Denies any abdominal pain nausea vomiting. No cough. No urinary symptoms, his pancytopenia most likely 2/2 to bone marrow suppression due to alcohol abuse, also resulted iron deficiency anemia, being supplement with IV iron there is concern patient develop fever after iron infusion, patient had been having fever on and off and, patient did get iron infusion yesterday and there was no fever recorded will monitor, blood culture is growing gram negative bacilli, being treated with Cefepime, will follow on blood culture and sensitivity. will monitor. will monitor, patient is trying to get hold of his freind for discharge planning. today patient both blood culture bottles are positive for Ochrobactrum anthropi, multidrug resistent, will start on doxycycline, patient remains clinically stable, will consult ID for further evaluation and recommendations, patient stats feels, patient in encouraged to ambulate, discussed with his nurse, will walk with patient, will plan for discharge soon. Review of Systems Review of Systems: 12 systems were reviewed and are negativ e except for as per HPI. All systems reviewed & are unremarkable except as noted in HPI and below (Subjective) Exam Narrative: Appears chronically ill older than his age Patient is comfortable, NAD HEENT: eyes are clear and none icteric LUNGS:CTA HEART: RR S1S2 ABD: BS+, Soft and nontender Lower extremities: no edema SKIN: nonjaundiced Neuro: grossly intact. Objective Data Vital Signs Vital Signs: Vital Signs - 24 hr 04/21/25 14:00 04/21/25 19:51 04/21/25 22:00 Temperature 37.2 C 36.9 C Pulse Rate 72 61 Respiratory Rate 18 18 Blood Pressure 128/80 122/62 Pulse Oximetry 100 98 Oxygen Delivery Room Air 04/21/25 23:29 04/22/25 06:00 Temperature 36.9 C Pulse Rate 65 Respiratory Rate 20 Blood Pressure 136/84 Pulse Oximetry 96 100 Oxygen Delivery Room Air Intake/Output Intake/Output: Intake & Output 04/19/25 04/20/25 04/21/25 04/22/25 23:59 23:59 23:59 23:59 Intake Total 866 1560 1405 820 Output Total 3250 3375 600 1300 Balance -2384 -8196 805 -480 Meds/Results Medications: Active Medications Generic Name Dose Route Start Last Admin Trade Name Freq PRN Reason Stop Dose Admin Acetaminophen 650 mg 04/15/25 15:57 04/17/25 05:24 Acetaminophen 325 Mg Tablet PO 650 mg Q6H PRN Administration Mild Pain (1-3) or Fever Diazepam 5 mg 04/10/25 17:48 Diazepam Inj (*Crx) 10 Mg/2 Ml Syringe IV PUSH Q5M PRN CIWA > 15 Folic Acid 1 mg 04/11/25 09:00 04/22/25 09:45 Folic Acid 1 Mg Tablet PO 1 mg DAILY AMRITA Administration Furosemide 20 mg 04/14/25 09:00 04/15/25 08:03 Furosemide 20 Mg Tablet PO 20 mg On Hold: 04/16/25 07:53 DAILY AMRITA Administration Doxycycline Hyclate 100 mg/ 100 mls @ 100 mls/hr 04/21/25 14:40 04/22/25 09:45 Sodium Chloride IVPB 100 mls/hr Q12HR AMRITA Administration Miscellaneous Information 1 each 04/20/25 00:01 04/20/25 01:52 Diazepam Iv Needs To Be Renewed Or It Will Automatically Discontinue. XX 05/20/25 00:00 Not Given CLARIFY AMRITA Multivitamins/Calcium 1 tablet 04/11/25 09:00 04/22/25 09:45 Therapeutic Multivitamins/Minerals Tab (*Bkc) PO 1 tablet DAILY AMRITA Administration Ondansetron HCl 4 mg 04/10/25 17:13 Ondansetron Inj 4 Mg/2 Ml Vial IV PUSH Q4H PRN Nausea Pantoprazole Sodium 40 mg 04/12/25 09:00 04/22/25 09:45 Pantoprazole 40 Mg Tablet PO 40 mg QAM AMRITA Administration Spironolactone 100 mg 04/14/25 09:00 04/15/25 08:03 Spironolactone 50 Mg Tablet PO 100 mg On Hold: 04/16/25 07:54 QAM AMRITA Administration Thiamine HCl 100 mg 04/11/25 09:00 04/22/25 09:45 Thiamine Hcl 100 Mg Tablet PO 100 mg DAILY AMRITA Administration Radiology Results: ITS Impressions Head CT 04/10/25 12:55 IMPRESSION: No evidence for acute intracranial hemorrhage or calvarial fracture. Abdomen/Pelvis CTA 04/10/25 16:34 IMPRESSION: 1. Cirrhosis with portal hypertension. 2: Splenomegaly. 3: Cardiomegaly. 4: Small amount of ascites. 5: Mild bladder wall thickening. Correlate clinically for cystitis. Paracentesis Ultrasound 04/12/25 12:02 IMPRESSION: 1. Successful ultrasound-guided paracentesis yielding 1000 mL of clear saba- colored fluid. Chest X-Ray 04/15/25 19:30 Impression: No acute cardiopulmonary abnormality. Renal Ultrasound 04/16/25 18:30 Impression: 1: Unremarkable renal ultrasound. No stones, masses or hydronephrosis. 2: Ascites. 3: Nodular liver surface, compatible with cirrhosis. Chest/Abdomen/Pelvis CT 04/17/25 15:58 IMPRESSION: 1. There are a few small patchy, reticular and bandlike opacities in the lower lungs. Differential includes atelectasis/scarring or infiltrates. 2. Small bilateral pleural effusions. 3. Small to moderate amount of nonspecific fat stranding and fluid in the abdomen and pelvis. 4. The gallbladder is contracted. Acute cholecystitis is not excluded. If of concern, consider a HIDA scan. 5. Moderate amount of stool. 6. Micronodular appearance to the surface of the liver suggestive of cirrhosis. 7. Splenomegaly 8. Mild concentric thickening of the wyman of the moderately distended bladder. Differential includes incomplete bladder wall distention versus cystitis. If symptoms persist or worsen, consider a short-term follow-up study or additional imaging for further assessment. Labs Labs: Laboratory Results - last 24 hr 04/22/25 05:22 WBC 4.0 L RBC 3.54 L Hgb 8.7 L Hct 29.9 L MCV 84.5 MCH 24.6 L MCHC 29.1 L RDW 23.7 H Plt Count 97 L MPV TNP Immature Gran % (Auto) 1.0 H Neut % (Auto) 47.1 Lymph % (Auto) 32.4 [place] % (Auto) 15.7 H Eos % (Auto) 2.8 Baso % (Auto) 1.0 Lymph # (Auto) 1.28 [place] # (Auto) 0.6 Eos # (Auto) 0.1 Baso # (Auto) 0.0 Abs Immat Gran (auto) 0.04 H Absolute Neuts (auto) 1.9 Absolute Nucleated RBC 0.000 Nucleated RBC % 0.0 % Immature Plt Fraction 3.9 Sodium 132 L Potassium 3.9 Chloride 105 Carbon Dioxide 21 L Anion Gap 6 BUN 9 Creatinine 0.61 L Estim Creat Clear Calc Not Reportable Estimated GFR > 60 Glucose 84 Calcium 7.6 L Magnesium 2.0 Total Bilirubin 3.2 H AST 85 H ALT 37 Alkaline Phosphatase 139 H Total Protein 7.7 Albumin 2.8 L Quality VTE Prophylaxis VTE prophylaxis: mechanical ordered
[2025-04-22 14:00] VITALS: BP 113/74; PULSE 68; RESP 16; TEMP 36.7; O2SAT 100
[2025-04-22 20:02] VITALS: BP 130/72; PULSE 60; RESP 18; TEMP 36.4; O2SAT 100
[2025-04-23 04:53] VITALS: BP 130/70; PULSE 75; RESP 14; TEMP 36.6; O2SAT 100
[2025-04-23 06:32] LABS: Hematocrit 30.3 % (42.0-52.0); Hemoglobin 8.8 g/dL (14.0-18.0); Immature Platelet Fraction Pct 2.8 % (0.9-11.2); Mean Corpuscular HGB Conc 29.0 g/dl (32-36); Mean Corpuscular Hemoglobin 24.4 pg (26-34); Mean Corpuscular Volume 83.9 fl (80-100); Platelet Count Result 111 k/mm3 (150-375); Red Blood Count 3.61 M/mm3 (4.6-6.20); White Blood Count 4.2 K/mm3 (4.5-10.0)
[2025-04-23 06:51] LABS: Alanine Aminotransferase 39 U/L (6-50); Albumin Level 2.9 g/dL (3.5-5.1); Alkaline Phosphatase 149 U/L (38-126); Anion Gap 5 mmol/L (4-12); Aspartate Amino Transferase 84 U/L (17-59); Bilirubin,Total 3.3 mg/dL (0.2-1.3); Blood Urea Nitrogen 9 mg/dL (9-20); Calcium 7.6 mg/dL (8.4-10.2); Carbon Dioxide 20 mmol/L (22-30); Chloride 106 mmol/L (98-107); Estimated Glomerular Filt Rate > 60; Glucose 88 mg/dL (65-110); Magnesium 2.0 mg/dL (1.6-2.3); Potassium 3.8 mmol/L (3.4-5.0); Sodium 131 mmol/L (137-145); Total Protein 7.8 g/dL (6.3-8.2)
[2025-04-23 07:16] LABS: Band Neutrophils Percent 2 % (0-6); Basophils Absolute Manual 0.00 K/mm3 (0.0-0.1); Basophils Percent Manual 0 % (0-1); Eosinophils Absolute Manual 0.16 K/mm3 (0.02-0.50); Eosinophils Percent Manual 4 % (0-4); Lymphocytes Absolute Manual 1.38 K/mm3 (1.1-4.5); Lymphocytes Percent Manual 33 % (18-44); Monocytes Absolute Manual 0.37 K/mm3 (0.1-0.90); Monocytes Percent Manual 9 % (3-9); Neutrophils Absolute Manual 2.26 K/mm3 (1.3-6.7); Neutrophils Percent Manual 52 % (46-73); Total Cells Counted 100
[2025-04-23 07:17] LABS: Anisocytosis 1+; Giant Platelets Present; Hypochromasia 1+; Ovalocytes 1+; Schistocytes Rare
[2025-04-23] MEDS: DOXYCYCLINE IV 100 MG in SODIUM CHLORIDE 0.9% IV 100 ML IVPB ×2 (08:54→21:01)
[2025-04-23] MEDS: PANTOPRAZOLE 40 MG TABLET PO (08:59)
[2025-04-23] MEDS: THIAMINE HCL 100 MG TABLET PO (08:59)
[2025-04-23] MEDS: FOLIC ACID 1 MG TABLET PO (08:59)
[2025-04-23] MEDS: THERAPEUTIC MULTIVITAMINS/MINERALS TAB (*BKC) 1 TABLET PO (08:59)
--- NOTE | 2025-04-23 11:48 | P.PNIM_ITS ---
Progress Note: A&P Assessment and Plan (1) Alcohol abuse: Code(s): F10.10 - Alcohol abuse, uncomplicated Status: Acute (2) Thrombocytopenia: Code(s): D69.6 - Thrombocytopenia, unspecified Status: Acute (3) Cirrhosis of liver: Qualifiers: Ascites presence: with ascites Hepatic cirrhosis type: alcoholic cirrhosis Qualified Code(s): K70.31 - Alcoholic cirrhosis of liver with ascites Code(s): K74.60 - Unspecified cirrhosis of liver Status: Acute (4) GI (gastrointestinal hemorrhage): Qualifiers: GI bleed type/associated pathology: unspecified gastrointestinal hemorrhage type Qualified Code(s): K92.2 - Gastrointestinal hemorrhage, unspecified Code(s): K92.2 - Gastrointestinal hemorrhage, unspecified Status: Acute (5) Ascites: Code(s): R18.8 - Other ascites Status: Acute (6) Alcohol withdrawal seizure: Qualifiers: Complication of substance-induced condition: uncomplicated Qualified Code(s): F10.930 - Alcohol use, unspecified with withdrawal, uncomplicated; R56.9 - Unspecified convulsions Code(s): F10.939 - Alcohol use, unspecified with withdrawal, unspecified; R56.9 - Unspecified convulsions Status: Acute Plan Anemia: Patient presented with hemoglobin of 2.5. No hematochezia melena hematemesis. Suspect ongoing chronic GI bleed likely variceal considering patient has history of cirrhosis Started on Protonix IV and octreotide infusion Status post 4 units of PRBC post transfusion hemoglobin is 6 underwent another transfusion Monitor serial hemoglobin which has been stable now GI consulted Status post EGD and colonoscopy EGD: Gastritis. On Protonix Colonoscopy: Colonic polyps Thrombocytopenia likely related to cirrhosis Alcohol abuse on thiamine and folic acid she will monitoring On Librium will decrease the dose to q.8 hours. Now tapered off Cirrhosis of liver secondary to alcohol abuse. Received vitamin K IM. SBP prophylaxis Rocephin which has been discontinued now. Patient was started on Lasix and spironolactone. Also start on nonselective beta-lazaro as tolerated with Yinka I will stop Lasix and spironolactone Fever spike 04/15/2025 pancultured. Empirically started on cefepime. Chest x- ray was negative. UA negative. Still spiking fever will romeo scan further evaluate. Could be from iron infusion will hold off on any further iron infusions. YINKA 04/16/2025 creatinine bumped up to 1.8. Will hold Lasix and spironolactone. Renal ultrasound unremarkable Give IV fluid. Monitor intake and output and renal failure has resolved GI bleed see above Alcohol withdrawal seizure no prior history of seizure recurrence since coming to the hospital Seizure precautions On Librium and p.r.n. Valium Ascites status post paracentesis of 1 L Generalized weakness PT OT to see DVT prophylaxis SCDs Stress ulcer prophylaxis ppi Code status full code Patient reports no new complaints. Denies any abdominal pain nausea vomiting. No cough. No urinary symptoms, his pancytopenia most likely 2/2 to bone marrow suppression due to alcohol abuse, also resulted iron deficiency anemia, being supplement with IV iron there is concern patient develop fever after iron infusion, patient had been having fever on and off and, patient did get iron infusion yesterday and there was no fever recorded will monitor, blood culture is growing gram negative bacilli, being treated with Cefepime, will follow on blood culture and sensitivity. will monitor. will monitor, patient is trying to get hold of his freind for discharge planning. today patient both blood culture bottles are positive for Ochrobactrum anthropi, multidrug resistant, started on doxycycline, repeated blood culture, no growth so far, patient remains clinically stable, will consult ID for further evaluation and recommendations to follow, patient stats feels better, patient in encouraged to ambulate, discussed with his nurse, will walk with patient, will plan for discharge soon. Subjective Date/time seen: 04/23/25 11:48 Interval history: Patient reports no new complaints. Denies any abdominal pain nausea vomiting. No cough. No urinary symptoms, his pancytopenia most likely 2/2 to bone marrow suppression due to alcohol abuse, also resulted iron deficiency anemia, being supplement with IV iron there is concern patient develop fever after iron i nfusion, patient had been having fever on and off and, patient did get iron infusion yesterday and there was no fever recorded will monitor, blood culture is growing gram negative bacilli, being treated with Cefepime, will follow on blood culture and sensitivity. will monitor. will monitor, patient is trying to get hold of his freind for discharge planning. today patient both blood culture bottles are positive for Ochrobactrum anthropi, multidrug resistant, started on doxycycline, repeated blood culture, no growth so far, patient remains clinically stable, will consult ID for further evaluation and recommendations to follow, patient stats feels better, patient in encouraged to ambulate, discussed with his nurse, will walk with patient, will plan for discharge soon. Review of Systems Review of Systems: 12 systems were reviewed and are negativ e except for as per HPI. All systems reviewed & are unremarkable except as noted in HPI and below (Subjective) Exam Narrative: Appears chronically ill older than his age Patient is comfortable, NAD HEENT: eyes are clear and none icteric LUNGS:CTA HEART: RR S1S2 ABD: BS+, Soft and nontender Lower extremities: no edema SKIN: nonjaundiced Neuro: grossly intact. Objective Data Vital Signs Vital Signs: Vital Signs - 24 hr 04/22/25 14:00 04/22/25 20:02 04/23/25 04:53 Temperature 36.7 C 36.4 C 36.6 C Pulse Rate 68 60 75 Respiratory Rate 16 18 14 Blood Pressure 113/74 130/72 130/70 Pulse Oximetry 100 100 100 Intake/Output Intake/Output: Intake & Output 04/20/25 04/21/25 04/22/25 04/23/25 23:59 23:59 23:59 23:59 Intake Total 1560 1405 2040 790 Output Total 3375 600 2050 300 Balance -1815 805 -10 490 Meds/Results Medications: Active Medications Generic Name Dose Route Start Last Admin Trade Name Freq PRN Reason Stop Dose Admin Acetaminophen 650 mg 04/15/25 15:57 04/17/25 05:24 Acetaminophen 325 Mg Tablet PO 650 mg Q6H PRN Administration Mild Pain (1-3) or Fever Diazepam 5 mg 04/10/25 17:48 Diazepam Inj (*Crx) 10 Mg/2 Ml Syringe IV PUSH Q5M PRN CIWA > 15 Folic Acid 1 mg 04/11/25 09:00 04/23/25 08:59 Folic Acid 1 Mg Tablet PO 1 mg DAILY AMRITA Administration Furosemide 20 mg 04/14/25 09:00 04/15/25 08:03 Furosemide 20 Mg Tablet PO 20 mg On Hold: 04/16/25 07:53 DAILY AMRITA Administration Doxycycline Hyclate 100 mg/ 100 mls @ 100 mls/hr 04/21/25 14:40 04/23/25 08:54 Sodium Chloride IVPB 100 mls/hr Q12HR AMRITA Administration Multivitamins/Calcium 1 tablet 04/11/25 09:00 04/23/25 08:59 Therapeutic Multivitamins/Minerals Tab (*Bkc) PO 1 tablet DAILY AMRITA Administration Ondansetron HCl 4 mg 04/10/25 17:13 Ondansetron Inj 4 Mg/2 Ml Vial IV PUSH Q4H PRN Nausea Pantoprazole Sodium 40 mg 04/12/25 09:00 04/23/25 08:59 Pantoprazole 40 Mg Tablet PO 40 mg QAM AMRITA Administration Spironolactone 100 mg 04/14/25 09:00 04/15/25 08:03 Spironolactone 50 Mg Tablet PO 100 mg On Hold: 04/16/25 07:54 QAM AMRITA Administration Thiamine HCl 100 mg 04/11/25 09:00 04/23/25 08:59 Thiamine Hcl 100 Mg Tablet PO 100 mg DAILY AMRITA Administration Radiology Results: ITS Impressions Head CT 04/10/25 12:55 IMPRESSION: No evidence for acute intracranial hemorrhage or calvarial fracture. Abdomen/Pelvis CTA 04/10/25 16:34 IMPRESSION: 1. Cirrhosis with portal hypertension. 2: Splenomegaly. 3: Cardiomegaly. 4: Small amount of ascites. 5: Mild bladder wall thickening. Correlate clinically for cystitis. Paracentesis Ultrasound 04/12/25 12:02 IMPRESSION: 1. Successful ultrasound-guided paracentesis yielding 1000 mL of clear saba- colored fluid. Chest X-Ray 04/15/25 19:30 Impression: No acute cardiopulmonary abnormality. Renal Ultrasound 04/16/25 18:30 Impression: 1: Unremarkable renal ultrasound. No stones, masses or hydronephrosis. 2: Ascites. 3: Nodular liver surface, compatible with cirrhosis. Chest/Abdomen/Pelvis CT 04/17/25 15:58 IMPRESSION: 1. There are a few small patchy, reticular and bandlike opacities in the lower lungs. Differential includes atelectasis/scarring or infiltrates. 2. Small bilateral pleural effusions. 3. Small to moderate amount of nonspecific fat stranding and fluid in the abdomen and pelvis. 4. The gallbladder is contracted. Acute cholecystitis is not excluded. If of concern, consider a HIDA scan. 5. Moderate amount of stool. 6. Micronodular appearance to the surface of the liver suggestive of cirrhosis. 7. Splenomegaly 8. Mild concentric thickening of the wyman of the moderately distended bladder. Differential includes incomplete bladder wall distention versus cystitis. If symptoms persist or worsen, consider a short-term follow-up study or additional imaging for further assessment. Labs Labs: Laboratory Results - last 24 hr 04/23/25 06:10 WBC 4.2 L RBC 3.61 L Hgb 8.8 L Hct 30.3 L MCV 83.9 MCH 24.4 L MCHC 29.0 L RDW 24.3 H Plt Count 111 L MPV 9.9 Immature Gran % (Auto) Not Reportable Neut % (Auto) Not Reportable Lymph % (Auto) Not Reportable [place] % (Auto) Not Reportable Eos % (Auto) Not Reportable Baso % (Auto) Not Reportable Lymph # (Auto) Not Reportable [place] # (Auto) Not Reportable Eos # (Auto) Not Reportable Baso # (Auto) Not Reportable Abs Immat Gran (auto) Not Reportable Absolute Neuts (auto) Not Reportable Absolute Nucleated RBC Not Reportable Total Counted 100 Neutrophils % (Manual) 52 Band Neutrophils % 2 Lymphocytes % (Manual) 33 Monocytes % (Manual) 9 Eosinophils % (Manual) 4 Basophils % (Manual) 0 Nucleated RBC % Not Reportable Abs Neuts (Manual) 2.26 Abs Lymphs (Manual) 1.38 Abs Monocytes (Manual) 0.37 Absolute Eos (Manual) 0.16 Abs Basophils (Manual) 0.00 Atypical Lymphocytes Present Platelet Estimate Slightly decreased Large Platelets Present Giant Platelets Present % Immature Plt Fraction 2.8 Hypochromasia 1+ Anisocytosis 1+ Ovalocytes 1+ Schistocytes Rare Sodium 131 L Potassium 3.8 Chloride 106 Carbon Dioxide 20 L Anion Gap 5 BUN 9 Creatinine 0.59 L Estim Creat Clear Calc Not Reportable Estimated GFR > 60 Glucose 88 Calcium 7.6 L Magnesium 2.0 Total Bilirubin 3.3 H AST 84 H ALT 39 Alkaline Phosphatase 149 H Total Protein 7.8 Albumin 2.9 L Quality VTE Prophylaxis VTE prophylaxis: mechanical ordered
[2025-04-23 14:40] VITALS: BP 122/70; PULSE 69; RESP 16; TEMP 36.3; O2SAT 99
--- NOTE | 2025-04-23 16:22 | WPDIDCN ---
Assessment and Plan Assessment and plan (1) Bacteremia due to Gram-negative bacteria: Code(s): R78.81 - Bacteremia Status: Acute (2) Anemia: Qualifiers: Anemia type: unspecified type Qualified Code(s): D64.9 - Anemia, unspecified Code(s): D64.9 - Anemia, unspecified Status: Acute (3) Alcohol withdrawal seizure: Qualifiers: Complication of substance-induced condition: uncomplicated Qualified Code(s): F10.930 - Alcohol use, unspecified with withdrawal, uncomplicated; R56.9 - Unspecified convulsions Code(s): F10.939 - Alcohol use, unspecified with withdrawal, unspecified; R56.9 - Unspecified convulsions Status: Acute (4) Ascites: Code(s): R18.8 - Other ascites Status: Acute (5) Alcohol abuse: Code(s): F10.10 - Alcohol abuse, uncomplicated Status: Acute (6) Cirrhosis of liver: Qualifiers: Ascites presence: with ascites Hepatic cirrhosis type: alcoholic cirrhosis Qualified Code(s): K70.31 - Alcoholic cirrhosis of liver with ascites Code(s): K74.60 - Unspecified cirrhosis of liver Status: Acute Plan # 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 # Alcoholic cirrhosis with ascites. # Severe anemia as well as generalized pancytopenia on presentation related to the above and presumed GI blood loss. Plan: -- based on sensitivities would continue with doxycycline but if intravenous form produces phlebitis may transition to oral. -- until follow-up blood cultures document clearance would also add empiric meropenem 1 g IV q.8 hours. Monitor for seizure recurrence. May discontinue meropenem if follow-up blood cultures are negative. -- anticipate a 7 day course of treatment. -- further recommendations to follow. Thank you for the consult. Patient was seen via video telehealth consultation with the assistance of staff. Chart, data, and patient independently reviewed. Patient was located at [facility] while I was located in my [place] office. Received verbal consent from patient. HPI Data of Consult Date/Time: 04/23/25 16:22 Requesting Physician: Yvonne Resendiz MD Primary Care Provider: UNKNOWN,DOCTOR Consult Narrative Reason for consult: Ochrobacterium bacteremia Narrative: Edilberto Funes is a 44 year old male who presented to the ED 04/10/2025 secondary to ETOH-associated seizures. History of daily significant ETOH intake and a 2 day period of abstinence. Found to have severe anemia with hemoglobin of 2.5 and associated with both thrombocytopenia and leukopenia. CT of abdomen and pelvis significant for findings of cirrhosis with portal hypertension, splenomegaly and a limited amount of ascites. Placed on a limited course of ceftriaxone for SBP prophylaxis. Blood cultures performed 04/15/2025 after developing fever and are now positive for Ochrobacterium. Caden Stout reported positive blood culture and based on sensitivities he was started on intravenous doxycycline 04/22. Repeat blood cultures performed 04/22. Has been afebrile since 04/18. ID consulted regarding bacteremia. Review of Systems Review of Systems: All systems reviewed & are unremarkable except as noted in HPI and below PMFSH Past Medical History Medical History (Updated 04/23/25 @ 16:36 by Mello Eng MD) Cirrhosis, alcoholic Pancytopenia Alcohol abuse Cirrhosis of liver Social History Social History Smoking packs per day: 2 Smoking cigarettes per day: 40.0 Years smoked: 8 Smoking pack-years: 16.00 Smoking status: Former smoker Tobacco type: cigarettes Alcohol intake: current Drinks per week: 12 Substance use: never Lack of Transportation: No Lack of Food: Never True Current Housing: I Do Not Have Housing Concerned About Future Housing: No Difficulty Paying Gas/Electric Bills: No Difficulty Paying for Meds: No Currently Unemployed: No Education: Grade School Difficulty w/ Childcare or Family Care: No Spiritual care concerns: No Meds Home Medications and Allergies Home Medications ?Medication ?Instructions ?Recorded ?Confirmed ?Type No Home Medications 04/10/25 04/10/25 History Allergies Allergy/AdvReac Type Severity Reaction Status Date / Time No Known Allergies Allergy Verified 04/12/25 13:50 Vital Signs Vital Signs - 24 hr 04/22/25 20:02 04/23/25 04:53 04/23/25 14:40 Temperature 97.6 F 97.8 F 97.4 F L Pulse Rate 60 75 69 Respiratory Rate 18 14 16 Blood Pressure 130/72 130/70 122/70 Pulse Oximetry 100 100 99 Exam Narrative: Awake and alert and interactive. Some confusion. No distress. Appears to have some scleral icterus. No respiratory distress. Some abdominal distension. Right arm PIV with possible phlebitis. Note: He is receiving intravenous doxycycline. No apparent rash. Results Labs 04/23/25 06:10 04/23/25 06:10 Labs: Short CBC 04/23/25 Range/Units 06:10 WBC 4.2 L (4.5-10.0) K/mm3 Hgb 8.8 L (14.0-18.0) g/dL Hct 30.3 L (42.0-52.0) % Plt Count 111 L (150-375) k/mm3 BMP 04/23/25 06:10 Sodium 131 L Potassium 3.8 Chloride 106 Carbon Dioxide 20 L BUN 9 Creatinine 0.59 L Glucose 88 Calcium 7.6 L Liver Function 04/23/25 Range/Units 06:10 Total Bilirubin 3.3 H (0.2-1.3) mg/dL AST 84 H (17-59) U/L ALT 39 (6-50) U/L Alkaline Phosphatase 149 H (38-126) U/L Albumin 2.9 L (3.5-5.1) g/dL
[2025-04-23] MEDS: MEROPENEM 1 GM in SODIUM CHLORIDE 0.9% IV 100 ML 200 ML IVPB (17:29)
[2025-04-23 22:00] VITALS: BP 144/75; PULSE 66; RESP 16; TEMP 36.7; O2SAT 100
[2025-04-24] MEDS: MEROPENEM 1 GM in SODIUM CHLORIDE 0.9% IV 100 ML 200 ML IVPB ×3 (02:15→17:50)
[2025-04-24 05:46] LABS: Hematocrit 30.2 % (42.0-52.0); Hemoglobin 8.9 g/dL (14.0-18.0); Immature Granulocyte Percent A 0.4 % (0-0.5); Immature Platelet Fraction Pct 3.0 % (0.9-11.2); Lymphocytes Absolute Auto 1.00 K/mm3 (0.9-3.2); Mean Corpuscular HGB Conc 29.5 g/dl (32-36); Mean Corpuscular Hemoglobin 24.7 pg (26-34); Mean Corpuscular Volume 83.9 fl (80-100); Nucleated Red Blood Cells Absolute Auto 0.000 K/mm3 (0.0-0.012); Nucleated Red Blood Cells Perc 0.0 % (0.0-0.2); Platelet Count Result 109 k/mm3 (150-375); Red Blood Count 3.60 M/mm3 (4.6-6.20); White Blood Count 4.5 K/mm3 (4.5-10.0)
[2025-04-24 06:00] VITALS: BP 126/64; PULSE 86; RESP 17; TEMP 36.8; O2SAT 100
[2025-04-24 06:07] LABS: Alanine Aminotransferase 32 U/L (6-50); Albumin Level 2.9 g/dL (3.5-5.1); Alkaline Phosphatase 145 U/L (38-126); Anion Gap 6 mmol/L (4-12); Aspartate Amino Transferase 65 U/L (17-59); Bilirubin,Total 3.8 mg/dL (0.2-1.3); Blood Urea Nitrogen 9 mg/dL (9-20); Calcium 7.6 mg/dL (8.4-10.2); Carbon Dioxide 18 mmol/L (22-30); Chloride 106 mmol/L (98-107); Estimated Glomerular Filt Rate > 60; Glucose 98 mg/dL (65-110); Magnesium 1.9 mg/dL (1.6-2.3); Potassium 4.0 mmol/L (3.4-5.0); Sodium 130 mmol/L (137-145); Total Protein 7.8 g/dL (6.3-8.2)
[2025-04-24 06:40] LABS: Hypochromasia 1+
[2025-04-24 06:42] LABS: Anisocytosis 1+; Burr Cells 1+; Ovalocytes 1+; Tear Drop Cells Occasional
[2025-04-24 06:43] LABS: Acanthocytes Occasional; Schistocytes None Seen
--- NOTE | 2025-04-24 09:05 | PCNWS ---
Weekly nutritional screen. Patient is tolerating current Heart healthy diet with adequate intake 100% all meals. No weight loss reported. No nutritional recommendations at this time.
[2025-04-24] MEDS: FOLIC ACID 1 MG TABLET PO (09:48)
[2025-04-24] MEDS: PANTOPRAZOLE 40 MG TABLET PO (09:48)
[2025-04-24] MEDS: THERAPEUTIC MULTIVITAMINS/MINERALS TAB (*BKC) 1 TABLET PO (09:48)
[2025-04-24] MEDS: DOXYCYCLINE IV 100 MG in SODIUM CHLORIDE 0.9% IV 100 ML IVPB ×2 (09:48→20:11)
--- NOTE | 2025-04-24 10:05 | P.PNINF_ITS ---
Progress Note: A&P Assessment and Plan (1) Bacteremia due to Gram-negative bacteria: Code(s): R78.81 - Bacteremia Status: Acute (2) Anemia: Qualifiers: Anemia type: unspecified type Qualified Code(s): D64.9 - Anemia, unspecified Code(s): D64.9 - Anemia, unspecified Status: Acute (3) Alcohol withdrawal seizure: Qualifiers: Complication of substance-induced condition: uncomplicated Qualified Code(s): F10.930 - Alcohol use, unspecified with withdrawal, uncomplicated; R56.9 - Unspecified convulsions Code(s): F10.939 - Alcohol use, unspecified with withdrawal, unspecified; R56.9 - Unspecified convulsions Status: Acute (4) Ascites: Code(s): R18.8 - Other ascites Status: Acute (5) Alcohol abuse: Code(s): F10.10 - Alcohol abuse, uncomplicated Status: Acute (6) Cirrhosis of liver: Qualifiers: Ascites presence: with ascites Hepatic cirrhosis type: alcoholic cirrhosis Qualified Code(s): K70.31 - Alcoholic cirrhosis of liver with ascites Code(s): K74.60 - Unspecified cirrhosis of liver Status: Acute Plan # 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 # Alcoholic cirrhosis with ascites. # Severe anemia as well as generalized pancytopenia on presentation related to the above and presumed GI blood loss. -- EGD with gastritis. Plan: -- based on sensitivities would continue with doxycycline but if intravenous form produces phlebitis may transition to oral 100 mg q.12 hours. -- until follow-up blood cultures document clearance would also add empiric meropenem 1 g IV q.8 hours. Monitor for seizure recurrence. May discontinue meropenem if follow-up blood cultures are negative. -- anticipate a 7 day course of treatment if follow-up blood cultures remain negative. Patient was seen via video telehealth consultation with the assistance of staff. Chart, data, and patient independently reviewed. Patient was located at [facility] while I was located in my [place] office. Received verbal consent from patient. Subjective Date/time seen: 04/24/25 10:05 Interval history: 04/24/2025: Afebrile. Vital signs stable. Hemoglobin stable. BUN 9 and creatinine 0.54. Less confused today. No new complaints. Blood cultures 04/15: Ochromobacterium Blood cultures 04/22: Pending Ascites culture 04/12: negative, final Doxycycline 100 mg IV q.12 hours 04/21 -- Meropenem 1 g IV q.8 hours 04/23-- Review of Systems Review of Systems: All systems reviewed & are unremarkable except as noted in HPI and below Exam Narrative: Awake and alert and interactive. Lessened confusion. No distress. Appears to have some scleral icterus. No respiratory distress. Some abdominal distension. New peripheral IV in distal right arm currently without phlebitis. No apparent rash. Objective Data Vital Signs Vital Signs: Vital Signs - 24 hr 04/23/25 14:40 04/23/25 22:00 04/24/25 06:00 Temperature 97.4 F L 98.1 F 98.2 F Pulse Rate 69 66 86 Respiratory Rate 16 16 17 Blood Pressure 122/70 144/75 H 126/64 Pulse Oximetry 99 100 100 Intake/Output Intake/Output: Intake & Output 04/21/25 04/22/25 04/23/25 04/24/25 23:59 23:59 23:59 23:59 Intake Total 1405 2040 2280 715 Output Total 600 2050 1100 Balance 805 -10 1180 715 Meds/Results Medications: Active Medications Generic Name Dose Route Start Last Admin Trade Name Patriceq PRN Reason Stop Dose Admin Acetaminophen 650 mg 04/15/25 15:57 04/17/25 05:24 Acetaminophen 325 Mg Tablet PO 650 mg Q6H PRN Administration Mild Pain (1-3) or Fever Diazepam 5 mg 04/10/25 17:48 Diazepam Inj (*Crx) 10 Mg/2 Ml Syringe IV PUSH Q5M PRN CIWA > 15 Folic Acid 1 mg 04/11/25 09:00 04/24/25 09:48 Folic Acid 1 Mg Tablet PO 1 mg DAILY AMRITA Administration Furosemide 20 mg 04/14/25 09:00 04/15/25 08:03 Furosemide 20 Mg Tablet PO 20 mg On Hold: 04/16/25 07:53 DAILY AMRITA Administration Doxycycline Hyclate 100 mg/ 100 mls @ 100 mls/hr 04/21/25 14:40 04/24/25 09:48 Sodium Chloride IVPB 100 mls/hr Q12HR AMRITA Administration Meropenem 1 gm/ Sodium 100 mls @ 200 mls/hr 04/23/25 18:00 04/24/25 02:45 Chloride IVPB Infused Q8H AMRITA Infusion Multivitamins/Calcium 1 tablet 04/11/25 09:00 04/24/25 09:48 Therapeutic Multivitamins/Minerals Tab (*Bkc) PO 1 tablet DAILY AMRITA Administration Ondansetron HCl 4 mg 04/10/25 17:13 Ondansetron Inj 4 Mg/2 Ml Vial IV PUSH Q4H PRN Nausea Pantoprazole Sodium 40 mg 04/12/25 09:00 04/24/25 09:48 Pantoprazole 40 Mg Tablet PO 40 mg QAM AMRITA Administration Spironolactone 100 mg 04/14/25 09:00 04/15/25 08:03 Spironolactone 50 Mg Tablet PO 100 mg On Hold: 04/16/25 07:54 QAM AMRITA Administration Thiamine HCl 100 mg 04/11/25 09:00 04/23/25 08:59 Thiamine Hcl 100 Mg Tablet PO 100 mg DAILY AMRITA Administration Radiology Results: ITS Impressions Head CT 04/10/25 12:55 IMPRESSION: No evidence for acute intracranial hemorrhage or calvarial fracture. Abdomen/Pelvis CTA 04/10/25 16:34 IMPRESSION: 1. Cirrhosis with portal hypertension. 2: Splenomegaly. 3: Cardiomegaly. 4: Small amount of ascites. 5: Mild bladder wall thickening. Correlate clinically for cystitis. Paracentesis Ultrasound 04/12/25 12:02 IMPRESSION: 1. Successful ultrasound-guided paracentesis yielding 1000 mL of clear saba- colored fluid. Chest X-Ray 04/15/25 19:30 Impression: No acute cardiopulmonary abnormality. Renal Ultrasound 04/16/25 18:30 Impression: 1: Unremarkable renal ultrasound. No stones, masses or hydronephrosis. 2: Ascites. 3: Nodular liver surface, compatible with cirrhosis. Chest/Abdomen/Pelvis CT 04/17/25 15:58 IMPRESSION: 1. There are a few small patchy, reticular and bandlike opacities in the lower lungs. Differential includes atelectasis/scarring or infiltrates. 2. Small bilateral pleural effusions. 3. Small to moderate amount of nonspecific fat stranding and fluid in the abdomen and pelvis. 4. The gallbladder is contracted. Acute cholecystitis is not excluded. If of concern, consider a HIDA scan. 5. Moderate amount of stool. 6. Micronodular appearance to the surface of the liver suggestive of cirrhosis. 7. Splenomegaly 8. Mild concentric thickening of the wyman of the moderately distended bladder. Differential includes incomplete bladder wall distention versus cystitis. If symptoms persist or worsen, consider a short-term follow-up study or additional imaging for further assessment. Labs Labs: Laboratory Results - last 24 hr 04/24/25 05:11 WBC 4.5 RBC 3.60 L Hgb 8.9 L Hct 30.2 L MCV 83.9 MCH 24.7 L MCHC 29.5 L RDW 24.1 H Plt Count 109 L MPV 9.9 Immature Gran % (Auto) 0.4 Neut % (Auto) 62.7 Lymph % (Auto) 22.1 [place] % (Auto) 12.8 H Eos % (Auto) 1.1 Baso % (Auto) 0.9 Lymph # (Auto) 1.00 [place] # (Auto) 0.6 Eos # (Auto) 0.1 Baso # (Auto) 0.0 Abs Immat Gran (auto) 0.02 Absolute Neuts (auto) 2.8 Absolute Nucleated RBC 0.000 Band Neutrophils % Not Reportable Nucleated RBC % 0.0 Platelet Estimate Decreased % Immature Plt Fraction 3.0 Hypochromasia 1+ Anisocytosis 1+ Tear Drop Cells Occasional Ovalocytes 1+ [place] Cells 1+ Acanthocytes (Spur) Occasional Schistocytes None seen Sodium 130 L Potassium 4.0 Chloride 106 Carbon Dioxide 18 L Anion Gap 6 BUN 9 Creatinine 0.54 L Estim Creat Clear Calc Not Reportable Estimated GFR > 60 Glucose 98 Calcium 7.6 L Magnesium 1.9 Total Bilirubin 3.8 H AST 65 H ALT 32 Alkaline Phosphatase 145 H Total Protein 7.8 Albumin 2.9 L
[2025-04-24] MEDS: THIAMINE HCL 100 MG TABLET PO (11:31)
--- NOTE | 2025-04-24 12:25 | P.PNIM_ITS ---
Progress Note: A&P Assessment and Plan (1) Alcohol abuse: Code(s): F10.10 - Alcohol abuse, uncomplicated Status: Acute (2) Thrombocytopenia: Code(s): D69.6 - Thrombocytopenia, unspecified Status: Acute (3) Cirrhosis of liver: Qualifiers: Ascites presence: with ascites Hepatic cirrhosis type: alcoholic cirrhosis Qualified Code(s): K70.31 - Alcoholic cirrhosis of liver with ascites Code(s): K74.60 - Unspecified cirrhosis of liver Status: Acute (4) GI (gastrointestinal hemorrhage): Qualifiers: GI bleed type/associated pathology: unspecified gastrointestinal hemorrhage type Qualified Code(s): K92.2 - Gastrointestinal hemorrhage, unspecified Code(s): K92.2 - Gastrointestinal hemorrhage, unspecified Status: Acute (5) Ascites: Code(s): R18.8 - Other ascites Status: Acute (6) Alcohol withdrawal seizure: Qualifiers: Complication of substance-induced condition: uncomplicated Qualified Code(s): F10.930 - Alcohol use, unspecified with withdrawal, uncomplicated; R56.9 - Unspecified convulsions Code(s): F10.939 - Alcohol use, unspecified with withdrawal, unspecified; R56.9 - Unspecified convulsions Status: Acute Plan Anemia: Patient presented with hemoglobin of 2.5. No hematochezia melena hematemesis. Suspect ongoing chronic GI bleed likely variceal considering patient has history of cirrhosis Started on Protonix IV and octreotide infusion Status post 4 units of PRBC post transfusion hemoglobin is 6 underwent another transfusion Monitor serial hemoglobin which has been stable now GI consulted Status post EGD and colonoscopy EGD: Gastritis. On Protonix Colonoscopy: Colonic polyps Thrombocytopenia likely related to cirrhosis Alcohol abuse on thiamine and folic acid she will monitoring On Librium will decrease the dose to q.8 hours. Now tapered off Cirrhosis of liver secondary to alcohol abuse. Received vitamin K IM. SBP prophylaxis Rocephin which has been discontinued now. Patient was started on Lasix and spironolactone. Also start on nonselective beta-lazaro as tolerated with Yinka I will stop Lasix and spironolactone Fever spike 04/15/2025 pancultured. Empirically started on cefepime. Chest x- ray was negative. UA negative. Still spiking fever will romeo scan further evaluate. Could be from iron infusion will hold off on any further iron infusions. YINKA 04/16/2025 creatinine bumped up to 1.8. Will hold Lasix and spironolactone. Renal ultrasound unremarkable Give IV fluid. Monitor intake and output and renal failure has resolved GI bleed see above Alcohol withdrawal seizure no prior history of seizure recurrence since coming to the hospital Seizure precautions On Librium and p.r.n. Valium Ascites status post paracentesis of 1 L Generalized weakness PT OT to see DVT prophylaxis SCDs Stress ulcer prophylaxis ppi Code status full code Patient reports no new complaints. Denies any abdominal pain nausea vomiting. No cough. No urinary symptoms, his pancytopenia most likely 2/2 to bone marrow suppression due to alcohol abuse, also resulted iron deficiency anemia, being supplement with IV iron there is concern patient develop fever after iron infusion, patient had been having fever on and off and, patient did get iron infusion yesterday and there was no fever recorded will monitor, blood culture is growing gram negative bacilli, being treated with Cefepime, will follow on blood culture and sensitivity. will monitor. will monitor, patient is trying to get hold of his freind for discharge planning. 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 Subjective Date/time seen: 04/24/25 12:25 Interval history: Patient reports no new complaints. Denies any abdominal pain nausea vomiting. No cough. No urinary symptoms, his pancytopenia most likely 2/2 to bone marrow suppression due to alcohol abuse, also resulted iron deficiency anemia, being supplement with IV iron there is concern patient develop fever after iron infusion, patient had been having fever on and off and, patient did get iron infusion yesterday and there was no fever recorded will monitor, blood culture is growing gram negative bacilli, being treated with Cefepime, will follow on blood culture and sensitivity. will monitor. will monitor, patient is trying to get hold of his freind for discharge planning. today patient both blood culture bottles are positive for Ochrobactrum anthropi, multidrug resistant, started on doxycycline, repeated blood culture, no growth so far, patient remains clinically stable, will consult ID for further evaluation and recommendations to follow, patient stats feels better, patient in encouraged to ambulate, discussed with his nurse, will walk with patient, patient was consulted by ID and recommended to continue doxycycline 100mg BID IV for 7 days and added meropenem, patient remains c linically stable, will monitor. Review of Systems Review of Systems: 12 systems were reviewed and are negativ e except for as per HPI. All systems reviewed & are unremarkable except as noted in HPI and below (Subjective) Exam Narrative: Appears chronically ill older than his age Patient is comfortable, NAD HEENT: eyes are clear and none icteric LUNGS:CTA HEART: RR S1S2 ABD: BS+, Soft and nontender Lower extremities: no edema SKIN: nonjaundiced Neuro: grossly intact. Objective Data Vital Signs Vital Signs: Vital Signs - 24 hr 04/23/25 14:40 04/23/25 22:00 04/24/25 06:00 Temperature 36.3 C L 36.7 C 36.8 C Pulse Rate 69 66 86 Respiratory Rate 16 16 17 Blood Pressure 122/70 144/75 H 126/64 Pulse Oximetry 99 100 100 Intake/Output Intake/Output: Intake & Output 04/21/25 04/22/25 04/23/25 04/24/25 23:59 23:59 23:59 23:59 Intake Total 1405 2040 2280 715 Output Total 600 2050 1100 Balance 805 -10 1180 715 Meds/Results Medications: Active Medications Generic Name Dose Route Start Last Admin Trade Name Patriceq PRN Reason Stop Dose Admin Acetaminophen 650 mg 04/15/25 15:57 04/17/25 05:24 Acetaminophen 325 Mg Tablet PO 650 mg Q6H PRN Administration Mild Pain (1-3) or Fever Diazepam 5 mg 04/10/25 17:48 Diazepam Inj (*Crx) 10 Mg/2 Ml Syringe IV PUSH Q5M PRN CIWA > 15 Folic Acid 1 mg 04/11/25 09:00 04/24/25 09:48 Folic Acid 1 Mg Tablet PO 1 mg DAILY AMRITA Administration Furosemide 20 mg 04/14/25 09:00 04/15/25 08:03 Furosemide 20 Mg Tablet PO 20 mg On Hold: 04/16/25 07:53 DAILY AMRITA Administration Doxycycline Hyclate 100 mg/ 100 mls @ 100 mls/hr 04/21/25 14:40 04/24/25 09:48 Sodium Chloride IVPB 100 mls/hr Q12HR AMRITA Administration Meropenem 1 gm/ Sodium 100 mls @ 200 mls/hr 04/23/25 18:00 04/24/25 11:26 Chloride IVPB 200 mls/hr Q8H AMRITA Administration Multivitamins/Calcium 1 tablet 04/11/25 09:00 04/24/25 09:48 Therapeutic Multivitamins/Minerals Tab (*Bkc) PO 1 tablet DAILY AMRITA Administration Ondansetron HCl 4 mg 04/10/25 17:13 Ondansetron Inj 4 Mg/2 Ml Vial IV PUSH Q4H PRN Nausea Pantoprazole Sodium 40 mg 04/12/25 09:00 04/24/25 09:48 Pantoprazole 40 Mg Tablet PO 40 mg QAM AMRITA Administration Spironolactone 100 mg 04/14/25 09:00 04/15/25 08:03 Spironolactone 50 Mg Tablet PO 100 mg On Hold: 04/16/25 07:54 QAM AMRITA Administration Thiamine HCl 100 mg 04/11/25 09:00 04/24/25 11:31 Thiamine Hcl 100 Mg Tablet PO 100 mg DAILY AMRITA Administration Radiology Results: ITS Impressions Head CT 04/10/25 12:55 IMPRESSION: No evidence for acute intracranial hemorrhage or calvarial fracture. Abdomen/Pelvis CTA 04/10/25 16:34 IMPRESSION: 1. Cirrhosis with portal hypertension. 2: Splenomegaly. 3: Cardiomegaly. 4: Small amount of ascites. 5: Mild bladder wall thickening. Correlate clinically for cystitis. Paracentesis Ultrasound 04/12/25 12:02 IMPRESSION: 1. Successful ultrasound-guided paracentesis yielding 1000 mL of clear saba- colored fluid. Chest X-Ray 04/15/25 19:30 Impression: No acute cardiopulmonary abnormality. Renal Ultrasound 04/16/25 18:30 Impression: 1: Unremarkable renal ultrasound. No stones, masses or hydronephrosis. 2: Ascites. 3: Nodular liver surface, compatible with cirrhosis. Chest/Abdomen/Pelvis CT 04/17/25 15:58 IMPRESSION: 1. There are a few small patchy, reticular and bandlike opacities in the lower lungs. Differential includes atelectasis/scarring or infiltrates. 2. Small bilateral pleural effusions. 3. Small to moderate amount of nonspecific fat stranding and fluid in the abdomen and pelvis. 4. The gallbladder is contracted. Acute cholecystitis is not excluded. If of concern, consider a HIDA scan. 5. Moderate amount of stool. 6. Micronodular appearance to the surface of the liver suggestive of cirrhosis. 7. Splenomegaly 8. Mild concentric thickening of the wyman of the moderately distended bladder. Differential includes incomplete bladder wall distention versus cystitis. If symptoms persist or worsen, consider a short-term follow-up study or additional imaging for further assessment. Labs Labs: Laboratory Results - last 24 hr 04/24/25 05:11 WBC 4.5 RBC 3.60 L Hgb 8.9 L Hct 30.2 L MCV 83.9 MCH 24.7 L MCHC 29.5 L RDW 24.1 H Plt Count 109 L MPV 9.9 Immature Gran % (Auto) 0.4 Neut % (Auto) 62.7 Lymph % (Auto) 22.1 [place] % (Auto) 12.8 H Eos % (Auto) 1.1 Baso % (Auto) 0.9 Lymph # (Auto) 1.00 [place] # (Auto) 0.6 Eos # (Auto) 0.1 Baso # (Auto) 0.0 Abs Immat Gran (auto) 0.02 Absolute Neuts (auto) 2.8 Absolute Nucleated RBC 0.000 Band Neutrophils % Not Reportable Nucleated RBC % 0.0 Platelet Estimate Decreased % Immature Plt Fraction 3.0 Hypochromasia 1+ Anisocytosis 1+ Tear Drop Cells Occasional Ovalocytes 1+ [place] Cells 1+ Acanthocytes (Spur) Occasional Schistocytes None seen Sodium 130 L Potassium 4.0 Chloride 106 Carbon Dioxide 18 L Anion Gap 6 BUN 9 Creatinine 0.54 L Estim Creat Clear Calc Not Reportable Estimated GFR > 60 Glucose 98 Calcium 7.6 L Magnesium 1.9 Total Bilirubin 3.8 H AST 65 H ALT 32 Alkaline Phosphatase 145 H Total Protein 7.8 Albumin 2.9 L Quality VTE Prophylaxis VTE prophylaxis: mechanical ordered
[2025-04-24 14:00] VITALS: BP 126/75; PULSE 70; RESP 18; TEMP 35.9; O2SAT 100
[2025-04-24 21:22] VITALS: BP 152/84; PULSE 62; RESP 18; TEMP 37.1; O2SAT 100
[2025-04-25] MEDS: MEROPENEM 1 GM in SODIUM CHLORIDE 0.9% IV 100 ML 200 ML IVPB (01:07)
[2025-04-25] MEDS: ACETAMINOPHEN 325 MG TABLET 650 MG PO (02:55)
[2025-04-25] MEDS: traMADol HCL (*CRX) 25 MG TABLET PO (05:15)
--- NOTE | 2025-04-25 05:19 | PC.NURSE ---
pt c/o of lower abd pain. prn tylenol given pt slept for about a hour and stated tylenol didn't help and was still having pain. MD Aldana notitfied and gave order for a one time dose of 25 mg of tramadol. this has been given at this time.
[2025-04-25 05:36] VITALS: BP 133/85; PULSE 91; RESP 16; TEMP 37; O2SAT 100
[2025-04-25 06:22] LABS: Hematocrit 31.7 % (42.0-52.0); Hemoglobin 9.2 g/dL (14.0-18.0); Immature Granulocyte Percent A 0.4 % (0-0.5); Immature Platelet Fraction Pct 3.3 % (0.9-11.2); Lymphocytes Absolute Auto 0.87 K/mm3 (0.9-3.2); Mean Corpuscular HGB Conc 29.0 g/dl (32-36); Mean Corpuscular Hemoglobin 25.2 pg (26-34); Mean Corpuscular Volume 86.8 fl (80-100); Nucleated Red Blood Cells Absolute Auto 0.000 K/mm3 (0.0-0.012); Nucleated Red Blood Cells Perc 0.0 % (0.0-0.2); Platelet Count Result 111 k/mm3 (150-375); Red Blood Count 3.65 M/mm3 (4.6-6.20); White Blood Count 4.7 K/mm3 (4.5-10.0)
[2025-04-25 06:43] LABS: Alanine Aminotransferase 28 U/L (6-50); Albumin Level 2.9 g/dL (3.5-5.1); Alkaline Phosphatase 165 U/L (38-126); Anion Gap 7 mmol/L (4-12); Aspartate Amino Transferase 55 U/L (17-59); Bilirubin,Total 3.3 mg/dL (0.2-1.3); Blood Urea Nitrogen 8 mg/dL (9-20); Calcium 7.6 mg/dL (8.4-10.2); Carbon Dioxide 20 mmol/L (22-30); Chloride 105 mmol/L (98-107); Estimated Glomerular Filt Rate > 60; Glucose 118 mg/dL (65-110); Magnesium 1.9 mg/dL (1.6-2.3); Potassium 4.1 mmol/L (3.4-5.0); Sodium 132 mmol/L (137-145); Total Protein 8.0 g/dL (6.3-8.2)
[2025-04-25 08:09] LABS: Hypochromasia 1+
[2025-04-25 08:10] LABS: Anisocytosis 1+; Burr Cells Occasional; Schistocytes Rare
[2025-04-25 08:11] LABS: Microcytosis 1+ (NORMAL)
[2025-04-25] MEDS: DOXYCYCLINE IV 100 MG in SODIUM CHLORIDE 0.9% IV 100 ML IVPB (08:26)
[2025-04-25] MEDS: PANTOPRAZOLE 40 MG TABLET PO (08:27)
[2025-04-25] MEDS: FOLIC ACID 1 MG TABLET PO (08:27)
[2025-04-25] MEDS: THIAMINE HCL 100 MG TABLET PO (08:27)
[2025-04-25] MEDS: THERAPEUTIC MULTIVITAMINS/MINERALS TAB (*BKC) 1 TABLET PO (08:27)
[2025-04-25 08:30] VITALS: PULSE 84; RESP 18; O2SAT 99
[2025-04-25 14:00] VITALS: BP 140/83; PULSE 85; RESP 18; TEMP 36.4; O2SAT 100
--- NOTE | 2025-04-25 14:48 | P.DS_ITS ---
DS: Admitting Diagnosis Discharge Date 04/25/25 Admitting Diagnosis Seizure DS: Discharge Diagnosis Discharge Diagnosis (1) Alcohol abuse: Code(s): F10.10 - Alcohol abuse, uncomplicated Status: Acute (2) Thrombocytopenia: Code(s): D69.6 - Thrombocytopenia, unspecified Status: Acute (3) Cirrhosis of liver: Qualifiers: Ascites presence: with ascites Hepatic cirrhosis type: alcoholic cirrhosis Qualified Code(s): K70.31 - Alcoholic cirrhosis of liver with ascites Code(s): K74.60 - Unspecified cirrhosis of liver Status: Acute (4) GI (gastrointestinal hemorrhage): Qualifiers: GI bleed type/associated pathology: unspecified gastrointestinal hemorrhage type Qualified Code(s): K92.2 - Gastrointestinal hemorrhage, unsp ecified Code(s): K92.2 - Gastrointestinal hemorrhage, unspecified Status: Acute (5) Ascites: Code(s): R18.8 - Other ascites Status: Acute (6) Alcohol withdrawal seizure: Qualifiers: Complication of substance-induced condition: uncomplicated Qualified Code(s): F10.930 - Alcohol use, unspecified with withdrawal, uncomplicated; R56.9 - Unspecified convulsions Code(s): F10.939 - Alcohol use, unspecified with withdrawal, unspecified; R56.9 - Unspecified convulsions Status: Acute Plan Anemia: Patient presented with hemoglobin of 2.5. No hematochezia melena hematemesis. Suspect ongoing chronic GI bleed likely variceal considering patient has history of cirrhosis Started on Protonix IV and octreotide infusion Status post 4 units of PRBC post transfusion hemoglobin is 6 underwent another transfusion Monitor serial hemoglobin which has been stable now GI consulted Status post EGD and colonoscopy EGD: Gastritis. On Protonix Colonoscopy: Colonic polyps Thrombocytopenia likely related to cirrhosis Alcohol abuse on thiamine and folic acid she will monitoring On Librium will decrease the dose to q.8 hours. Now tapered off Cirrhosis of liver secondary to alcohol abuse. Received vitamin K IM. SBP prophylaxis Rocephin which has been discontinued now. Patient was started on Lasix and spironolactone. Also start on nonselective beta-lazaro as tolerated with Yinka I will stop Lasix and spironolactone Fever spike 04/15/2025 pancultured. Empirically started on cefepime. Chest x- ray was negative. UA negative. Still spiking fever will romeo scan further evaluate. Could be from iron infusion will hold off on any further iron infusions. YINKA 04/16/2025 creatinine bumped up to 1.8. Will hold Lasix and spironolactone. Renal ultrasound unremarkable Give IV fluid. Monitor intake and output and renal failure has resolved GI bleed see above Alcohol withdrawal seizure no prior history of seizure recurrence since coming to the hospital Seizure precautions On Librium and p.r.n. Valium Ascites status post paracentesis of 1 L Generalized weakness PT OT to see DVT prophylaxis SCDs Stress ulcer prophylaxis ppi Code status full code Patient reports no new complaints. Denies any abdominal pain nausea vomiting. No cough. No urinary symptoms, his pancytopenia most likely 2/2 to bone marrow suppression due to alcohol abuse, also resulted iron deficiency anemia, being supplement with IV iron there is concern patient develop fever after iron infusion, patient had been having fever on and off and, patient did get iron infusion yesterday and there was no fever recorded will monitor, blood culture is growing gram negative bacilli, being treated with Cefepime, will follow on blood culture and sensitivity. will monitor. will monitor, patient is trying to get hold of his freind for discharge planning. 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 DS: Summary Hospital Course Hospital Course: Anemia: Patient presented with hemoglobin of 2.5. No hematochezia melena hematemesis. Suspect ongoing chronic GI bleed likely variceal considering patient has history of cirrhosis Started on Protonix IV and octreotide infusion Status post 4 units of PRBC post transfusion hemoglobin is 6 underwent another transfusion Monitor serial hemoglobin which has been stable now GI consulted Status post EGD and colonoscopy EGD: Gastritis. On Protonix Colonoscopy: Colonic polyps Thrombocytopenia likely related to cirrhosis Alcohol abuse on thiamine and folic acid she will monitoring On Librium will decrease the dose to q.8 hours. Now tapered off Cirrhosis of liver secondary to alcohol abuse. Received vitamin K IM. SBP prophylaxis Rocephin which has been discontinued now. Patient was started on Lasix and spironolactone. Also start on nonselective beta-lazaro as tolerated with Yinka I will stop Lasix and spironolactone Fever spike 04/15/2025 pancultured. Empirically started on cefepime. Chest x- ray was negative. UA negative. Still spiking fever will romeo scan further evaluate. Could be from iron infusion will hold off on any further iron infusions. YINKA 04/16/2025 creatinine bumped up to 1.8. Will hold Lasix and spironolactone. Renal ultrasound unremarkable Give IV fluid. Monitor intake and output and renal failure has resolved GI bleed see above Alcohol withdrawal seizure no prior history of seizure recurrence since coming to the hospital Seizure precautions On Librium and p.r.n. Valium Ascites status post paracentesis of 1 L Generalized weakness PT OT to see DVT prophylaxis SCDs Stress ulcer prophylaxis ppi Code status full code Patient reports no new complaints. Denies any abdominal pain nausea vomiting. No cough. No urinary symptoms, his pancytopenia most likely 2/2 to bone marrow suppression due to alcohol abuse, also resulted iron deficiency anemia, being supplement with IV iron there is concern patient develop fever after iron infusion, patient had been having fever on and off and, patient did get iron infusion yesterday and there was no fever recorded will monitor, blood culture is growing gram negative bacilli, being treated with Cefepime, will follow on blood culture and sensitivity. will monitor. will monitor, patient is trying to get hold of his freind for discharge planning. 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 Today again patient was seen by the ID and recommended that patient can be discharge on oral doxycycline another 2 days, patient is clinically, he has not had any seizure, will discharge patient home today. Time Spent with Patient Time attestation: Total time spent providing and/or coordinating discharge services: Exam Narrative: Appears chronically ill older than his age Patient is comfortable, NAD HEENT: eyes are clear and none icteric LUNGS:CTA HEART: RR S1S2 ABD: BS+, Soft and nontender Lower extremities: no edema SKIN: nonjaundiced Neuro: grossly intact. DS: Data Data Completed and Pending Completed studies during hospitalization: Pending at discharge 04/11/25 13:31 Surgical [PTH] Routine 04/12/25 14:39 Surgical [PTH] Routine Labs on day of discharge: Labs from last 24 hours 04/25/25 05:36 WBC 4.7 RBC 3.65 L Hgb 9.2 L Hct 31.7 L MCV 86.8 MCH 25.2 L MCHC 29.0 L RDW 23.7 H Plt Count 111 L MPV 9.8 Immature Gran % (Auto) 0.4 Neut % (Auto) 64.1 Lymph % (Auto) 18.7 [place] % (Auto) 14.8 H Eos % (Auto) 1.1 Baso % (Auto) 0.9 Lymph # (Auto) 0.87 L [place] # (Auto) 0.7 H Eos # (Auto) 0.1 Baso # (Auto) 0.0 Abs Immat Gran (auto) 0.02 Absolute Neuts (auto) 3.0 Absolute Nucleated RBC 0.000 Band Neutrophils % Not Reportable Nucleated RBC % 0.0 Platelet Estimate Decreased % Immature Plt Fraction 3.3 Hypochromasia 1+ Anisocytosis 1+ Microcytosis 1+ Pau Cells Occasional Schistocytes Rare Sodium 132 L Potassium 4.1 Chloride 105 Carbon Dioxide 20 L Anion Gap 7 BUN 8 L Creatinine 0.61 L Estim Creat Clear Calc Not Reportable Estimated GFR > 60 Glucose 118 H Calcium 7.6 L Magnesium 1.9 Total Bilirubin 3.3 H AST 55 ALT 28 Alkaline Phosphatase 165 H Total Protein 8.0 Albumin 2.9 L Preliminary micro results at discharge 04/22/25 10:52 Blood Culture - Preliminary Blood 04/22/25 10:35 Blood Culture - Preliminary Blood Discharge Plan Discharge Attending physician on discharge: Yvonne Resendiz Consulting providers: Nato Badillo; Mike Moreno; Marguerite Mo; Mello Eng; Mk Cr; Jeannette Colbert; Emile Wild; Jesús Alcaraz; Katya Hanson; Tj Agee; Melani Powell; Jamir Gross; uJstin Marinelli; Jelani Pace Jr.; Nelsy Hunter; Robert Yeboah; Chon Pederson; Nato Martinez; Johnson Temple Discharging Clinician: Yovanny Almodovar Patient Disposition: Home Activity: as tolerated Diet: heart healthy Discharge Instructions: patient to avoid alcohol, and follow up with his primary care provider as soon as possible, patient is instructed if any symptoms redevelop to go to nearest ER. Patient Instructions: Antibiotic Form Patient Language: Citizen Of [place] Stand Alone Forms: General Discharge Information Follow-up/Referrals: Nato Badillo MD [Physician, Hematology] UNKNOWN,DOCTOR [Primary Care Provider] Discharge Medications: New thiamine HCl (vitamin B1) [Vitamin B-1] 100 mg Tablet 100 mg PO DAILY Qty: 90 0RF pantoprazole 40 mg Tablet,Delayed Release (Dr/Ec) 40 mg PO QAM Qty: 30 0RF folic acid 1 mg Tablet 1 mg PO DAILY Qty: 90 0RF doxycycline hyclate 100 mg Tablet 100 mg PO Q12HR Qty: 4 0RF spironolactone [Aldactone] 50 mg Tablet 100 mg PO QAM Qty: 30 0RF Multiple Vitamin-Minerals Tablet 1 tablet PO DAILY Qty: 90 0RF Date of admission: 04/10/25 17:13 Primary Care Provider: UNKNOWN,DOCTOR Admitting Provider: Yvonne Resendiz Attending physician on admission: Yovanny Almodovar Condition: Stable
--- NOTE | 2025-04-25 19:04 | WPDINFPN2 ---
Progress Note: A&P Assessment and Plan (1) Bacteremia due to Gram-negative bacteria: Code(s): R78.81 - Bacteremia Status: Acute (2) Anemia: Qualifiers: Anemia type: unspecified type Qualified Code(s): D64.9 - Anemia, unspecified Code(s): D64.9 - Anemia, unspecified Status: Acute (3) Alcohol withdrawal seizure: Qualifiers: Complication of substance-induced condition: uncomplicated Qualified Code(s): F10.930 - Alcohol use, unspecified with withdrawal, uncomplicated; R56.9 - Unspecified convulsions Code(s): F10.939 - Alcohol use, unspecified with withdrawal, unspecified; R56.9 - Unspecified convulsions Status: Acute (4) Ascites: Code(s): R18.8 - Other ascites Status: Acute (5) Alcohol abuse: Code(s): F10.10 - Alcohol abuse, uncomplicated Status: Acute (6) Cirrhosis of liver: Qualifiers: Ascites presence: with ascites Hepatic cirrhosis type: alcoholic cirrhosis Qualified Code(s): K70.31 - Alcoholic cirrhosis of liver with ascites Code(s): K74.60 - Unspecified cirrhosis of liver Status: Acute Plan # 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 # Alcoholic cirrhosis with ascites. # Severe anemia as well as generalized pancytopenia on presentation related to the above and presumed GI blood loss. -- EGD with gastritis. Plan: -- difficulty maintaining an IV. Would change daptomycin to 100 mg p.o. q.12 hours unknown x4 more doses. -- discontinue meropenem. Patient was seen via video telehealth consultation with the assistance of staff. Chart, data, and patient independently reviewed. Patient was located at [facility] while I was located in my [place] office. Received verbal consent from patient. Subjective Date/time seen: 04/25/25 19:04 Interval history: 04/24/2025: Afebrile. Vital signs stable. Hemoglobin stable. BUN 9 and creatinine 0.54. Less confused today. No new complaints. 04/25/2025: Sitting up at side of bed. Nontoxic in overall doing well. Blood cultures 04/15: Ochromobacterium Blood cultures 04/22: Pending Ascites culture 04/12: negative, final Doxycycline 100 mg IV q.12 hours 04/21 -- Meropenem 1 g IV q.8 hours 04/23-- Review of Systems Review of Systems: All systems reviewed & are unremarkable except as noted in HPI and below Exam Narrative: Awake and alert and interactive. Lessened confusion. No distress. Appears to have some scleral icterus. No respiratory distress. Some abdominal distension. Having issue maintaining right arm peripheral IV. No apparent rash. Objective Data Vital Signs Vital Signs: Vital Signs - 24 hr 04/24/25 21:22 04/25/25 05:36 04/25/25 08:30 Temperature 98.7 F 98.6 F Pulse Rate 62 91 84 Respiratory Rate 18 16 18 Blood Pressure 152/84 H 133/85 Pulse Oximetry 100 100 99 Oxygen Delivery Room Air Fraction of Inspired Oxygen 04/25/25 14:00 Temperature 97.6 F Pulse Rate 85 Respiratory Rate 18 Blood Pressure 140/83 Pulse Oximetry 100 Oxygen Delivery Fraction of Inspired Oxygen Intake/Output Intake/Output: Intake & Output 04/22/25 04/23/25 04/24/25 04/25/25 23:59 23:59 23:59 23:59 Intake Total 2039 2280 1555 820 Output Total 2049 1100 600 Balance -10 1180 1555 220 Meds/Results Medications: Active Medications Generic Name Dose Route Start Last Admin Trade Name Freq PRN Reason Stop Dose Admin Acetaminophen 650 mg 04/15/25 15:57 04/25/25 02:55 Acetaminophen 325 Mg Tablet PO 650 mg Q6H PRN Administration Mild Pain (1-3) or Fever Diazepam 5 mg 04/10/25 17:48 Diazepam Inj (*Crx) 10 Mg/2 Ml Syringe IV PUSH Q5M PRN CIWA > 15 Doxycycline Hyclate 100 mg 04/25/25 21:00 Doxycycline Hyclate 100 Mg Tablet PO Q12HR AMRITA Folic Acid 1 mg 04/11/25 09:00 04/25/25 08:27 Folic Acid 1 Mg Tablet PO 1 mg DAILY AMRITA Administration Furosemide 20 mg 04/14/25 09:00 04/15/25 08:03 Furosemide 20 Mg Tablet PO 20 mg On Hold: 04/16/25 07:53 DAILY AMRITA Administration Multivitamins/Calcium 1 tablet 04/11/25 09:00 04/25/25 08:27 Therapeutic Multivitamins/Minerals Tab (*Bkc) PO 1 tablet DAILY AMRITA Administration Ondansetron HCl 4 mg 04/10/25 17:13 Ondansetron Inj 4 Mg/2 Ml Vial IV PUSH Q4H PRN Nausea Pantoprazole Sodium 40 mg 04/12/25 09:00 04/25/25 08:27 Pantoprazole 40 Mg Tablet PO 40 mg QAM AMRITA Administration Spironolactone 100 mg 04/14/25 09:00 04/15/25 08:03 Spironolactone 50 Mg Tablet PO 100 mg On Hold: 04/16/25 07:54 QAM AMRITA Administration Thiamine HCl 100 mg 04/11/25 09:00 04/25/25 08:27 Thiamine Hcl 100 Mg Tablet PO 100 mg DAILY AMRITA Administration Radiology Results: ITS Impressions Head CT 04/10/25 12:55 IMPRESSION: No evidence for acute intracranial hemorrhage or calvarial fracture. Abdomen/Pelvis CTA 04/10/25 16:34 IMPRESSION: 1. Cirrhosis with portal hypertension. 2: Splenomegaly. 3: Cardiomegaly. 4: Small amount of ascites. 5: Mild bladder wall thickening. Correlate clinically for cystitis. Paracentesis Ultrasound 04/12/25 12:02 IMPRESSION: 1. Successful ultrasound-guided paracentesis yielding 1000 mL of clear saba-colored fluid. Chest X-Ray 04/15/25 19:30 Impression: No acute cardiopulmonary abnormality. Renal Ultrasound 04/16/25 18:30 Impression: 1: Unremarkable renal ultrasound. No stones, masses or hydronephrosis. 2: Ascites. 3: Nodular liver surface, compatible with cirrhosis. Chest/Abdomen/Pelvis CT 04/17/25 15:58 IMPRESSION: 1. There are a few small patchy, reticular and bandlike opacities in the lower lungs. Differential includes atelectasis/scarring or infiltrates. 2. Small bilateral pleural effusions. 3. Small to moderate amount of nonspecific fat stranding and fluid in the abdomen and pelvis. 4. The gallbladder is contracted. Acute cholecystitis is not excluded. If of concern, consider a HIDA scan. 5. Moderate amount of stool. 6. Micronodular appearance to the surface of the liver suggestive of cirrhosis. 7. Splenomegaly 8. Mild concentric thickening of the wyman of the moderately distended bladder. Differential includes incomplete bladder wall distention versus cystitis. If symptoms persist or worsen, consider a short-term follow-up study or additional imaging for further assessment. Labs Labs: Laboratory Results - last 24 hr 04/25/25 05:36 WBC 4.7 RBC 3.65 L Hgb 9.2 L Hct 31.7 L MCV 86.8 MCH 25.2 L MCHC 29.0 L RDW 23.7 H Plt Count 111 L MPV 9.8 Immature Gran % (Auto) 0.4 Neut % (Auto) 64.1 Lymph % (Auto) 18.7 [place] % (Auto) 14.8 H Eos % (Auto) 1.1 Baso % (Auto) 0.9 Lymph # (Auto) 0.87 L [place] # (Auto) 0.7 H Eos # (Auto) 0.1 Baso # (Auto) 0.0 Abs Immat Gran (auto) 0.02 Absolute Neuts (auto) 3.0 Absolute Nucleated RBC 0.000 Band Neutrophils % Not Reportable Nucleated RBC % 0.0 Platelet Estimate Decreased % Immature Plt Fraction 3.3 Hypochromasia 1+ Anisocytosis 1+ Microcytosis 1+ [place] Cells Occasional Schistocytes Rare Sodium 132 L Potassium 4.1 Chloride 105 Carbon Dioxide 20 L Anion Gap 7 BUN 8 L Creatinine 0.61 L Estim Creat Clear Calc Not Reportable Estimated GFR > 60 Glucose 118 H Calcium 7.6 L Magnesium 1.9 Total Bilirubin 3.3 H AST 55 ALT 28 Alkaline Phosphatase 165 H Total Protein 8.0 Albumin 2.9 L
[2025-04-25] MEDS: DOXYCYCLINE HYCLATE 100 MG TABLET PO (20:12)
== END 2025-04-25 20:23 | disposition home or self-care (01) | DRG 280 ==
LOC: ANHED 17:26 → ANHICU 17:59 → ANHIMU 04-11 15:34 → ANH3MEDSUR 04-13 16:52
PROVIDERS: General Practice; Internal Medicine; Internal Medicine Gastroenterology; Nurse Practitioner Gerontology; Admitting Provider Internal Medicine; Emergency Provider Family Medicine; Visit Provider Family Medicine
PROC: 0DJ08ZZ Inspection of Upper Intestinal Tract, Via Natural or Artificial Opening Endoscopic (ICD-10-PCS; principal; 2025-04-11 14:45)
PROC: 0DJD8ZZ Inspection of Lower Intestinal Tract, Via Natural or Artificial Opening Endoscopic (ICD-10-PCS; CPT 45378; principal; 2025-04-12 15:15)
DX: K70.31 Alcoholic cirrhosis of liver with ascites (principal); K76.6 Portal hypertension; D63.8 Anemia in other chronic diseases classified elsewhere; F10.10 Alcohol abuse, uncomplicated; D50.9 Iron deficiency anemia, unspecified; R56.9 Unspecified convulsions; W19.XXXA Unspecified fall, initial encounter; D69.6 Thrombocytopenia, unspecified; Z87.891 Personal history of nicotine dependence; E83.51 Hypocalcemia; K63.5 Polyp of colon; D61.818 Other pancytopenia; N17.9 Acute kidney failure, unspecified; R50.9 Fever, unspecified; B96.89 Other specified bacterial agents as the cause of diseases classified elsewhere; R78.81 Bacteremia; K92.2 Gastrointestinal hemorrhage, unspecified
CPT/HCPCS: 36415; 36430; 49083; 70450; 71045; 71250; 74174; 74176; 76770; 80048; 80053; 80074; 80307; 81001; 82042; 82077; 82140; 82274; 82728; 82945; 82948; 83540; 83550; 83605; 83615; 83690; 83735; 83880; 84100; 84157; 85014; 85018; 85025; 85027; 85055; 85610; 85730; 86644; 86850; 86900; 86901; 86923; 87040; 87186; 87205; 87641; 88305; 88342; 89051; 93005; 93306; 96361; 96374; 96375; 97161; 97165; 99285; A9270; J0612; J0692; J0696; J1756; J2003; J2185; J2354; J2470; J2704; J3430; J3480; J7030; J7040; J7050; J7120; P9016; P9034; Q9967